=== PATIENT | male | born 1950 | race Caucasian/White ===

== ENCOUNTER → 2017-02-09 | Outpatient (CLI) | payer MEDICARE, OTHER ==
[~2017-02-09] MED LIST: CATHETER FLUSH 10 ML SYR IV PRN; FOSI10TA PO; FURO80TA PO; GABA600T2 PO; HYDR-3720 PO; IOHEXOL 350 MG/ML 100 ML (OMNIPAQUE 350) VIAL IV ONE; LISI40TA PO; LOSA25TA15 PO; META800T5 PO; METO25TA PO; SIMV40TA4 PO; TERA5CAP10 PO
[2017-02-09 10:11] LABS: CREATININE SERUM 1.26 MG/DL (0.60-1.30)
--- NOTE | 2017-02-09 11:56 | Diagnostic Imaging Report ---
CT angiogram of the abdomen. INDICATION: AAA. Hypertension. 100 mL of Omnipaque 350 is administered intravenously. FINDINGS: There is a 4 cm infrarenal abdominal aortic aneurysm seen. There is intramural thrombus noted. When compared to 01/29/2015, there is no significant change in the size of the aneurysm noted. The celiac trunk, the SMA, and the renal arteries are patent. The ROD is patent. There is no para-aortic significantly enlarged lymph node seen. The lung bases demonstrate slight atelectasis on the left side with a small left pleural effusion. The liver demonstrates a 7 mm hyperenhancing focus in the inferior aspect of the right hepatic lobe, may relate to a flash-filling hemangioma. The spleen, the pancreas, and the adrenal glands appear unremarkable. The kidneys have symmetric contrast enhancement and excretion. There is no hydronephrosis. There is a 1 cm simple cyst in the mid posterior left kidney. The osseous structures demonstrate degenerative changes of the lower lumbar spine. IMPRESSION: Infrarenal AAA measuring 4 mm in caliber stable from 01/29/2015. Dictated by: Dictated on workstation # [id number]
== END ==
LOC: RAD 09:40
PROVIDERS: ATTEND Nurse Practitioner
DX: I71.4 Abdominal aortic aneurysm, without rupture (principal); I10 Essential (primary) hypertension
CPT/HCPCS: 36415; 74175; 82565

== ENCOUNTER → 2017-08-23 | Outpatient (CLI) | payer MEDICARE ==
[~2017-08-23] MED LIST changes: +AMLO5TAB2 PO; +ATOR20TA66 PO; -CATHETER FLUSH 10 ML SYR IV PRN; +CEFP200T2 PO; +HYDR-3816 PO; +HYDR12.5 PO; -IOHEXOL 350 MG/ML 100 ML (OMNIPAQUE 350) VIAL IV ONE; +LORA1TAB PO; +LOSA100T28 PO; +METO50TA2 PO; +OMG1KC PO; +PRD20T PO; +QUET400T35 PO; +TERA5CAP3 PO
--- NOTE | 2017-08-23 19:13 | Diagnostic Imaging Report ---
EXAMINATION: PET-CT TECHNIQUE: Serum glucose level at the time of the study is: 137 mg/dL. 14.5 mCi of FDG was administered intravenously followed by obtaining PET images with corresponding noncontrast CT scan images. The CT scan was performed for anatomic correlation and attenuation correction and was not performed according to the diagnostic protocol of the areas covered. The scan was performed from the head to mid thighs. INDICATION: Lung mass in the superior segment of the right lower lobe. COMPARISON: CT of 08/04/17. FINDINGS: There is symmetric FDG uptake in the brain. There is no significant hypermetabolic lesion noted in the neck. In the chest, there is no significant hypermetabolism seen within the nodule in the superior segment of the right lower lobe. This nodule is smaller in size compared to the previous CT scan now measuring 1.6 cm in favor of improving pneumonia. No suspicious hypermetabolic lesion in the mediastinum or felicitas. In the abdomen and pelvis: There is an infrarenal abdominal aortic aneurysm measuring 4.1 cm in caliber. Expected excretion of the tracer is seen along the urinary tract with no suspicious hypermetabolic mass is identified in the abdomen or pelvis. IMPRESSION: 1. No significant hypermetabolism in the superior segment right lower lobe lung nodule which is also smaller in size compared to the previous study suggestive of improving pneumonia. No evidence of hypermetabolic mass is seen. 2. Infrarenal AAA measuring 4.1 cm in caliber. Dictated by: Dictated on workstation # [id number]
== END ==
LOC: RAD 11:01
PROVIDERS: ATTEND Pediatrics
DX: R91.1 Solitary pulmonary nodule (principal); I71.4 Abdominal aortic aneurysm, without rupture

== ENCOUNTER 2017-09-13 14:50 | Outpatient (CLI) | payer MEDICARE ==
[~2017-09-13 14:50] MED LIST changes: +CEFD300C3 PO; +QUET400T12 PO; -QUET400T35 PO
== END 2017-09-13 15:00 | disposition home or self-care (01) ==
LOC: SLEEP 14:50
PROVIDERS: ATTEND Internal Medicine Critical Care Medicine
DX: G47.10 Hypersomnia, unspecified (principal); G47.50 Parasomnia, unspecified

== ENCOUNTER 2017-11-29 15:00 | Outpatient (CLI) | payer MEDICARE ==
[~2017-11-29] VITALS: Ht 181.6 cm; Wt 98.4 kg
[~2017-11-29 15:00] MED LIST changes: +HYDR-34 PO; -HYDR-3816 PO; +METO50TA15 PO; -METO50TA2 PO
[2017-11-29] MEDS ORDERED: HYDR12.56 PO (15:47)
[2017-11-29] MEDS ORDERED: AMLO10TA2 PO (15:47)
== END 2017-11-29 15:30 ==
LOC: PREOP 15:00
PROVIDERS: ATTEND Surgery
DX: Z01.818 Encounter for other preprocedural examination (principal); L98.9 Disorder of the skin and subcutaneous tissue, unspecified

== ENCOUNTER → 2017-11-30 | Outpatient (CLI) | payer MEDICARE ==
[~2017-11-30] MED LIST changes: +AMLO10TA2 PO; +HYDR12.56 PO
--- NOTE | 2017-11-30 15:05 | Diagnostic Imaging Report ---
PROCEDURE: CT chest without contrast. TECHNIQUE: Multiple contiguous axial images were obtained through the chest without the use of intravenous contrast. INDICATION: Pulmonary infiltrates and abnormal prior CT. Study is performed for followup. COMPARISON: Comparison is made with prior CT chest from 08/04/2017. FINDINGS: Multiple normal-sized lymph nodes identified in the axillae bilaterally. Hilar and mediastinal evaluation is limited without intravenous contrast. There are coronary arterial calcifications present. No pericardial or pleural fluid is seen. The central airways are unremarkable. Parenchymal evaluation demonstrates marked improved appearance to the chest. There has been near complete resolution of the right perihilar upper lobe infiltrate. In addition, the masslike consolidation in the superior segment of the right lower lobe has resolved. There is minimal residual linear atelectasis or scarring in the right lower lobe. There is some mild infiltrate or atelectasis in the posterior left lower lobe with some associated bronchiectasis. No mass is seen. IMPRESSION: Near complete clearing of right-sided pulmonary opacities consistent with clearance of pneumonia when compared with prior CT from 08/04/2017. There is some infiltrate or atelectasis in the left lower lobe with associated mild bronchiectasis. Dictated by: Dictated on workstation # [id number]
== END ==
LOC: RAD 14:08
PROVIDERS: ATTEND Nurse Practitioner Family
DX: J47.9 Bronchiectasis, uncomplicated (principal); R91.8 Other nonspecific abnormal finding of lung field
CPT/HCPCS: 71250

== ENCOUNTER 2017-12-01 09:18 | Day surgery (SDC) | payer MEDICARE ==
[~2017-12-01] VITALS: Ht 181.6 cm; Wt 98.4 kg
--- OUTSIDE RECORDS SUMMARY | 2017-12-01 09:25 | XMS REPORT | Continuity of Care Document ---
Author Author [facility] Address Unknown Phone Unavailable Allergies Active Description Code Type Severity Reaction Onset Reported/Identified Relationship to Patient Clinical Status Yes naproxen Drug Allergy N/A N/A 09/11/2011 Yes naproxen Drug Allergy 09/11/2011 Yes naproxen [id number] Drug Allergy Moderate CAUSED KIDNEY D 03/02/2012 Yes flurazepam 30 mg capsule Drug Allergy N/A N/A 07/26/2014 Yes Ambien CR 12.5 mg tablet,ext release multiphase Drug Allergy N/A N/A 06/2014 Medications There is no data. Problems Date Dx Coded Attending Type Code Diagnosis Diagnosed By 09/11/2011 BRENDA WETZEL APRN 302.72 ERECTILE DISORDER 09/11/2011 BRENDA WETZEL APRN 401.1 HYPERTENSION, BENIGN ESSENTIAL 09/11/2011 BRENDA WETZEL APRN 782.1 RASH 09/11/2011 302.72 ERECTILE DISORDER 09/11/2011 401.1 HYPERTENSION, BENIGN ESSENTIAL 09/11/2011 782.1 RASH 09/11/2011 302.72 ERECTILE DISORDER 09/11/2011 401.1 HYPERTENSION, BENIGN ESSENTIAL 09/11/2011 782.1 RASH 09/11/2011 BRENDA WETZEL APRN 302.72 ERECTILE DISORDER 09/11/2011 BRENDA WETZEL APRN 401.1 HYPERTENSION, BENIGN ESSENTIAL 09/11/2011 BRENDA WETZEL APRN 782.1 RASH 09/11/2011 BRENDA WETZEL APRN 302.72 ERECTILE DISORDER 09/11/2011 BRENDA WETZEL APRN 401.1 HYPERTENSION, BENIGN ESSENTIAL 09/11/2011 BRENDA WETZEL APRN 782.1 RASH 09/11/2011 BRENDA WETZEL APRN 302.72 ERECTILE DISORDER 09/11/2011 BRENDA WETZEL APRN 401.1 HYPERTENSION, BENIGN ESSENTIAL 09/11/2011 BRENDA WETZEL APRN 782.1 RASH 09/11/2011 TALLEY DO, DAR K 302.72 ERECTILE DISORDER 09/11/2011 TALLEY DO, DAR K 401.1 HYPERTENSION, BENIGN ESSENTIAL 09/11/2011 TALLEY DO, DAR K 782.1 RASH 09/11/2011 BRENDA WETZEL APRN T 302.72 ERECTILE DISORDER 09/11/2011 BRENDA WETZEL APRN T 401.1 HYPERTENSION, BENIGN ESSENTIAL 09/11/2011 BRENDA WETZEL APRN T 782.1 RASH 09/11/2011 BRENDA WETZEL APRN T 302.72 ERECTILE DISORDER 09/11/2011 BRENDA WETZEL APRN T 401.1 HYPERTENSION, BENIGN ESSENTIAL 09/11/2011 DAMARI FLOOR COVERING LAYERBRENDA T 782.1 RASH 09/11/2011 BRENDA WETZEL APRN T 302.72 ERECTILE DISORDER 09/11/2011 BRENDA WETZEL APRN T 401.1 HYPERTENSION, BENIGN ESSENTIAL 09/11/2011 BRENDA WETZEL APRN T 782.1 RASH 09/11/2011 BRENDA WETZEL APRN T 302.72 ERECTILE DISORDER 09/11/2011 BRENDA WETZEL APRN T 401.1 HYPERTENSION, BENIGN ESSENTIAL 09/11/2011 BRENDA WETZEL APRN T 782.1 RASH 01/24/2012 BRENDA WETZEL APRN T 780.52 INSOMNIA UNSPECIFIED 01/24/2012 780.52 INSOMNIA UNSPECIFIED 01/24/2012 780.52 INSOMNIA UNSPECIFIED 01/24/2012 BRENDA WETZEL APRN T 780.52 INSOMNIA UNSPECIFIED 01/24/2012 BRENDA WETZEL APRN T 780.52 INSOMNIA UNSPECIFIED 01/24/2012 BRENDA WETZEL APRN T 780.52 INSOMNIA UNSPECIFIED 01/24/2012 MAYANK DODAR K 780.52 INSOMNIA UNSPECIFIED 01/24/2012 BRENDA WETZEL APRN T 780.52 INSOMNIA UNSPECIFIED 01/24/2012 BRENDA WETZEL APRN T 780.52 INSOMNIA UNSPECIFIED 01/24/2012 BRENDA WETZEL APRN T 780.52 INSOMNIA UNSPECIFIED 01/24/2012 BRENDA WETZEL APRN T 780.52 INSOMNIA UNSPECIFIED 03/02/2012 Ot 458.9 03/02/2012 Ot 780.79 03/02/2012 Ot E936.3 11/10/2012 BRENDA WETZEL APRN 724.2 BACK PAIN, LOWER 11/10/2012 BRENDA WETZEL APRN 724.2 BACK PAIN, LOWER 11/10/2012 BRENDA WETZEL APRN 724.2 BACK PAIN, LOWER 11/10/2012 TALLEY DO, DAR K 724.2 BACK PAIN, LOWER 11/10/2012 BRENDA WETZEL APRN 724.2 BACK PAIN, LOWER 11/10/2012 BRENDA WETZEL APRN 724.2 BACK PAIN, LOWER 11/10/2012 BRENDA WETZEL APRN 724.2 BACK PAIN, LOWER 05/14/2013 BRENDA WETZEL APRN 786.2 COUGH 05/14/2013 BRENDA WETZEL APRN V15.82 PERSONAL HISTORY OF TOBACCO USE 05/14/2013 TALLEY DO, DAR K 786.2 COUGH 05/14/2013 TALLEY DO, DAR K V15.82 PERSONAL HISTORY OF TOBACCO USE 05/14/2013 BRENDA WETZEL APRN 786.2 COUGH 05/14/2013 BRENDA WETZEL APRN V15.82 PERSONAL HISTORY OF TOBACCO USE 05/14/2013 BRENDA WETZEL APRN 786.2 COUGH 05/14/2013 BRENDA WETZEL APRN V15.82 PERSONAL HISTORY OF TOBACCO USE 05/14/2013 BRENDA WETZEL APRN 786.2 COUGH 05/14/2013 BRENDA WETZEL APRN V15.82 PERSONAL HISTORY OF TOBACCO USE 08/17/2013 TALLEY DO, DAR K V04.81 FLU SHOT 08/17/2013 BRENDA WETZEL APRN V04.81 FLU SHOT 08/17/2013 BRENDA WETZEL APRN V04.81 FLU SHOT 08/17/2013 BRENDA WETZEL APRN V04.81 FLU SHOT 08/16/2014 BRENDA WETZEL APRN 300.00 ANXIETY UNSPEC 08/16/2014 BRENDA WETZEL APRN 300.00 ANXIETY UNSPEC 01/29/2015 BRENDA FERNANDES DO Ot 441.4 ABDOM AORTIC ANEURYSM 01/29/2015 BRENDA FERNANDES DO Ot 724.2 LUMBAGO 03/10/2015 BRENDA WETZEL EXAMINATION SCORER Ot 441.4 03/10/2015 BRENDA WETZEL EXAMINATION SCORER Ot 786.50 04/03/2015 BRENDA WETZEL EXAMINATION SCORER Ot 441.4 04/03/2015 BRENDA WETZEL EXAMINATION SCORER Ot 786.50 05/30/2015 BRENDA WETZELP Ot 441.4 05/30/2015 BRENDA WETZEL EXAMINATION SCORER Ot 786.50 06/05/2015 BRENDA WETZEL EXAMINATION SCORER Ot 441.4 06/05/2015 BRENDA WETZEL EXAMINATION SCORER Ot 786.50 07/21/2016 BRENDA WETZEL EXAMINATION SCORER Ot 441.4 ABDOM AORTIC ANEURYSM 07/21/2016 BRENDA WETZEL EXAMINATION SCORER Ot 786.50 CHEST PAIN NOS 07/22/2016 BRENDA WETZEL EXAMINATION SCORER Ot I71.4 ABDOMINAL AORTIC ANEURYSM, WITHOUT RUPTU 07/23/2016 BRENDA WETZEL EXAMINATION SCORER Ot I71.4 ABDOMINAL AORTIC ANEURYSM, WITHOUT RUPTU 08/03/2016 BRENDA WETZEL EXAMINATION SCORER Ot I71.4 ABDOMINAL AORTIC ANEURYSM, WITHOUT RUPTU 09/29/2016 BRENDA WETZEL EXAMINATION SCORER Ot 441.4 ABDOM AORTIC ANEURYSM 09/29/2016 BRENDA WETZEL EXAMINATION SCORER Ot 786.50 CHEST PAIN NOS 09/29/2016 BRENDA WETZEL EXAMINATION SCORER Ot I71.4 ABDOMINAL AORTIC ANEURYSM, WITHOUT RUPTU 10/14/2016 BRENDA WETZEL EXAMINATION SCORER Ot I71.4 ABDOMINAL AORTIC ANEURYSM, WITHOUT RUPTU 02/10/2017 JOE JOSE EXAMINATION SCORER Ot I10 ESSENTIAL (PRIMARY) HYPERTENSION 02/10/2017 OJE JOSE EXAMINATION SCORER Ot I71.4 ABDOMINAL AORTIC ANEURYSM, WITHOUT RUPTU 02/21/2017 JOE JOSE EXAMINATION SCORER Ot I10 ESSENTIAL (PRIMARY) HYPERTENSION 02/21/2017 JOE JOSE EXAMINATION SCORER Ot I71.4 ABDOMINAL AORTIC ANEURYSM, WITHOUT RUPTU 08/04/2017 DAMARIBRENDA EXAMINATION SCORER Ot 441.4 ABDOM AORTIC ANEURYSM 08/04/2017 DAMARIBRENDA EXAMINATION SCORER Ot 786.50 CHEST PAIN NOS 08/04/2017 BRENDA WETZEL EXAMINATION SCORER Ot I71.4 ABDOMINAL AORTIC ANEURYSM, WITHOUT RUPTU 08/04/2017 JOE JOSE EXAMINATION SCORER Ot I10 ESSENTIAL (PRIMARY) HYPERTENSION 08/04/2017 JOE JOSE EXAMINATION SCORER Ot I71.4 ABDOMINAL AORTIC ANEURYSM, WITHOUT RUPTU 08/08/2017 BARSANAZ SCOTT DO Ot A41.9 SEPSIS, UNSPECIFIED ORGANISM 08/08/2017 BARSANAZ SCOTT DO Ot E78.00 PURE HYPERCHOLESTEROLEMIA, UNSPECIFIED 08/08/2017 BARNISANAZ CARRILLO DO Ot F41.9 ANXIETY DISORDER, UNSPECIFIED 08/08/2017 BARSANAZ SCOTT DO Ot G47.00 INSOMNIA, UNSPECIFIED 08/08/2017 BARNIDGE DO, SANAZ E Ot I10 ESSENTIAL (PRIMARY) HYPERTENSION 08/08/2017 [facility] I71.4 ABDOMINAL AORTIC ANEURYSM, WITHOUT RUPTU 08/08/2017 [facility] SANAZ GIVENS Ot J18.9 PNEUMONIA, UNSPECIFIED ORGANISM 08/08/2017 [facility] K59.00 CONSTIPATION, UNSPECIFIED 08/08/2017 [facility] DOSANAZ Ot M19.91 PRIMARY OSTEOARTHRITIS, UNSPECIFIED SITE 08/08/2017 [facility] DOSANAZ Ot M54.9 DORSALGIA, UNSPECIFIED 08/08/2017 [facility] N04.9 NEPHROTIC SYNDROME WITH UNSPECIFIED MORP 08/08/2017 [facility] N40.0 BENIGN PROSTATIC HYPERPLASIA WITHOUT LOW 08/08/2017 [facility] 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, UNSPECIFIED 08/08/2017 [facility] R91.8 OTHER NONSPECIFIC ABNORMAL FINDING OF CHING 08/08/2017 [facility] Z87.891 PERSONAL HISTORY OF NICOTINE DEPENDENCE 08/08/2017 [facility] A41.9 SEPSIS, UNSPECIFIED ORGANISM 08/08/2017 [facility] E78.00 PURE HYPERCHOLESTEROLEMIA, UNSPECIFIED 08/08/2017 [facility] F41.9 ANXIETY DISORDER, UNSPECIFIED 08/08/2017 [facility] G47.00 INSOMNIA, UNSPECIFIED 08/08/2017 [facility] I10 ESSENTIAL (PRIMARY) HYPERTENSION 08/08/2017 [facility] I71.4 ABDOMINAL AORTIC ANEURYSM, WITHOUT RUPTU 08/08/2017 [facility] SANAZ GIVENS Ot J18.9 PNEUMONIA, UNSPECIFIED ORGANISM 08/08/2017 [facility] K59.00 CONSTIPATION, UNSPECIFIED 08/08/2017 [facility] M19.91 PRIMARY OSTEOARTHRITIS, UNSPECIFIED SITE 08/08/2017 BARNIDGSANAZ Jiang DO Ot M54.9 DORSALGIA, UNSPECIFIED 08/08/2017 [facility] Ot N04.9 NEPHROTIC SYNDROME WITH UNSPECIFIED MORP 08/08/2017 [facility] Ot N40.0 BENIGN PROSTATIC HYPERPLASIA WITHOUT LOW 08/08/2017 [facility] DO Ot 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, UNSPECIFIED 08/08/2017 SANAZ LEVY DO Ot R91.8 OTHER NONSPECIFIC ABNORMAL FINDING OF CHING 08/08/2017 SANAZ LEVY DO Ot Z23 ENCOUNTER FOR IMMUNIZATION 08/08/2017 SANAZ LEVY DO Ot Z87.891 PERSONAL HISTORY OF NICOTINE DEPENDENCE 08/08/2017 JOESANAZ Jiang DO Ot A41.9 SEPSIS, UNSPECIFIED ORGANISM 08/08/2017 JOESANAZ Jiang DO Ot E78.00 PURE HYPERCHOLESTEROLEMIA, UNSPECIFIED 08/08/2017 SANAZ LEVY DO Ot F41.9 ANXIETY DISORDER, UNSPECIFIED 08/08/2017 [facility] Ot G47.00 INSOMNIA, UNSPECIFIED 08/08/2017 SANAZ LEVY DO Ot I10 ESSENTIAL (PRIMARY) HYPERTENSION 08/08/2017 [facility] DO Ot I71.4 ABDOMINAL AORTIC ANEURYSM, WITHOUT RUPTU 08/08/2017 [facility] Ot J18.9 PNEUMONIA, UNSPECIFIED ORGANISM 08/08/2017 SANAZ LEVY DO Ot K59.00 CONSTIPATION, UNSPECIFIED 08/08/2017 [facility] DO Ot M19.91 PRIMARY OSTEOARTHRITIS, UNSPECIFIED SITE 08/08/2017 SANAZ LEVY DO Ot M54.9 DORSALGIA, UNSPECIFIED 08/08/2017 JOESANAZ Jiang DO Ot N04.9 NEPHROTIC SYNDROME WITH UNSPECIFIED MORP 08/08/2017 JOESANAZ Jiang DO Ot N40.0 BENIGN PROSTATIC HYPERPLASIA WITHOUT LOW 08/08/2017 [facility] DO Ot 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, UNSPECIFIED 08/08/2017 MILDRED GIVENS SANAZ E Ot R91.8 OTHER NONSPECIFIC ABNORMAL FINDING OF CHING 08/08/2017 [facility] SANAZ Deidre Ot Z87.891 PERSONAL HISTORY OF NICOTINE DEPENDENCE 08/23/2017 BRENDA WETZEL EXAMINATION SCORER Ot 441.4 ABDOM AORTIC ANEURYSM 08/23/2017 BRENDA WETZEL EXAMINATION SCORER Ot 786.50 CHEST PAIN NOS 08/23/2017 BRENDA WETZEL EXAMINATION SCORER Ot I71.4 ABDOMINAL AORTIC ANEURYSM, WITHOUT RUPTU 08/23/2017 JOSEJOE EXAMINATION SCORER Ot I10 ESSENTIAL (PRIMARY) HYPERTENSION 08/23/2017 JOSEJOE EXAMINATION SCORER Ot I71.4 ABDOMINAL AORTIC ANEURYSM, WITHOUT RUPTU 08/28/2017 SHIV MATHIAS MD Ot E78.5 HYPERLIPIDEMIA, UNSPECIFIED 08/28/2017 SHIV MATHIAS MD Ot F41.9 ANXIETY DISORDER, UNSPECIFIED 08/28/2017 SHIV MATHIAS MD Ot G47.00 INSOMNIA, UNSPECIFIED 08/28/2017 SHIV MATHIAS MD Ot I10 ESSENTIAL (PRIMARY) HYPERTENSION 08/28/2017 SHIV MATHIAS MD Ot I71.4 ABDOMINAL AORTIC ANEURYSM, WITHOUT RUPTU 08/28/2017 SHIV MATHIAS MD Ot J18.9 PNEUMONIA, UNSPECIFIED ORGANISM 08/28/2017 SHIV MATHIAS MD Ot M19.91 PRIMARY OSTEOARTHRITIS, UNSPECIFIED SITE 08/28/2017 SHIV MATHIAS MD Ot N40.0 BENIGN PROSTATIC HYPERPLASIA WITHOUT LOW 08/28/2017 SHIV MATHIAS MD Ot R91.8 OTHER NONSPECIFIC ABNORMAL FINDING OF CHING 08/28/2017 SHIV MATHIAS MD Ot Z87.891 PERSONAL HISTORY OF NICOTINE DEPENDENCE 09/08/2017 SCHUYLER CASTILLO MD Ot I71.4 ABDOMINAL AORTIC ANEURYSM, WITHOUT RUPTU 09/08/2017 SCHUYLER CASTILLO MD Ot R91.1 SOLITARY PULMONARY NODULE 09/09/2017 HUSSEIN VERGARA DO Ot G47.10 HYPERSOMNIA, UNSPECIFIED 09/13/2017 HUSSEIN VERGARA DO Ot G47.10 HYPERSOMNIA, UNSPECIFIED 09/13/2017 HUSSEIN VERGARA DO Ot G47.50 PARASOMNIA, UNSPECIFIED Procedures Code Description [place] [address] ROUTINE VENIPUNCTURE 11/10/2012 75887 TSH 11/10/2012 47867 CBC 11/10/2012 81221 LIPID PANEL 11/10/2012 75163 CMP 11/10/2012 9554302 GFR CALC (RESULT ONLY) 11/10/2012 Results Test Result Range Serum or plasma creatinine measurement with calculation of estimated glomerular filtration rate - 02/09/17 09:50 Serum or plasma creatinine measurement (mass/volume) 1.26 mg/dL 0.60-1.30 Serum or plasma creatinine measurement with calculation of estimated glomerular filtration rate 57 NRG Complete blood count (CBC) with automated white blood cell (WBC) differential - 08/04/17 14:35 Blood leukocytes automated count (number/volume) 20.6 10*3/uL 4.3-11.0 Blood erythrocytes automated count (number/volume) 3.71 10*6/uL 4.35-5.85 Venous blood hemoglobin measurement (mass/volume) 11.5 g/dL 13.3-17.7 Blood hematocrit (volume fraction) 34 % 40-54 Automated erythrocyte mean corpuscular volume 91 [foz_us] 80-99 Automated erythrocyte mean corpuscular hemoglobin (mass per erythrocyte) 31 pg 25-34 Automated erythrocyte mean corpuscular hemoglobin concentration measurement ( mass/volume) 34 g/dL 32-36 Automated erythrocyte distribution width ratio 14.1 % 10.0-14.5 Automated blood platelet count (count/volume) 225 10*3/uL 130-400 Automated blood platelet mean volume measurement 10.6 [foz_us] 7.4-10.4 Automated blood neutrophils/100 leukocytes 88 % 42-75 Automated blood lymphocytes/100 leukocytes 3 % 12-44 Blood monocytes/100 leukocytes 9 % 0-12 Automated blood eosinophils/100 leukocytes 0 % 0-10 Automated blood basophils/100 leukocytes 0 % 0-10 Blood neutrophils automated count (number/volume) 18.2 10*3 1.8-7.8 Blood lymphocytes automated count (number/volume) 0.6 10*3 1.0-4.0 Blood monocytes automated count (number/volume) 1.8 10*3 0.0-1.0 Automated eosinophil count 0.0 10*3/uL 0.0-0.3 Automated blood basophil count (count/volume) 0.0 10*3/uL 0.0-0.1 PT panel in platelet poor plasma by coagulation assay - 08/04/17 14:35 Prothrombin time (PT) in platelet poor plasma by coagulation assay 14.7 s 12.2-14.7 INR in platelet poor plasma or blood by coagulation assay 1.1 0.8-1.4 Activated partial thromboplastin time (aPTT) in platelet poor plasma bycoagulation assay - 08/04/17 14:35 Activated partial thromboplastin time (aPTT) in platelet poor plasma bycoagulation assay 36 s 24-35 Comprehensive metabolic panel - 08/04/17 14:35 Serum or plasma sodium measurement (moles/volume) 134 mmol/L 135-145 Serum or plasma potassium measurement (moles/volume) 3.9 mmol/L 3.6-5.0 Serum or plasma chloride measurement (moles/volume) 100 mmol/L 98-107 Carbon dioxide 25 mmol/L 21-32 Serum or plasma anion gap determination (moles/volume) 9 mmol/L 5-14 Serum or plasma urea nitrogen measurement (mass/volume) 10 mg/dL 7-18 Serum or plasma creatinine measurement (mass/volume) 1.29 mg/dL 0.60-1.30 Serum or plasma urea nitrogen/creatinine mass ratio 8 NRG Serum or plasma creatinine measurement with calculation of estimated glomerular filtration rate 56 NRG Serum or plasma glucose measurement (mass/volume) 193 mg/dL 70-105 Serum or plasma calcium measurement (mass/volume) 8.5 mg/dL 8.5-10.1 Serum or plasma total bilirubin measurement (mass/volume) 2.3 mg/dL 0.1-1.0 Serum or plasma alkaline phosphatase measurement (enzymatic activity/volume) 126 U/L 40-136 Serum or plasma aspartate aminotransferase measurement (enzymatic activity/ volume) 11 U/L 5-34 Serum or plasma alanine aminotransferase measurement (enzymatic activity/volume ) 14 U/L 0-55 Serum or plasma protein measurement (mass/volume) 7.7 g/dL 6.4-8.2 Serum or plasma albumin measurement (mass/volume) 3.6 g/dL 3.2-4.5 Blood lactic acid measurement (moles/volume) - 08/04/17 14:35 Blood lactic acid measurement (moles/volume) 2.18 mmol/L 0.50-2.00 Blood manual differential performed detection - 08/04/17 14:35 Blood monocytes/100 leukocytes 7 % NRG Manual blood segmented neutrophils/100 leukocytes 90 % NRG Manual blood lymphocytes/100 leukocytes 3 % NRG Blood erythrocyte morphology finding identification NORMAL NRG Bacterial blood culture - 08/04/17 14:35 Bacterial blood culture NG NRG Bacterial blood culture - 08/04/17 15:20 Bacterial blood culture NG NRG Complete urinalysis with reflex to culture - 08/04/17 16:00 Urine color determination YELLOW NRG Urine clarity determination CLEAR NRG Urine pH measurement by test strip 8 5-9 Specific gravity of urine by test strip 1.015 1.016- 1.022 Urine protein assay by test strip, semi-quantitative 3+ NEGATIVE Urine glucose detection by automated test strip NEGATIVE NEGATIVE Erythrocytes detection in urine sediment by light microscopy 2+ NEGATIVE Urine ketones detection by automated test strip NEGATIVE NEGATIVE Urine nitrite detection by test strip NEGATIVE NEGATIVE Urine total bilirubin detection by test strip 2+ NEGATIVE Urine urobilinogen measurement by automated test strip (mass/volume) 4 mg/dL NORMAL Urine leukocyte esterase detection by dipstick 1+ NEGATIVE Automated urine sediment erythrocyte count by microscopy (number/high power field) RARE NRG Automated urine sediment leukocyte count by microscopy (number/high power field ) [HPF] NRG Bacteria detection in urine sediment by light microscopy TRACE NRG Crystals detection in urine sediment by light microscopy NONE NRG Casts detection in urine sediment by light microscopy PRESENT NRG Mucus detection in urine sediment by light microscopy MODERATE NRG Complete urinalysis with reflex to culture NO NRG Granular casts detection in urine sediment by light microscopy 25- 50 NRG Serum or plasma lactate measurement (moles/volume) - 08/04/17 17:03 Serum or plasma lactate measurement (moles/volume) 1.11 mmol/L 0.50-2.00 Methicillin resistant Staphylococcus aureus (MRSA) screening culture - 18:00 Methicillin resistant Staphylococcus aureus (MRSA) screening culture NEG NRG Complete blood count (CBC) with automated white blood cell (WBC) differential - 08/05/17 06:40 Blood leukocytes automated count (number/volume) 29.5 10*3/uL 4.3-11.0 Blood erythrocytes automated count (number/volume) 3.85 10*6/uL 4.35-5.85 Venous blood hemoglobin measurement (mass/volume) 11.7 g/dL 13.3-17.7 Blood hematocrit (volume fraction) 35 % 40-54 Automated erythrocyte mean corpuscular volume 92 [foz_us] 80-99 Automated erythrocyte mean corpuscular hemoglobin (mass per erythrocyte) 30 pg 25-34 Automated erythrocyte mean corpuscular hemoglobin concentration measurement ( mass/volume) 33 g/dL 32-36 Automated erythrocyte distribution width ratio 14.3 % 10.0-14.5 Automated blood platelet count (count/volume) 207 10*3/uL 130-400 Automated blood platelet mean volume measurement 10.8 [foz_us] 7.4-10.4 Automated blood neutrophils/100 leukocytes 94 % 42-75 Automated blood lymphocytes/100 leukocytes 3 % 12-44 Blood monocytes/100 leukocytes 3 % 0-12 Automated blood eosinophils/100 leukocytes 0 % 0-10 Automated blood basophils/100 leukocytes 0 % 0-10 Blood neutrophils automated count (number/volume) 27.6 10*3 1.8-7.8 Blood lymphocytes automated count (number/volume) 1.0 10*3 1.0-4.0 Blood monocytes automated count (number/volume) 0.9 10*3 0.0-1.0 Automated eosinophil count 0.0 10*3/uL 0.0-0.3 Automated blood basophil count (count/volume) 0.0 10*3/uL 0.0-0.1 Comprehensive metabolic panel - 08/05/17 06:40 Serum or plasma sodium measurement (moles/volume) 140 mmol/L 135-145 Serum or plasma potassium measurement (moles/volume) 4.3 mmol/L 3.6-5.0 Serum or plasma chloride measurement (moles/volume) 109 mmol/L 98-107 Carbon dioxide 21 mmol/L 21-32 Serum or plasma anion gap determination (moles/volume) 10 mmol/L 5-14 Serum or plasma urea nitrogen measurement (mass/volume) 11 mg/dL 7-18 Serum or plasma creatinine measurement (mass/volume) 0.89 mg/dL 0.60-1.30 Serum or plasma urea nitrogen/creatinine mass ratio 12 NRG Serum or plasma creatinine measurement with calculation of estimated glomerular filtration rate > NRG Serum or plasma glucose measurement (mass/volume) 200 mg/dL 70-105 Serum or plasma calcium measurement (mass/volume) 8.2 mg/dL 8.5-10.1 Serum or plasma total bilirubin measurement (mass/volume) 1.2 mg/dL 0.1-1.0 Serum or plasma alkaline phosphatase measurement (enzymatic activity/volume) 151 U/L 40-136 Serum or plasma aspartate aminotransferase measurement (enzymatic activity/ volume) 17 U/L 5-34 Serum or plasma alanine aminotransferase measurement (enzymatic activity/volume ) 20 U/L 0-55 Serum or plasma protein measurement (mass/volume) 7.4 g/dL 6.4-8.2 Serum or plasma albumin measurement (mass/volume) 3.3 g/dL 3.2-4.5 Magnesium - 08/05/17 06:40 Magnesium 2.4 mg/dL 1.8-2.4 Serum or plasma C reactive protein measurement (mass/volume) - 08/05/17 06:40 Serum or plasma C reactive protein measurement (mass/volume) 32.12 mg/dL 0.00-0.50 Vancomycin trough - 08/05/17 18:10 Vancomycin trough 10.4 ug/mL 10.0-20.0 Complete blood count (CBC) with automated white blood cell (WBC) differential - 08/06/17 04:22 Blood leukocytes automated count (number/volume) 28.2 10*3/uL 4.3-11.0 Blood erythrocytes automated count (number/volume) 3.15 10*6/uL 4.35-5.85 Venous blood hemoglobin measurement (mass/volume) 9.7 g/dL 13.3-17.7 Blood hematocrit (volume fraction) 29 % 40-54 Automated erythrocyte mean corpuscular volume 91 [foz_us] 80-99 Automated erythrocyte mean corpuscular hemoglobin (mass per erythrocyte) 31 pg 25-34 Automated erythrocyte mean corpuscular hemoglobin concentration measurement ( mass/volume) 34 g/dL 32-36 Automated erythrocyte distribution width ratio 14.4 % 10.0-14.5 Automated blood platelet count (count/volume) 241 10*3/uL 130-400 Automated blood platelet mean volume measurement 11.7 [foz_us] 7.4-10.4 Automated blood neutrophils/100 leukocytes 94 % 42-75 Automated blood lymphocytes/100 leukocytes 3 % 12-44 Blood monocytes/100 leukocytes 4 % 0-12 Automated blood eosinophils/100 leukocytes 0 % 0-10 Automated blood basophils/100 leukocytes 0 % 0-10 Blood neutrophils automated count (number/volume) 26.4 10*3 1.8-7.8 Blood lymphocytes automated count (number/volume) 0.8 10*3 1.0-4.0 Blood monocytes automated count (number/volume) 1.0 10*3 0.0-1.0 Automated eosinophil count 0.0 10*3/uL 0.0-0.3 Automated blood basophil count (count/volume) 0.0 10*3/uL 0.0-0.1 Whole blood basic metabolic panel - 08/06/17 04:22 Serum or plasma sodium measurement (moles/volume) 139 mmol/L 135-145 Serum or plasma potassium measurement (moles/volume) 4.2 mmol/L 3.6-5.0 Serum or plasma chloride measurement (moles/volume) 111 mmol/L 98-107 Carbon dioxide 20 mmol/L 21-32 Serum or plasma anion gap determination (moles/volume) 8 mmol/L 5-14 Serum or plasma urea nitrogen measurement (mass/volume) 19 mg/dL 7-18 Serum or plasma creatinine measurement (mass/volume) 0.89 mg/dL 0.60-1.30 Serum or plasma urea nitrogen/creatinine mass ratio 21 NRG Serum or plasma creatinine measurement with calculation of estimated glomerular filtration rate > NRG Serum or plasma glucose measurement (mass/volume) 210 mg/dL 70-105 Serum or plasma calcium measurement (mass/volume) 7.8 mg/dL 8.5-10.1 Magnesium - 08/06/17 04:22 Magnesium 2.5 mg/dL 1.8-2.4 Complete blood count (CBC) with automated white blood cell (WBC) differential - 08/07/17 05:20 Blood leukocytes automated count (number/volume) 26.1 10*3/uL 4.3-11.0 Blood erythrocytes automated count (number/volume) 3.26 10*6/uL 4.35-5.85 Venous blood hemoglobin measurement (mass/volume) 10.0 g/dL 13.3-17.7 Blood hematocrit (volume fraction) 30 % 40-54 Automated erythrocyte mean corpuscular volume 92 [foz_us] 80-99 Automated erythrocyte mean corpuscular hemoglobin (mass per erythrocyte) 31 pg 25-34 Automated erythrocyte mean corpuscular hemoglobin concentration measurement ( mass/volume) 33 g/dL 32-36 Automated erythrocyte distribution width ratio 14.9 % 10.0-14.5 Automated blood platelet count (count/volume) 300 10*3/uL 130-400 Automated blood platelet mean volume measurement 11.3 [foz_us] 7.4-10.4 Automated blood neutrophils/100 leukocytes 93 % 42-75 Automated blood lymphocytes/100 leukocytes 3 % 12-44 Blood monocytes/100 leukocytes 4 % 0-12 Automated blood eosinophils/100 leukocytes 0 % 0-10 Automated blood basophils/100 leukocytes 0 % 0-10 Blood neutrophils automated count (number/volume) 24.3 10*3 1.8-7.8 Blood lymphocytes automated count (number/volume) 0.9 10*3 1.0-4.0 Blood monocytes automated count (number/volume) 0.9 10*3 0.0-1.0 Automated eosinophil count 0.0 10*3/uL 0.0-0.3 Automated blood basophil count (count/volume) 0.0 10*3/uL 0.0-0.1 Comprehensive metabolic panel - 08/07/17 05:20 Serum or plasma sodium measurement (moles/volume) 141 mmol/L 135-145 Serum or plasma potassium measurement (moles/volume) 4.4 mmol/L 3.6-5.0 Serum or plasma chloride measurement (moles/volume) 112 mmol/L 98-107 Carbon dioxide 20 mmol/L 21-32 Serum or plasma anion gap determination (moles/volume) 9 mmol/L 5-14 Serum or plasma urea nitrogen measurement (mass/volume) 27 mg/dL 7-18 Serum or plasma creatinine measurement (mass/volume) 1.00 mg/dL 0.60-1.30 Serum or plasma urea nitrogen/creatinine mass ratio 27 NRG Serum or plasma creatinine measurement with calculation of estimated glomerular filtration rate > NRG Serum or plasma glucose measurement (mass/volume) 198 mg/dL 70-105 Serum or plasma calcium measurement (mass/volume) 7.9 mg/dL 8.5-10.1 Serum or plasma total bilirubin measurement (mass/volume) 0.4 mg/dL 0.1-1.0 Serum or plasma alkaline phosphatase measurement (enzymatic activity/volume) 112 U/L 40-136 Serum or plasma aspartate aminotransferase measurement (enzymatic activity/ volume) 22 U/L 5-34 Serum or plasma alanine aminotransferase measurement (enzymatic activity/volume ) 32 U/L 0-55 Serum or plasma protein measurement (mass/volume) 6.4 g/dL 6.4-8.2 Serum or plasma albumin measurement (mass/volume) 3.0 g/dL 3.2-4.5 Blood lactic acid measurement (moles/volume) - 08/26/17 14:00 Blood lactic acid measurement (moles/volume) 1.05 mmol/L 0.50-2.00 Complete blood count (CBC) with automated white blood cell (WBC) differential - 08/26/17 14:00 Blood leukocytes automated count (number/volume) 16.4 10*3/uL 4.3-11.0 Blood erythrocytes automated count (number/volume) 3.82 10*6/uL 4.35-5.85 Venous blood hemoglobin measurement (mass/volume) 11.7 g/dL 13.3-17.7 Blood hematocrit (volume fraction) 35 % 40-54 Automated erythrocyte mean corpuscular volume 91 [foz_us] 80-99 Automated erythrocyte mean corpuscular hemoglobin (mass per erythrocyte) 31 pg 25-34 Automated erythrocyte mean corpuscular hemoglobin concentration measurement ( mass/volume) 34 g/dL 32-36 Automated erythrocyte distribution width ratio 14.8 % 10.0-14.5 Automated blood platelet count (count/volume) 188 10*3/uL 130-400 Automated blood platelet mean volume measurement 10.1 [foz_us] 7.4-10.4 Automated blood neutrophils/100 leukocytes 88 % 42-75 Automated blood lymphocytes/100 leukocytes 4 % 12-44 Blood monocytes/100 leukocytes 8 % 0-12 Automated blood eosinophils/100 leukocytes 0 % 0-10 Automated blood basophils/100 leukocytes 0 % 0-10 Blood neutrophils automated count (number/volume) 14.4 10*3 1.8-7.8 Blood lymphocytes automated count (number/volume) 0.6 10*3 1.0-4.0 Blood monocytes automated count (number/volume) 1.3 10*3 0.0-1.0 Automated eosinophil count 0.1 10*3/uL 0.0-0.3 Automated blood basophil count (count/volume) 0.0 10*3/uL 0.0-0.1 Comprehensive metabolic panel - 08/26/17 14:00 Serum or plasma sodium measurement (moles/volume) 135 mmol/L 135-145 Serum or plasma potassium measurement (moles/volume) 3.9 mmol/L 3.6-5.0 Serum or plasma chloride measurement (moles/volume) 101 mmol/L 98-107 Carbon dioxide 23 mmol/L 21-32 Serum or plasma anion gap determination (moles/volume) 11 mmol/L 5-14 Serum or plasma urea nitrogen measurement (mass/volume) 10 mg/dL 7-18 Serum or plasma creatinine measurement (mass/volume) 0.87 mg/dL 0.60-1.30 Serum or plasma urea nitrogen/creatinine mass ratio 11 NRG Serum or plasma creatinine measurement with calculation of estimated glomerular filtration rate > NRG Serum or plasma glucose measurement (mass/volume) 120 mg/dL 70-105 Serum or plasma calcium measurement (mass/volume) 8.6 mg/dL 8.5-10.1 Serum or plasma total bilirubin measurement (mass/volume) 1.2 mg/dL 0.1-1.0 Serum or plasma alkaline phosphatase measurement (enzymatic activity/volume) 99 U/L 40-136 Serum or plasma aspartate aminotransferase measurement (enzymatic activity/ volume) 18 U/L 5-34 Serum or plasma alanine aminotransferase measurement (enzymatic activity/volume ) 26 U/L 0-55 Serum or plasma protein measurement (mass/volume) 7.2 g/dL 6.4-8.2 Serum or plasma albumin measurement (mass/volume) 3.5 g/dL 3.2-4.5 Blood manual differential performed detection - 08/26/17 14:00 Blood monocytes/100 leukocytes 8 % NRG Manual blood segmented neutrophils/100 leukocytes 89 % NRG Manual blood lymphocytes/100 leukocytes 2 % NRG Manual eosinophils/100 leukocytes in nose 1 % NRG Blood erythrocyte morphology finding identification NORMAL NRG Bacterial blood culture - 08/26/17 14:00 Bacterial blood culture NG NRG Bacterial blood culture - 08/26/17 14:05 Bacterial blood culture NG NRG Methicillin resistant Staphylococcus aureus (MRSA) screening culture - 17:00 Methicillin resistant Staphylococcus aureus (MRSA) screening culture NEG NRG Complete urinalysis with reflex to culture - 08/26/17 17:25 Urine color determination YELLOW NRG Urine clarity determination CLEAR NRG Urine pH measurement by test strip 8 5-9 Specific gravity of urine by test strip 1.010 1.016- 1.022 Urine protein assay by test strip, semi-quantitative NEGATIVE NEGATIVE Urine glucose detection by automated test strip NEGATIVE NEGATIVE Erythrocytes detection in urine sediment by light microscopy NEGATIVE NEGATIVE Urine ketones detection by automated test strip NEGATIVE NEGATIVE Urine nitrite detection by test strip NEGATIVE NEGATIVE Urine total bilirubin detection by test strip NEGATIVE NEGATIVE Urine urobilinogen measurement by automated test strip (mass/volume) NORMAL NORMAL Urine leukocyte esterase detection by dipstick NEGATIVE NEGATIVE Automated urine sediment erythrocyte count by microscopy (number/high power field) NONE NRG Automated urine sediment leukocyte count by microscopy (number/high power field ) NONE NRG Bacteria detection in urine sediment by light microscopy NEGATIVE NRG Squamous epithelial cells detection in urine sediment by light microscopy NONE NRG Crystals detection in urine sediment by light microscopy NONE NRG Casts detection in urine sediment by light microscopy NONE NRG Mucus detection in urine sediment by light microscopy NEGATIVE NRG Complete urinalysis with reflex to culture NO NRG Complete blood count (CBC) with automated white blood cell (WBC) differential - 08/27/17 06:15 Blood leukocytes automated count (number/volume) 10.3 10*3/uL 4.3-11.0 Blood erythrocytes automated count (number/volume) 3.31 10*6/uL 4.35-5.85 Venous blood hemoglobin measurement (mass/volume) 10.1 g/dL 13.3-17.7 Blood hematocrit (volume fraction) 31 % 40-54 Automated erythrocyte mean corpuscular volume 92 [foz_us] 80-99 Automated erythrocyte mean corpuscular hemoglobin (mass per erythrocyte) 31 pg 25-34 Automated erythrocyte mean corpuscular hemoglobin concentration measurement ( mass/volume) 33 g/dL 32-36 Automated erythrocyte distribution width ratio 15.0 % 10.0-14.5 Automated blood platelet count (count/volume) 183 10*3/uL 130-400 Automated blood platelet mean volume measurement 9.8 [foz_us] 7.4-10.4 Automated blood neutrophils/100 leukocytes 71 % 42-75 Automated blood lymphocytes/100 leukocytes 15 % 12-44 Blood monocytes/100 leukocytes 10 % 0-12 Automated blood eosinophils/100 leukocytes 5 % 0-10 Automated blood basophils/100 leukocytes 0 % 0-10 Blood neutrophils automated count (number/volume) 7.3 10*3 1.8-7.8 Blood lymphocytes automated count (number/volume) 1.6 10*3 1.0-4.0 Blood monocytes automated count (number/volume) 1.0 10*3 0.0-1.0 Automated eosinophil count 0.5 10*3/uL 0.0-0.3 Automated blood basophil count (count/volume) 0.0 10*3/uL 0.0-0.1 Whole blood basic metabolic panel - 08/27/17 06:15 Serum or plasma sodium measurement (moles/volume) 140 mmol/L 135-145 Serum or plasma potassium measurement (moles/volume) 3.8 mmol/L 3.6-5.0 Serum or plasma chloride measurement (moles/volume) 107 mmol/L 98-107 Carbon dioxide 23 mmol/L - Serum or plasma anion gap determination (moles/volume) 10 mmol/L -14 Serum or plasma urea nitrogen measurement (mass/volume) 10 mg/dL 18 Serum or plasma creatinine measurement (mass/volume) 0.92 mg/dL 0.60-1.30 Serum or plasma urea nitrogen/creatinine mass ratio 11 NRG Serum or plasma creatinine measurement with calculation of estimated glomerular filtration rate > NRG Serum or plasma glucose measurement (mass/volume) 109 mg/dL 70-105 Serum or plasma calcium measurement (mass/volume) 8.2 mg/dL 8.5-10.1 Serum or plasma phosphate measurement (mass/volume) - 08/27/17 06:15 Serum or plasma phosphate measurement (mass/volume) 3.5 mg/dL 2.3-4.7 Magnesium - 08/27/17 06:15 Magnesium 1.9 mg/dL 1.8-2.4 Vancomycin trough - 08/28/17 04:50 Vancomycin trough 14.9 ug/mL 10.0-20.0 Comprehensive metabolic panel - 08/28/17 04:50 Serum or plasma sodium measurement (moles/volume) 141 mmol/L 135-145 Serum or plasma potassium measurement (moles/volume) 3.8 mmol/L 3.6-5.0 Serum or plasma chloride measurement (moles/volume) 108 mmol/L 98-107 Carbon dioxide 23 mmol/L Serum or plasma anion gap determination (moles/volume) 10 mmol/L 5-14 Serum or plasma urea nitrogen measurement (mass/volume) 8 mg/dL -18 Serum or plasma creatinine measurement (mass/volume) 0.85 mg/dL 0.60-1.30 Serum or plasma urea nitrogen/creatinine mass ratio 9 NRG Serum or plasma creatinine measurement with calculation of estimated glomerular filtration rate > NRG Serum or plasma glucose measurement (mass/volume) 107 mg/dL 70-105 Serum or plasma calcium measurement (mass/volume) 8.5 mg/dL 8.5-10.1 Serum or plasma total bilirubin measurement (mass/volume) 0.6 mg/dL 0.1-1.0 Serum or plasma alkaline phosphatase measurement (enzymatic activity/volume) 93 U/L 40-136 Serum or plasma aspartate aminotransferase measurement (enzymatic activity/ volume) 13 U/L 5-34 Serum or plasma alanine aminotransferase measurement (enzymatic activity/volume ) 20 U/L 0-55 Serum or plasma protein measurement (mass/volume) 6.4 g/dL 6.4-8.2 Serum or plasma albumin measurement (mass/volume) 3.2 g/dL 3.2-4.5 Vancomycin trough - 08/28/17 04:50 Vancomycin trough 14.8 ug/mL 10.0-20.0 Complete blood count (CBC) with automated white blood cell (WBC) differential - 08/28/17 04:50 Blood leukocytes automated count (number/volume) 7.3 10*3/uL 4.3-11.0 Blood erythrocytes automated count (number/volume) 3.54 10*6/uL 4.35-5.85 Venous blood hemoglobin measurement (mass/volume) 11.0 g/dL 13.3-17.7 Blood hematocrit (volume fraction) 33 % 40-54 Automated erythrocyte mean corpuscular volume 92 [foz_us] 80-99 Automated erythrocyte mean corpuscular hemoglobin (mass per erythrocyte) 31 pg 25-34 Automated erythrocyte mean corpuscular hemoglobin concentration measurement ( mass/volume) 34 g/dL 32-36 Automated erythrocyte distribution width ratio 14.9 % 10.0-14.5 Automated blood platelet count (count/volume) 202 10*3/uL 130-400 Automated blood platelet mean volume measurement 10.3 [foz_us] 7.4-10.4 Automated blood neutrophils/100 leukocytes 60 % 42-75 Automated blood lymphocytes/100 leukocytes 19 % 12-44 Blood monocytes/100 leukocytes 12 % 0-12 Automated blood eosinophils/100 leukocytes 8 % 0-10 Automated blood basophils/100 leukocytes 0 % 0-10 Blood neutrophils automated count (number/volume) 4.4 10*3 1.8-7.8 Blood lymphocytes automated count (number/volume) 1.4 10*3 1.0-4.0 Blood monocytes automated count (number/volume) 0.9 10*3 0.0-1.0 Automated eosinophil count 0.6 10*3/uL 0.0-0.3 Automated blood basophil count (count/volume) 0.0 10*3/uL 0.0-0.1 Encounters ACCT No. Visit Date/Time Discharge Status Pt. Type Provider Facility Loc./Unit Complaint [id number] 11/13/2014 15:56:00 11/13/2014 23:59:59 CLS Outpatient BRENDA WETZEL APRN [id number] 08/16/2014 11:35:00 08/16/2014 23:59:59 CLS Outpatient BRENDA WETZEL APRN [id number] 02/15/2014 11:59:00 02/15/2014 23:59:59 CLS Outpatient BRENDA WETZEL APRN [id number] 08/17/2013 13:49:00 08/17/2013 23:59:59 CLS Outpatient DAR TALLEY DO [id number] 05/23/2013 17:00:00 05/23/2013 23:59:59 CLS Outpatient BRENDA WETZEL APRN [id number] 12/08/2012 15:20:00 12/08/2012 23:59:59 CLS Outpatient BRENDA WETZEL APRN [id number] 11/10/2012 12:22:00 11/10/2012 23:59:59 CLS Outpatient BRENDA WETZEL APRN [id number] 10/27/2012 00:00:00 10/27/2012 23:59:59 CLS Outpatient [id number] 10/11/2012 14:41:00 10/11/2012 23:59:59 CLS Outpatient [id number] 05/10/2012 16:57:00 05/10/2012 23:59:59 CLS Outpatient BRENDA WETZEL APRN [id number] 05/10/2012 16:57:00 05/10/2012 23:59:59 CLS Outpatient BRENDA WETZEL APRN [id number] 11/02/2017 10:45:00 11/02/2017 23:59:59 CLS Preadmit ELVA BILLINGSLEY APRN [facility] RAD J18.9 [id number] 09/13/2017 14:50:00 09/13/2017 15:00:00 DIS Outpatient HUSSEIN VERGARA DO [facility] SLEEP G47.10 HYPERSOMNIA [id number] 09/06/2017 14:48:00 09/06/2017 23:59:59 CLS Preadmit ELVA BILLINGSLEY FLOOR COVERING LAYER [facility] RAD J18.9 PNEUMONIA [id number] 08/26/2017 15:20:00 08/28/2017 11:40:00 DIS Inpatient MEY JAFFE, SHIV [place] [facility] 4TH PNEUMONIA, RULE OUT SEPSIS [id number] 08/23/2017 11:01:00 08/23/2017 23:59:59 CLS Outpatient ANNA JAFFE, SCHUYLER [place]rough[place] [facility] RAD LUNG MASS [id number] 08/04/2017 15:50:00 08/08/2017 13:25:00 DIS Inpatient SANAZ LEVY DO [facility] 4TH SEPSIS,FEVER, COMMUNITY AQUIRED PNEUMONIA [id number] 02/09/2017 09:40:00 02/09/2017 23:59:59 CLS Outpatient JOE JOSEP [facility] RAD I71.4,I10 [id number] 07/21/2016 08:19:00 07/21/2016 23:59:59 CLS Outpatient BRENDA WETZEL [facility] RAD ABDOMINAL ANEURYSM [id number] 03/04/2015 07:48:00 03/04/2015 23:59:59 CLS Outpatient BRENDA WETZEL EXAMINATION SCORER [facility] RAD CP [id number] 01/29/2015 18:37:00 01/29/2015 21:48:00 DIS Emergency BRENDA FERNANDES DO [facility] ER L SIDE BACK PAIN [id number] 02/08/2018 10:15:00 PEN Preadmit JOE JOSE [facility] RAD AAA I71.4 [id number] 01/29/2015 18:38:00 Document Registration
[2017-12-01] MEDS: LACTATED RINGERS 1,000 ML IV PRN ×2 (10:00→14:25)
[2017-12-01] MEDS ORDERED: CATHETER FLUSH 10 ML SYR IV PRN (10:15)
[2017-12-01] MEDS ORDERED: ceFAZolin 2 GM/50 ML PRE-MIX IVPB IV ONE (10:15)
[2017-12-01] MEDS ORDERED: ceFAZolin 2 GM IV Premixed 50 ML IV ONE (11:45)
--- NOTE | 2017-12-01 12:08 | Progress Note-Pre Operative ---
Pre-Operative Progress Note H&P Reviewed The H&P was reviewed, patient examined and no changes noted. Date Seen by Provider: Dec 01, 2017 Time Seen by Provider: 12:08 Date H&P Reviewed: Dec 01, 2017 Time H&P Reviewed: 12:08 Pre-Operative Diagnosis: skin lesion right forehead, left medial thigh EUGENE MORALES DO Dec 01, 2017 12:08
[2017-12-01 12:12] VITALS: BP 141/82
[2017-12-01] MEDS ORDERED: MIDAZOLAM 2 MG/2 ML (VERSED) VIAL IV ONE (13:15)
[2017-12-01] MEDS ORDERED: BUPIVACAINE 0.5% 30 ML (SENSORCAINE) VIAL ONE (13:32)
[2017-12-01] MEDS ORDERED: LIDOCAINE 1% INJ 20 ML (XYLOCAINE) VIAL ONE (13:32)
[2017-12-01] MEDS ORDERED: proPOfol 200 MG/20 ML (DIPRIVAN) VIAL IV ONE (13:39)
[2017-12-01] MEDS ORDERED: fentaNYL INJECTION 100 MCG/2 ML AMP ONE (13:42)
[2017-12-01] MEDS ORDERED: MIDAZOLAM 2 MG/2 ML (VERSED) VIAL ONE (13:44)
[2017-12-01] MEDS ORDERED: SEVOFLURANE (ULTANE) 15 ML INHAL SOLN ONE (14:13)
[2017-12-01] MEDS ORDERED: NEO/POLY/BAC (NEOSPORIN) OINT 15 GM TUBE ONE (14:22)
--- NOTE | 2017-12-01 14:26 | Discharge Inst-Simple/Standard ---
Discharge Inst-Standard Patient Instructions/Follow Up Plan of Care/Instructions/FU: 1 WEEK Araceli Activity as Tolerated: Yes Discharge Diet: Regular Diet Other Inst to Patient Follow up Appt: Make appointment for 1 week. Instructions: No lifting greater than 10 pounds. No strenuous activity. May shower in 24 hours, no tub bath or soaking. Use incentive spirometer at home as directed. No Smoking Skin/Wound Care: May remove bandages IN 24 HOURS. KEEP CLEAN AND DRY Symptoms to Report: Appetite Changes, Extremity Discoloration, Numbness/Tingling, Swelling Increased , Bleeding Excessive, Eyesight Changes, Pain Increased, Urine Color Change, Constipation(Persistent), Fever over 101 degree F, Pain/Pressure in chest, Urinating Difficulty, Cough Up/Vomit Blood, Heart Beat Irreg/Pounding, Pain/ Pressure in jaw, Vaginal Bleeding Increase, Cramps in feet or legs, Lightheadedness, Pain/Pressure in shoulder, Diarrhea(Persistent), Memory Changes Suddenly, Questions/Concerns, Weight gain consecutive days, Dizziness/ Fainting, Nausea/Vomiting, Shortness of Breath, Weight gain over 2 pounds If questions or concerns contact your physician Or seek help at emergency department. EUGENE MORALES DO Dec 01, 2017 14:26
--- NOTE | 2017-12-01 14:27 | Progress Note-Post Operative ---
Post-Operative Progess Note Surgeon (s)/Gauge Maker Apprentice (s) Surgeon EUGENE MORALES DO Gauge Maker Apprentice: NA Pre-Operative Diagnosis skin lesion right forehead, left medial thigh Post-Operative Diagnosis SAME Procedure & Operative Findings Date of Procedure 12/01/17 Procedure Performed/Findings EXCISION SKIN LESIONS ( SEE DICTATION) Anesthesia Type GEN Estimated Blood Loss Estimated blood loss (mL): MIN Specimens/Packing Specimens Removed RIGHT FOREHEAD, LEFT THIGH EUGENE MORALES DO Dec 01, 2017 14:27
[2017-12-01 15:30] VITALS: BP 136/82
[2017-12-01 16:00] VITALS: BP 132/71
[2017-12-01 16:30] VITALS: BP 132/71
--- NOTE | 2017-12-01 16:52 | Anesthesia-General Post-Op ---
General Patient Condition Mental Status/LOC: Same as Preop Cardiovascular: Satisfactory Nausea/Vomiting: Absent Respiratory: Satisfactory Pain: Controlled Complications: Absent Post Op Complications Complications None Follow Up Care/Instructions Patient Instructions None needed. Anesthesia/Patient Condition Patient Condition Spoke with patient immediately prior to transfer from PACU back to Day Surgery. Patient is doing well, no complaints, stable vital signs, no apparent adverse anesthesia problems. No complications reported per nursing. CARLY DANIEL CRNA Dec 01, 2017 16:52
--- NOTE | 2017-12-02 02:56 | OPERATIVE REPORT ---
DATE OF SERVICE: 12/01/2017 PREOPERATIVE DIAGNOSIS: Skin lesion, right face and left thigh. POSTOPERATIVE DIAGNOSIS: Skin lesion, right face and left thigh. PROCEDURE PERFORMED: Excision of lesion on right forehead 4 x 1.5 cm and lesion on left thigh 1.3 x 2 cm. SURGEON: Eugene Martinez DO. ANESTHESIA: General. ESTIMATED BLOOD LOSS: Minimal. COMPLICATIONS: None. INDICATIONS: The patient is a 67-year-old male with a skin lesion that he had on his right forehead for approximately 2 years. It has increased in size and he is recommended to have it removed. He also has a skin lesion on the left thigh that is causing some difficulties and wishes to have this removed as well. He understands risks and benefits, and wished to proceed with the procedure. Consent was signed and on the chart. DESCRIPTION OF PROCEDURE: The patient was taken to the operating suite. He was prepped and draped in sterile fashion both lesions. Timeout was performed. Local anesthetic was infiltrated into the right forehead. An elliptical incision measuring 4 x 1.5 cm was made around the lesion and skin, and subcutaneous tissue was removed. This was labeled short suture superiorly and long suture posteriorly. This was sent for frozen section, which demonstrated the lesion to be completely removed basal cell carcinoma. Hemostasis was achieved. The skin was then closed using 4-0 Prolene in a simple interrupted fashion. was then used for the left thigh. Local anesthetic was infiltrated into the area, elliptical incision measuring 1.3 x 2 cm. Skin and subcutaneous tissue was removed with a 15-blade scalpel. Hemostasis was achieved. The skin was then closed using 3-0 Prolene in a simple running fashion. The areas were then washed and dried, sterile bandages were applied. The patient tolerated the procedure well without any complications and was taken to the recovery room in stable condition. Job ID: [id number] DocumentID: [id number] Dictated Date: 12/01/2017 16:02:44 Rehabilitation Therapy Technician Date: 12/01/2017 23:11:07 Dictated By: EUGENE MARTINEZ DO
== END 2017-12-01 16:30 | disposition home or self-care (01) ==
LOC: SDC 09:18
PROVIDERS: ATTEND Surgery
DX: C44.310 Basal cell carcinoma of skin of unspecified parts of face (principal); L82.1 Other seborrheic keratosis; I10 Essential (primary) hypertension; E78.5 Hyperlipidemia, unspecified; F41.9 Anxiety disorder, unspecified; I71.4 Abdominal aortic aneurysm, without rupture; G47.00 Insomnia, unspecified; M19.91 Primary osteoarthritis, unspecified site; Z87.891 Personal history of nicotine dependence; Z79.899 Other long term (current) drug therapy
CPT/HCPCS: 87081; 94640

== ENCOUNTER → 2017-12-20 | Outpatient (CLI) | payer MEDICARE | LOC: PREOP 05:52 | PROVIDERS: ATTEND Surgery | DX: Z01.818 Encounter for other preprocedural examination (principal); K21.9 Gastro-esophageal reflux disease without esophagitis; R13.10 Dysphagia, unspecified ==

== ENCOUNTER 2017-12-27 09:29 | Day surgery (SDC) | payer MEDICARE ==
[~2017-12-27] VITALS: Ht 181.6 cm; Wt 98.4 kg
[2017-12-27] MEDS ORDERED: LACTATED RINGERS 1,000 ML IV STA (09:37)
[2017-12-27] MEDS ORDERED: HURRICAINE EXT TUBE (BENZOCAINE) XX PRN (09:45)
[2017-12-27 10:07] VITALS: BP 133/80
[2017-12-27] MEDS ORDERED: MIDAZOLAM 2 MG/2 ML (VERSED) VIAL ONE (10:44)
[2017-12-27] MEDS ORDERED: PROPOFOL INJECTION 0 ML IV ONE (10:44)
[2017-12-27] MEDS ORDERED: proPOfol 200 MG/20 ML (DIPRIVAN) VIAL IV ONE (10:50)
--- NOTE | 2017-12-27 11:01 | Progress Note-Pre Operative ---
Pre-Operative Progress Note H&P Reviewed The H&P was reviewed, patient examined and no changes noted. Date Seen by Provider: Dec 27, 2017 Time Seen by Provider: 11: Date H&P Reviewed: Dec 27, 2017 Time H&P Reviewed: 11:01 Pre-Operative Diagnosis: gerd dysphagia EUGENE MORALES DO Dec 27, 2017 11:01
--- NOTE | 2017-12-27 11:19 | Progress Note-Post Operative ---
Post-Operative Progess Note Surgeon (s)/Loan Representative (s) Surgeon EUGENE MORALES DO Loan Representative: na Pre-Operative Diagnosis gerd dysphagia Post-Operative Diagnosis gastritis Procedure & Operative Findings Date of Procedure 12/27/17 Procedure Performed/Findings egd c biposies Anesthesia Type per rust proofer Estimated Blood Loss Estimated blood loss (mL): none Specimens/Packing Specimens Removed antrum, body, ge EUGENE MORALES DO Dec 27, 2017 11:19
--- NOTE | 2017-12-27 11:20 | Discharge Inst-Simple/Standard ---
Discharge Inst-Standard Patient Instructions/Follow Up Plan of Care/Instructions/FU: 2 weeks nickolas Activity as Tolerated: Yes Discharge Diet: Regular Diet EUGENE MORALES DO Dec 27, 2017 11:20
[2017-12-27] MEDS ORDERED: OMEP20TA7 PO (11:22)
[2017-12-27 11:35] VITALS: BP 123/68
--- NOTE | 2017-12-27 11:48 | Anesthesia-General Post-Op ---
MAC Patient Condition Mental Status/LOC: Same as Preop Cardiovascular: Satisfactory Nausea/Vomiting: Absent Respiratory: Satisfactory Pain: Controlled Complications: Absent Post Op Complications Complications None Follow Up Care/Instructions Patient Instructions None needed. Anesthesiology Discharge Order Discharge Order Patient is doing well, no complaints, stable vital signs, no apparent adverse anesthesia problems. No complications reported per nursing. LADAN DIANA CRNA Dec 27, 2017 11:48
[2017-12-27 12:12] VITALS: BP 140/90
[2017-12-27 12:15] VITALS: BP 140/90
--- OUTSIDE RECORDS SUMMARY | 2017-12-27 12:17 | XMS REPORT | Continuity of Care Document ---
Author Author [facility] Address Unknown Phone Unavailable Allergies Active Description Code Type Severity Reaction Onset Reported/Identified Relationship to Patient Clinical Status Yes naproxen Drug Allergy N/A N/A 09/11/2011 Yes naproxen Drug Allergy 09/11/2011 Yes naproxen [id number] Drug Allergy Moderate CAUSED KIDNEY D 03/02/2012 [...] T 401.1 HYPERTENSION, BENIGN ESSENTIAL 09/11/2011 DAMARI SOLE TACKERBRENDA T 782.1 RASH 09/11/2011 BRENDA WETZEL APRN [...] MAYANK DODAR K 780.52 INSOMNIA UNSPECIFIED 01/24/2012 BERNDA WETZEL APRN T 780.52 INSOMNIA UNSPECIFIED 01/24/2012 [...] DO Ot 724.2 LUMBAGO 03/10/2015 BRENDA WETZEL INDUSTRIAL TECHNOLOGY TEACHER Ot 441.4 03/10/2015 BRENDA WETZEL INDUSTRIAL TECHNOLOGY TEACHER Ot 786.50 04/03/2015 BRENDA WETZEL INDUSTRIAL TECHNOLOGY TEACHER Ot 441.4 04/03/2015 BRENDA WETZEL INDUSTRIAL TECHNOLOGY TEACHER Ot 786.50 05/30/2015 BRENDA WETZELP Ot 441.4 05/30/2015 BRENDA WETZEL INDUSTRIAL TECHNOLOGY TEACHER Ot 786.50 06/05/2015 BRENDA WETZEL INDUSTRIAL TECHNOLOGY TEACHER Ot 441.4 06/05/2015 BRENDA WETZEL INDUSTRIAL TECHNOLOGY TEACHER Ot 786.50 07/21/2016 BRENDA WETZEL INDUSTRIAL TECHNOLOGY TEACHER Ot 441.4 ABDOM AORTIC ANEURYSM 07/21/2016 BRENDA WETZEL INDUSTRIAL TECHNOLOGY TEACHER Ot 786.50 CHEST PAIN NOS 07/22/2016 BRENDA WETZEL INDUSTRIAL TECHNOLOGY TEACHER Ot I71.4 ABDOMINAL AORTIC ANEURYSM, WITHOUT RUPTU 07/23/2016 BRENDA WETZEL INDUSTRIAL TECHNOLOGY TEACHER Ot I71.4 ABDOMINAL AORTIC ANEURYSM, WITHOUT RUPTU 08/03/2016 BRENDA WETZEL INDUSTRIAL TECHNOLOGY TEACHER Ot I71.4 ABDOMINAL AORTIC ANEURYSM, WITHOUT RUPTU 09/29/2016 BRENDA WETZEL INDUSTRIAL TECHNOLOGY TEACHER Ot 441.4 ABDOM AORTIC ANEURYSM 09/29/2016 BRENDA WETZEL INDUSTRIAL TECHNOLOGY TEACHER Ot 786.50 CHEST PAIN NOS 09/29/2016 BRENDA WETZEL INDUSTRIAL TECHNOLOGY TEACHER Ot I71.4 ABDOMINAL AORTIC ANEURYSM, WITHOUT RUPTU 10/14/2016 BRENDA WETZEL INDUSTRIAL TECHNOLOGY TEACHER Ot I71.4 ABDOMINAL AORTIC ANEURYSM, WITHOUT RUPTU 02/10/2017 JOE JOSE INDUSTRIAL TECHNOLOGY TEACHER Ot I10 ESSENTIAL (PRIMARY) HYPERTENSION 02/10/2017 JOE JOSE INDUSTRIAL TECHNOLOGY TEACHER Ot I71.4 ABDOMINAL AORTIC ANEURYSM, WITHOUT RUPTU 02/21/2017 JOE JOSE INDUSTRIAL TECHNOLOGY TEACHER Ot I10 ESSENTIAL (PRIMARY) HYPERTENSION 02/21/2017 JOE JOSE INDUSTRIAL TECHNOLOGY TEACHER Ot I71.4 ABDOMINAL AORTIC ANEURYSM, WITHOUT RUPTU 08/04/2017 DAMARIBRENDA INDUSTRIAL TECHNOLOGY TEACHER Ot 441.4 ABDOM AORTIC ANEURYSM 08/04/2017 DAMARIBRENDA INDUSTRIAL TECHNOLOGY TEACHER Ot 786.50 CHEST PAIN NOS 08/04/2017 BRENDA WETZEL INDUSTRIAL TECHNOLOGY TEACHER Ot I71.4 ABDOMINAL AORTIC ANEURYSM, WITHOUT RUPTU 08/04/2017 JOE JOSE INDUSTRIAL TECHNOLOGY TEACHER Ot I10 ESSENTIAL (PRIMARY) HYPERTENSION 08/04/2017 JOE JOSE INDUSTRIAL TECHNOLOGY TEACHER Ot I71.4 ABDOMINAL AORTIC ANEURYSM, WITHOUT RUPTU 08/08/2017 BARSANAZ SCOTT DO Ot A41.9 SEPSIS, UNSPECIFIED ORGANISM 08/08/2017 BARSANAZ SCOTT DO Ot E78.00 PURE HYPERCHOLESTEROLEMIA, UNSPECIFIED 08/08/2017 BARNISANAZ CARRILLO DO Ot F41.9 ANXIETY DISORDER, UNSPECIFIED 08/08/2017 BARSANAZ SCOTT DO Ot G47.00 INSOMNIA, UNSPECIFIED 08/08/2017 BARNIDGE DO, SANAZ E Ot I10 ESSENTIAL (PRIMARY) HYPERTENSION 08/08/2017 [facility] DOSANAZ Ot I71.4 ABDOMINAL AORTIC ANEURYSM, WITHOUT RUPTU 08/08/2017 [facility] SANAZ GIVENS Ot J18.9 PNEUMONIA, UNSPECIFIED ORGANISM 08/08/2017 [facility] K59.00 CONSTIPATION, UNSPECIFIED 08/08/2017 [facility] DOSANAZ Ot M19.91 PRIMARY OSTEOARTHRITIS, UNSPECIFIED SITE 08/08/2017 [facility] DOSANAZ Ot M54.9 DORSALGIA, UNSPECIFIED 08/08/2017 [facility] Ot N04.9 NEPHROTIC SYNDROME WITH UNSPECIFIED MORP 08/08/2017 [facility] Ot N40.0 BENIGN PROSTATIC HYPERPLASIA WITHOUT LOW 08/08/2017 [facility] Ot 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, UNSPECIFIED 08/08/2017 [facility] Ot R91.8 OTHER NONSPECIFIC ABNORMAL FINDING OF CHING 08/08/2017 [facility] Ot Z87.891 PERSONAL HISTORY OF NICOTINE DEPENDENCE 08/08/2017 [facility] A41.9 SEPSIS, UNSPECIFIED ORGANISM 08/08/2017 [facility] Ot E78.00 PURE HYPERCHOLESTEROLEMIA, UNSPECIFIED 08/08/2017 [facility] F41.9 ANXIETY DISORDER, UNSPECIFIED 08/08/2017 [facility] Ot G47.00 INSOMNIA, UNSPECIFIED 08/08/2017 [facility] Ot I10 ESSENTIAL (PRIMARY) HYPERTENSION 08/08/2017 [facility] I71.4 ABDOMINAL AORTIC ANEURYSM, WITHOUT RUPTU 08/08/2017 [facility] SANAZ GIVENS Ot J18.9 PNEUMONIA, UNSPECIFIED ORGANISM 08/08/2017 [facility] Ot K59.00 CONSTIPATION, UNSPECIFIED 08/08/2017 [facility] Ot M19.91 PRIMARY OSTEOARTHRITIS, UNSPECIFIED SITE 08/08/2017 [facility] Jiang DO Ot M54.9 DORSALGIA, UNSPECIFIED 08/08/2017 [facility] Ot N04.9 NEPHROTIC SYNDROME WITH UNSPECIFIED MORP 08/08/2017 [facility] Ot N40.0 BENIGN PROSTATIC HYPERPLASIA WITHOUT LOW 08/08/2017 [facility] DO Ot 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, [...] DO Ot F41.9 ANXIETY DISORDER, UNSPECIFIED 08/08/2017 [facility] DO Ot G47.00 INSOMNIA, UNSPECIFIED 08/08/2017 SANAZ LEVY DO Ot I10 ESSENTIAL (PRIMARY) HYPERTENSION 08/08/2017 [facility] DO Ot I71.4 ABDOMINAL AORTIC ANEURYSM, WITHOUT RUPTU 08/08/2017 [facility] SC[facility] DO Ot J18.9 PNEUMONIA, UNSPECIFIED ORGANISM 08/08/2017 SANAZ LEVY DO Ot K59.00 CONSTIPATION, UNSPECIFIED 08/08/2017 [facility] DO Ot M19.91 PRIMARY OSTEOARTHRITIS, UNSPECIFIED SITE 08/08/2017 SANAZ LEVY DO Ot M54.9 DORSALGIA, UNSPECIFIED 08/08/2017 JOESANAZ Jiang DO Ot N04.9 NEPHROTIC SYNDROME WITH UNSPECIFIED MORP 08/08/2017 JOESANAZ Jiang DO Ot N40.0 BENIGN PROSTATIC HYPERPLASIA WITHOUT LOW 08/08/2017 [facility] DO Ot 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, UNSPECIFIED 08/08/2017 SANAZ LEVY DO Ot R91.8 OTHER NONSPECIFIC ABNORMAL FINDING OF CHING 08/08/2017 [facility] CARRILLO DO Ot Z87.891 PERSONAL HISTORY OF NICOTINE DEPENDENCE 08/23/2017 BRENDA WETZELP Ot 441.4 ABDOM AORTIC ANEURYSM 08/23/2017 BRENDA WETZELP Ot 786.50 CHEST PAIN NOS 08/23/2017 BREDNA WETZEL INDUSTRIAL TECHNOLOGY TEACHER Ot I71.4 ABDOMINAL AORTIC ANEURYSM, WITHOUT RUPTU 08/23/2017 JOSEJOE EUBANKS INDUSTRIAL TECHNOLOGY TEACHER Ot I10 ESSENTIAL (PRIMARY) HYPERTENSION 08/23/2017 JOSEJOE EUBANKSP Ot I71.4 ABDOMINAL AORTIC ANEURYSM, WITHOUT RUPTU [...] HUSSEIN VERGARA DO Ot G47.50 PARASOMNIA, UNSPECIFIED 11/28/2017 BRENDA WETZEL INDUSTRIAL TECHNOLOGY TEACHER Ot 441.4 ABDOM AORTIC ANEURYSM 11/28/2017 BRENDA WETZEL INDUSTRIAL TECHNOLOGY TEACHER Ot 786.50 CHEST PAIN NOS 11/28/2017 BRENDA WETZEL INDUSTRIAL TECHNOLOGY TEACHER Ot I71.4 ABDOMINAL AORTIC ANEURYSM, WITHOUT RUPTU 11/28/2017 JOSEJOE EUBANKS INDUSTRIAL TECHNOLOGY TEACHER Ot I10 ESSENTIAL (PRIMARY) HYPERTENSION 11/28/2017 JOE JOSE Albin INDUSTRIAL TECHNOLOGY TEACHER Ot I71.4 ABDOMINAL AORTIC ANEURYSM, WITHOUT RUPTU 11/28/2017 SCHUYLER CASTILLO MD Ot I71.4 ABDOMINAL AORTIC ANEURYSM, WITHOUT RUPTU 11/28/2017 SCHUYLER CASTILLO MD Ot R91.1 SOLITARY PULMONARY NODULE 11/30/2017 EUGENE MORALES DO Ot L98.9 DISORDER OF THE SKIN AND SUBCUTANEOUS TI 11/30/2017 EUGENE MORALES DO Ot Z01.818 ENCOUNTER FOR OTHER PREPROCEDURAL EXAMIN 12/01/2017 ELVA BILLINGSLEY APRN Ot J18.9 PNEUMONIA, UNSPECIFIED ORGANISM 12/01/2017 ELVA BILLINGSLEY APRN Ot J47.9 BRONCHIECTASIS, UNCOMPLICATED 12/01/2017 ELVA BILLINGSLEY APRN Ot R91.8 OTHER NONSPECIFIC ABNORMAL FINDING OF CHING 12/01/2017 ELVA BILLINGSLEY APRN Ot J47.9 BRONCHIECTASIS, UNCOMPLICATED 12/01/2017 ELVA BILLINGSLEY APRN Ot R91.8 OTHER NONSPECIFIC ABNORMAL FINDING OF CHING 12/01/2017 EUGENE MORALES DO Ot C44.310 BASAL CELL CARCINOMA OF SKIN OF UNSPECIF 12/01/2017 EUGENE MORALES DO Ot E78.5 HYPERLIPIDEMIA, UNSPECIFIED 12/01/2017 EUGENE MORALES DO Ot F41.9 ANXIETY DISORDER, UNSPECIFIED 12/01/2017 EUGENE MORALES DO Ot G47.00 INSOMNIA, UNSPECIFIED 12/01/2017 EUGENE MORALES DO Ot I10 ESSENTIAL (PRIMARY) HYPERTENSION 12/01/2017 EUGENE MORALES DO Ot I71.4 ABDOMINAL AORTIC ANEURYSM, WITHOUT RUPTU 12/01/2017 EUGENE MORALES DO Ot L98.9 DISORDER OF THE SKIN AND SUBCUTANEOUS TI 12/01/2017 EUGENE MORALES DO Ot M19.91 PRIMARY OSTEOARTHRITIS, UNSPECIFIED SITE 12/01/2017 EUGENE MORALES DO Ot Z79.899 OTHER SURVEY CHIEF (CURRENT) DRUG THERAPY 12/01/2017 ANDREW GIVENS EUGENE D Ot Z87.891 PERSONAL HISTORY OF NICOTINE DEPENDENCE 12/12/2017 ELVA BILLINGSLEY APRN Ot J47.9 BRONCHIECTASIS, UNCOMPLICATED 12/12/2017 ELVA BILLINGSLEY APRN Ot R91.8 OTHER NONSPECIFIC ABNORMAL FINDING OF CHING 12/21/2017 EUGENE MORALES DO Ot K21.9 GASTRO-ESOPHAGEAL REFLUX DISEASE WITHOUT 12/21/2017 EUGENE MORALES DO Ot R13.10 DYSPHAGIA, UNSPECIFIED 12/21/2017 EUGENE MORALES DO Ot Z01.818 ENCOUNTER FOR OTHER PREPROCEDURAL EXAMIN 12/23/2017 EUGENE MORALES DO Ot K21.9 GASTRO-ESOPHAGEAL REFLUX DISEASE WITHOUT 12/23/2017 EUGENE MORALES DO Ot R13.10 DYSPHAGIA, UNSPECIFIED 12/23/2017 EUGENE MORALES DO Ot Z01.818 ENCOUNTER FOR OTHER PREPROCEDURAL EXAMIN Procedures Code Description [place] [address] ROUTINE VENIPUNCTURE 11/10/2012 75695 TSH 11/10/2012 86675 CBC 11/10/2012 24399 LIPID PANEL 11/10/2012 90680 CMP 11/10/2012 1408416 GFR CALC (RESULT ONLY) 11/10/2012 Results Test [...] 107 mmol/L 98-107 Carbon dioxide 23 mmol/L 21-32 Serum or plasma anion gap determination (moles/volume) 10 mmol/L 5-14 Serum or plasma urea nitrogen measurement (mass/volume) 10 mg/dL 7-18 Serum or plasma creatinine measurement (mass/volume) 0.92 [...] 108 mmol/L 98-107 Carbon dioxide 23 mmol/L 21-32 Serum or plasma anion gap determination (moles/volume) 10 mmol/L 5-14 Serum or plasma urea nitrogen measurement (mass/volume) 8 mg/dL 7-18 Serum or plasma creatinine measurement (mass/volume) 0.85 [...] blood basophil count (count/volume) 0.0 10*3/uL 0.0-0.1 Methicillin resistant Staphylococcus aureus (MRSA) screening culture - 10:05 Methicillin resistant Staphylococcus aureus (MRSA) screening culture NEG NRG Encounters ACCT No. Visit Date/Time Discharge Status Pt. Type Provider Facility Loc./Unit Complaint [id number] 11/13/2014 15:56:00 11/13/2014 23:59:59 CLS Outpatient BRENDA WETZEL APRN [id number] 08/16/2014 11:35:00 08/16/2014 23:59:59 CLS Outpatient BRENDA WETZEL APRN [id number] 02/15/2014 11:59:00 02/15/2014 23:59:59 CLS Outpatient BRENDA WETZEL APRN [id number] 08/17/2013 13:49:00 08/17/2013 23:59:59 CLS Outpatient DAR TALLEY DO [id number] 05/23/2013 17:00:00 05/23/2013 23:59:59 CLS Outpatient BRENDA WETZEL APRN [id number] 12/08/2012 15:20:00 12/08/2012 23:59:59 CLS Outpatient BRENDA WETZEL APRN [id number] 11/10/2012 12:22:00 11/10/2012 23:59:59 CLS Outpatient BRENDA WETZEL APRN [id number] 10/27/2012 00:00:00 10/27/2012 23:59:59 CLS Outpatient [id number] 10/11/2012 14:41:00 10/11/2012 23:59:59 CLS Outpatient [id number] 05/10/2012 16:57:00 05/10/2012 23:59:59 CLS Outpatient BRENDA WETZEL APRN [id number] 05/10/2012 16:57:00 05/10/2012 23:59:59 CLS Outpatient BRENDA WETZEL APRN [id number] 12/20/2017 05:52:00 12/20/2017 23:59:59 CLS Outpatient EUGENE MORALES DO [facility] PREOP EGD [id number] 12/08/2017 16:29:00 12/08/2017 23:59:59 CLS Preadmit ELVA BILLINGSLEY APRN [facility] RAD DYSPHAGIA [id number] 12/01/2017 09:18:00 12/01/2017 16:30:00 DIS Outpatient EUGENE MORALES DO [facility] SDC SKIN LESIONS [id number] 11/30/2017 14:08:00 11/30/2017 23:59:59 CLS Outpatient ELVA BILLINGSLEY APRN [facility] RAD J18.9 [id number] 11/29/2017 15:00:00 11/29/2017 15:30:00 DIS Outpatient EUGENE MORALES DO [facility] PREOP SKIN LESIONS [id number] 09/13/2017 14:50:00 09/13/2017 15:00:00 DIS Outpatient HUSSEIN VERGARA DO [facility] SLEEP G47.10 HYPERSOMNIA [id number] 09/06/2017 14:48:00 09/06/2017 23:59:59 CLS Preadmit ELVA BILLINGSLEY APRN [facility] RAD J18.9 PNEUMONIA [id number] 08/26/2017 15:20:00 08/28/2017 11:40:00 DIS Inpatient SHIV MATHIAS MD [facility] 4TH PNEUMONIA, RULE OUT SEPSIS [id number] 08/23/2017 11:01:00 08/23/2017 23:59:59 CLS Outpatient SCHUYLER CASTILLO MD [facility] RAD LUNG MASS [id number] 08/04/2017 15:50:00 08/08/2017 13:25:00 DIS Inpatient SANAZ LEVY DO [facility] 4TH SEPSIS,FEVER, COMMUNITY AQUIRED PNEUMONIA [id number] 02/09/2017 09:40:00 02/09/2017 23:59:59 CLS Outpatient JOE JOSE [facility] RAD I71.4,I10 [id number] 07/21/2016 08:19:00 07/21/2016 23:59:59 CLS Outpatient BRENDA WETZEL [facility] RAD ABDOMINAL ANEURYSM [id number] 03/04/2015 07:48:00 03/04/2015 23:59:59 CLS Outpatient BRENDA WETZEL [facility] RAD CP [id number] 01/29/2015 18:37:00 01/29/2015 21:48:00 DIS Emergency BRENDA FERNANDES DO [facility] ER L SIDE BACK PAIN [id number] 02/08/2018 10:15:00 PEN Preadmit JOE JOSEP [facility] RAD AAA I71.4 [id number] 12/27/2017 11:10:00 PEN Preadmit EUGENE MORALES DO [facility] ENDO DYSPHAGIA/GERD [id number] 01/29/2015 18:38:00 Document Registration [id number] 11/18/2017 13:20:00 11/18/2017 23:59:59 CLS Outpatient [facility]ENDA [facility]EL [id number] 03/05/2015 04:19:08 ACT Document Registration
--- NOTE | 2017-12-27 15:32 | OPERATIVE REPORT ---
DATE OF SERVICE: 12/27/2017 PREOPERATIVE DIAGNOSES: Gastroesophageal reflux disease and dysphagia. POSTOPERATIVE DIAGNOSIS: Gastritis. PROCEDURE PERFORMED: EGD with biopsies. SURGEON: Eugene Martinez DO. ANESTHESIA: Per SEAM STAYER. ESTIMATED BLOOD LOSS: None. COMPLICATIONS: None. SPECIMENS: Antrum, body and GE. INDICATIONS: The patient is a 67-year-old male, who is having some gastroesophageal reflux disease and a little bit of dysphagia from time to time. He understands risks and benefits of procedure and wished to proceed with procedure. Consent was on chart. DESCRIPTION OF PROCEDURE: The patient was taken to the endoscopy suite, placed in left lateral recumbent position. Timeout was performed. Scope was inserted in mouth, down the esophagus, stomach and into the duodenum without difficulty. There were no polyps, masses, ulcerations or erythematous changes within the duodenum. Scope was slowly retracted back into the stomach where it was further insufflated. There were some erythematous changes along the body and in the antrum. Biopsies of the antrum and body were obtained. Scope was retroflexed noting no other pathology. Scope was returned to its normal position, slowly withdrawn to the distal esophagus. Distal esophagus had some slight erythematous changes as well which biopsy was obtained. There were no polyps, masses or ulcerations. Scope was then slowly retracted until completely removed, noting no other pathology. RECOMMENDATIONS: The patient is to be on omeprazole 20 mg daily. He will follow up on pathology in approximately 2 to 3 weeks and see how he is doing at that time. Further recommendations pending pathology. Job ID: [id number] DocumentID: [id number] Dictated Date: 12/27/2017 11:25:42 Expanding Machine Operator Date: 12/27/2017 15:31:18 Dictated By: EUGENE MARTINEZ DO
== END 2017-12-27 12:15 | disposition home or self-care (01) ==
LOC: ENDO 09:29
PROVIDERS: ATTEND Surgery
DX: K21.9 Gastro-esophageal reflux disease without esophagitis (principal); R13.10 Dysphagia, unspecified; K29.70 Gastritis, unspecified, without bleeding; I10 Essential (primary) hypertension; E78.5 Hyperlipidemia, unspecified; I71.4 Abdominal aortic aneurysm, without rupture; F41.9 Anxiety disorder, unspecified; F17.210 Nicotine dependence, cigarettes, uncomplicated; Z79.899 Other long term (current) drug therapy

== ENCOUNTER → 2018-02-08 | Outpatient (CLI) | payer MEDICARE, OTHER ==
[~2018-02-08] MED LIST changes: +IOHEXOL 350 MG/ML 100 ML (OMNIPAQUE 350) VIAL IV ONE; +NS 100 ML (IVPB) BAG IV ONE; +OMEP20TA7 PO
[2018-02-08 15:05] LABS: CREATININE SERUM 0.93 MG/DL (0.60-1.30); GFR ESTIMATED > 60
--- NOTE | 2018-02-08 15:31 | Diagnostic Imaging Report ---
INDICATION: Aneurysm. Study is performed for followup. TECHNIQUE: Axial imaging through the abdomen was performed after the administration of intravenous contrast and utilizing the CT angiography protocol. Multiplanar, 3D, and MIP reformations were also performed. COMPARISON: Correlation is made with prior CT from 08/04/2017. FINDINGS: Minimal linear atelectasis or scarring in the right lower lobe is noted. Heart appears to be enlarged. No discrete liver mass is identified. The gallbladder is unremarkable. The pancreas and spleen are unremarkable. No adrenal mass is detected. Left kidney contains a small cortical low density, too small to characterize but likely a cyst. The aorta is aneurysmal in the infrarenal portion measuring up to 4.2 cm in AP diameter, stable when compared with prior CT. Moderate amount of mural thrombus is present. The aneurysm terminates proximal to the bifurcation. No periaortic fluid collection to suggest rupture or leakage is seen. Small and large bowel loops are normal in caliber. Moderate stool in the colon is seen. There is no ascites. The bony structures are nonacute. IMPRESSION: Stable infrarenal abdominal aortic aneurysm when compared with examination from 08/04/2017. Dictated by: Dictated on workstation # [id number]
== END ==
LOC: RAD 14:31
PROVIDERS: ATTEND Nurse Practitioner
DX: I71.4 Abdominal aortic aneurysm, without rupture (principal)
CPT/HCPCS: 36415; 74175; 82565

== ENCOUNTER → 2018-02-08 | Outpatient (CLI) | payer MEDICARE, OTHER ==
[~2018-02-08] MED LIST changes: -IOHEXOL 350 MG/ML 100 ML (OMNIPAQUE 350) VIAL IV ONE; -NS 100 ML (IVPB) BAG IV ONE
--- NOTE | 2018-02-08 15:42 | Diagnostic Imaging Report ---
PROCEDURE: CT chest without contrast. TECHNIQUE: Multiple contiguous axial images were obtained through the chest without the use of intravenous contrast. INDICATION: Recent pneumonia. COMPARISON: Comparison is made with prior study from 11/30/2017. FINDINGS: No axillary lymphadenopathy is identified. No definite hilar or mediastinal lymphadenopathy is seen. Coronary arterial calcifications are noted. There is no pericardial or pleural fluid detected. The central airways are unremarkable. Minimal scarring or atelectasis in the right lower lobe is seen. There is continued significant improvement in the chest. In particular, the infiltrates seen in the left lower lobe have improved and completely resolved. No new parenchymal opacity is seen. The upper abdomen is unremarkable. IMPRESSION: Resolution of previously noted left lower lobe pneumonia when compared with exam from 11/30/2017. No new abnormality is identified. Dictated by: Dictated on workstation # [id number]
== END ==
LOC: RAD 14:30
PROVIDERS: ATTEND Nurse Practitioner Family
DX: R13.10 Dysphagia, unspecified (principal); T17.908A Unspecified foreign body in respiratory tract, part unspecified causing other injury, initial encounter; J18.9 Pneumonia, unspecified organism
CPT/HCPCS: 71250

== ENCOUNTER → 2018-05-23 | Outpatient (CLI) | payer MEDICARE, OTHER | LOC: CARD 11:41 | PROVIDERS: ATTEND Internal Medicine Interventional Cardiology | DX: E78.5 Hyperlipidemia, unspecified (principal); I10 Essential (primary) hypertension; N04.9 Nephrotic syndrome with unspecified morphologic changes; R06.02 Shortness of breath; R60.0 Localized edema | CPT/HCPCS: 93306 ==

== ENCOUNTER → 2018-06-15 | Outpatient (CLI) | payer MEDICARE, OTHER ==
[~2018-06-15] MED LIST changes: -AMLO10TA2 PO; +AMLO10TA6 PO; -AMLO5TAB2 PO; +AMLO5TAB7 PO; +CATHETER FLUSH 10 ML SYR IV PRN; -LOSA100T28 PO; +LOSA100T8 PO; +REGADENOSON 0.4 MG/5 ML SYR (LEXISCAN) IV ONE
[2018-06-15 09:47] VITALS: BP 156/93
[2018-06-15 09:50] VITALS: BP 146/96
[2018-06-15 14:18] VITALS: BP_SYST 174
--- NOTE | 2018-06-15 14:18 | Cardiology Stress Test Report ---
Stress Test Report Type of NM Stress Test: Test Type: LEXISCAN 0.4MG/5ML Date of Procedure/Referring: Date of Procedure: Jun 15, 2018 PCP Albin Waller MD Admitting Physician Tomas Myers MD Indications: Shortness of breath Baseline Heart Rate: 54 Baseline Blood Pressure: Blood Pressure Systolic: 174 Blood Pressure Diastolic: 96 Baseline EKG: Baseline EKG: sinus rhythm Summary & Conclusion: Summary: The patient was brought to the stress lab after informed consent was taken. Stress test was performed according to the Lexiscan protocol. 0.4 mg of IV Lexiscan was given. Low-grade exercise was performed. Baseline EKG showed sinus rhythm at 54 BPM. Initial blood pressure was 174/96 mmHg. Maximum heart rate was 95 bpm and blood pressure 151/87 mmHg. Patient did not have any chest pain, arrhythmias or ST segment changes during the stress test. 10.57 mCi of Myoview were given for rest imaging and 29.8 mCi of Myoview given for stress imaging. Transient ischemic dilatation score 1.05, EF 52 percent. Normal wall motion. Normal myocardial perfusion imaging during rest and stress. Conclusion: Pharmacological stress test was negative for ischemia. Normal LV function with no wall motion abnormalities. Normal myocardial perfusion imaging during rest and stress. Albin WALLER MD Jun 15, 2018 2:18 pm
== END ==
LOC: RAD 08:02
PROVIDERS: ATTEND Internal Medicine Interventional Cardiology
DX: R60.0 Localized edema (principal); R06.02 Shortness of breath; N04.9 Nephrotic syndrome with unspecified morphologic changes; I10 Essential (primary) hypertension; E78.5 Hyperlipidemia, unspecified
CPT/HCPCS: 78452; 93017

== ENCOUNTER 2018-06-27 05:42 | Outpatient (CLI) | payer MEDICARE ==
[~2018-06-27] VITALS: Ht 180.3 cm; Wt 102.1 kg
== END 2018-06-27 14:47 | disposition home or self-care (01) ==
LOC: PREOP 05:42
PROVIDERS: ATTEND Surgery
DX: Z01.818 Encounter for other preprocedural examination (principal)

== ENCOUNTER → 2018-06-27 | Outpatient (CLI) | payer MEDICARE, OTHER ==
[~2018-06-27] MED LIST changes: -CATHETER FLUSH 10 ML SYR IV PRN; -REGADENOSON 0.4 MG/5 ML SYR (LEXISCAN) IV ONE
[2018-06-27 13:32] LABS: BUN/CREATININE RATIO 9; CALCIUM 9.3 MG/DL (8.5-10.1); CARBON DIOXIDE 27 MMOL/L (21-32); CHLORIDE 103 MMOL/L (98-107); CREATININE SERUM 1.11 MG/DL (0.60-1.30); GFR ESTIMATED > 60; GLUCOSE 105 MG/DL (70-105); PHOSPHORUS 3.4 MG/DL (2.3-4.7); POTASSIUM 4.4 MMOL/L (3.6-5.0); SODIUM 139 MMOL/L (135-145)
== END ==
LOC: LAB 12:53
PROVIDERS: ATTEND Internal Medicine Interventional Cardiology
DX: N04.9 Nephrotic syndrome with unspecified morphologic changes (principal)
CPT/HCPCS: 36415; 80069

== ENCOUNTER → 2018-06-30 | Outpatient (CLI) | payer MEDICARE, OTHER ==
[~2018-06-30] MED LIST changes: +IOHEXOL 350 MG/ML 100 ML (OMNIPAQUE 350) VIAL IV ONE; +NS 250 ML (IVPB) BAG IV ONE; +RECEIVED CONTRAST (Hold Metformin) IV SCH
[2018-06-30 11:45] LABS: ALBUMIN 3.7 GM/DL (3.2-4.5); BUN/CREATININE RATIO 12; CALCIUM 9.3 MG/DL (8.5-10.1); CARBON DIOXIDE 25 MMOL/L (21-32); CHLORIDE 105 MMOL/L (98-107); CREATININE SERUM 1.07 MG/DL (0.60-1.30); GFR ESTIMATED > 60; GLUCOSE 116 MG/DL (70-105); PHOSPHORUS 3.5 MG/DL (2.3-4.7); POTASSIUM 4.1 MMOL/L (3.6-5.0); SODIUM 139 MMOL/L (135-145)
--- NOTE | 2018-06-30 13:57 | Diagnostic Imaging Report ---
EXAMINATION: CTA of the aorta with contrast. INDICATION: Evaluate aorta. TECHNIQUE: Contiguous axial sections were taken through the abdomen following administration of intravenous contrast. Sagittal and coronal reconstructed images were also performed. MIP images were obtained as well. FINDINGS: The previous CTA abdomen exam of 02/08/2018 noted aneurysmal dilatation of the infrarenal abdominal aorta. The aorta measured approximately 4.0 x 4.2 cm. On this exam, the aorta measures 4.0 x 4.1 cm. As noted on the prior study, there is intraluminal thrombus involving over half of the lumen of the aneurysm. There is no other abnormality of the aorta identified. There is no sign of a hemodynamically significant stenosis of the major branches of the aorta. The overall appearance of the abdomen and pelvis has not changed significantly otherwise. The liver, spleen, pancreas, gallbladder, adrenals, kidneys, and inferior vena cava are unremarkable for an acute abnormality. The stomach is not well distended and consequently difficult to assess. There is no mass or free fluid collection noted. The lung bases are generally clear. The bone windows are unremarkable for a fracture or for a destructive lesion. IMPRESSION: 1. The aneurysm of the infrarenal abdominal aorta seen previously appears stable. There is no acute abnormality evident. 2. The overall appearance of the abdomen itself is unchanged. No new abnormality has developed. Dictated by: Dictated on workstation # [id number]
== END ==
LOC: RAD 11:07
PROVIDERS: ATTEND Internal Medicine Interventional Cardiology
DX: I71.4 Abdominal aortic aneurysm, without rupture (principal); N05.9 Unspecified nephritic syndrome with unspecified morphologic changes
CPT/HCPCS: 36415; 74175; 80069

== ENCOUNTER → 2018-07-03 | Outpatient (CLI) | payer MEDICARE, OTHER ==
[~2018-07-03] MED LIST changes: -IOHEXOL 350 MG/ML 100 ML (OMNIPAQUE 350) VIAL IV ONE; -NS 250 ML (IVPB) BAG IV ONE; -RECEIVED CONTRAST (Hold Metformin) IV SCH
--- NOTE | 2018-07-03 16:05 | Diagnostic Imaging Report ---
INDICATION: Abdominal aortic aneurysm. Reference made to CTA of the abdomen done on 06/30/2018. There is infrarenal abdominal aortic aneurysm that measures 4.1 x 4.0 cm transversely and approximately 6.5 cm in length. There some thrombus within the aneurysm along the right side. Iliac arteries are both patent and nondilated. The proximal aorta measures 2.9 x 2.3 cm. Mid abdominal aorta measures 3.0 x 2.1 cm. IMPRESSION: Infrarenal abdominal aortic aneurysm extending to aortic bifurcation with maximum transverse measurement of 4.1 cm. Dictated by: Dictated on workstation # [id number]
== END ==
LOC: RAD 07:53
PROVIDERS: ATTEND Internal Medicine Interventional Cardiology
DX: I71.4 Abdominal aortic aneurysm, without rupture (principal)
CPT/HCPCS: 76775

== ENCOUNTER 2018-07-04 08:11 | Day surgery (SDC) | payer MEDICARE, OTHER ==
[~2018-07-04] VITALS: Ht 180.3 cm; Wt 102.1 kg
--- OUTSIDE RECORDS SUMMARY | 2018-07-04 08:15 | XMS REPORT ---
Author Author BRENDA WETZEL Organization [facility] Address [address] [place] [address] Care Team Providers Care Optometric Tech Name Role Phone BRENDA WETZEL Unavailable PROBLEMS Type Condition ICD9-CM Code [id number] Code Onset Dates Condition Status SNOMED Code Problem Hypertension, benign I10 Active 67912462 Problem Abdominal aneurysm I71.4 Active 023082474 Problem Hypercholesterolemia E78.00 Active 23026027 Problem Anxiety F41.9 Active 32883229 Problem Primary insomnia F51.01 Active 5409404 Problem Abdominal aortic aneurysm (AAA) without rupture I71.4 Active 47990161 Problem Essential hypertension I10 Active 13269402 Problem Hyperlipidemia, mixed E78.2 Active 502943049 ALLERGIES Substance Reaction Event Type Date Status Naproxen edema Drug Allergy May, Active ENCOUNTERS Encounter Location Date Diagnosis [facility] [id number] [place] [address] 53045- 9860 Jun, Hypercholesterolemia E78.00 [facility] [id number] [place] [address] 75522- 7747 Jun, [facility] [id number] [place] [address] 49955- 1442 Jun, [facility] [id number] [place] [address] 23275- 3504 May, [facility] [id number] [place] [address] 62987- 0328 May, Hypercholesterolemia E78.00 and Anxiety F41.9 [facility] [id number] [place] [address] 01310- 9304 May, [facility] [id number] [place] [address] 29672- 8115 Apr, [facility] [id number] [place] [address] 09543- 3897 Mar, Chronic congestive heart failure, unspecified heart failure type I50.9 [facility] [id number] [place] [address] 40391- 3633 Mar, [facility] [address] 66693 -8860 Mar, Localized edema R60.0 [facility] [address] 22340- 2013 February, [facility] [address] 65794- 6339 February, [facility] [address] 35773- 2563 Jan, [facility] [address] 85755- 2450 Dec, [facility] [id number] [place] [address] 18674- 7865 Nov, Hypertension, benign I10 and Essential hypertension I10 [facility] [id number] [place] [address] 90940- 7135 Nov, [facility] [id number] [place] [address] 44241- 5230 Nov, Scalp lesion L98.9 ; Anxiety F41.9 ; Trigger finger, right middle finger M65.331 and Encounter for drug screening Z02.83 [facility] [id number] [place] [address] 21194- 8180 Nov, [facility] [address] 18017- 1891 Oct, Essential hypertension I10 [facility] [id number] [place] [address] 75742- 5384 Oct, [facility] [address] 72540- 8480 Oct, [facility] [address], [place] [address] 4316 Sep, [facility] [address] [place] [address] 20048 -6381 Aug, Cough R05 and Pneumonia of left lower lobe due to infectious organism J18.1 [facility] [id number] [place] [address] 34810- 3146 16 Aug, 2017 [facility] [id number] [place] [address] 56845- 3142 16 Aug, 2017 [facility] [id number] [place] [address] 93466- 0088 Aug, [facility] [id number] [place] [address] 33620- 0922 Aug, [facility] [id number] [place] [address] 38402- 1438 Aug, [facility] [id number] [place] [address] 30402- 1528 Aug, Lung mass R91.8 [facility] [id number] [place] [address] 89913- 5881 Aug, [facility] [address] [place] [address] 31284- 8374 Aug, Mass of lung parenchyma R91.8 [facility] [id number] [place] [address] 99940- 7122 Jul, [facility] [id number] [place] [address] 65726- 0445 Jun, Hypertension, benign I10 ; Hyperlipidemia, mixed E78.2 and Primary insomnia F51.01 [facility] [id number] [place] [address] 11493- 3787 18 Jun, 2017 [facility] [id number] [place] [address] 28637- 7198 Jun, Essential hypertension I10 [facility] [address] [place] [address]- 3407 May, [facility] [address], [place] [address]- 5069 Apr, [facility] [id number] [address]- 2171 Mar, [facility] [id number] [place] [address] 45929- 8106 Mar, [facility] [id number] [place] [address] 26715- 0541 February, [facility] [id number] [place] [address] 91270- 0085 February, [facility] [id number] [place] [address] 39473- 7019 Jan, [facility] [address], [place] [address]- 5261 Dec, [facility] [id number] [place] [address] 07520- 7509 Dec, Hypertension, benign I10 and Abdominal aortic aneurysm (AAA ) without rupture I71.4 [facility] [address], [place] [address]- 4436 Dec, [facility] [address], [place] [address]- 7294 Nov, Medicare annual wellness visit, initial Z00.00 [facility] [address], [place] [address]- 4866 Nov, [facility] [address] 2466 Nov, [facility] [address], [place] [address]- 7954 Oct, [facility] [address], [place] [address]- 4119 Oct, [facility] [address], [place] [address]- 1664 Oct, [facility] [address], [place] [address]- 8272 Oct, [facility] [address], [place] [address]- 8021 Sep, Medicare welcome exam Z00.00 ; Medicare annual wellness visit, initial Z00.00 and Medicare annual wellness visit, subsequent Z00.00 [facility] [address] [place] [address]- 0790 Sep, [facility] [address], [place] [address]- 4924 Sep, [facility] [address], [place] [address]- 1493 Aug, Trigger middle finger of right hand M65.331 [facility] [address], [place] [address]- 5670 Aug, Hypertension, benign I10 [facility] [address], [place] [address]- 1928 Aug, [facility] [address], [place] [address]- 4891 Aug, [facility] [address], [place] [address]- 6237 Jul, [facility] [address], [place] [address]- 5487 Jul, [facility] [address], [place] [address]- 0329 Jul, Hypertension, essential I10 and Bradycardia R00.1 [facility] [address], [place] [address]- 1370 Jul, [facility] [address], [place] [address]- 2385 Jul, [facility] [id number] [place] [address] 58270- 6796 30 Jun, 2016 Essential hypertension I10 [facility] [address] [place] [address] 84721- 9926 20 Jun, 2016 [facility] [id number] [place] [address] 21425 2546 14 Jun, 2016 [facility] [id number] [place] [address], [place] [address]- 8485 12 Jun, 2016 [facility] [id number] [place] [address] 26911- 9371 Jun, Abdominal aneurysm I71.4 ; Essential hypertension I10 ; Trigger middle finger of right hand M65.331 and Gastroesophageal reflux disease with esophagitis K21.0 [facility] [address], [place] [address]- 4380 May, [facility] [address] [place] [address]- 4460 May, [facility] [address], [place] [address]- 0667 Apr, [facility] [address], [place] [address]- 8362 Apr, [facility] [address], [place] [address]- 1875 Apr, [facility] [address] [place] [address]- 7266 Mar, [facility] [address] [place] [address] 99783- 2544 Mar, [facility] [address], [place] [address]- 6776 February, [facility] [address] [address]- 8204 February, [facility] [address] 63708- 1918 February, Primary insomnia F51.01 [facility] [address] 25439- 5487 February, Insomnia G47.00 [facility] [address] 80856- 1207 Jan, Insomnia G47.00 [facility] [address] 05511- 2614 Jan, Insomnia G47.00 [facility] [address] 46742- 7259 Jan, Insomnia G47.00 [facility] [address] [id number] Dec, Dental examination Z01.20 and Caries K02.9 [facility] [address] 16965- 7840 Dec, Insomnia G47.00 and Bronchitis J40 [facility] [address] 29131- 5409 Nov, [facility] [address] 49268- 9906 Oct, [facility] [address] 01997- 3356 Sep, [facility] [address] 95000- 7266 Aug, [facility] [address] 86904- 3343 Jul, [facility] [address] 68494- 8753 Jul, [facility] [address] 95805- 6396 Jun, [facility] [address] [facility] [id number], [place] [address]- 7558 Jun, [facility] [address] [facility] [id number], [place] [address]- 9226 Jun, [facility] [address] [facility] [id number], [place] [address]- 7411 May, [facility] [address] [facility] [id number] [place] [address] 84246- 3539 Apr, [facility] [address] [facility] [id number] [place] [address] 28731- 0458 Apr, Cerumen impaction 380.4 [facility] [address] [facility] [id number] [place] [address] 95202- 8224 Apr, Cerumen impaction 380.4 [facility] [address] [place] [address] 82234- 9235 Mar, [facility] [address] [facility] [id number], [place] [address]- 7856 February, [facility] [address] 3875 February, Abdominal aortic aneurysm greater than 39 mm in diameter 441.4 [facility] [address], [place] [address]- 5270 February, [facility] [address] [facility] [id number], [place] [address]- 6884 Jan, [facility] [address] [facility] [id number], [place] [address]- 8230 Jan, [facility] [address] [facility] [id number], [place] [address]- 3289 Jan, [facility] [id number], [place] [address]- 9829 Dec, [facility] [id number] [place] [address]- 3091 Dec, [facility] [place] [facility] [address] [id number] [place] [address]- 7623 Dec, [facility] [place] [facility] [address] [id number] [place] [address]- 6746 Dec, [facility] [place] [facility] [address] [id number] [place] [address]- 7116 Nov, [facility] [place] [facility] [address] [id number] [place] [address]- 3147 Nov, [facility] [place] [facility] [address] [id number] [place] [address]- 5977 Oct, [facility] [place] [facility] [address] [id number] [place] [address]- 1181 Oct, [facility] [place] [facility] [address] [id number] [place] [address]- 5511 Sep, [facility] [place] [facility] [address] [id number] [place] [address]- 6960 Sep, [facility] [place] [facility] [address] [id number] [place] [address]- 2621 Sep, [facility] [place] [facility] [address] [facility] [id number] [place] [address]- 9293 Sep, [facility] [place] [facility] [address] [id number] [place] [address]- 7815 Sep, [facility] [place] [facility] [address] [id number] [place] [address]- 7852 Sep, [facility] [place] [facility] [address] [id number] [place] [address]- 2565 Aug, [facility] [place] [facility] [address] [id number] [place] [address]- 3914 Aug, [facility] [place] [facility] [address] [id number] [place] [address]- 2550 Jul, [facility] [place] [facility] [address] [id number] [place] [address]- 1300 17 Jul, 2014 [facility] [place] [facility] [address] [id number] [place] [address]- 8836 14 Jul, 2014 [facility] [place] [facility] [address] [id number] [place] [address]- 5220 14 Jul, 2014 [facility] [place] [facility] [address] [id number] [place] [address]- 5752 15 Jun, 2014 [facility] [place] [facility] [address] [id number] [place] [address]- 0009 15 Jun, 2014 [facility] [place] [facility] [address] [id number] [place] [address]- 5683 May, [facility] [place] [facility] [address] [id number] [place] [address]- 5613 May, [facility] [place] [facility] [address] [id number] [place] [address]- 3698 16 Apr, 2014 [facility] [place] [facility] [address] [id number] [place] [address]- 4561 Apr, [facility] [place] [facility] [address] [id number] [place] [address]- 0637 Mar, [facility] [place] [facility] [address] [id number] [place] [address]- 5681 Mar, [facility] [place] [facility] [address] [id number] [place] [address]- 8100 February, [facility] [place] [facility] [address] [id number] [place] [address]- 6109 February, [facility] [place] [facility] [address] [id number] [place] [address]- 7206 Jan, [facility] [place] [facility] [address] [id number] [place] [address]- 0757 Jan, [facility] [place] [facility] [address] [id number] [place] [address]- 0167 08 Jan, 2014 [facility] [place] [facility] [address] [id number] [place] [address]- 6002 08 Jan, 2014 [facility] [place] [facility] [address] [id number] [place] [address]- 9917 Jan, [facility] [place] [facility] [address] [id number] [place] [address]- 9278 Jan, [facility] [place] [facility] [address] [id number] [place] [address]- 8945 Dec, [facility] [place] [facility] [address] [id number] [place] [address]- 2153 Dec, [facility] [place] [facility] [address] [id number] [place] [address]- 2380 Nov, [facility] [place] [facility] [address] [id number] [place] [address]- 3652 Nov, [facility] [place] [facility] [address] [id number] [place] [address]- 4429 Nov, [facility] [place] [facility] [address] [id number] [place] [address]- 6597 Nov, [facility] [place] [facility] [address] [facility] [id number] [place] [address]- 1716 Oct, [facility] [place] [facility] [address] [id number] [place] [address]- 3297 Oct, [facility] [place] [facility] [address] [id number] [place] [address]- 6236 Oct, [facility] [place] [facility] [address] [id number] [place] [address]- 0457 Oct, [facility] [place] [facility] [address] [id number] [place] [address]- 4640 Sep, [facility] [place] [facility] [address] [facility] [id number] [place] [address]- 9099 Sep, [facility] [place] [facility] [address] [id number] [place] [address]- 9086 10 Sep, 2013 [facility] [place] [facility] [address] [id number] [place] [address]- 3142 10 Sep, 2013 [facility] [place] [facility] [address] [id number] [place] [address]- 5344 18 Aug, 2013 [facility] [place] [facility] [address] [id number] [place] [address]- 1522 Aug, [facility] [place] [facility] [address] [id number] [place] [address]- 7506 Aug, [facility] [place] [facility] [address] [id number] [place] [address]- 6981 Aug, [facility] [place] [facility] [address] [id number] [place] [address]- 1787 Aug, [facility] [place] [facility] [address] [id number] [place] [address]- 5360 Aug, [facility] [place] [facility] [address] [id number] [place] [address]- 9136 18 Jul, 2013 [facility] [place] [facility] [address] [id number] [place] [address]- 3166 18 Jul, 2013 [facility] [place] [facility] [address] [id number] [place] [address]- 3724 14 Jul, 2013 [facility] [place] [facility] [address] [id number] [place] [address]- 6124 14 Jul, 2013 [facility] [place] [facility] [address] [id number] [place] [address]- 9154 20 Jun, 2013 [facility] [place] [facility] [address] [id number] [place] [address]- 9081 13 Jun, 2013 [facility] [place] [facility] [address] [id number] [place] [address]- 7703 May, [facility] [place] [facility] [address] [id number] [place] [address]- 3009 May, [facility] [address] [id number] [place] [address]- 9447 May, [facility] [place] [facility] [address] [id number] [place] [address]- 5358 May, [facility] [place] [facility] [address] [id number] [place] [address]- 6784 May, [facility] [place] [facility] [address] [id number] [place] [address]- 8383 Apr, [facility] [place] [facility] [address] [id number] [place] [address]- 8384 Apr, [facility] [place] [facility] [address] [id number] [place] [address]- 9860 Apr, [facility] [place] [facility] [address] [id number] [place] [address]- 0632 Mar, [facility] [place] [facility] [address] [id number] [place] [address]- 1549 Mar, [facility] [place] [facility] [address] [id number] [place] [address]- 6923 February, [facility] [place] [facility] [address] [id number] [place] [address]- 6099 February, [facility] [place] [facility] [address] [id number] [place] [address]- 0696 Jan, [facility] [place] [facility] [address] [id number], [place] [address]- 6343 Jan, [facility] [place] [facility] [address] [id number] [place] [address]- 8501 Jan, [facility] [place] [facility] [address] [id number] [place] [address]- 4089 Jan, [facility] [place] [facility] [address] [id number] [place] [address]- 2331 Dec, [facility] [place] [facility] [address] [id number] [place] [address]- 2802 Dec, [facility] [address] [id number] [place] [address]- 3556 Dec, [facility] [address] [id number] [place] [address] Nov, [facility] [address] [id number] [place] [address] Nov, [facility] [address] [id number] [place] [address] Oct, [facility] [address] [id number] [place] [address] Oct, [facility] [address] [id number] [place] [address] Sep, [facility] [address] [id number] [place] [address] Sep, [facility] [address] [id number] [place] [address] Sep, [facility] [address] [id number] [place] [address] Sep, [facility] [address] [facility] [id number] [place] [address] Sep, [facility] [address] [id number] [place] [address] Sep, [facility] [address] [id number] [place] [address] Sep, [facility] [place] [facility] [address] [id number] [place] [address] Aug, [facility] [place] [facility] [address] [id number] [place] [address] Aug, [facility] [address] [id number] [place] [address] Jun, [facility] [address] [facility] [id number], [place] [address] May, [facility] [address] [facility] [id number], [place] [address] May, [facility] [address] [facility] [id number], [place] [address] Apr, [facility] [address] [facility] [id number], [place] [address] Apr, [facility] [address] [facility] [id number], [place] [address] February, [facility] [address] [facility] [id number], [place] [address] Jan, [facility] [address] [facility] [id number], [place] [address] Jan, [facility] [address] [facility] [id number], [place] [address] Dec, [facility] [address] [facility] [id number], [place] [address] Oct, [facility] [address] [id number], [place] [address] Oct, [facility] [address] [id number], [place] [address] Sep, [facility] [address] [id number], [place] [address] Sep, [facility] [address] [id number], [place] [address] Sep, [facility] [address] [id number], [place] [address] Sep, IMMUNIZATIONS No Known Immunizations SOCIAL HISTORY Never Assessed REASON FOR VISIT [facility] f[facility] , [facility] discuss [facility] from [facility] also medication changes [facility] wants [facility] PLAN OF CARE Activity Details Follow Up 4 Weeks Reason:anxiety VITAL SIGNS Height 71 in 2018-06-02 Weight 231.5 lbs 2018-06-02 Temperature 97.8 degrees Fahrenheit 2018-06-02 Heart Rate 84 bpm 2018-06-02 Respiratory Rate 18 2018-06-02 BMI 32.28 kg/m2 2018-06-02 Blood pressure systolic 142 mmHg 2018-06-02 Blood pressure diastolic 98 mmHg 2018-06-02 MEDICATIONS Medication Instructions Dosage Frequency Start Date End Date Duration Status Atorvastatin Calcium 40 MG Orally Once a day 1 tablet 24h Jun, 90 days Active Lasix 40 mg Orally Once a day 1 tablet 24h Mar, 30 day(s) Active Xanax 1 MG Orally Twice a day 1 tablet 12h 24 May, 2018 Active Losartan Potassium 100 MG TAKE ONE TABLET BY MOUTH ONCE DAILY 90 Active [place] 7.5-325 MG Orally every 6 hrs 1 tablet as needed 6h 10 May, 2018 28 days Active Metoprolol Tartrate 50 MG Orally Twice a day 1 tablet 12h Sep, Active Cozaar 100 mg Orally Once a day 1 tablet 24h Jun, 90 days Active Seroquel 400 mg Orally Once a day 2 tablets at bedtime 24h Active RESULTS No Results PROCEDURES No Known procedures INSTRUCTIONS MEDICATIONS ADMINISTERED No Known Medications MEDICAL (GENERAL) HISTORY Type Description Date Medical History hypertension Medical History hyperlipidemia Medical History Arthritis Medical History bulging disc(s) Medical History insomnia Medical History erectile dysfunction Medical History nephrotic syndrome Medical History enlarged prostate Medical History back pain Medical History anxiety Surgical History tonsillectomy Surgical History 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
--- OUTSIDE RECORDS SUMMARY | 2018-07-04 08:16 | XMS REPORT ---
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 Name Role Phone BRENDA WETZEL Unavailable PROBLEMS Type Condition ICD9-CM Code DFN87-YZ Code Onset Dates Condition Status SNOMED Code Problem Hypertension, benign I10 Active 38528046 Problem Abdominal aneurysm I71.4 Active 622437359 Problem Hypercholesterolemia E78.00 Active 96394561 Problem Anxiety F41.9 Active 79889183 Problem Primary insomnia F51.01 Active 1580720 Problem Abdominal aortic aneurysm (AAA) without rupture I71.4 Active 16881289 Problem Essential hypertension I10 Active 04871995 Problem Hyperlipidemia, mixed E78.2 Active 732262368 ALLERGIES No Information ENCOUNTERS Encounter Location Date Diagnosis [facility] [address] [address] Jun, Hypercholesterolemia E78.00 [facility] [address] [address]- [address] Jun, [facility] [id number] [place] [address] 26478- 6509 Jun, [facility] [address] [address]- [address] May, [facility] [address] [address]- 8399 May, Hypercholesterolemia E78.00 and Anxiety F41.9 [facility] [address] [address]- 2280 May, [facility] [address] [address]- 2810 Apr, [facility] [address] [address]70- 4971 Mar, Chronic congestive heart failure, unspecified heart failure type I50.9 [facility] [id number] [place] [address] 37362- 5101 Mar, [facility] [id number] [place] [address] 70442 -7374 Mar, Localized edema R60.0 [facility] [address] 82724- 2474 February, [facility] [id number] [place] [address] 79700- 6726 February, [facility] [address] 92003- 8511 Jan, [facility] [id number] [place] [address] 83667- 6784 Dec, [facility] [id number] [place] [address] 59496- 6471 Nov, Hypertension, benign I10 and Essential hypertension I10 [facility] [id number] [place] [address] 25779- 9690 Nov, [facility] [id number] [place] [address] 61189- 4231 Nov, Scalp lesion L98.9 ; Anxiety F41.9 ; Trigger finger, right middle finger M65.331 and Encounter for drug screening Z02.83 [facility] [id number] [place] [address] 35200- 1159 Nov, [facility] [id number] [place] [address] 23764- 3653 Oct, Essential hypertension I10 [facility] [id number] [place] [address] 34719- 4650 Oct, [facility] [id number] [place] [address] 55709- 7064 Oct, [place] [id number] [address] Sep, [facility] [id number] [place] [address] 35752 -8028 Aug, Cough R05 and Pneumonia of left lower lobe due to infectious organism J18.1 [facility] [id number] [place] [address] 12961- 5510 16 Aug, 2017 [facility] [id number] [place] [address] 17759- 8238 16 Aug, 2017 [facility] [id number] [place] [address] 26242- 0114 Aug, [facility] [id number] [place] [address] 31338- 1196 Aug, [facility] [id number] [place] [address] 14336- 9221 Aug, [facility] [id number] [place] [address] 31558- 9510 Aug, Lung mass R91.8 [facility] [id number] [place] [address] 19690- 5158 Aug, [facility] [id number] [place] [address] 23147- 1540 Aug, Mass of lung parenchyma R91.8 [facility] [id number] [place] [address] 82219- 9794 Jul, [facility] [id number] [place] [address] 12228- 9644 Jun, Hypertension, benign I10 ; Hyperlipidemia, mixed E78.2 and Primary insomnia F51.01 [facility] [address], [place] [address]- 4317 18 Jun, 2017 [facility] [id number] [place] [address] 11724- 3372 Jun, Essential hypertension I10 [facility] [address] [facility] [id number] [place] [address]- 8153 May, [facility] [address] [place] [address]- 6096 Apr, [facility] [address] [place] [address]- 5085 Mar, [facility] [id number] [place] [address], [place] [address]- 2216 Mar, [facility] [id number] [place] [address]- 7008 February, [facility] [address] [place] [address]- 5439 February, [facility] [address] [place] [address]- 6081 Jan, [facility] [id number] [place] [address], [place] [address]- 4389 Dec, [facility] [address] [place] [address]- 4768 Dec, Hypertension, benign I10 and Abdominal aortic aneurysm (AAA ) without rupture I71.4 [facility] [address], [place] [address]- 3763 Dec, [facility] [address], [place] [address]- 2099 Nov, Medicare annual wellness visit, initial Z00.00 [facility] [id number] [place] [address]- 2465 Nov, [facility] [address] [place] [address]- 5964 Nov, [facility] [id number], [place] [address]- 5530 Oct, [facility] [address], [place] [address]- 4545 Oct, [facility] [address] [facility] [id number], [place] [address]- 7957 Oct, [facility] [address], [place] [address]- 4518 Oct, [facility] [address], [place] [address]- 8059 Sep, Medicare welcome exam Z00.00 ; Medicare annual wellness visit, initial Z00.00 and Medicare annual wellness visit, subsequent Z00.00 [facility] [address], [place] [address]- 5317 Sep, [facility] [address], [place] [address]- 6108 Sep, [facility] [address], [place] [address]- 1436 Aug, Trigger middle finger of right hand M65.331 [facility] [address], [place] [address]- 2993 Aug, Hypertension, benign I10 [facility] [address], [place] [address]- 6740 Aug, [facility] [address], [place] [address]- 0975 Aug, [facility] [address], [place] [address]- 7186 Jul, [facility] [address], [place] [address]- 0095 Jul, [facility] [address], [place] [address]- 6674 Jul, Hypertension, essential I10 and Bradycardia R00.1 [facility] [address], [place] [address]- 5675 Jul, [facility] [id number] [place] [address] [place] [address]- 2129 06 Jul, 2016 [facility] [address] [place] [address]- 6415 30 Jun, 2016 Essential hypertension I10 [facility] [id number] [place] [address], [place] [address]- 0616 20 Jun, 2016 [facility] [id number] [place] [address] 39378- 2659 14 Jun, 2016 [facility] [id number] [place] [address], [place] [address]- 2549 12 Jun, 2016 [facility] [id number] [place] [address] 58635- 3019 Jun, Abdominal aneurysm I71.4 ; Essential hypertension I10 ; Trigger middle finger of right hand M65.331 and Gastroesophageal reflux disease with esophagitis K21.0 [facility] [id number] [place] [address], [place] [address]- 3427 May, [facility] [id number], [place] [address]- 8805 May, [facility] [id number] [place] [address], [place] [address]- 1440 Apr, [facility] [address], [place] [address]- 1626 Apr, [facility] [address], [place] [address]- 0225 Apr, [facility] [address], [place] [address]- 5225 Mar, [facility] [id number] [place] [address], [place] [address]- 2669 Mar, [facility] [address] [place] [address]- 2216 February, [facility] [address], [place] [address]- 3432 February, [facility] [address] 12098- 8052 February, Primary insomnia F51.01 [facility] [address] 41176- 1110 February, Insomnia G47.00 [facility] [address] 35769- 1938 Jan, Insomnia G47.00 [facility] [address] 19290- 5045 Jan, Insomnia G47.00 [facility] [address] 69797- 2118 Jan, Insomnia G47.00 [facility] [address] [id number] Dec, Dental examination Z01.20 and Caries K02.9 [facility] [address] 37510- 4921 Dec, Insomnia G47.00 and Bronchitis J40 [facility] [address] 79926- 0331 Nov, [facility] [address] 51204- 9118 Oct, [facility] [address] 78678- 1925 Sep, [facility] [address] 55347- 4667 Aug, [facility] [address] 43789- 6165 Jul, [facility] [address] 46155- 2349 Jul, [facility] [id number] [place] [address] 84837- 0809 Jun, [facility] [address] [facility] [id number] [address]- 7397 Jun, [facility] [address], [place] [address]- 6626 Jun, [facility] [address] [facility] [id number], [place] [address]- 2322 May, [facility] [id number] [place] [address] 16061- 1209 Apr, [facility] [address] [facility] [id number], [place] [address]- 7984 Apr, Cerumen impaction 380.4 [facility] [id number] [place] [address] 86933- 2924 Apr, Cerumen impaction 380.4 [facility] [address], [place] [address]- 5359 Mar, [facility] [address], [place] [address]- 0979 February, [facility] [id number] [place] [address] 037404- 1621 February, Abdominal aortic aneurysm greater than 39 mm in diameter 441.4 [facility] [address] 9855 February, [facility] [address], [place] [address]- 8590 Jan, [facility] [address], [place] [address]- 9663 Jan, [facility] [address], [place] [address]- 0003 Jan, [facility] [address], [place] [address]- 4826 Dec, [facility] [address], [place] [address]- 9423 Dec, [facility] [place] [facility] [address] [id number] [place] [address]- 8465 Dec, [facility] [place] [facility] [address] [id number] [place] [address]- 2629 Dec, [facility] [place] [facility] [address] [id number] [place] [address]- 6111 Nov, [facility] [place] [facility] [address] [id number] [place] [address]- 5640 Nov, [facility] [place] [facility] [address] [id number] [place] [address]- 0499 Oct, [facility] [place] [facility] [address] [id number] [place] [address]- 9942 Oct, [facility] [place] [facility] [address] [id number] [place] [address]- 1829 Sep, [facility] [place] [facility] [address] [id number] [place] [address]- 4407 Sep, [facility] [place] [facility] [address] [id number] [place] [address]- 7707 Sep, [facility] [place] [facility] [address] [id number] [place] [address]- 9073 Sep, [facility] [place] [facility] [address] [id number] [place] [address]- 4178 Sep, [facility] [place] [facility] [address] [id number], [place] [address]- 5150 Sep, [facility] [place] [facility] [address] [id number] [place] [address]- 3794 Aug, [facility] [place] [facility] [address] [id number] [place] [address]- 3521 Aug, [facility] [place] [facility] [address] [id number] [place] [address]- 5570 Jul, [facility] [place] [facility] [address] [id number] [place] [address]- 7652 17 Jul, 2014 [facility] [place] [facility] [address] [id number] [place] [address]- 5100 14 Jul, 2014 [facility] [place] [facility] [address] [id number] [place] [address]- 8178 14 Jul, 2014 [facility] [place] [facility] [address] [id number] [place] [address]- 8235 15 Jun, 2014 [facility] [place] [facility] [address] [id number] [place] [address]- 5883 15 Jun, 2014 [facility] [place] [facility] [address] [id number] [place] [address]- 9095 18 May, 2014 [facility] [place] [facility] [address] [id number] [place] [address]- 9712 May, [facility] [place] [facility] [address] [id number] [place] [address]- 5754 16 Apr, 2014 [facility] [place] [facility] [address] [id number] [place] [address]- 7130 16 Apr, 2014 [facility] [place] [facility] [address] [id number] [place] [address]- 9099 Mar, [facility] [place] [facility] [address] [facility] [id number] [place] [address]- 3898 Mar, [facility] [place] [facility] [address] [id number] [place] [address]- 3656 February, [facility] [place] [facility] [address] [id number] [place] [address]- 8524 February, [facility] [place] [facility] [address] [id number] [place] [address]- 0626 Jan, [facility] [place] [facility] [address] [id number] [place] [address]- 1912 Jan, [facility] [place] [facility] [address] [id number] [place] 5068 08 Jan, 2014 [facility] [place] [facility] [address] [id number] [place] [address]- 1681 08 Jan, 2014 [facility] [place] [facility] [address] [id number] [place] [address]- 9286 Jan, [facility] [place] [facility] [address] [id number] [place] [address]- 9085 Jan, [facility] [place] [facility] [address] [id number] [place] [address]- 8600 Dec, [facility] [place] [facility] [address] [id number] [place] [address]- 9754 Dec, [facility] [place] [facility] [address] [id number] [place] [address]- 9813 Nov, [facility] [place] [facility] [address] [id number] [place] 7327 Nov, [facility] [place] [facility] [address] [id number] [place] [address]- 5142 Nov, [facility] [place] [facility] [address] [id number] [place] [address]- 6203 Nov, [facility] [place] [facility] [address] [id number] [place] [address]- 2108 Oct, [facility] [place] [facility] [address] [id number] [place] [address]- 0977 Oct, [facility] [place] [facility] [address] [id number] [place] [address]- 5051 Oct, [facility] [place] [facility] [address] [id number] [place] [address]- 2467 Oct, [facility] [place] [facility] [address] [id number] [place] [address]- 2488 Sep, [facility] [place] [facility] [address] [id number] [place] [address]- 5180 Sep, [facility] [place] [facility] [address] [id number], [place] [address]- 3724 10 Sep, 2013 [facility] [place] [facility] [address] [id number] [place] [address]- 4621 10 Sep, 2013 [facility] [place] [facility] [address] [id number], [place] [address]- 6161 18 Aug, 2013 [facility] [place] [facility] [address] [id number] [place] [address]- 0796 Aug, [facility] [place] [facility] [address] [id number] [place] [address]- 6599 Aug, [facility] [place] [facility] [address] [id number] [place] [address]- 9468 Aug, [facility] [place] [facility] [address] [id number] [place] [address]- 7764 Aug, [facility] [place] [facility] [address] [id number] [place] [address]- 0775 Aug, [facility] [place] [facility] [address] [id number] [place] [address]- 5150 18 Jul, 2013 [facility] [place] [facility] [address] [id number] [place] [address]- 9647 18 Jul, 2013 [facility] [place] [facility] [address] [id number] [place] [address]- 9424 Jul, [facility] [place] [facility] [address] [id number], [place] [address]- 7293 14 Jul, 2013 [facility] [place] [facility] [address] [id number], [place] [address]- 0962 20 Jun, 2013 [facility] [place] [facility] [address] [id number] [place] [address]- 8569 13 Jun, 2013 [facility] [place] [facility] [address] [id number] [place] [address]- 8153 21 May, 2013 [facility] [place] [facility] [address] [id number] [place] [address]- 3133 16 May, 2013 [facility] [place] [facility] [address] [id number] [place] [address]- 8960 May, [facility] [address] [id number] [place] [address]- 3767 May, [facility] [address] [id number] [place] [address] 2546 May, [facility] [address] [id number] [place] [address]- 0948 Apr, [facility] [address] [id number] [place] [address]- 8161 Apr, [facility] [address] [id number] [place] [address]- 6003 Apr, [facility] [address] [id number] [place] [address]- 2461 Mar, [facility] [address] [id number] [place] [address]- 1762 Mar, [facility] [address] [id number] [place] [address]- 6040 February, [facility] [address] [id number] [place] [address]- 7332 February, [facility] [address] [id number] [place] [address]- 4570 Jan, [facility] [address] [id number] [place] [address]- 4375 Jan, [facility] [address] [id number] [place] [address]- 3774 Jan, [facility] [place] [facility] [address] [id number] [place] [address] Jan, [facility] [place] [facility] [address] [id number] [place] [address] Dec, [facility] [place] [facility] [address] [id number] [place] [address] Dec, [facility] [address] [id number] [place] [address] Dec, [facility] [place] [facility] [address] [id number] [place] [address] Nov, [facility] [place] [facility] [address] [id number] [place] [address] Nov, [facility] [place] [facility] [address] [id number] [place] [address] Oct, [facility] [place] [facility] [address] [id number] [place] [address] Oct, [facility] [place] [facility] [address] [id number] [place] [address] Sep, [facility] [place] [facility] [address] [id number] [place] [address] Sep, [facility] [place] [facility] [address] [id number] [place] [address] Sep, [facility] [place] [facility] [address] [id number] [place] [address] Sep, [facility] [place] [facility] [address] [id number] [place] [address] Sep, [facility] [place] [facility] [address] [id number] [place] [address] Sep, [facility] [place] [facility] [address] [id number], [place] [address] Sep, [facility] [place] [facility] [address] [id number] [place] [address] Aug, [facility] [place] [facility] [address] [id number] [place] [address] Aug, [facility] [place] [facility] [address] [id number] [place] [address] Jun, [facility] [place] [facility] [address] [id number], [place] [address] May, [facility] [id number], [place] [address] May, [facility] [id number], [place] [address] Apr, [facility] [id number], [place] [address] Apr, [facility] [id number], [place] [address] February, [facility] [id number] [place] [address] Jan, [facility] [id number], [place] [address] Jan, [facility] [id number], [place] [address] Dec, [facility] [id number], [place] [address] Oct, [facility] [id number], [place] [address] Oct, [facility] [id number], [place] [address] Sep, [facility] [id number], [place] [address] Sep, [facility] [address] [id number], [place] [address] Sep, [facility] [address] [id number], [place] [address] Sep, IMMUNIZATIONS No Known Immunizations SOCIAL HISTORY Never Assessed REASON FOR VISIT Controlled Med Refill PLAN OF CARE VITAL SIGNS MEDICATIONS Unknown Medications RESULTS No Results PROCEDURES No Known procedures [...]
--- OUTSIDE RECORDS SUMMARY | 2018-07-04 08:17 | XMS REPORT ---
Author Author CHEMA ZUNIGA [facility] Address [address] [place] [address] Care Team Providers Care Galley Stripper Name Role Phone CHEMA ZUNIGA Unavailable PROBLEMS Type Condition ICD9-CM Code RUO09-XI Code Onset Dates Condition Status SNOMED Code Problem Hypertension, benign I10 Active 73540940 Problem Abdominal aneurysm I71.4 Active 307378520 Problem Hypercholesterolemia E78.00 Active 81524492 Problem Anxiety F41.9 Active 47142768 Problem Primary insomnia F51.01 Active 5242859 Problem Abdominal aortic aneurysm (AAA) without rupture I71.4 Active 46793806 Problem Essential hypertension I10 Active 85994766 Problem Hyperlipidemia, mixed E78.2 Active [id number] ALLERGIES No Information ENCOUNTERS Encounter Location Date Diagnosis [facility] [id number] [place] [address] 30973- 0795 Jun, [facility] [id number] [place] [address] 54836- 8210 Jun, [facility] [id number] [place] [address] 60399- 6093 May, [facility] [id number] [place] [address] 38486- 9025 May, Hypercholesterolemia E78.00 and Anxiety F41.9 [facility] [id number] [place] [address] 74575- 3490 May, [facility] [id number] [place] [address] 32707- 2948 Apr, [facility] [id number] [place] [address] 65521- 9763 Mar, Chronic congestive heart failure, unspecified heart failure type I50.9 [facility] [id number] [place] [address] 24223- 3502 Mar, [facility] [id number] [place] [address] 20562 -2030 Mar, Localized edema R60.0 [facility] [id number] [place] [address] 32064- 4021 February, [facility] [address] 66275- 8824 February, [facility] [id number] [place] [address] 92363- 5512 Jan, [facility] [address] 94784- 7607 Dec, [facility] [id number] [place] [address] 26448- 3144 Nov, Hypertension, benign I10 and Essential hypertension I10 [facility] [id number] [place] [address] 44338- 6275 Nov, [facility] [id number] [place] [address] 87359- 5766 Nov, Scalp lesion L98.9 ; Anxiety F41.9 ; Trigger finger, right middle finger M65.331 and Encounter for drug screening Z02.83 [facility] [id number] [place] [address] 71519- 6722 Nov, [facility] [id number] [place] [address] 22210- 5911 Oct, Essential hypertension I10 [facility] [id number] [place] [address] 67415- 7039 Oct, [facility] [id number] [place] [address] 42106- 9144 Oct, [facility] [id number] [place] [address] 36736- 7076 Sep, [facility] [address] [address] Aug, Cough R05 and Pneumonia of left lower lobe due to infectious organism J18.1 [facility] [id number] [place] [address] 59526- 8676 16 Aug, 2017 [facility] [id number] [place] [address] 55890- 9753 Aug, [facility] [id number] [place] [address] 52449- 5129 Aug, [facility] [id number] [place] [address] 14192- 6876 Aug, [facility] [id number] [place] [address] 58210- 9395 Aug, [facility] [id number] [place] [address] 62580- 0621 Aug, Lung mass R91.8 [facility] [id number] [place] [address] 75620- 7725 Aug, [facility] [id number] [place] [address] 84467- 5078 Aug, Mass of lung parenchyma R91.8 [facility] [id number] [place] [address] 75551- 1782 Jul, [facility] [id number] [place] [address] 17355- 3518 Jun, Hypertension, benign I10 ; Hyperlipidemia, mixed E78.2 and Primary insomnia F51.01 [facility] [id number] [place] [address] 40707- 8992 Jun, [facility] [id number] [place] [address] 60745- 5978 Jun, Essential hypertension I10 [facility] [id number] [place] [address] 47471- 4015 May, [facility] [address] [id number] [place] [address]- 9677 Apr, [facility] [id number] [place] [address]- 7885 Mar, [facility] [id number] [place] [address]- 9035 Mar, [facility] [id number] [place] [address]- 0618 February, [facility] [id number] [place] [address]- 2472 February, [facility] [id number] [place] [address]- 3434 Jan, [facility] [id number] [place] [address]- 6782 Dec, [facility] [id number] [place] [address]- 7735 Dec, Hypertension, benign I10 and Abdominal aortic aneurysm (AAA ) without rupture I71.4 [facility] [id number] [place] [address]- 2651 Dec, [facility] [id number] [place] [address]- 5493 Nov, Medicare annual wellness visit, initial Z00.00 [facility] [address] [address]- 1311 Nov, [facility] [id number] [place] [address]- 4122 Nov, [facility] [id number] [place] [address]- 6041 Oct, [facility] [id number] [place] [address]- 2102 Oct, [facility] [id number] [place] [address] 02498- 7373 Oct, [facility] [address] [address]- 2107 Oct, [facility] [id number] [place] [address] 47759- 3227 Sep, Medicare welcome exam Z00.00 ; Medicare annual wellness visit, initial Z00.00 and Medicare annual wellness visit, subsequent Z00.00 [facility] [id number] [place] [address] 20662- 7689 Sep, [facility] [id number] [place] [address] 44067- 9496 Sep, [facility] [id number] [place] [address] 26566- 5879 Aug, Trigger middle finger of right hand M65.331 [facility] [id number] [place] [address] 22756- 7959 Aug, Hypertension, benign I10 [facility] [id number] [place] [address] 84675- 8532 Aug, [facility] [id number] [place] [address] 11310- 1132 Aug, [facility] [id number] [place] [address] 13381- 5530 Jul, [facility] [id number] [place] [address] 29551- 6584 Jul, [facility] [id number] [place] [address] 52158- 3659 Jul, Hypertension, essential I10 and Bradycardia R00.1 [facility] [id number] [place] [address] 03824- 7794 Jul, [facility] [id number] [place] [address] 88281- 3359 Jul, [facility] [id number] [place] [address] 55302 2546 30 Jun, 2016 Essential hypertension I10 [facility] [id number] [address] 2546 20 Jun, 2016 [facility] [address] [address] 2546 14 Jun, 2016 [facility] [id number] [place] [address] 80650 2546 12 Jun, 2016 [facility] [id number] [place] [address] 47220 2546 Jun, Abdominal aneurysm I71.4 ; Essential hypertension I10 ; Trigger middle finger of right hand M65.331 and Gastroesophageal reflux disease with esophagitis K21.0 [facility] [id number] [address] 2546 May, [facility] [id number] [place] [address] 43733 2546 May, [facility] [address] [address] 2542 Apr, [facility] [id number] [place] [address] 2546 Apr, [facility] [address] [address] 2540 Apr, [facility] [address] [address] 2546 Mar, [facility] [address] [address] 2546 Mar, [facility] [address] [address] 2546 February, [facility] [id number] [place] [address] 2546 February, [facility] [address] [address] 2546 February, Primary insomnia F51.01 [facility] [id number] [place] [address] 97243- 0199 February, Insomnia G47.00 [facility] [address] 76741- 0542 Jan, Insomnia G47.00 [facility] [address] 84374- 5165 Jan, Insomnia G47.00 [facility] [address] 02801- 3105 Jan, Insomnia G47.00 [facility] [place] [facility] [address] [id number] Dec, Dental examination Z01.20 and Caries K02.9 [facility] [address] 69426- 1082 Dec, Insomnia G47.00 and Bronchitis J40 [facility] [address] 47202- 7696 Nov, [facility] [address] 44044- 1494 Oct, [facility] [address] 46291- 9360 Sep, [facility] [id number] [place] [address] 37768- 7326 Aug, [facility] [id number] [place] [address] 23013- 4304 Jul, [facility] [address] 51913- 7703 Jul, [facility] [address] 54064- 4520 Jun, [facility] [id number] [place] [address] 80338- 1037 24 Jun, 2015 [facility] [address] [address]- 8420 Jun, [facility] [id number] [place] [address] 66801- 3479 May, [facility] [address] [address]- 1022 Apr, [facility] [id number] [place] [address] 38601- 3937 Apr, Cerumen impaction 380.4 [facility] [id number] [place] [address] 30202- 7683 Apr, Cerumen impaction 380.4 [facility] [id number] [place] [address] 06176- 6614 Mar, [facility] [id number] [place] [address] 26805- 7264 February, [facility] [id number] [place] [address] 61702- 4794 February, Abdominal aortic aneurysm greater than 39 mm in diameter 441.4 [facility] [id number] [place] [address] 685558- 4906 February, [facility] [address] 8679 Jan, [facility] [address] [address]- 3738 Jan, [facility] [address] [address]- 7901 Jan, [facility] [id number] [place] [address] 67542- 9408 Dec, [facility] [address] [address]- 7156 Dec, [facility] [id number] [place] [address] 42992- 9503 Dec, [facility] [place] [facility] [address] [id number] [place] [address]- 2633 Dec, [facility] [place] [facility] [address] [id number] [place] [address]- 9055 Nov, [facility] [place] [facility] [address] [id number] [place] [address]- 8015 Nov, [facility] [place] [facility] [address] [id number] [place] [address]- 7009 Oct, [facility] [place] [facility] [address] [id number] [place] [address]- 3209 Oct, [facility] [place] [facility] [address] [id number] [place] [address]- 2231 Sep, [facility] [place] [facility] [address] [id number] [place] [address]- 3001 Sep, [facility] [place] [facility] [address] [id number] [place] [address]- 4406 Sep, [facility] [place] [facility] [address] [id number] [place] [address]- 3295 Sep, [facility] [place] [facility] [address] [facility] [id number] [place] [address]- 9923 Sep, [facility] [place] [facility] [address] [id number] [place] [address]- 7059 Sep, [facility] [place] [facility] [address] [id number] [place] [address]- 2414 Aug, [facility] [place] [facility] [address] [id number] [place] [address]- 9519 Aug, [facility] [place] [facility] [address] [id number] [place] [address]- 6246 Jul, [facility] [place] [facility] [address] [id number] [place] [address]- 3946 Jul, [facility] [place] [facility] [address] [id number] [place] [address]- 4280 14 Jul, 2014 [facility] [place] [facility] [address] [id number] [place] [address]- 9432 14 Jul, 2014 [facility] [place] [facility] [address] [id number] [place] [address]- 3828 15 Jun, 2014 [facility] [place] [facility] [address] [id number] [place] [address]- 4157 15 Jun, 2014 [facility] [place] [facility] [address] [id number] [place] [address]- 7934 18 May, 2014 [facility] [place] [facility] [address] [id number] [place] [address]- 3250 May, [facility] [place] [facility] [address] [id number] [place] [address]- 1247 Apr, [facility] [place] [facility] [address] [id number] [place] [address]- 0879 Apr, [facility] [place] [facility] [address] [id number] [place] [address]- 4304 Mar, [facility] [place] [facility] [address] [id number] [place] [address]- 9315 Mar, [facility] [place] [facility] [address] [id number] [place] [address]- 6968 February, [facility] [place] [facility] [address] [id number] [place] [address]- 8913 February, [facility] [place] [facility] [address] [id number] [address]- 0647 Jan, [facility] [place] [facility] [address] [id number] [place] [address]- 2593 Jan, [facility] [place] [facility] [address] [id number] [place] [address]- 9982 Jan, [facility] [place] [facility] [address] [id number] [place] [address]- 2045 Jan, [facility] [place] [facility] [address] [id number] [place] [address]- 7350 Jan, [facility] [place] [facility] [address] [id number] [place] [address]- 0153 Jan, [facility] [place] [facility] [address] [id number] [place] [address]- 9074 Dec, [facility] [place] [facility] [address] [id number] [place] [address]- 7402 Dec, [facility] [place] [facility] [address] [id number] [place] [address]- 5856 Nov, [facility] [place] [facility] [address] [id number] [place] [address]- 0187 Nov, [facility] [place] [facility] [address] [id number] [place] [address]- 2459 Nov, [facility] [place] [facility] [address] [id number] [place] [address]- 5766 Nov, [facility] [place] [facility] [address] [id number] [place] [address]- 4730 Oct, [facility] [place] [facility] [address] [id number] [place] [address]- 7130 Oct, [facility] [place] [facility] [address] [id number] [place] [address]- 4456 Oct, [facility] [place] [facility] [address] [id number] [place] [address]- 8783 Oct, [facility] [place] [facility] [address] [id number] [place] [address]- 5311 Sep, [facility] [place] [facility] [address] [id number] [place] [address]- 8311 Sep, [facility] [place] [facility] [address] [id number] [place] [address]- 7597 Sep, [facility] [place] [facility] [address] [id number] [address]- 6667 10 Sep, 2013 [facility] [place] [facility] [address] [id number] [place] [address]- 5818 18 Aug, 2013 [facility] [place] [facility] [address] [id number] [place] 4316 18 Aug, 2013 [facility] [place] [facility] [address] [id number] [place] [address]- 0962 Aug, [facility] [place] [facility] [address] [id number] [place] [address]- 5042 Aug, [facility] [place] [facility] [address] [id number] [place] [address]- 3423 Aug, [facility] [place] [facility] [address] [id number] [place] [address]- 0867 08 Aug, 2013 [facility] [place] [facility] [address] [id number] [place] [address]- 6105 18 Jul, 2013 [facility] [place] [facility] [address] [id number] [place] [address]- 1370 18 Jul, 2013 [facility] [place] [facility] [address] [id number] [place] [address]- 2389 14 Jul, 2013 [facility] [place] [facility] [address] [id number] [place] [address]- 5641 14 Jul, 2013 [facility] [place] [facility] [address] [id number] [place] [address] 20 Jun, 2013 [facility] [place] [facility] [address] [id number] [place] [address] 13 Jun, 2013 [facility] [place] [facility] [address] [id number] [place] [address] 21 May, 2013 [facility] [place] [facility] [address] [id number] [place] [address] 16 May, 2013 [facility] [place] [facility] [address] [id number] [place] [address] 14 May, 2013 [facility] [place] [facility] [address] [id number] [place] [address] May, [facility] [address] [id number] [place] [address] May, [facility] [address] [id number] [place] [address] Apr, [facility] [address] [id number] [place] [address] Apr, [facility] [address] [id number] [place] [address] Apr, [facility] [address] [id number] [place] [address] Mar, [facility] [address] [id number] [place] [address] Mar, [facility] [address] [id number] [place] [address] [address] February, [facility] [address] [id number] [place] [address] February, [facility] [address] [id number] [place] [address] [address] Jan, [facility] [address] [id number] [place] [address] Jan, [facility] [address] [id number] [place] [address] Jan, [facility] [address] [id number] [place] [address] Jan, [facility] [address] [id number] [place] [address] [address] Dec, [facility] [address] [id number] [place] [address]- [address] Dec, [facility] [address] [id number] [place] [address] Dec, [facility] [address] [id number] [place] [address] Nov, [facility] [place] [facility] [address] [id number] [place] [address] Nov, [facility] [place] [facility] [address] [id number] [place] [address] Oct, [facility] [place] [facility] [address] [id number] [place] [address] Oct, [facility] [place] [facility] [address] [id number] [place] [address] Sep, [facility] [place] [facility] [address] [id number] [place] [address] Sep, [facility] [place] [facility] [address] [id number] [address] Sep, [facility] [place] [facility] [address] [id number] [place] [address] Sep, [facility] [place] [facility] [address] [id number] [place] [address] Sep, [facility] [place] [facility] [address] [facility] [id number] [place] [address]- [address] Sep, [facility] [place] [facility] [address] [id number] [place] [address] Sep, [facility] [place] [facility] [address] [id number] [place] [address] Aug, [facility] [place] [facility] [address] [id number] [place] [address] Aug, [facility] [place] [facility] [address] [id number] [place] [address] Jun, [facility] [place] [facility] [address] [id number] [place] [address] May, [facility] [place] [facility] [address] [id number] [address] May, [facility] [id number] [address] Apr, [facility] [id number] [address] Apr, [facility] [id number] [address] February, [facility] [id number] [address] Jan, [facility] [id number] [place] [address] Jan, [facility] [id number] [address] Dec, [facility] [id number] [address] Oct, [facility] [id number] [address] Oct, [facility] [id number] [address] Sep, [facility] [address] [id number] [address] Sep, [facility] [address] [id number] [address] Sep, [facility] [id number] [address] Sep, IMMUNIZATIONS No Known Immunizations SOCIAL HISTORY Never Assessed REASON FOR VISIT Controlled Med Refill PLAN OF CARE VITAL SIGNS MEDICATIONS Medication Instructions Dosage Frequency Start Date End Date Duration Status [place] 7.5-325 MG Orally every 6 hrs 1 tablet as needed 6h May, 28 days Active RESULTS No Results PROCEDURES No Known [...]
--- OUTSIDE RECORDS SUMMARY | 2018-07-04 08:18 | XMS REPORT ---
Author Author BRENDA WETZEL Organization [facility] Address [address] [place] [address] Care Team Providers Care Advanced Seal Delivery System Name Role Phone BRENDA WETZEL Unavailable PROBLEMS Type Condition ICD9-CM Code OIY26-EF Code Onset Dates Condition Status SNOMED Code Problem Hypertension, benign I10 Active 09562804 Problem Abdominal aneurysm I71.4 Active 770901638 Problem Hypercholesterolemia E78.00 Active 40200673 Problem Anxiety F41.9 Active 74166060 Problem Primary insomnia F51.01 Active 9854509 Problem Abdominal aortic aneurysm (AAA) without rupture I71.4 Active 24967806 Problem Essential hypertension I10 Active 99338316 Problem Hyperlipidemia, mixed E78.2 Active [id number] ALLERGIES No Information ENCOUNTERS Encounter Location Date Diagnosis [facility] [id number] [place] [address] 25510- 6738 Jun, [facility] [id number] [place] [address] 65726- 1451 May, [facility] [id number] [place] [address] 30859- 7506 May, Hypercholesterolemia E78.00 and Anxiety F41.9 [facility] [id number] [place] [address] 84118- 6419 May, [facility] [id number] [place] [address] 77467- 6294 Apr, [facility] [id number] [place] [address] 55235- 4139 Mar, Chronic congestive heart failure, unspecified heart failure type I50.9 [facility] [id number] [place] [address] 82122- 5654 Mar, [facility] [id number] [place] [address] Mar, Localized edema R60.0 [facility] [address] 34511- 1611 February, [facility] [id number] [place] [address] 93270- 3148 February, [facility] [address] 33125- 2402 Jan, [facility] [address] 02904- 0299 Dec, [facility] [address] 46758- 8855 Nov, Hypertension, benign I10 and Essential hypertension [address] [place] [address] 33368- 3742 Nov, [facility] [address] 63852- 0061 Nov, Scalp lesion L98.9 ; Anxiety F41.9 ; Trigger finger, right middle finger M65.331 and Encounter for drug screening Z02.83 [facility] [id number] [place] [address] 68209- 9833 Nov, [facility] [id number] [place] [address] 78705- 7444 Oct, Essential hypertension I10 [facility] [id number] [place] [address] 04784- 4559 Oct, [facility] [id number] [place] [address] 32057- 5738 Oct, [facility] [id number] [place] [address] 23416- 2303 Sep, [facility] [id number] [place] [address] 17469 -7671 Aug, Cough R05 and Pneumonia of left lower lobe due to infectious organism J18.1 [facility] [address] [address]- 6105 16 Aug, 2017 [facility] [id number] [place] [address] 11781- 0347 Aug, [facility] [id number] [place] [address] 24346- 7137 Aug, [facility] [id number] [place] [address] 09447- 4355 Aug, [facility] [id number] [place] [address] 34436- 8535 Aug, [facility] [id number] [place] [address] 61244- 4897 Aug, Lung mass R91.8 [facility] [id number] [place] [address] 39590- 5216 Aug, [facility] [id number] [place] [address] 91621- 6871 Aug, Mass of lung parenchyma R91.8 [facility] [id number] [place] [address] 84582- 1928 Jul, [facility] [id number] [place] [address] 49960- 5180 Jun, Hypertension, benign I10 ; Hyperlipidemia, mixed E78.2 and Primary insomnia F51.01 [facility] [address], [place] [address]- 7215 Jun, [facility] [id number] [place] [address] 21704- 3704 Jun, Essential hypertension I10 [facility] [id number] [place] [address] 31656- 8020 May, [facility] [id number] [place] [address] 62163- 8807 Apr, [facility] [address] [facility] [id number] [place] [address]- 3754 Mar, [facility] [address] [facility] [id number] [place] [address]- 4593 Mar, [facility] [address] [facility] [id number] [place] [address]- 4566 February, [facility] [address] [address]- 4841 February, [facility] [address] [facility] [id number] [place] 1790 Jan, [facility] [address] [address]- 4363 Dec, [facility] [address] 2245 Dec, Hypertension, benign I10 and Abdominal aortic aneurysm (AAA ) without rupture I71.4 [facility] [address] [address]- 2328 Dec, [facility] [address] [address]- 2171 Nov, Medicare annual wellness visit, initial Z00.00 [facility] [address] 2072 Nov, [facility] [address] [address]- 8388 Nov, [facility] [id number] [address]- 5763 Oct, [facility] [address] [address]- 9976 Oct, [facility] [address] [facility] [id number] [place] [address]- 8296 Oct, [facility] [address] [address]- 2875 Oct, [facility] [address], [place] [address]- 8282 Sep, Medicare welcome exam Z00.00 ; Medicare annual wellness visit, initial Z00.00 and Medicare annual wellness visit, subsequent Z00.00 [facility] [address], [place] [address]- 7094 Sep, [facility] [id number] [place] [address] 99532- 5394 Sep, [facility] [id number] [place] [address] 06830- 9261 Aug, Trigger middle finger of right hand M65.331 [facility] [id number] [place] [address] 80723- 7045 Aug, Hypertension, benign I10 [facility] [id number] [place] [address] 66618- 9109 Aug, [facility] [id number] [place] [address] 35808- 8125 Aug, [facility] [id number] [place] [address] 89695- 6366 Jul, [facility] [id number] [place] [address] 51868- 9897 Jul, [facility] [id number] [place] [address] 91414- 3392 Jul, Hypertension, essential I10 and Bradycardia R00.1 [facility] [address], [place] [address]- 8948 Jul, [facility] [id number] [place] [address] 88584- 9742 Jul, [facility] [address], [place] [address]- 2959 Jun, Essential hypertension I10 [facility] [id number] [place] [address] 60455- 7364 20 Jun, 2016 [facility] [id number] [place] [address] 84463- 1026 14 Jun, 2016 [facility] [id number] [place] [address] 32443- 4896 Jun, [facility] [id number] [place] [address] 26832- 7779 Jun, Abdominal aneurysm I71.4 ; Essential hypertension I10 ; Trigger middle finger of right hand M65.331 and Gastroesophageal reflux disease with esophagitis K21.0 [facility] [id number] [place] [address] 09024- 6338 May, [facility] [id number] [place] [address] 22188- 6073 May, [facility] [id number] [place] [address] 28841- 9030 Apr, [facility] [id number] [place] [address] 82324- 8918 Apr, [facility] [id number] [place] [address] 93986- 4473 Apr, [facility] [id number] [place] [address] 07917- 4004 Mar, [facility] [id number] [place] [address] 77329- 7923 Mar, [facility] [id number] [place] [address] 75943- 2544 February, [facility] [id number] [place] [address] 04572- 9663 February, [facility] [id number] [place] [address] 72052- 4187 February, Primary insomnia F51.01 [facility] [id number] [place] [address] 15450- 5454 February, Insomnia G47.00 [facility] [id number] [place] [address] 36311- 0141 Jan, Insomnia G47.00 [facility] [id number] [place] [address] 21650- 4370 Jan, Insomnia G47.00 [facility] [id number] [place] [address] 62843- 0036 Jan, Insomnia G47.00 [facility] [id number] [place] [address] [id number] Dec, Dental examination Z01.20 and Caries K02.9 [facility] [address] 13599- 4394 Dec, Insomnia G47.00 and Bronchitis J40 [facility] [id number] [place] [address] 07475- 5186 Nov, [facility] [id number] [place] [address] 77704- 7999 Oct, [facility] [id number] [place] [address] 87873- 7348 Sep, [facility] [id number] [place] [address] 53887- 0321 Aug, [facility] [id number] [place] [address] 03806- 0344 Jul, [facility] [id number] [place] [address] 44846- 0972 Jul, [facility] [id number] [place] [address] 64793- 0276 Jun, [facility] [id number] [place] [address] 36005- 7057 24 Jun, 2015 [facility] [id number] [place] [address] 75458- 0404 17 Jun, 2015 [facility] [id number] [address]- 7739 May, [facility] [address] [facility] [id number] 9505 Apr, [facility] [address] [facility] [id number], [place] [address]- 4108 Apr, Cerumen impaction 380.4 [facility] [address] [facility] [id number] [place] [address] 05916- 2899 Apr, Cerumen impaction 380.4 [facility] [address] [facility] [id number] [place] 1886 Mar, [facility] [id number] [place] [address] 35404- 1718 February, [facility] [address] 6276 February, Abdominal aortic aneurysm greater than 39 mm in diameter 441.4 [facility] [address], [place] [address]- 0119 February, [facility] [address], [place] [address]- 2990 Jan, [facility] [address], [place] [address]- 9650 Jan, [facility] [address], [place] [address]- 1963 Jan, [facility] [address], [place] [address]- 2312 Dec, [facility] [id number], [place] [address]- 7605 Dec, [facility] [id number], [place] [address]- 0397 Dec, [facility] [address], [place] [address]- 8314 Dec, [facility] [place] [facility] [address] [id number] [place] [address]- 2848 Nov, 2014 [facility] [place] [facility] [address] [id number] [place] [address]- 8927 Nov, 2014 [facility] [place] [facility] [address] [id number] [place] [address]- 1917 Oct, [facility] [place] [facility] [address] [id number] [place] [address]- 0188 Oct, [facility] [place] [facility] [address] [id number] [place] [address]- 6496 Sep, [facility] [place] [facility] [address] [id number] [place] 0345 Sep, [facility] [place] [facility] [address] [facility] [id number] [place] [address]- 4627 Sep, [facility] [place] [facility] [address] [id number] [place] [address]- 4148 Sep, [facility] [place] [facility] [address] [id number] [place] [address]- 9666 Sep, [facility] [place] [facility] [address] [id number] [place] [address]- 4338 Sep, [facility] [place] [facility] [address] [facility] [id number] [place] [address]- 5607 Aug, [facility] [place] [facility] [address] [id number] [place] [address]- 3463 Aug, [facility] [place] [facility] [address] [id number] [place] [address]- 0572 Jul, [facility] [place] [facility] [address] [id number] [place] [address]- 1592 Jul, [facility] [place] [facility] [address] [id number] [place] [address]- 0439 14 Jul, 2014 [facility] [place] [facility] [address] [id number] [place] [address]- 8102 14 Jul, 2014 [facility] [place] [facility] [address] [id number] [place] [address]- 6501 15 Jun, 2014 [facility] [place] [facility] [address] [id number] [place] [address]- 5984 15 Jun, 2014 [facility] [place] [facility] [address] [id number] [place] [address]- 1597 May, [facility] [place] [facility] [address] [id number] [place] [address]- 3867 May, [facility] [place] [facility] [address] [id number] [place] [address]- 1353 Apr, [facility] [place] [facility] [address] [id number] [place] [address]- 9845 Apr, [facility] [place] [facility] [address] [id number] [place] [address]- 7700 Mar, [facility] [place] [facility] [address] [id number] [place] [address]- 7632 Mar, [facility] [place] [facility] [address] [id number] [place] [address]- 1897 February, [facility] [place] [facility] [address] [id number] [place] [address]- 0961 February, [facility] [place] [facility] [address] [id number] [place] [address]- 7379 Jan, [facility] [place] [facility] [address] [id number] [place] [address]- 4386 Jan, [facility] [place] [facility] [address] [id number] [place] [address]- 2796 Jan, [facility] [place] [facility] [address] [id number] [place] [address]- 4561 Jan, [facility] [place] [facility] [address] [id number] [place] [address]- 5513 Jan, [facility] [place] [facility] [address] [id number] [place] [address]- 0875 03 Jan, 2014 [facility] [place] [facility] [address] [id number] [place] [address]- 7497 Dec, [facility] [place] [facility] [address] [id number] [place] [address]- 9363 18 Dec, 2013 [facility] [place] [facility] [address] [id number] [place] [address]- 8292 14 Nov, 2013 [facility] [place] [facility] [address] [id number] [place] [address]- 6148 14 Nov, 2013 [facility] [place] [facility] [address] [id number] [place] [address]- 5439 Nov, [facility] [place] [facility] [address] [id number] [place] [address]- 7243 Nov, [facility] [place] [facility] [address] [id number] [place] [address]- 4547 Oct, [facility] [place] [facility] [address] [id number] [place] [address]- 2905 Oct, [facility] [place] [facility] [address] [id number] [place] [address]- 5990 Oct, [facility] [place] [facility] [address] [id number] [place] [address]- 5420 Oct, [facility] [place] [facility] [address] [id number] [place] [address]- 0176 16 Sep, 2013 [facility] [place] [facility] [address] [id number] [place] [address]- 3459 16 Sep, 2013 [facility] [place] [facility] [address] [id number] [place] [address]- 1574 10 Sep, 2013 [facility] [place] [facility] [address] [id number] [place] [address]- 3952 10 Sep, 2013 [facility] [place] [facility] [address] [id number] [place] [address]- 4477 18 Aug, 2013 [facility] [place] [facility] [address] [id number] [place] [address]- 4365 18 Aug, 2013 [facility] [place] [facility] [address] [id number] [place] [address]- 6053 Aug, [facility] [place] [facility] [address] [id number] [place] [address]- 3039 Aug, [facility] [place] [facility] [address] [id number] [place] [address]- 9974 Aug, [facility] [place] [facility] [address] [id number] [place] [address]- 9312 Aug, [facility] [place] [facility] [address] [id number] [place] [address]- 2009 18 Jul, 2013 [facility] [place] [facility] [address] [id number] [place] [address]- 8688 18 Jul, 2013 [facility] [place] [facility] [address] [id number], [place] [address]- 8653 14 Jul, 2013 [facility] [place] [facility] [address] [id number], [place] [address]- 3892 14 Jul, 2013 [facility] [place] [facility] [address] [id number], [place] [address]- 0336 20 Jun, 2013 [facility] [place] [facility] [address] [id number], [place] [address]- 2606 Jun, [facility] [place] [facility] [address] [id number], [place] [address] May, [facility] [place] [facility] [address] [id number] [place] [address] 16 May, 2013 [facility] [place] [facility] [address] [id number], [place] [address] 14 May, 2013 [facility] [place] [facility] [address] [id number], [place] [address] May, [facility] [place] [facility] [address] [id number] [place] [address] May, [facility] [address] [id number] [place] [address] Apr, [facility] [address] [id number] [place] [address] Apr, [facility] [address] [id number] [place] [address] Apr, [facility] [address] [id number] [place] [address] Mar, [facility] [address] [id number] [place] [address] Mar, [facility] [address] [id number] [place] [address] February, [facility] [address] [id number] [place] [address] February, [facility] [address] [id number] [place] [address] Jan, [facility] [address] [id number] [place] [address] Jan, [facility] [address] [id number] [place] [address] Jan, [facility] [address] [id number] [place] [address] Jan, [facility] [address] [id number] [place] [address] Dec, [facility] [place] [facility] [address] [id number] [place] [address] Dec, [facility] [place] [facility] [address] [id number] [place] [address] 254 Dec, [facility] [address] [id number] [place] [address] Nov, [facility] [place] [facility] [address] [id number] [place] [address] Nov, [facility] [place] [facility] [address] [id number] [place] [address] Oct, [facility] [place] [facility] [address] [id number] [place] [address] Oct, [facility] [place] [facility] [address] [id number] [place] [address]- [address] Sep, [facility] [place] [facility] [address] [id number] [place] [address] Sep, [facility] [place] [facility] [address] [id number] [place] [address]- [address] Sep, [facility] [place] [facility] [address] [id number] [place] [address] Sep, [facility] [place] [facility] [address] [id number] [place] [address]- [address] Sep, [facility] [place] [facility] [address] [id number] [place] [address] Sep, [facility] [place] [facility] [address] [facility] [id number] [place] [address] Sep, [facility] [place] [facility] [address] [facility] [id number] [place] [address] Aug, [facility] [place] [facility] [address] [id number], [place] [address] Aug, [facility] [place] [facility] [address] [id number] [place] [address] Jun, [facility] [place] [facility] [address] [id number] [place] [address] May, [facility] [place] [facility] [address] [facility] [id number] [place] [address] May, [facility] [place] [facility] [address] [id number], [place] [address] Apr, [facility] [id number], [place] [address] Apr, [facility] [id number], [place] [address] February, [facility] [id number], [place] [address] Jan, [facility] [id number] [place] [address] Jan, [facility] [facility] [id number] [place] [id number] Dec, [facility] [id number] [place] [id number] Oct, [facility] [id number] [place] [phone] Oct, [facility] [id number] [address] Sep, [facility] [id number] [place] [address] Sep, [facility] [id number] [address] Sep, [facility] [id number], [place] [address] Sep, IMMUNIZATIONS No Known Immunizations SOCIAL HISTORY Never Assessed REASON FOR VISIT Controlled Med Refill 05/03/18 PLAN OF CARE VITAL SIGNS MEDICATIONS Medication Instructions Dosage Frequency Start Date End Date Duration Status Ativan 1 MG Orally twice a day 1 tablet as needed 12h Jan, 28 days Active RESULTS No Results PROCEDURES [...]
--- OUTSIDE RECORDS SUMMARY | 2018-07-04 08:18 | XMS REPORT ---
Author Author BRENDA WETZEL Organization [facility] Address [address] [place] [address] Care Team Providers Care Type Proof Reproducer Name Role Phone BRENDA WETZEL Unavailable PROBLEMS Type Condition ICD9-CM Code UYC50-XT Code Onset Dates Condition Status SNOMED Code Problem Hypertension, benign I10 Active 63780301 Problem Abdominal aneurysm I71.4 Active 707904799 Problem Hypercholesterolemia E78.00 Active 52888025 Problem Anxiety F41.9 Active 11120776 Problem Primary insomnia F51.01 Active 4370136 Problem Abdominal aortic aneurysm (AAA) without rupture I71.4 Active 32214896 Problem Essential hypertension I10 Active 06879619 Problem Hyperlipidemia, mixed E78.2 Active [id number] ALLERGIES Substance Reaction Event Type Date Status Naproxen edema Drug Allergy Mar, Active ENCOUNTERS Encounter Location Date Diagnosis [facility] [id number] [place] [address] 58663- 5860 Jun, [facility] [id number] [place] [address] 41814- 0486 May, [facility] [id number] [place] [address] 11396- 2546 May, Hypercholesterolemia E78.[address] [facility] [id number] [place] [address] 00577- 2186 May, [facility] [id number] [place] [address] 71356- 5935 Apr, [facility] [address] 86691- 5677 Mar, Chronic congestive heart failure, unspecified heart failure type I50.9 [facility] [address] 16206- 7051 Mar, [facility] [id number] [place] [address] 21923 -7337 Mar, Localized edema R60.0 [facility] [id number] [place] [address] 89893- 3284 February, [facility] [address] 01803- 7173 February, [facility] [address] 63214- 8977 Jan, [facility] [id number] [place] [address] 33133- 5564 Dec, [facility] [id number] [place] [address] 35980- 0834 Nov, Hypertension, benign I10 and Essential hypertension I10 [facility] [address] 38450- 0029 Nov, [facility] [id number] [place] [address] 26606- 2505 Nov, Scalp lesion L98.9 ; Anxiety F41.9 ; Trigger finger, right middle finger M65.331 and Encounter for drug screening Z02.83 [facility] [id number] [place] [address] 06984- 3565 Nov, [facility] [id number] [place] [address] 11050- 6370 Oct, Essential hypertension I10 [facility] [id number] [place] [address] 46733- 0411 Oct, [facility] [address] 91077- 6245 Oct, [facility] [id number] [place] [address] 54120- 0289 Sep, [facility] [address] 45883 -0886 Aug, Cough R05 and Pneumonia of left lower lobe due to infectious organism J18.1 [facility] [id number] [place] [address] 16343- 3475 Aug, [facility] [id number] [place] [address] 92482- 5422 Aug, [facility] [id number] [place] [address] 44954- 4105 Aug, [facility] [id number] [place] [address] 06528- 8365 Aug, [facility] [address] 01908- 2861 Aug, [facility] [id number] [place] [address] 57067- 2590 Aug, Lung mass R91.8 [facility] [id number] [place] [address] 41658- 2451 Aug, [facility] [id number] [place] [address] 81848- 0044 Aug, Mass of lung parenchyma R91.8 [facility] [id number] [place] [address] 90211- 9792 Jul, [facility] [id number] [place] [address] 54204- 9595 Jun, Hypertension, benign I10 ; Hyperlipidemia, mixed E78.[address] Primary [address]51.01 [facility] [id number] [place] [address] 72877- 1519 Jun, [facility] [address] 44627- 2638 Jun, Essential hypertension I10 [facility] [id number] [place] [address] 38550- 5612 May, [facility] [address] 48496- 2546 Apr, [facility] [address] [id number] [place] [address]- 1732 Mar, [facility] [address] [id number] [place] [address]- 9088 Mar, [facility] [address] [facility] [id number] [place] [address] 4096 February, [facility] [address] [id number] [place] [address] 9820 February, [facility] [address] [id number] [place] [address]- 9451 Jan, [facility] [address] [facility] [id number] [place]- 8690 Dec, [facility] [address] [address] 5607 Dec, Hypertension, benign I10 and Abdominal aortic aneurysm (AAA ) without rupture I71.4 [facility] [address] [id number] [place] [address]- 0762 Dec, [facility] [address] [id number] [place] [address]- 0816 Nov, Medicare annual wellness visit, initial Z00.00 [facility] [address] [id number] [place] [address]- 4197 Nov, [facility] [address] [facility] [id number] [place] [address]- 3911 Nov, [facility] [address] [id number] [place] [address]- 3889 Oct, [facility] [address] [facility] [id number] [place] [address]- 6626 Oct, [facility] [address] [id number] [place] [address] 7778 Oct, [facility] [address] [address] 3219 Oct, [facility] [id number] [place] [address] 19459- 9698 Sep, Medicare welcome exam Z00.00 ; Medicare annual wellness visit, initial Z00.00 and Medicare annual wellness visit, subsequent Z00.00 [facility] [address] [address]- 6972 Sep, [facility] [id number] [place] [address] 60459- 6204 Sep, [facility] [id number] [place] [address] 70917- 3343 Aug, Trigger middle finger of right hand M65.331 [facility] [id number] [place] [address] 69355- 2613 Aug, Hypertension, benign I10 [facility] [id number] [place] [address] 95258- 1118 Aug, [facility] [id number] [place] [address] 09195- 9948 Aug, [facility] [id number] [place] [address] 22395- 7417 Jul, [facility] [address], [place] [address]- 0780 Jul, [facility] [id number] [place] [address] 25892- 8321 Jul, Hypertension, essential I10 and [address]cardia [address]1 [facility] [address], [place] [address]- 5782 Jul, [facility] [id number] [place] [address] 57754- 8330 Jul, [facility] [address], [place] [address]- 7381 30 Jun, [address] [facility] [address] [place] [address] 25[address], [address] [facility] [id number] [place] [address], [place] [address] 2546 [address], [address] [facility] [id number] [place] [address], [place] [address] 2546 12 Jun, 2016 [facility] [id number] [place] [address] 96142 2546 Jun, Abdominal aneurysm I71.4 ; Essential hypertension I10 ; Trigger middle finger of right hand M65.331 and Gastroesophageal reflux disease with esophagitis K21.0 [facility] [id number] [place] [address], [place] [address] 2546 May, [facility] [id number] [place] [address], [place] [address]- 4546 May, [facility] [id number] [place] [address] 45774- 2544 Apr, [facility] [id number] [place] [address], [place] [address]- 9692 Apr, [facility] [id number] [place] [address] 59179- 3941 Apr, [facility] [id number] [place] [address], [place] [address] 2693 Mar, [facility] [id number] [place] [address] 16665 254 Mar, [facility] [address] [place] [address] [address], [facility] [id number] [place] [address], [place] [address] 2546 February, [facility] [address], [place] [address]- 2544 February, Primary insomnia F51.01 [facility] [id number] [place] [address] 35948- 2285 February, Insomnia G47.00 [facility] [address] 56983- 7353 Jan, Insomnia G47.00 [facility] [id number] [place] [address] 83128- 8381 Jan, Insomnia G47.00 [facility] [address] 72401- 5967 Jan, Insomnia G47.[address] [facility] [address] [id number] Dec, Dental examination Z01.[address] [facility] [address] 76264- 5783 Dec, Insomnia G47.[address] [facility] [address] 72936- 8720 Nov, [facility] [id number] [place] [address] 07769- 8881 Oct, [facility] [id number] [place] [address] 55588- 8767 Sep, [facility] [id number] [place] [address] 46943- 8001 Aug, [facility] [id number] [place] [address] 84717- 8848 Jul, [facility] [id number] [place] [address] 50916- 9476 Jul, [facility] [address] 17678- 9311 Jun, [facility] [id number] [place] [address] 91172- 0101 24 Jun, 2015 [facility] [id number] [place] [address] 11460- 5623 Jun, [facility] [address], [place] [address]- 2612 May, [facility] [id number] [place] [address] 880788- 4122 Apr, [facility] [address] 2477 Apr, Cerumen impaction 380.4 [facility] [address] [facility] [id number] [place] [address] 59772- 3872 Apr, Cerumen impaction 380.4 [facility] [id number] [place] [address] 73040- 2090 Mar, [facility] [id number] [place] [address] 95178- 4394 February, [facility] [id number] [place] [address] 37342- 6986 February, Abdominal aortic aneurysm greater than 39 mm in diameter 441.4 [facility] [address] [place] [address] 93525- 2893 February, [facility] [id number] [place] [address] 56345- 0092 Jan, [facility] [address], [place] [address]- 1078 Jan, [facility] [address], [place] [address]- 0977 Jan, [facility] [address] 0133 Dec, [facility] [id number] 5963 Dec, [facility] [address] 5870 Dec, [facility] [id number] [place] [address] 46372- 0617 Dec, [facility] [place] [facility] [address] [id number] [place] [address]- 9626 Nov, [facility] [place] [facility] [address] [id number] [place] [address]- 8477 Nov, [facility] [place] [facility] [address] [facility] [id number] [place] [address]- 3052 Oct, [facility] [place] [facility] [address] [facility] [id number] [place] [address]- 4389 Oct, [facility] [place] [facility] [address] [facility] [id number] [place] 6481 Sep, [facility] [place] [facility] [address] [facility] [id number] [place] [address]- 2193 Sep, [facility] [place] [facility] [address] [facility] [id number], [place] [address]- 3176 Sep, [facility] [place] [facility] [address] [facility] [id number], [place] [address]- 1721 Sep, [facility] [place] [facility] [address] [facility] [id number] [place] [address]- 2820 Sep, [facility] [place] [facility] [address] [facility] [id number] [place] [address]- 0070 Sep, [facility] [place] [facility] [address] [facility] [id number], [place] [address]- 7403 Aug, [facility] [place] [facility] [address] [facility] [id number], [place] [address]- 3134 Aug, [facility] [place] [facility] [address] [facility] [id number], [place] [address]- 5939 Jul, [facility] [place] [facility] [address] [facility] [id number], [place] [address]- 3053 Jul, [facility] [place] [facility] [address] [facility] [id number], [place] [address]- 1430 14 Jul, 2014 [facility] [place] [facility] [address] [id number] [place] [address]- 0131 14 Jul, 2014 [facility] [place] [facility] [address] [id number] [place] [address]- 0751 15 Jun, 2014 [facility] [place] [facility] [address] [id number] [place] [address]- 0336 15 Jun, 2014 [facility] [place] [facility] [address] [id number] [place] [address]- 2390 May, [facility] [place] [facility] [address] [id number] [place] [address]- 9746 May, [facility] [place] [facility] [address] [id number] [place] [address]- 2261 Apr, [facility] [place] [facility] [address] [id number] [place] [address]- 7712 Apr, [facility] [place] [facility] [address] [id number] [place] [address]- 7809 Mar, [facility] [place] [facility] [address] [id number] [place] 9093 Mar, [facility] [place] [facility] [address] [id number] [place] [address]- 3256 February, [facility] [place] [facility] [address] [id number] [place] 1374 February, [facility] [place] [facility] [address] [id number] [place] [address]- 6589 Jan, [facility] [place] [facility] [address] [id number] [place] [address]- 5438 Jan, [facility] [place] [facility] [address] [id number] [place] [address]- 8816 Jan, [facility] [place] [facility] [address] [id number] [place] [address]- 0126 Jan, [facility] [place] [facility] [address] [id number] [place] [address]- 6086 Jan, [facility] [place] [facility] [address] [id number] [place] 7149 Jan, [facility] [place] [facility] [address] [id number] [place] [address]- 6563 Dec, [facility] [place] [facility] [address] [id number] [place] [address]- 3370 Dec, [facility] [place] [facility] [address] [id number] [place] [address]- 2953 Nov, [facility] [place] [facility] [address] [id number] [place] [address]- 3943 Nov, [facility] [place] [facility] [address] [id number] [place] [address]- 7223 Nov, [facility] [place] [facility] [address] [id number] [place] [address]- 8053 Nov, [facility] [place] [facility] [address] [id number] [place] [address]- 5041 Oct, [facility] [place] [facility] [address] [id number] [place] [address]- 8079 Oct, [facility] [place] [facility] [address] [id number] [place] [address]- 8431 Oct, [facility] [place] [facility] [address] [id number] [place] [address]- 6087 Oct, [facility] [place] [facility] [address] [id number] [place] [address]- 7907 16 Sep, 2013 [facility] [place] [facility] [address] [id number] [place] 6459 16 Sep, 2013 [facility] [place] [facility] [address] [id number] [place] [address]- 5791 Sep, [facility] [place] [facility] [address] [id number] [place] [address]- 3477 Sep, [facility] [place] [facility] [address] [id number] [place] [address]- 5367 18 Aug, 2013 [facility] [address] [id number] [place] [address]- 1133 18 Aug, 2013 [facility] [place] [facility] [address] [id number] [place] [address]- 0487 Aug, [facility] [address] [id number] [place] [address]- 4171 Aug, [facility] [place] [facility] [address] [id number] [place] [address]- 8828 Aug, [facility] [place] [facility] [address] [id number] [place] [address]- 0424 08 Aug, 2013 [facility] [place] [facility] [address] [id number] [place] [address]- 4649 18 Jul, 2013 [facility] [place] [facility] [address] [id number] [place] [address]- 7962 18 Jul, 2013 [facility] [address] [id number] [place] [address]- 4308 14 Jul, 2013 [facility] [place] [facility] [address] [id number] [place] [address]- 5831 14 Jul, 2013 [facility] [address] [id number] [place] [address]- 5198 20 Jun, 2013 [facility] [place] [facility] [address] [id number] [place] [address]- 0886 13 Jun, 2013 [facility] [place] [facility] [address] [id number] [place] [address] 21 May, 2013 [facility] [place] [facility] [address] [id number] [place] [address] 16 May, 2013 [facility] [place] [facility] [address] [id number] [place] [address] 14 May, 2013 [facility] [place] [facility] [address] [id number] [place] [address] May, [facility] [address] [id number] [place] [address] May, [facility] [place] [facility] [address] [id number] [place] [address] Apr, [facility] [place] [facility] [address] [id number] [place] [address] Apr, [facility] [place] [facility] [address] [id number] [place] [address] Apr, [facility] [address] [id number] [place] [address] Mar, [facility] [place] [facility] [address] [id number] [place] [address] Mar, [facility] [place] [facility] [address] [id number] [place] [address] February, [facility] [place] [facility] [address] [id number] [place] [address] February, [facility] [place] [facility] [address] [id number] [place] [address] Jan, [facility] [place] [facility] [address] [id number], [place] [address] Jan, [facility] [place] [facility] [address] [id number] [place] [address] Jan, [facility] [place] [facility] [address] [id number], [place] [address] Jan, [facility] [place] [facility] [address] [id number] [place] [address] Dec, [facility] [place] [facility] [address] [id number] [place] [address] Dec, [facility] [place] [facility] [address] [id number] [place] [address] Dec, [facility] [place] [facility] [address] [id number], [place] [address] Nov, [facility] [address] [id number] [place] [address] Nov, [facility] [place] [facility] [address] [id number] [place] [address] Oct, [facility] [address] [facility] [id number] [place] [address] Oct, [facility] [place] [facility] [address] [id number] [place] [address] Sep, [facility] [address] [id number] [place] [address] Sep, [facility] [place] [facility] [address] [id number] [place] [address] Sep, [facility] [address] [id number] [place] [address] Sep, [facility] [place] [facility] [address] [id number] [place] [address] Sep, [facility] [place] [facility] [address] [id number] [place] [address] Sep, [facility] [place] [facility] [address] [id number] [address] Sep, [facility] [place] [facility] [address] [id number] [place] [address] Aug, [facility] [place] [facility] [address] [id number] [place] [address] Aug, [facility] [place] [facility] [address] [id number] [place] [address] Jun, [facility] [place] [facility] [address] [facility] [place] [place] [id number] [place] [address] May, [facility] [place] [facility] [address] [id number] [place] [address] May, [facility] [place] [facility] [id number], [place] [address] Apr, [facility] [id number] [address] Apr, [facility] [id number] [address] February, [facility] [id number] [place] [address] Jan, [facility] [id number] [address] Jan, [facility] [id number] [place] [address] Dec, [facility] [id number] [address] Oct, [facility] [address] [address] Oct, [facility] [address] [address] Sep, [facility] [address] [address] Sep, [facility] [address], [place] [address] Sep, [facility] [address] [id number], [place] [address] Sep, IMMUNIZATIONS No Known Immunizations SOCIAL HISTORY Never Assessed REASON FOR VISIT swelling hands and feet-Foreign [facility] PLAN OF CARE VITAL SIGNS Height 71 in 2018-04-06 Weight 233.1 lbs 2018-04-06 Temperature 97.7 degrees Fahrenheit 2018-04-06 Heart Rate 74 bpm 2018-04-06 Respiratory Rate 18 2018-04-06 BMI 32.51 kg/m2 2018-04-06 Blood pressure systolic 128 mmHg 2018-04-06 Blood pressure diastolic 76 mmHg 2018-04-06 MEDICATIONS Medication Instructions Dosage Frequency Start Date End Date Duration Status Seroquel 400 mg Orally Once a day 2 tablets at bedtime 24h Active Metoprolol Tartrate 50 MG Orally Twice a day 1 tablet 12h Sep, Active Ativan 1 MG Orally twice a day 1 tablet as needed 12h Jan, 28 days Active Cozaar 100 mg Orally Once a day 1 tablet 24h Jun, 90 days Active Atorvastatin Calcium 20 mg Orally Once a day 1 tablet 24h 22 Jun, 2017 90 days Active Lasix 40 mg Orally Once a day 1 tablet 24h Mar, 30 day(s) Active [place] 7.5-325 MG Orally every 6 hrs 1 tablet as needed 6h Mar, 28 days Active RESULTS No Results PROCEDURES [...]
--- OUTSIDE RECORDS SUMMARY | 2018-07-04 08:19 | XMS REPORT ---
Author Author ALEJANDRO DAVIS [facility] Address [address] [place] [address] Care Team Providers Care Environmental Communications Specialist Name Role Phone ALEJANDRO DAVIS Unavailable PROBLEMS Type Condition ICD9-CM Code SXM64-KI Code Onset Dates Condition Status SNOMED Code Problem Hypertension, benign I10 Active 91276617 Problem Abdominal aneurysm I71.4 Active 437491630 Problem Hypercholesterolemia E78.00 Active 89014780 Problem Anxiety F41.9 Active 18577343 Problem Primary insomnia F51.01 Active 9724685 Problem Abdominal aortic aneurysm (AAA) without rupture I71.4 Active 33739720 Problem Essential hypertension I10 Active 44938233 Problem Hyperlipidemia, mixed E78.2 Active 928396069 ALLERGIES Substance Reaction Event Type Date Status Naproxen edema Drug Allergy Mar, Active ENCOUNTERS Encounter Location Date Diagnosis [facility] [id number] [place] [address] 84072- 1441 Jun, [facility] [id number] [place] [address] 82758- 9778 May, [facility] [id number] [place] [address] 06256- 9090 May, Hypercholesterolemia E78.00 and Anxiety F41.9 [facility] [id number] [place] [address] 27060- 3827 May, [facility] [id number] [place] [address] 97378- 8537 Apr, [facility] [id number] [place] [address] 38225- 4640 Mar, Chronic congestive heart failure, unspecified heart failure type I50.9 [facility] [id number] [place] [address] 89322- 0249 Mar, [facility] [id number] [place] [address] 73890 -5468 Mar, Localized edema R60.0 [facility] [address] 36140- 4227 February, [facility] [address] 18261- 4077 February, [facility] [address] 51067- 1149 Jan, [facility] [address] 93634- 8976 Dec, [facility] [address] 45223- 9886 Nov, Hypertension, benign I10 and Essential hypertension I10 [facility] [address] 97120- 6151 Nov, [facility] [id number] [place] [address] 66692- 0462 Nov, Scalp lesion L98.9 ; Anxiety F41.9 ; Trigger finger, right middle finger M65.331 and Encounter for drug screening Z02.83 [facility] [id number] [place] [address] 77372- 8887 Nov, [facility] [id number] [place] [address] 23530- 2246 Oct, Essential hypertension I10 [facility] [id number] [place] [address] 84164- 4887 Oct, [facility] [address] 03386- 0853 Oct, [facility] [id number] [place] [address] 77423- 8678 Sep, [facility] [id number] [place] [address] 89189 -4378 Aug, Cough R05 and Pneumonia of left lower lobe due to infectious organism J18.1 [facility] [id number] [place] [address] 17650- 1582 16 Aug, 2017 [facility] [id number] [place] [address] 09745- 9762 Aug, [facility] [id number] [place] [address] 00490- 5659 Aug, [facility] [id number] [place] [address] 42104- 4716 Aug, [facility] [id number] [place] [address] 56414- 5261 Aug, [facility] [id number] [place] [address] 60416- 6469 Aug, Lung mass R91.8 [facility] [id number] [place] [address] 02170- 2356 Aug, [facility] [id number] [place] [address] 66212- 5099 Aug, Mass of lung parenchyma R91.8 [facility] [id number] [place] [address] 35267- 3004 Jul, [facility] [id number] [place] [address] 16972- 2995 Jun, Hypertension, benign I10 ; Hyperlipidemia, mixed E78.2 and Primary insomnia F51.01 [facility] [id number] [place] [address] 05690- 0866 Jun, [facility] [id number] [place] [address] 65294- 0178 Jun, Essential hypertension I10 [facility] [id number] [place] [address] 65077- 4980 May, [facility] [id number] [place] [address], [place] [address]- 3368 Apr, [facility] [address] [place] [address]- 9220 Mar, [facility] [address] [place] [address]- 3196 Mar, [facility] [address] [address]- 5162 February, [facility] [address] [place] [address]- 0554 February, [facility] [address] [place] [address]- 9972 Jan, [facility] [id number] [place] [address]- 2786 Dec, [facility] [address] [address]- 0856 Dec, Hypertension, benign I10 and Abdominal aortic aneurysm (AAA ) without rupture I71.4 [facility] [address] [place] [address]- 4178 Dec, [facility] [address] [address]- 5022 Nov, Medicare annual wellness visit, initial Z00.00 [facility] [address] [address]- 0247 Nov, [facility] [address], [place] [address]- 7149 Nov, [facility] [id number] [address]- 5851 Oct, [facility] [address], [place] [address]- 3198 Oct, [facility] [address] [address]- 1049 Oct, [facility] [address] [address]- 5574 Oct, [facility] [address], [place] [address]- 6162 Sep, Medicare welcome exam Z00.00 ; Medicare annual wellness visit, initial Z00.00 and Medicare annual wellness visit, subsequent Z00.00 [facility] [id number] [place] [address] 93888- 1997 Sep, [facility] [address] [address]- 6989 Sep, [facility] [id number] [place] [address] 70250- 8535 Aug, Trigger middle finger of right hand M65.331 [facility] [id number] [place] [address] 09552- 0249 Aug, Hypertension, benign I10 [facility] [address] [address]- 4860 Aug, [facility] [id number] [place] [address] 90765- 8660 Aug, [facility] [address] [address]- 2412 Jul, [facility] [address] [address]- 7200 Jul, [facility] [address], [place] [address]- 6594 Jul, Hypertension, essential I10 and Bradycardia R00.1 [facility] [address], [place] [address]- 7071 Jul, [facility] [address], [place] [address]- 8516 Jul, [facility] [address], [place] [address]- 1417 Jun, Essential hypertension I10 [facility] [address], [place] [address] 2546 20 Jun, 2016 [facility] [id number] [place] [address] 53004 2546 14 Jun, 2016 [facility] [address], [place] [address] 2546 12 Jun, 2016 [facility] [id number] [place] [address] 91389 2546 Jun, Abdominal aneurysm I71.4 ; Essential hypertension I10 ; Trigger middle finger of right hand M65.331 and Gastroesophageal reflux disease with esophagitis K21.0 [facility] [id number] [place] [address] 32279- 2226 May, [facility] [id number] [place] [address] 02262- 4496 May, [facility] [id number] [place] [address] 34934- 6731 Apr, [facility] [address] [place] [address]- 3476 Apr, [facility] [address], [place] [address] 2545 Apr, [facility] [address], [place] [address] 2543 Mar, [facility] [address], [place] [address] 2547 Mar, [facility] [address] [place] [address]- 6806 February, [facility] [address], [place] [address] 2542 February, [facility] [address], [place] [address]- 2988 February, Primary insomnia F51.01 [facility] [id number] [place] [address] 96756- 4357 February, Insomnia G47.00 [facility] [address] 21990- 4597 Jan, Insomnia G47.00 [facility] [id number] [place] [address] 73684- 2419 Jan, Insomnia G47.00 [facility] [address] 40069- 6257 Jan, Insomnia G47.00 [facility] [address] [id number] Dec, Dental examination Z01.20 and Caries K02.9 [facility] [id number] [place] [address] 84957- 4906 Dec, Insomnia G47.00 and Bronchitis J40 [facility] [address] 95350- 4852 Nov, [facility] [address] 57576- 2632 Oct, [facility] [address] 59481- 0557 Sep, [facility] [id number] [place] [address] 04273- 6181 Aug, [facility] [id number] [place] [address] 49319- 7635 Jul, [facility] [id number] [place] [address] 01946- 9034 Jul, [facility] [address] 44044- 6365 Jun, [facility] [id number] [place] [address] 44166- 0351 24 Jun, 2015 [facility] [address] 16864- 2546 Jun, [facility] [address] [facility] [id number] [address]- 3747 May, [facility] [address] [facility] [id number] [address]- 3306 Apr, [facility] [address] [facility] [id number], [place] [address]- 8564 Apr, Cerumen impaction 380.4 [facility] [address] [facility] [id number] [place] [address] 66652- 9114 Apr, Cerumen impaction 380.4 [facility] [address] [facility] [id number] [place] [address] 29047- 4119 Mar, [facility] [id number] [place] [address] 98999- 2500 February, [facility] [id number] [place] [address] 73574- 9708 February, Abdominal aortic aneurysm greater than 39 mm in diameter 441.4 [facility] [address], [place] [address]- 5239 February, [facility] [address] 6873 Jan, [facility] [address], [place] [address]- 7215 Jan, [facility] [address] [facility] [id number], [place] [address]- 0716 Jan, [facility] [id number], [place] [address]- 3387 Dec, [facility] [address] [facility] [id number], [place] [address]- 1126 Dec, [facility] [address], [place] [address]- 2081 Dec, [facility] [address] [facility] [id number] [place] [address]- 1896 Dec, [facility] [address] [id number] [place] [address]- 0252 Nov, [facility] [place] [facility] [address] [id number] [place] [address]- 1380 Nov, 2014 [facility] [address] [id number] [place] [address]- 2458 Oct, [facility] [place] [facility] [address] [id number] [place] [address]- 6504 Oct, [facility] [address] [id number] [place] [address]- 4491 Sep, [facility] [place] [facility] [address] [id number] [place] [address]- 0486 Sep, [facility] [address] [facility] [id number] [place] [address]- 5712 Sep, [facility] [address] [facility] [id number] [place] [address]- 4142 Sep, [facility] [place] [facility] [address] [facility] [id number] [place] [address]- 2665 Sep, [facility] [address] [facility] [id number] [place] 0283 Sep, [facility] [place] [facility] [address] [id number] [place] [address]- 5211 Aug, [facility] [place] [facility] [address] [facility] [id number] [place] [address]- 6542 Aug, [facility] [place] [facility] [address] [id number] [place] [address]- 6854 Jul, [facility] [place] [facility] [address] [id number] [place] [address]- 2546 Jul, [facility] [place] [facility] [address] [id number] [place] [address]- 6564 14 Jul, 2014 [facility] [place] [facility] [address] [id number] [place] [address]- 4891 14 Jul, 2014 [facility] [place] [facility] [address] [id number] [place] [address]- 3789 15 Jun, 2014 [facility] [place] [facility] [address] [id number] [place] 2796 15 Jun, 2014 [facility] [place] [facility] [address] [id number] [place] [address]- 7643 May, [facility] [place] [facility] [address] [id number] [place] [address]- 4658 May, [facility] [place] [facility] [address] [id number] [place] [address]- 4692 Apr, [facility] [place] [facility] [address] [id number] [place] [address]- 1631 Apr, [facility] [place] [facility] [address] [id number] [place] [address]- 5926 Mar, [facility] [place] [facility] [address] [id number] [place] [address]- 3923 Mar, [facility] [place] [facility] [address] [id number] [place] [address]- 2740 February, [facility] [place] [facility] [address] [id number] [place] [address]- 6830 February, [facility] [place] [facility] [address] [id number], [place] [address]- 7797 Jan, [facility] [place] [facility] [address] [id number] [place] [address]- 1285 Jan, [facility] [place] [facility] [address] [id number] [place] [address]- 4040 Jan, [facility] [place] [facility] [address] [id number] [place] [address]- 3226 Jan, [facility] [place] [facility] [address] [id number] [place] [address]- 2759 Jan, [facility] [place] [facility] [address] [id number] [place] [address]- 7728 Jan, [facility] [place] [facility] [address] [id number] [place] [address]- 2316 Dec, [facility] [place] [facility] [address] [id number] [place] [address]- 7911 Dec, [facility] [place] [facility] [address] [id number] [place] [address]- 6912 14 Nov, 2013 [facility] [place] [facility] [address] [id number] [place] [address]- 8494 Nov, [facility] [place] [facility] [address] [id number] [place] [address]- 3684 Nov, [facility] [place] [facility] [address] [id number] [place] [address]- 1717 Nov, [facility] [place] [facility] [address] [id number] [place] [address]- 3170 Oct, [facility] [place] [facility] [address] [id number] [place] [address]- 6389 Oct, [facility] [place] [facility] [address] [facility] [id number] [place] [address]- 8376 Oct, [facility] [place] [facility] [address] [facility] [id number] [place] [address]- 8142 Oct, [facility] [place] [facility] [address] [id number] [place] [address]- 6931 16 Sep, 2013 [facility] [place] [facility] [address] [id number] [place] [address]- 8837 Sep, [facility] [place] [facility] [address] [id number] [place] [address]- 5229 Sep, [facility] [place] [facility] [address] [facility] [id number] [place] [address]- 2416 Sep, [facility] [place] [facility] [address] [id number] [place] [address]- 1502 18 Aug, 2013 [facility] [place] [facility] [address] [id number] [place] [address]- 1919 18 Aug, 2013 [facility] [place] [facility] [address] [id number] [place] [address]- 2861 Aug, [facility] [place] [facility] [address] [id number] [place] [address]- 7386 Aug, [facility] [place] [facility] [address] [id number] [place] [address]- 5121 Aug, [facility] [place] [facility] [address] [id number] [place] [address]- 2832 Aug, [facility] [place] [facility] [address] [id number] [place] [address]- 3247 18 Jul, 2013 [facility] [place] [facility] [address] [id number] [place] [address]- 6739 18 Jul, 2013 [facility] [place] [facility] [address] [id number] [place] [address]- 4503 14 Jul, 2013 [facility] [place] [facility] [address] [id number] [place] [address]- 2251 14 Jul, 2013 [facility] [place] [facility] [address] [id number] [place] [address]- 1842 20 Jun, 2013 [facility] [place] [facility] [address] [id number] [place] [address]- 9710 13 Jun, 2013 [facility] [place] [facility] [address] [id number] [place] [address]- 5399 21 May, 2013 [facility] [place] [facility] [address] [id number] [place] [address]- 7614 16 May, 2013 [facility] [place] [facility] [address] [id number] [place] [address]- 3962 14 May, 2013 [facility] [place] [facility] [address] [id number] [place] [address]- 5431 May, [facility] [address] [id number] [place] [address]- 9398 May, [facility] [place] [facility] [address] [id number] [place] [address]- 7436 Apr, [facility] [place] [facility] [address] [id number] [place] [address]- 9690 Apr, [facility] [place] [facility] [address] [id number] [place] [address]- 8762 Apr, [facility] [address] [id number] [place] [address]- 7777 Mar, [facility] [place] [facility] [address] [id number] [place] [address]- 5271 Mar, [facility] [place] [facility] [address] [id number] [place] [address]- 7400 February, [facility] [place] [facility] [address] [id number] [place] [address]- 9510 February, [facility] [address] [id number] [place] [address]- 0497 Jan, [facility] [place] [facility] [address] [id number] [place] [address]- 1486 Jan, [facility] [place] [facility] [address] [id number] [place] [address]- 6971 Jan, [facility] [place] [facility] [address] [id number] [place] [address]- 6254 Jan, [facility] [place] [facility] [address] [id number] [place] [address]- 8017 Dec, [facility] [place] [facility] [address] [id number] [place] [address]- 0504 Dec, [facility] [place] [facility] [address] [id number] [place] [address]- 2546 Dec, [facility] [place] [facility] [address] [id number] [place] [address] Nov, [facility] [address] [id number] [place] [address] Nov, [facility] [address] [id number] [place] [address] Oct, [facility] [address] [id number] [place] [address] Oct, [facility] [address] [id number] [place] [address] Sep, [facility] [address] [id number] [place] [address] Sep, [facility] [address] [id number] [place] [address] Sep, [facility] [address] [id number] [place] [address] Sep, [facility] [address] [id number] [place] [address] Sep, [facility] [address] [id number] [place] [address] Sep, [facility] [address] [id number] [place] [address] Sep, [facility] [address] [id number] [place] [address] Aug, [facility] [address] [id number] [place] [address] Aug, [facility] [place] [facility] [address] [id number] [place] [address] Jun, [facility] [place] [facility] [address] [id number] [place] [address] May, [facility] [address] [id number] [place] [address] May, [facility] [address] [id number] [address] Apr, [facility] [address] [id number] [address] Apr, [facility] [address] [id number], [place] [address] February, [facility] [id number] [place] [address] Jan, [facility] [address] [id number], [place] [address] Jan, [facility] [id number] [place] [address] Dec, [facility] [id number] [place] [address] Oct, [facility] [id number] [place] [address] Oct, [facility] [id number] [place] [address] Sep, [facility] [address] [id number], [place] [address] Sep, [facility] [address] [id number], [place] [address] Sep, [facility] [address] [id number], [place] [address] Sep, IMMUNIZATIONS No Known Immunizations SOCIAL HISTORY Never Assessed REASON FOR VISIT swelling in hands/feet-swelling to bilateral hands and legs from calves down. Rt. hand and lt leg are the worst. The patient has had this in the past and was diagnosed with kidney disease. The swelling has been going on for about a week.--TOR [place], PCP-Jesse Ag APRN PLAN OF CARE Activity Details Follow Up 2 Weeks w/ PCP Reason:edema VITAL SIGNS Height 71 in 2018-04-04 Weight 231 lbs 2018-04-04 Temperature 98.3 degrees Fahrenheit 2018-04-04 Heart Rate 72 bpm 2018-04-04 Respiratory Rate 20 2018-04-04 BMI 32.21 kg/m2 2018-04-04 Blood pressure systolic 126 mmHg 2018-04-04 Blood pressure diastolic 84 mmHg 2018-04-04 MEDICATIONS Medication Instructions Dosage Frequency Start Date End Date Duration Status Cozaar 100 mg Orally Once a day 1 tablet 24h Jun, 90 days Active Minoxidil 10 mg take 1 tablet (10 mg) by oral route 2 times per day Dec, Active Metoprolol Tartrate 50 MG Orally Twice a day 1 tablet 12h Sep, Active Atorvastatin Calcium 20 mg Orally Once a day 1 tablet 24h Jun, 90 days Active Hydrochlorothiazide 12.5 MG Orally Once a day 1 tablet in the morning 24h 30 Not-Taking PredniSONE 20 MG Orally Once a day 1 tablet 24h Not-Taking Amlodipine Besylate 10 mg Orally Once a day 1 tablet 24h 30 Not- Taking Losartan Potassium 100 MG TAKE ONE TABLET BY MOUTH ONCE DAILY 90 Active Seroquel 400 mg Orally Once a day 2 tablets at bedtime 24h Active [place] 7.5-325 MG Orally every 6 hrs 1 tablet as needed 6h February, 28 days Active terazosin 10 mg by Oral route 1 time per day Repository Sep, Active Famotidine 20 mg Orally Once a day 1 tablet at bedtime 24h Jun, 30 day(s) Not-Taking Ativan 1 MG Orally twice a day 1 tablet as needed 12h Jan, 28 days Active RESULTS No Results PROCEDURES Procedure Date Ordered Result Body Site LAB NOT BILLED BY [facility] April 04, 2018 VENIPUNCT, ROUTINE* April 04, 2018 INSTRUCTIONS MEDICATIONS ADMINISTERED No Known Medications MEDICAL [...]
[2018-07-04] MEDS ORDERED: LACTATED RINGERS 1,000 ML IV ONE (08:20)
--- OUTSIDE RECORDS SUMMARY | 2018-07-04 08:20 | XMS REPORT ---
Author Author BRENDA WETZEL Organization [facility] Address [address] [place] [address] Care Team Providers Care Conditioner Tumbler Name Role Phone BRENDA WETZEL Unavailable PROBLEMS Type Condition ICD9-CM Code [id number] Code Onset Dates Condition Status SNOMED Code Problem Hypertension, benign I10 Active 58997921 Problem Abdominal aneurysm I71.4 Active 997967031 Problem Hypercholesterolemia E78.00 Active 91626084 Problem Anxiety F41.9 Active 21844353 Problem Primary insomnia F51.01 Active 0213353 Problem Abdominal aortic aneurysm (AAA) without rupture I71.4 Active 95749955 Problem Essential hypertension I10 Active 34171028 Problem Hyperlipidemia, mixed E78.2 Active [id number] ALLERGIES No Information ENCOUNTERS Encounter Location Date Diagnosis [facility] [id number] [place] [address] 76191- 5448 Jun, [facility] [id number] [place] [address] 71712- 0781 May, [facility] [id number] [place] [address] 29244- 6650 May, Hypercholesterolemia E78.00 and Anxiety F41.9 [facility] [id number] [place] [address] 92635- 8805 May, [facility] [id number] [place] [address] 65593- 9145 Apr, [facility] [id number] [place] [address] 32597- 6020 Mar, Chronic congestive heart failure, unspecified heart failure type I50.9 [facility] [id number] [place] [address] 42996- 8125 Mar, [facility] [id number] [place] [address] Mar, Localized edema R60.0 [facility] [address] 89719- 4935 February, [facility] [id number] [place] [address] 26524- 4290 February, [facility] [address] 03906- 8719 Jan, [facility] [address] 58668- 5171 Dec, [facility] [address] 55756- 2488 Nov, Hypertension, benign I10 and Essential hypertension I10 [place] [address] 64877- 6838 Nov, [facility] [address] 35368- 9605 Nov, Scalp lesion L98.9 ; Anxiety F41.9 ; Trigger finger, right middle finger M65.331 and Encounter for drug screening Z02.83 [facility] [id number] [place] [address] 48673- 3133 Nov, [facility] [id number] [place] [address] 30973- 4650 Oct, Essential hypertension I10 [facility] [id number] [place] [address] 66049- 9208 Oct, [facility] [id number] [place] [address] 25004- 4068 Oct, [facility] [id number] [place] [address] 89792- 3305 Sep, [facility] [id number] [place] [address] 56159 -5935 Aug, Cough R05 and Pneumonia of left lower lobe due to infectious organism J18.1 [facility] [address] [address]- 8810 16 Aug, 2017 [facility] [id number] [place] [address] 03759- 1662 Aug, [facility] [id number] [place] [address] 56243- 7213 Aug, [facility] [id number] [place] [address] 01099- 3207 Aug, [facility] [id number] [place] [address] 52734- 9049 Aug, [facility] [id number] [place] [address] 31052- 6139 Aug, Lung mass R91.8 [facility] [id number] [place] [address] 58692- 3540 Aug, [facility] [id number] [place] [address] 46077- 8038 Aug, Mass of lung parenchyma R91.8 [facility] [id number] [place] [address] 25289- 7854 Jul, [facility] [id number] [place] [address] 42242- 5623 Jun, Hypertension, benign I10 ; Hyperlipidemia, mixed E78.2 and Primary insomnia F51.01 [facility] [address] [address]- 3062 Jun, [facility] [id number] [place] [address] 74302- 1601 Jun, Essential hypertension I10 [facility] [id number] [place] [address] 52232- 0381 May, [facility] [id number] [place] [address] 04562- 3211 Apr, [facility] [address] [facility] [id number] [place] [address]- 2859 Mar, [facility] [address] [facility] [id number] [place] [address]- 1746 Mar, [facility] [address] [facility] [id number] [place] [address]- 5086 February, [facility] [address] [address]- 0327 February, [facility] [address] [facility] [id number] [place] 8353 Jan, [facility] [address] [address]- 7518 Dec, [facility] [address] 7838 Dec, Hypertension, benign I10 and Abdominal aortic aneurysm (AAA ) without rupture I71.4 [facility] [address] [address]- 9635 Dec, [facility] [address] [address]- 9789 Nov, Medicare annual wellness visit, initial Z00.00 [facility] [address] [place] 8152 Nov, [facility] [address] [address]- 7288 Nov, [facility] [id number] [address]- 4134 Oct, [facility] [address] [address]- 5546 Oct, [facility] [address] [facility] [id number] [place] [address]- 9606 Oct, [facility] [address] [place] [address]- 1796 Oct, [facility] [address] [address]- 1715 Sep, Medicare welcome exam Z00.00 ; Medicare annual wellness visit, initial Z00.00 and Medicare annual wellness visit, subsequent Z00.00 [facility] [address] [address]- 2752 Sep, [facility] [id number] [place] [address] 28362- 5509 Sep, [facility] [id number] [place] [address] 01395- 0317 Aug, Trigger middle finger of right hand M65.331 [facility] [id number] [place] [address] 69496- 5301 Aug, Hypertension, benign I10 [facility] [id number] [place] [address] 66903- 8006 Aug, [facility] [id number] [place] [address] 16102- 3656 Aug, [facility] [id number] [place] [address] 05670- 1665 Jul, [facility] [id number] [place] [address] 45110- 9635 Jul, [facility] [id number] [place] [address] 16181- 2308 Jul, Hypertension, essential I10 and Bradycardia R00.1 [facility] [address] [address]- 6382 Jul, [facility] [id number] [place] [address] 98642- 0776 Jul, [facility] [address] [address]- 2549 Jun, Essential hypertension I10 [facility] [id number] [place] [address] 11717- 9602 20 Jun, 2016 [facility] [id number] [place] [address] 17595- 7286 14 Jun, 2016 [facility] [id number] [place] [address] 71400- 7866 Jun, [facility] [id number] [place] [address] 39867- 3174 Jun, Abdominal aneurysm I71.4 ; Essential hypertension I10 ; Trigger middle finger of right hand M65.331 and Gastroesophageal reflux disease with esophagitis K21.0 [facility] [id number] [place] [address] 16101- 1861 May, [facility] [id number] [place] [address] 51638- 4477 May, [facility] [id number] [place] [address] 67122- 9520 Apr, [facility] [id number] [place] [address] 18531- 2647 Apr, [facility] [id number] [place] [address] 27705- 3524 Apr, [facility] [id number] [place] [address] 78459- 4952 Mar, [facility] [id number] [place] [address] 06697- 9661 Mar, [facility] [id number] [place] [address] 27339- 2542 February, [facility] [id number] [place] [address] 03453- 2284 February, [facility] [id number] [place] [address] 59166- 5341 February, Primary insomnia F51.01 [facility] [id number] [place] [address] 27807- 0856 February, Insomnia G47.00 [facility] [id number] [place] [address] 21534- 4529 Jan, Insomnia G47.00 [facility] [id number] [place] [address] 76077- 0107 Jan, Insomnia G47.00 [facility] [id number] [place] [address] 97323- 6762 Jan, Insomnia G47.00 [facility] [id number] [place] [address] [id number] Dec, Dental examination Z01.20 and Caries K02.9 [facility] [address] 86676- 6151 Dec, Insomnia G47.00 and Bronchitis J40 [facility] [id number] [place] [address] 28597- 2424 Nov, [facility] [id number] [place] [address] 53504- 5388 Oct, [facility] [id number] [place] [address] 28754- 6825 Sep, [facility] [id number] [place] [address] 96328- 2231 Aug, [facility] [id number] [place] [address] 54400- 4058 Jul, [facility] [id number] [place] [address] 61637- 5159 Jul, [facility] [id number] [place] [address] 19998- 7236 Jun, [facility] [id number] [place] [address] 90973- 7965 24 Jun, 2015 [facility] [id number] [place] [address] 09073- 1394 17 Jun, 2015 [facility] [id number] [address]- 4509 May, [facility] [address] [facility] [id number] 9434 Apr, [facility] [address] [facility] [id number] [address]- 2215 Apr, Cerumen impaction 380.4 [facility] [address] [facility] [id number] [place] [address] 78003- 0235 Apr, Cerumen impaction 380.4 [facility] [address] [facility] [id number] [place] 3579 Mar, [facility] [id number] [place] [address] 09747- 5387 February, [facility] [address]- 7117 February, Abdominal aortic aneurysm greater than 39 mm in diameter 441.4 [facility] [address] [address]- 8988 February, [facility] [address] [address]- 4492 Jan, [facility] [address] [address]- 6830 Jan, [facility] [address] [address]- 3950 Jan, [facility] [address] [address]- 0977 Dec, [facility] [id number] [address]- 1550 Dec, [facility] [id number] [address]- 4616 Dec, [facility] [address] [address]- 2220 Dec, [facility] [place] [facility] [address] [id number] [place] [address]- 9366 Nov, 2014 [facility] [place] [facility] [address] [id number] [place] [address]- 9676 Nov, 2014 [facility] [place] [facility] [address] [id number] [place] [address]- 7017 Oct, [facility] [place] [facility] [address] [id number] [place] [address]- 9635 Oct, [facility] [place] [facility] [address] [id number] [place] [address]- 3802 Sep, [facility] [place] [facility] [address] [id number] [place] 6847 Sep, [facility] [place] [facility] [address] [facility] [id number] [place] [address]- 2751 Sep, [facility] [place] [facility] [address] [id number] [place] [address]- 3822 Sep, [facility] [place] [facility] [address] [id number] [place] [address]- 4381 Sep, [facility] [place] [facility] [address] [id number] [place] [address]- 8317 Sep, [facility] [place] [facility] [address] [facility] [id number] [place] [address]- 8374 Aug, [facility] [place] [facility] [address] [id number] [place] [address]- 6850 Aug, [facility] [place] [facility] [address] [id number] [place] [address]- 3107 Jul, [facility] [place] [facility] [address] [id number] [place] [address]- 5648 Jul, [facility] [place] [facility] [address] [id number] [place] [address]- 8318 14 Jul, 2014 [facility] [place] [facility] [address] [id number] [place] [address]- 6198 14 Jul, 2014 [facility] [place] [facility] [address] [id number] [place] [address]- 0035 15 Jun, 2014 [facility] [place] [facility] [address] [id number] [place] [address]- 2526 15 Jun, 2014 [facility] [place] [facility] [address] [id number] [place] [address]- 8980 May, [facility] [place] [facility] [address] [id number] [place] [address]- 1376 May, [facility] [place] [facility] [address] [id number] [place] [address]- 5153 Apr, [facility] [place] [facility] [address] [id number] [place] [address]- 2983 Apr, [facility] [place] [facility] [address] [id number] [place] [address]- 8720 Mar, [facility] [place] [facility] [address] [id number] [place] [address]- 6899 Mar, [facility] [place] [facility] [address] [id number] [place] [address]- 0866 February, [facility] [place] [facility] [address] [id number] [place] [address]- 1838 February, [facility] [place] [facility] [address] [id number] [place] [address]- 0433 Jan, [facility] [place] [facility] [address] [id number] [place] [address]- 4295 Jan, [facility] [place] [facility] [address] [id number] [place] [address]- 7203 Jan, [facility] [place] [facility] [address] [id number] [place] [address]- 2701 Jan, [facility] [place] [facility] [address] [id number] [place] [address]- 9488 Jan, [facility] [place] [facility] [address] [id number] [place] [address]- 4419 03 Jan, 2014 [facility] [place] [facility] [address] [id number] [place] [address]- 4767 Dec, [facility] [place] [facility] [address] [id number] [place] [address]- 4662 18 Dec, 2013 [facility] [place] [facility] [address] [id number] [place] [address]- 6671 14 Nov, 2013 [facility] [place] [facility] [address] [id number] [place] [address]- 3706 14 Nov, 2013 [facility] [place] [facility] [address] [id number] [place] [address]- 5289 Nov, [facility] [place] [facility] [address] [id number] [place] [address]- 5252 Nov, [facility] [place] [facility] [address] [id number] [place] [address]- 2778 Oct, [facility] [place] [facility] [address] [id number] [place] [address]- 2461 Oct, [facility] [place] [facility] [address] [id number] [place] [address]- 9676 Oct, [facility] [place] [facility] [address] [id number] [place] [address]- 3672 Oct, [facility] [place] [facility] [address] [id number] [place] [address]- 6128 16 Sep, 2013 [facility] [place] [facility] [address] [id number] [place] [address]- 8565 16 Sep, 2013 [facility] [place] [facility] [address] [id number] [place] [address]- 3208 10 Sep, 2013 [facility] [place] [facility] [address] [id number] [place] [address]- 7169 10 Sep, 2013 [facility] [place] [facility] [address] [id number] [place] [address]- 2009 18 Aug, 2013 [facility] [place] [facility] [address] [id number] [place] [address]- 9093 18 Aug, 2013 [facility] [place] [facility] [address] [id number] [place] [address]- 4911 Aug, [facility] [place] [facility] [address] [id number] [place] [address]- 2987 Aug, [facility] [place] [facility] [address] [id number] [place] [address]- 2422 Aug, [facility] [place] [facility] [address] [id number] [place] [address]- 9040 Aug, [facility] [place] [facility] [address] [id number] [place] [address]- 2959 18 Jul, 2013 [facility] [place] [facility] [address] [id number] [place] [address]- 2372 18 Jul, 2013 [facility] [place] [facility] [address] [id number] [place] [address]- 4840 14 Jul, 2013 [facility] [place] [facility] [address] [id number] [place] [address]- 1092 14 Jul, 2013 [facility] [place] [facility] [address] [id number] [place] [address]- 0377 20 Jun, 2013 [facility] [place] [facility] [address] [id number] [place] [address]- 8879 Jun, [facility] [place] [facility] [address] [id number] [address]- 4184 May, [facility] [place] [facility] [address] [id number] [place] [address]- 3663 16 May, 2013 [facility] [place] [facility] [address] [id number] [place] [address]- 1828 14 May, 2013 [facility] [place] [facility] [address] [id number] [place] [address]- 1880 May, [facility] [place] [facility] [address] [id number] [place] [address]- 3203 May, [facility] [address] [id number] [place] [address]- 3382 Apr, [facility] [address] [id number] [place] [address] Apr, [facility] [address] [id number] [place] [address] Apr, [facility] [address] [id number] [place] [address] Mar, [facility] [address] [id number] [place] [address] Mar, [facility] [address] [id number] [place] [address] February, [facility] [address] [id number] [place] [address] February, [facility] [address] [id number] [place] [address] Jan, [facility] [address] [id number] [place] [address] Jan, [facility] [address] [id number] [place] [address] Jan, [facility] [address] [id number] [place] [address] Jan, [facility] [address] [id number] [place] [address] Dec, [facility] [place] [facility] [address] [id number] [place] [address] Dec, [facility] [place] [facility] [address] [id number] [place] [address] Dec, [facility] [address] [id number] [place] [address] Nov, [facility] [place] [facility] [address] [id number] [place] [address] Nov, [facility] [place] [facility] [address] [id number] [place] [address] Oct, [facility] [place] [facility] [address] [id number] [place] [address] Oct, [facility] [place] [facility] [address] [id number] [place] [address] Sep, [facility] [place] [facility] [address] [id number] [place] [address] Sep, [facility] [place] [facility] [address] [id number] [place] [address] Sep, [facility] [place] [facility] [address] [id number] [place] [address] Sep, [facility] [place] [facility] [address] [id number] [place] [address] Sep, [facility] [place] [facility] [address] [id number] [place] [address] Sep, [facility] [place] [facility] [address] [facility] [id number] [place] [address] Sep, [facility] [place] [facility] [address] [facility] [id number] [place] [address] Aug, [facility] [place] [facility] [address] [id number] [place] [address] Aug, [facility] [place] [facility] [address] [id number] [place] [address] Jun, [facility] [place] [facility] [address] [id number] [place] [address] May, [facility] [place] [facility] [address] [facility] [id number] [place] [address] May, [facility] [place] [facility] [address] [id number] [place] [address] Apr, [facility] [id number] [address] Apr, [facility] [id number] [address] February, [facility] [id number] [address] Jan, [facility] [id number] [place] [address] Jan, [facility] [id number] [place] [address] Dec, [facility] [id number] [place] [address] Oct, [facility] [id number] [place] [address] Oct, [facility] [id number] [address] Sep, [facility] [address] [address] Sep, [facility] [address] [address] Sep, [facility] [id number] [address] Sep, IMMUNIZATIONS No Known Immunizations SOCIAL HISTORY Never Assessed REASON FOR VISIT Controlled Med Refill 04/06/18 PLAN OF CARE VITAL SIGNS MEDICATIONS Medication Instructions Dosage Frequency Start Date End Date Duration Status Kewadin 7.5-325 MG Orally every 6 hrs 1 tablet as needed 6h Mar, 28 days Active Ativan 1 MG Orally twice a [...]
--- OUTSIDE RECORDS SUMMARY | 2018-07-04 08:20 | XMS REPORT ---
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 Name Role Phone BRENDA WETZEL Unavailable PROBLEMS Type Condition ICD9-CM Code UZD72-CD Code Onset Dates Condition Status SNOMED Code Problem Abdominal aneurysm I71.4 Active 486528844 Problem Anxiety F41.9 Active 02414327 Problem Essential hypertension I10 Active 63457145 Problem Abdominal aortic aneurysm (AAA) without rupture I71.4 Active 60834607 Problem Hypertension, benign I10 Active 29476471 Problem Hyperlipidemia, mixed E78.2 Active 861409240 Problem Primary insomnia F51.01 Active [id number] ALLERGIES No Information ENCOUNTERS Encounter Location Date Diagnosis [facility] [address] [address]- [address] May, [facility] [address] 20761- 0480 May, [facility] [address] 55334- 3281 Apr, [facility] [id number] [place] [address] 25595- 5960 Mar, Chronic congestive heart failure, unspecified heart failure type I50.9 [facility] [id number] [place] [address] 95323- 7115 Mar, [facility] [address] [address]398 -5112 Mar, Localized edema R60.0 [facility] [id number] [place] [address] 12081- 8773 February, [facility] [address] 65893- 1494 February, [facility] [id number] [place] [address] 10447- 5230 Jan, [facility] [id number] [place] [address] 94542- 7588 Dec, [facility] [id number] [place] [address] 18486- 9487 Nov, Hypertension, benign I10 and Essential hypertension I10 [facility] [id number] [place] [address] 73100- 2753 Nov, [facility] [id number] [place] [address] 00195- 5301 Nov, Scalp lesion L98.9 ; Anxiety F41.9 ; Trigger finger, right middle finger M65.331 and Encounter for drug screening Z02.83 [facility] [id number] [place] [address] 92856- 1628 Nov, [facility] [id number] [place] [address] 78981- 9055 Oct, Essential hypertension I10 [facility] [id number] [place] [address] 34317- 4988 Oct, [facility] [id number] [place] [address] 60444- 7335 Oct, [facility] [id number] [place] [address] 99283- 3706 Sep, [facility] [id number] [place] [address] 01274 -0603 Aug, Cough R05 and Pneumonia of left lower lobe due to infectious organism J18.1 [facility] [id number] [place] [address] 28208- 7760 Aug, [facility] [id number] [place] [address] 03345- 8386 Aug, [facility] [id number] [address]- 6604 Aug, [facility] [id number] [place] [address] 62904- 3712 Aug, [facility] [id number] [place] [address] 55228- 9117 Aug, [facility] [id number] [place] [address] 89147- 7148 Aug, Lung mass R91.8 [facility] [id number] [place] [address] 95266- 1026 Aug, [facility] [id number] [place] [address] 94928- 6186 Aug, Mass of lung parenchyma R91.8 [facility] [id number] [place] [address] 45190- 5006 Jul, [facility] [id number] [place] [address] 11677- 8840 Jun, Hypertension, benign I10 ; Hyperlipidemia, mixed E78.2 and Primary insomnia F51.01 [facility] [id number] [place] [address] 65243- 0014 Jun, [facility] [id number] [place] [address] 10417- 2006 Jun, Essential hypertension I10 [facility] [id number] [place] [address] 58953- 1939 May, [facility] [id number] [place] [address] 95487- 1531 Apr, [facility] [id number] [place] [address] 35932- 4153 Mar, [facility] [id number] [place] [address] 96046- 9133 Mar, [facility] [id number] [place] [address] 71838- 3988 February, [facility] [address] [facility] [id number] [place] [address]- 8864 February, [facility] [address] [facility] [id number] [place] [address]- 8306 Jan, [facility] [address] [place] [address]- 8600 Dec, [facility] [address] [place] [address]- 3407 Dec, Hypertension, benign I10 and Abdominal aortic aneurysm (AAA ) without rupture I71.4 [facility] [address] [place] [address]- 1418 Dec, [facility] [address] [place] [address]- 3303 Nov, Medicare annual wellness visit, initial Z00.00 [facility] [address] [address]- 2636 Nov, [facility] [address] [place] [address]- 9232 Nov, [facility] [address] [address]- 2658 Oct, [facility] [address] [address]- 7437 Oct, [facility] [id number] [address]- 7145 Oct, [facility] [id number] [place] [address]- 4307 Oct, [facility] [address] [address]- 9834 Sep, Medicare welcome exam Z00.00 ; Medicare annual wellness visit, initial Z00.00 and Medicare annual wellness visit, subsequent Z00.00 [facility] [id number] [place] [address] 00009- 9899 Sep, [facility] [id number] [place] [address] 41073- 5907 Sep, [facility] [id number] [place] [address] 51777- 2169 Aug, Trigger middle finger of right hand M65.331 [facility] [address] 55336- 7386 Aug, Hypertension, benign I10 [facility] [id number] [place] [address] 49893- 6658 Aug, [facility] [address] 24056- 0970 Aug, [facility] [id number] [place] [address] 94074- 8958 Jul, [facility] [id number] [place] [address] 21473- 9872 Jul, [facility] [id number] [place] [address] 46138- 1806 Jul, Hypertension, essential I10 and Bradycardia R00.1 [facility] [id number] [place] [address] 56202- 5033 Jul, [facility] [id number] [place] [address] 72654- 6798 Jul, [facility] [id number] [place] [address] 29679- 8784 30 Jun, 2016 Essential hypertension I10 [facility] [id number] [place] [address] 26607- 6988 20 Jun, 2016 [facility] [id number] [place] [address] 51978- 3195 14 Jun, 2016 [facility] [id number] [place] [address] 09069- 4195 12 Jun, 2016 [facility] [address] [address]- 4039 Jun, Abdominal aneurysm I71.4 ; Essential hypertension I10 ; Trigger middle finger of right hand M65.331 and Gastroesophageal reflux disease with esophagitis K21.0 [facility] [address] [place] [address]- 6041 May, [facility] [id number] [place] [address], [place] [address]- 6485 May, [facility] [id number] [place] [address], [place] [address]- 9274 Apr, [facility] [id number] [place] [address], [place] [address]- 8056 Apr, [facility] [id number] [place] [address], [place] [address]- 8494 Apr, [facility] [id number] [place] [address], [place] [address]- 2187 Mar, [facility] [id number] [place] [address], [place] [address]- 1292 Mar, [facility] [id number] [place] [address] 16493- 9535 February, [facility] [address] [place] [address]- 6689 February, [facility] [id number] [place] [address] 88645- 1520 February, Primary insomnia F51.01 [facility] [address] [address]- 4696 February, Insomnia G47.00 [facility] [id number] [place] [address] 36295- 0099 Jan, Insomnia G47.00 [facility] [address] [address]- 2540 Jan, Insomnia G47.00 [facility] [address] [address]- 9827 Jan, Insomnia G47.00 [facility] [id number] [place] [address] [id number] Dec, Dental examination Z01.20 and Caries K02.9 [facility] [id number] [place] [address] 28116- 8557 Dec, Insomnia G47.00 and Bronchitis J40 [facility] [id number] [place] [address], [place] [address]- 3777 Nov, [facility] [id number] [place] [address], [place] [address]- 6695 Oct, [facility] [id number] [place] [address], [place] [address]- 3235 Sep, [facility] [id number] [place] [address] 05356- 2070 Aug, [facility] [id number] [place] [address] 66518- 0820 Jul, [facility] [id number] [place] [address], [place] [address]- 3108 Jul, [facility] [id number] [place] [address] 75600- 5806 Jun, [facility] [id number] [place] [address] 27533- 1000 Jun, [facility] [id number] [place] [address] 52109- 0599 Jun, [facility] [id number] [place] [address] 96783- 3305 May, [facility] [address] [address]- 1406 Apr, [facility] [id number] [place] [address] 51196- 1422 Apr, Cerumen impaction 380.4 [facility] [address] [address]- 1171 Apr, Cerumen impaction 380.4 [facility] [address] [address]- 0652 Mar, [facility] [id number] [place] [address] 67130- 0520 February, [facility] [id number] [place] [address] 51608- 2455 February, Abdominal aortic aneurysm greater than 39 mm in diameter 441.4 [facility] [id number] [place] [address] 857014- 3532 February, [facility] [id number] [place] [address] 103212- 3308 Jan, [facility] [id number] [place] [address] 97654- 2808 Jan, [facility] [id number] [place] [address] 725460- 9742 Jan, [facility] [id number] [place] [address] 646670- 5344 Dec, [facility] [address] 4745 Dec, [facility] [address] [address]- 2264 Dec, [facility] [address] [address]- 5927 Dec, [facility] [id number] [place] [address] 74820- 9168 Nov, [facility] [address] [address]- 7309 Nov, [facility] [id number] [place] [address] 49291- 5571 Oct, [facility] [place] [facility] [address] [id number] [place]- 4431 Oct, [facility] [place] [facility] [address] [id number] [place] [address]- 2046 Sep, [facility] [place] [facility] [address] [id number] [place] [address]- 3635 Sep, [facility] [place] [facility] [address] [id number] [place] [address]- 3221 Sep, [facility] [place] [facility] [address] [id number] [place]- 7974 Sep, [facility] [place] [facility] [address] [id number] [place] [address]- 4764 Sep, [facility] [place] [facility] [address] [id number] [place] [address]- 6038 Sep, [facility] [place] [facility] [address] [id number] [place] [address]- 2273 Aug, [facility] [place] [facility] [address] [id number] [place] [address]- 2435 Aug, [facility] [place] [facility] [address] [id number] [place] [address]- 9494 Jul, [facility] [place] [facility] [address] [id number] [place] [address]- 0264 17 Jul, 2014 [facility] [place] [facility] [address] [id number] [address]- 6575 14 Jul, 2014 [facility] [place] [facility] [address] [id number] [place] [address]- 2306 14 Jul, 2014 [facility] [place] [facility] [address] [id number] [place]- 9620 15 Jun, 2014 [facility] [place] [facility] [address] [id number] [place] [address]- 6811 15 Jun, 2014 [facility] [place] [facility] [address] [id number] [place] [address]- 9666 May, [facility] [address] [id number] [place] [address]- 4933 May, [facility] [place] [facility] [address] [id number] [place] [address]- 2541 Apr, [facility] [address] [id number] [place] [address]- 0456 Apr, [facility] [place] [facility] [address] [id number] [place] [address]- 9958 Mar, [facility] [place] [facility] [address] [id number] [place] [address]- 6460 Mar, [facility] [place] [facility] [address] [id number] [place] [address]- 1975 February, [facility] [place] [facility] [address] [id number] [place] [address]- 6933 February, [facility] [address] [id number] [place] [address]- 7252 Jan, [facility] [place] [facility] [address] [id number] [place] [address]- 5011 Jan, [facility] [address] [id number] [place] [address]- 4688 Jan, [facility] [place] [facility] [address] [id number] [place] [address]- 2739 Jan, [facility] [place] [facility] [address] [id number] [place] [address]- 3496 Jan, [facility] [place] [facility] [address] [id number] [place] [address]- 9933 Jan, [facility] [place] [facility] [address] [id number] [place] [address]- 5016 Dec, [facility] [place] [facility] [address] [id number] [place] [address]- 2728 Dec, [facility] [address] [id number] [place] [address]- 2908 14 Nov, 2013 [facility] [place] [facility] [address] [id number] [place] [address]- 2328 14 Nov, 2013 [facility] [place] [facility] [address] [id number] [place] [address]- 4991 Nov, [facility] [place] [facility] [address] [id number] [place] [address]- 9927 Nov, [facility] [place] [facility] [address] [id number] [place] [address]- 7565 Oct, [facility] [place] [facility] [address] [id number] [place] [address]- 3807 Oct, [facility] [place] [facility] [address] [id number] [place] [address]- 3594 Oct, [facility] [place] [facility] [address] [id number] [place] [address]- 0351 Oct, [facility] [place] [facility] [address] [id number] [place] [address]- 8028 16 Sep, 2013 [facility] [place] [facility] [address] [id number] [place] [address]- 2990 16 Sep, 2013 [facility] [place] [facility] [address] [id number] [place] [address]- 8628 10 Sep, 2013 [facility] [place] [facility] [address] [id number] [place] [address]- 7672 10 Sep, 2013 [facility] [place] [facility] [address] [id number] [place] [address]- 3127 18 Aug, 2013 [facility] [place] [facility] [address] [id number] [place] [address]- 9756 18 Aug, 2013 [facility] [place] [facility] [address] [id number] [place] [address]- 4665 13 Aug, 2013 [facility] [place] [facility] [address] [id number] [place] [address]- 6009 13 Aug, 2013 [facility] [place] [facility] [address] [id number] [place] [address]- 4497 08 Aug, 2013 [facility] [place] [facility] [address] [id number] [place] [address]- 3140 08 Aug, 2013 [facility] [place] [facility] [address] [id number] [place] 3639 Jul, [facility] [place] [facility] [address] [id number] [place] [address]- 1893 18 Jul, 2013 [facility] [place] [facility] [address] [id number] [place] [address]- 0710 14 Jul, 2013 [facility] [place] [facility] [address] [id number] [place] [address]- 1096 14 Jul, 2013 [facility] [place] [facility] [address] [id number] [place] [address]- 5003 20 Jun, 2013 [facility] [place] [facility] [address] [id number] [place] [address]- 7799 Jun, [facility] [place] [facility] [address] [id number] [place] [address]- 8703 May, [facility] [place] [facility] [address] [id number] [place] [address]- 4875 May, [facility] [place] [facility] [address] [id number] [place] [address]- 0640 May, [facility] [place] [facility] [address] [id number] [place] [address]- 7186 May, [facility] [place] [facility] [address] [id number] [place] [address]- 8440 May, [facility] [place] [facility] [address] [id number] [id number]- 1602 Apr, [facility] [place] [facility] [address] [id number] [place] 9907 Apr, [facility] [place] [facility] [address] [id number] [place] [address]- 0503 Apr, [facility] [address] [id number] [place] [address]- 1319 Mar, [facility] [address] [id number] [place] [address]- 9204 Mar, [facility] [address] [id number] [place] [address]- 8925 February, [facility] [address] [id number] [place] [address]- 9295 February, [facility] [address] [id number] [place] [address]- 7366 Jan, [facility] [address] [id number] [place] [address]- 7485 Jan, [facility] [address] [id number] [place] [address]- 9056 Jan, [facility] [address] [id number] [place] [address]- 6444 Jan, [facility] [address] [id number] [place] [address]- 6417 Dec, [facility] [address] [id number] [place] [address]- 2215 Dec, [facility] [address] [id number] [place] [address]- 2546 Dec, [facility] [address] [id number] [place] [address]- 8789 Nov, [facility] [place] [facility] [address] [id number] [place] [address]- 3766 Nov, [facility] [place] [facility] [address] [id number] [place] [address] Oct, [facility] [address] [id number] [address] Oct, [facility] [place] [facility] [address] [id number] [place] [address] Sep, [facility] [place] [facility] [address] [id number] [place] [address] Sep, [facility] [place] [facility] [address] [id number] [place] [address] Sep, [facility] [place] [facility] [address] [id number] [place] [address] Sep, [facility] [place] [facility] [address] [id number] [place] [address] Sep, [facility] [place] [facility] [address] [id number] [place] [address] Sep, [facility] [place] [facility] [address] [id number] [place] [address] Sep, [facility] [place] [facility] [address] [id number] [place] [address] Aug, [facility] [place] [facility] [address] [id number] [place] [address] Aug, [facility] [place] [facility] [address] [id number] [place] [address] Jun, [facility] [place] [facility] [address] [id number] [place] [address] May, [facility] [place] [facility] [address] [id number] [place] [address] May, [facility] [place] [facility] [address] [id number] [place] [address] Apr, [facility] [place] [facility] [address] [id number] [place] [address] Apr, [facility] [place] [facility] [address] [id number] [place] [address] February, [facility] [place] [facility] [address] [id number] [address] 16 Jan, 2012 [facility] [address] [id number] [address] Jan, [facility] [address] [id number] [address] Dec, [facility] [address] [id number] [address] Oct, [facility] [id number] [address] Oct, [facility] [id number] [place] [address] Sep, [facility] [id number] [address] Sep, [facility] [id number] [address] Sep, [facility] [address] [id number] [address] Sep, IMMUNIZATIONS No Known Immunizations SOCIAL HISTORY Never Assessed REASON FOR VISIT Controlled Med Refill PLAN OF CARE VITAL SIGNS MEDICATIONS Medication Instructions Dosage Frequency Start Date End Date Duration Status Ativan 1 MG Orally twice a day 1 tablet as needed 12h Jan, 28 days Active [place] 7.5-325 MG Orally every 6 hrs 1 tablet as needed 6h February, 28 days Active RESULTS No Results PROCEDURES [...]
--- OUTSIDE RECORDS SUMMARY | 2018-07-04 08:21 | XMS REPORT ---
Author Author BRENDA WETZEL Organization [facility] Address [address] [place] [address] Care Team Providers Care Log Sorter Name Role Phone BRENDA WETZEL Unavailable PROBLEMS Type Condition ICD9-CM Code YKS29-JQ Code Onset Dates Condition Status SNOMED Code Problem Abdominal aneurysm I71.4 Active 040796634 Problem Anxiety F41.9 Active 81721489 Problem Essential hypertension I10 Active 83159055 Problem Abdominal aortic aneurysm (AAA) without rupture I71.4 Active 11372298 Problem Hypertension, benign I10 Active 70566707 Problem Hyperlipidemia, mixed E78.2 Active 161159201 Problem Primary insomnia F51.01 Active 0586054 ALLERGIES No Information ENCOUNTERS Encounter Location Date Diagnosis [facility] [id number] [place] [address] 78554- 3604 Apr, [facility] [address] 6[address]20- 5195 Mar, Chronic congestive heart failure, unspecified heart failure type I50.9 [facility] [id number] [place] [address] 13937- 1200 Mar, [facility] [id number] [place] [address] 10656 -7927 Mar, Localized edema R60.0 [facility] [id number] [place] [address] 63571- 3731 February, [facility] [address] 98353- 1849 February, [facility] [id number] [place] [address] 85940- 0044 Jan, [facility] [id number] [place] [address] 39345- 6417 Dec, [facility] [address] [address] 2206 Nov, Hypertension, benign I10 and Essential hypertension I10 [facility] [id number] [place] [address] 58161- 0821 Nov, [facility] [id number] [place] [address] 68133- 9792 Nov, Scalp lesion L98.9 ; Anxiety F41.9 ; Trigger finger, right middle finger M65.331 and Encounter for drug screening Z02.83 [facility] [id number] [place] [address] 42717- 6973 Nov, [facility] [id number] [place] [address] 23418- 6860 Oct, Essential hypertension I10 [facility] [id number] [place] [address] 32005- 4268 Oct, [facility] [id number] [place] [address] 27941- 2208 Oct, [facility] [id number] [place] [address] 96566- 0783 Sep, [facility] [address] [address] Aug, Cough R05 and Pneumonia of left lower lobe due to infectious organism J18.1 [facility] [id number] [place] [address] 57264- 0307 Aug, [facility] [id number] [place] [address] 73683- 2491 Aug, [facility] [id number] [place] [address] 04200- 5780 Aug, [facility] [address] [address]- 3363 Aug, [facility] [id number] [address]- 8786 Aug, [facility] [id number] [place] [address] 83829- 2851 Aug, Lung mass R91.8 [facility] [address] [place] [address]- 2546 Aug, [facility] [id number] [place] [address] 50785- 4691 Aug, Mass of lung parenchyma R91.8 [facility] [id number] [place] [address], [place] [address]- 1140 Jul, [facility] [id number] [place] [address] 52968- 7589 Jun, Hypertension, benign I10 ; Hyperlipidemia, mixed E78.2 and Primary insomnia F51.01 [facility] [id number] [place] [address] 72697- 3789 Jun, [facility] [id number] [place] [address] 65692- 5063 Jun, Essential hypertension I10 [facility] [address] [address]- 5919 May, [facility] [address] [address]- 8569 Apr, [facility] [address] [address]- 6373 Mar, [facility] [address] [address]- 2608 Mar, [facility] [id number] [place] [address] 912424- 5018 February, [facility] [address] 0766 February, [facility] [id number] [place] [address] 99875- 9425 Jan, [facility] [id number] [place] [address]- 5394 Dec, [facility] [address] [address]- 0156 Dec, Hypertension, benign I10 and Abdominal aortic aneurysm (AAA ) without rupture I71.4 [facility] [address] [address]- 5144 Dec, [facility] [address] [place] [address]- 4439 Nov, Medicare annual wellness visit, initial Z00.00 [facility] [address] [address]- 8204 Nov, [facility] [address] [address]- 8566 Nov, [facility] [address] [address]- 7954 Oct, [facility] [address] [address]- 5987 Oct, [facility] [address] [address]- 9283 Oct, [facility] [id number] [address]- 5262 Oct, [facility] [id number] [address]- 2830 Sep, Medicare welcome exam Z00.00 ; Medicare annual wellness visit, initial Z00.00 and Medicare annual wellness visit, subsequent Z00.00 [facility] [address] [address]- 5216 Sep, [facility] [id number] 1328 Sep, [facility] [id number] [place] [address] 86933- 4613 Aug, Trigger middle finger of right hand M65.331 [facility] [address] 88143- 7380 Aug, Hypertension, benign I10 [facility] [id number] [place] [address] 34643- 8137 Aug, [facility] [address] 98126- 0132 Aug, [facility] [id number] [place] [address] 42691- 6437 Jul, [facility] [address] 20028- 6402 Jul, [facility] [id number] [place] [address] 08857- 8860 Jul, Hypertension, essential I10 and Bradycardia R00.1 [facility] [id number] [place] [address] 73273- 3679 Jul, [facility] [id number] [place] [address] 84273- 9668 Jul, [facility] [id number] [place] [address] 40578- 3781 30 Jun, 2016 Essential hypertension I10 [facility] [id number] [place] [address] 89108- 9103 20 Jun, 2016 [facility] [id number] [place] [address] 67851- 4752 14 Jun, 2016 [facility] [id number] [place] [address] 73224- 1890 12 Jun, 2016 [facility] [id number] [place] [address] 99825- 5975 Jun, Abdominal aneurysm I71.4 ; Essential hypertension I10 ; Trigger middle finger of right hand M65.331 and Gastroesophageal reflux disease with esophagitis K21.0 [facility] [id number] [place] [address]- 8655 May, [facility] [id number] [place] [address], [place] [address]- 3623 May, [facility] [address] [facility] [id number] [place] [address]- 7771 Apr, [facility] [id number] [place] [address], [place] [address]- 7644 Apr, [facility] [address] [facility] [id number] [place] [address], [place] [address]- 5597 Apr, [facility] [id number] [place] [address], [place] [address]- 2324 Mar, [facility] [id number] [place] [address], [place] [address]- 6119 Mar, [facility] [id number] [place] [address], [place] [address]- 7022 February, [facility] [id number] [place] [address], [place] [address]- 9661 February, [facility] [id number] [place] [address] 33501- 1464 February, Primary insomnia F51.01 [facility] [address] [address]- 8141 February, Insomnia G47.00 [facility] [address] [address]- 4733 Jan, Insomnia G47.00 [facility] [id number] [place] [address] 28436- 8396 Jan, Insomnia G47.00 [facility] [address] [address]- 9784 Jan, Insomnia G47.00 [facility] [address] [id number] [id number] Dec, Dental examination Z01.20 and Caries K02.9 [facility] [id number] [place] [address] 21147- 6636 Dec, Insomnia G47.00 and Bronchitis J40 [facility] [address] [facility] [id number] [address]- 7114 Nov, [facility] [id number] [place] [address] 15016- 0266 Oct, [facility] [address] [facility] [id number] [place] [address] 21817- 4486 Sep, [facility] [id number] [place] [address] 08582- 9247 Aug, [facility] [id number] [place] [address] 23048- 9380 Jul, [facility] [id number] [place] [address] 46887- 2309 Jul, [facility] [id number] [place] [address] 61470- 8744 Jun, [facility] [id number] [place] [address] 84350- 8368 Jun, [facility] [id number] [place] [address] 49892- 8636 Jun, [facility] [id number] [place] [address] 23057- 7076 May, [facility] [id number] [place] [address] 00927- 4746 Apr, [facility] [id number] [place] [address] 77554- 4545 Apr, Cerumen impaction 380.4 [facility] [id number] [place] [address] 73246- 2171 Apr, Cerumen impaction 380.4 [facility] [id number] [address]- 4663 Mar, [facility] [address] 3750 February, [facility] [id number] 1653 February, Abdominal aortic aneurysm greater than 39 mm in diameter 441.4 [facility] [place] [facility] [id number] [place] [address] 86765- 8679 February, [facility] [place] [facility] [id number] [place] [address] 58313- 2267 Jan, [facility] [place] [facility] [id number] [place] [address] 84057- 8954 Jan, [facility] [id number] [place] [address] 56936- 6999 Jan, [facility] [id number] [place] [address] 68806- 7591 Dec, [facility] [place] [facility] [address] [address]- 0092 Dec, [facility] [place] [facility] [address] [address]- 3713 Dec, [facility] [place] [facility] [address] [address]- 2543 Dec, [facility] [place] [facility] [address] [address]- 1873 Nov, [facility] [place] [facility] [id number] 4629 Nov, [facility] [place] [facility] [address] [address]- 4523 Oct, [facility] [place] [facility] [address] [address]- 1912 Oct, [facility] [place] [facility] [address] [address]- 0224 Sep, [facility] [place] [facility] [address] [id number] [place] 2081 Sep, [facility] [place] [facility] [address] [id number] [place] [address]- 3307 Sep, [facility] [place] [facility] [address] [id number] [place] [address]- 7227 Sep, [facility] [place] [facility] [address] [id number] [place] [address]- 3286 Sep, [facility] [place] [facility] [address] [id number] [place] [address]- 8087 Sep, [facility] [place] [facility] [address] [id number] [place] [address]- 5229 Aug, [facility] [place] [facility] [address] [id number] [place] [address]- 1842 Aug, [facility] [place] [facility] [address] [id number] [place] [address]- 9592 Jul, [facility] [place] [facility] [address] [id number] [place] [address]- 2518 Jul, [facility] [place] [facility] [address] [id number] [place] [address]- 1897 Jul, [facility] [place] [facility] [address] [id number] [place] [address]- 2292 14 Jul, 2014 [facility] [place] [facility] [address] [id number] [place] [address]- 4446 15 Jun, 2014 [facility] [place] [facility] [address] [id number] [place]- 5725 15 Jun, 2014 [facility] [place] [facility] [address] [id number] [place] [address]- 1582 May, [facility] [place] [facility] [address] [id number] [place] 9519 May, [facility] [place] [facility] [address] [id number] [place] [address]- 3866 16 Apr, 2014 [facility] [address] [id number] [place] [address]- 5779 Apr, [facility] [place] [facility] [address] [id number] [place] [address]- 1740 Mar, [facility] [place] [facility] [address] [id number] [place] [address]- 1550 Mar, [facility] [place] [facility] [address] [id number] [place] [address]- 7620 February, [facility] [place] [facility] [address] [id number] [place] [address]- 1946 February, [facility] [place] [facility] [address] [id number] [place] [address]- 5769 Jan, [facility] [place] [facility] [address] [id number] [place] [address]- 1029 Jan, [facility] [address] [id number] [place] [address]- 4164 Jan, [facility] [place] [facility] [address] [id number] [place] [address]- 9125 Jan, [facility] [place] [facility] [address] [id number] [place] [address]- 4266 Jan, [facility] [place] [facility] [address] [id number] [place] [address]- 5161 Jan, [facility] [place] [facility] [address] [id number] [place] [address]- 8488 Dec, [facility] [place] [facility] [address] [id number] [place] [address]- 9306 Dec, [facility] [place] [facility] [address] [id number] [place] [address]- 2343 Nov, [facility] [place] [facility] [address] [id number] [place] [address]- 2645 Nov, [facility] [place] [facility] [address] [id number] [place] [address]- 4773 Nov, [facility] [place] [facility] [address] [id number] [place] [address]- 8688 11 Nov, 2013 [facility] [place] [facility] [address] [id number] [place] [address]- 6301 Oct, [facility] [place] [facility] [address] [id number] [place] [address]- 6710 Oct, [facility] [place] [facility] [address] [id number] [place] [address]- 1499 Oct, [facility] [place] [facility] [address] [id number] [place] [address]- 6411 Oct, [facility] [place] [facility] [address] [id number] [place] [address]- 9946 16 Sep, 2013 [facility] [place] [facility] [address] [id number] [place] [address]- 7989 16 Sep, 2013 [facility] [place] [facility] [address] [id number] [place] [address]- 7524 10 Sep, 2013 [facility] [place] [facility] [address] [id number] [place] [address]- 8321 10 Sep, 2013 [facility] [place] [facility] [address] [id number] [address]- 9326 18 Aug, 2013 [facility] [place] [facility] [address] [id number] [place] [address]- 1019 18 Aug, 2013 [facility] [place] [facility] [address] [id number] [place] [address]- 6525 13 Aug, 2013 [facility] [place] [facility] [address] [id number] [place] [address]- 1388 13 Aug, 2013 [facility] [place] [facility] [address] [id number] [place] [address]- 3763 08 Aug, 2013 [facility] [place] [facility] [address] [id number] [place] [address]- 2158 08 Aug, 2013 [facility] [place] [facility] [address] [id number] [place] [address]- 0913 18 Jul, 2013 [facility] [place] [facility] [address] [id number] [place] 2419 18 Jul, 2013 [facility] [place] [facility] [address] [id number] [place] [address]- 4135 14 Jul, 2013 [facility] [place] [facility] [address] [id number] [place] [address]- 8415 14 Jul, 2013 [facility] [place] [facility] [address] [id number] [place] [address]- 2603 20 Jun, 2013 [facility] [place] [facility] [address] [id number] [place] [address]- 6158 Jun, [facility] [place] [facility] [address] [id number] [place] [address]- 2470 May, [facility] [place] [facility] [address] [id number] [place] [address]- 2274 May, [facility] [place] [facility] [address] [id number] [place] [address]- 7315 May, [facility] [place] [facility] [address] [id number] [place] [address]- 2714 May, [facility] [place] [facility] [address] [id number] [place] [address]- 1323 May, [facility] [place] [facility] [address] [id number] [place] [address]- 7585 Apr, [facility] [place] [facility] [address] [id number] [place] [address]- 9739 Apr, [facility] [place] [facility] [address] [id number] [place] [address]- 7047 Apr, [facility] [place] [facility] [address] [id number] [place] [address]- 2252 Mar, [facility] [place] [facility] [address] [id number] [place] [address]- 5663 Mar, [facility] [address] [id number] [place] [address]- 9095 February, [facility] [address] [id number] [place] [address] February, [facility] [address] [id number] [place] [address] Jan, [facility] [address] [id number] [place] [address] Jan, [facility] [address] [id number] [place] [address] Jan, [facility] [address] [id number] [place] [address] Jan, [facility] [address] [id number] [place] [address] Dec, [facility] [address] [id number] [place] [address] Dec, [facility] [address] [id number] [place] [address] Dec, [facility] [address] [id number] [place] [address] Nov, [facility] [address] [id number] [place] [address] Nov, [facility] [address] [id number] [place] [address] Oct, [facility] [address] [id number] [place] [address] Oct, [facility] [address] [id number] [place] [address] Sep, [facility] [address] [id number] [place] [address] Sep, [facility] [place] [facility] [address] [id number] [place] [address] Sep, [facility] [place] [facility] [address] [id number] [place] [address] Sep, [facility] [place] [facility] [address] [id number] [place] [address] Sep, [facility] [place] [facility] [address] [id number] [place] [address] Sep, [facility] [place] [facility] [address] [id number] [place] [address] Sep, [facility] [place] [facility] [address] [id number] [place] [address] Aug, [facility] [place] [facility] [address] [id number] [place] [address] Aug, [facility] [place] [facility] [address] [id number] [place] [address] Jun, [facility] [place] [facility] [address] [id number] [place] [address] May, [facility] [place] [facility] [address] [id number] [place] [address] May, [facility] [place] [facility] [address] [id number] [place] [address] Apr, [facility] [address] [id number] [place] [address] Apr, [facility] [address] [id number] [place] [address] February, [facility] [place] [facility] [address] [id number] [place] [address] Jan, [facility] [place] [facility] [address] [id number] [place] [address] Jan, [facility] [facility] [address] [facility] [id number] [place] [address] Dec, [facility] [address] [id number] [place] [address] Oct, [facility] [address] [id number] [place] [address] Oct, [facility] [address] [facility] [id number] [place] [address] Sep, [facility] [address] [id number] [place] [address] Sep, [facility] [address] [id number] [place] [address] Sep, [facility] [address] [id number] [address] Sep, IMMUNIZATIONS No Known Immunizations SOCIAL HISTORY Never Assessed REASON FOR VISIT Controlled Med Refill 02/08/18 PLAN OF CARE VITAL SIGNS MEDICATIONS Medication Instructions Dosage Frequency Start Date End Date Duration Status Vado 7.5-325 MG Orally every 6 hrs 1 tablet as needed 6h February, 28 days Active Ativan 1 MG Orally [...]
--- OUTSIDE RECORDS SUMMARY | 2018-07-04 08:22 | XMS REPORT ---
Author Author BRENDA WETZEL Organization [facility] Address [address] [place] [address] Care Team Providers Care Chili Pepper Grinder Name Role Phone BRENDA WETZEL Unavailable PROBLEMS Type Condition ICD9-CM Code RDQ25-LS Code Onset Dates Condition Status SNOMED Code Problem Abdominal aneurysm I71.4 Active 375801297 Problem Anxiety F41.9 Active 63592710 Problem Essential hypertension I10 Active 01272074 Problem Abdominal aortic aneurysm (AAA) without rupture I71.4 Active 39661702 Problem Hypertension, benign I10 Active 70293409 Problem Hyperlipidemia, mixed E78.2 Active 166181344 Problem Primary insomnia F51.01 Active [id number] ALLERGIES No Information ENCOUNTERS Encounter Location Date Diagnosis [place] [address] [address] February, [facility] [address] [address] Jan, [place] [address] [address]- [address]26 Dec, [place] [address] [place] [id number] [place] [address] 34945- 4319 Nov, Hypertension, benign I10 and Essential hypertension I10 [facility] [address] [place] [id number] [place] [address] 46485- 7413 Nov, [facility] [address] [address]- 280[address] Nov, Scalp lesion L98.9 ; Anxiety F41.9 ; Trigger finger, right middle finger M65.331 and Encounter for drug screening Z02.83 [place] [address] [place] [id number] [place] [address] 65802- 5346 03 Nov, 2017 [facility] [address] [address] 8073 Oct, Essential hypertension I10 [facility] [address] [place] [id number] [place] [address], [place] [address]- 4262 Oct, [facility] [address] [address] 2061 Oct, [facility] [address] [place] [id number] [place] [address] 21545- 9301 Sep, [facility] [address], [place] [address] Aug, Cough R05 and Pneumonia of left lower lobe due to infectious organism J18.1 [facility] [address], [place] [address]- 7509 16 Aug, 2017 [facility] [address] [place] [id number] [place] [address] 51823- 9612 16 Aug, 2017 [facility] [address] [address]- 9610 Aug, [facility] [address] [place] [id number] [place] [address] 88313- 0068 Aug, [facility] [address], [place] [address]- 0264 Aug, [facility] [id number] [place] [address] 75216- 7261 Aug, Lung mass R91.8 [facility] [address], [place] [address]- 6766 Aug, [facility] [id number] [place] [address] 37960- 0412 Aug, Mass of lung parenchyma R91.8 [facility] [address], [place] [address]- 9990 Jul, [facility] [address] [place] [id number] [place] [address] 97054- 1883 Jun, Hypertension, benign I10 ; Hyperlipidemia, mixed E78.2 and Primary insomnia F51.01 [facility] [address] [place] [id number] [place] [address] 09288- 9455 Jun, [facility] [address] [place] [id number] [place] [address] 04036- 6620 Jun, Essential hypertension I10 [facility] [address] [place] [id number] [place] [address] 22434- 4575 May, [facility] [address] [place] [id number] [place] [address] 07694- 6285 Apr, [facility] [address] [place] [id number] [place] [address] 71625- 4269 Mar, [facility] [address] [place] [id number] [place] [address] 88737- 3964 Mar, [facility] [address] [place] [id number] [place] [address] 73740- 2058 February, [facility] [address] [place] [id number] [place] [address] 65031- 9836 February, [facility] [address] [place] [id number] [place] [address] 59082- 7463 Jan, [facility] [address] [place] [id number] [place] [address] 88347- 5340 Dec, [facility] [address] [place] [id number] [place] [address] 12829- 9052 Dec, Hypertension, benign I10 and Abdominal aortic aneurysm (AAA ) without rupture I71.4 [facility] [address] [place] [id number] [place] [address] 16678- 4045 Dec, [facility] [address] [place] [id number] [place] [address] 92025- 7261 28 Nov, 2016 Medicare annual wellness visit, initial Z00.00 [facility] [address] [place] [id number] [place] [address] 66451- 5484 Nov, [facility] [address] [place] [id number] [place] [address]- 0972 Nov, [facility] [id number] [place] [address]- 0150 Oct, [facility] [id number] [place] [address]- 1165 Oct, [facility] [id number] [place] [address]- 3935 Oct, [facility] [address], [place] [address]- 6530 Oct, [facility] [address], [place] [address]- 8191 Sep, Medicare welcome exam Z00.00 ; Medicare annual wellness visit, initial Z00.00 and Medicare annual wellness visit, subsequent Z00.00 [facility] [address] [place] [address]- 7123 Sep, [facility] [address], [place] [address]- 4032 Sep, [facility] [address], [place] [address]- 2252 Aug, Trigger middle finger of right hand M65.331 [facility] [address], [place] [address]- 2106 Aug, Hypertension, benign I10 [facility] [address] [place] [id number] [place] [address]- 0472 Aug, [facility] [id number] [place] [address]- 3407 Aug, [facility] [address] [place] [id number], [place] [address]- 6200 Jul, [facility] [address], [place] [address]- 2762 17 Jul, 2016 [facility] [address] [place] [id number] [place] [address] 54193- 6129 Jul, Hypertension, essential I10 and Bradycardia R00.1 [facility] [address] [place] [id number] [place] [address] 03985 2546 Jul, [facility] [address] [place] [id number] [place] [address] 97794- 0745 Jul, [facility] [address] [place] [id number] [place] [address] 57722 2540 30 Jun, 2016 Essential hypertension I10 [facility] [address] 30539- 4606 20 Jun, 2016 [facility] [address] [place] [id number] [place] [address] 12992- 2822 14 Jun, 2016 [facility] [address] [place] [id number] [place] [address] 40172- 0120 12 Jun, 2016 [facility] [address] [place] [id number] [place] [address] 15451- 2073 Jun, Abdominal aneurysm I71.4 ; Essential hypertension I10 ; Trigger middle finger of right hand M65.331 and Gastroesophageal reflux disease with esophagitis K21.0 [facility] [id number] [place] [address] 27528- 2269 May, [facility] [address] [place] [id number] [place] [address] 01439- 8677 May, [facility] [address] [place] [id number] [place] [address] 29482- 2544 Apr, [facility] [address] [place] [id number] [place] [address] 47069- 6078 Apr, [facility] [id number] [place] [address] 86529- 6839 Apr, [facility] [address] [place] [id number] [place] [address] 33091- 9160 Mar, [facility] [address] [place] [id number] [place] [address] 93717- 8517 Mar, [facility] [address] [place] [id number] [place] [address] 10874- 2727 February, [facility] [address] [place] [id number] [place] [address] 15111- 4684 February, [facility] [address] [place] [id number] [place] [address] 85548- 6159 February, Primary insomnia F51.01 [facility] [address] [place] [id number] [place] [address] 92870- 6204 February, Insomnia G47.00 [facility] [address] [place] [id number] [place] [address] 39628- 2290 Jan, Insomnia G47.00 [facility] [address] 51624- 0133 Jan, Insomnia G47.00 [facility] [address] [place] [id number] [place] [address] 12416- 3786 Jan, Insomnia G47.00 [facility] [address] [place] [id number] [place] [address] [id number] Dec, Dental examination Z01.20 and Caries K02.9 [facility] [address] [place] [id number] [place] [address] 98544- 0890 Dec, Insomnia G47.00 and Bronchitis J40 [facility] [address] [place] [id number] [place] [address] 38262- 5286 Nov, [facility] [address] [place] [id number] [place] [address] 16887- 4272 Oct, [facility] [address] [place] [id number] [place] [address] 78138- 7691 Sep, [facility] [address] [place] [id number] [place] [address] 40999- 9922 Aug, [facility] [address] [facility] [id number] [address]- 0569 Jul, [facility] [address] [facility] [id number] [address]- 8752 Jul, [facility] [address] [facility] [id number], [place] [address]- 6992 Jun, [facility] [address] [facility] [id number] [place] [address] 88144- 3123 Jun, [facility] [address] [facility] [id number], [place] [address]- 5518 Jun, [facility] [address], [place] [address]- 8682 May, [facility] [address] 3270 Apr, [facility] [id number] [place] [address] 30950- 8597 Apr, Cerumen impaction 380.4 [facility] [address], [place] [address]- 8218 Apr, Cerumen impaction 380.4 [facility] [address], [place] [address]- 1572 Mar, [facility] [address], [place] [address]- 2776 February, [facility] [address], [place] [address]- 4925 February, Abdominal aortic aneurysm greater than 39 mm in diameter 441.4 [facility] [address], [place] [address]- 1947 February, [facility] [address], [place] [address]- 5087 Jan, [facility] [address], [place] [address]- 2173 14 Jan, 2015 [facility] [place] [facility] [address] [id number] [place] [address]- 8521 Jan, [facility] [place] [facility] [address] [id number] [place] [address]- 9499 Dec, [facility] [place] [facility] [address] [facility] [id number] [place] [address]- 0977 Dec, [facility] [place] [facility] [address] [id number] [place] [address]- 0923 Dec, [facility] [place] [facility] [address] [id number] [place] [address]- 5905 Dec, [facility] [place] [facility] [address] [id number] [place] [address]- 6110 Nov, [facility] [place] [facility] [address] [id number] [place] [address]- 4505 Nov, [facility] [place] [facility] [address] [id number] [place] [address]- 6598 Oct, [facility] [place] [facility] [address] [id number] [place] [address]- 3266 Oct, [facility] [place] [facility] [address] [facility] [id number] [place] [address]- 2973 Sep, [facility] [place] [facility] [address] [id number], [place] [address]- 1174 Sep, [facility] [place] [facility] [address] [id number], [place] [address]- 7425 Sep, [facility] [place] [facility] [address] [id number] [place] [address]- 6839 Sep, [facility] [place] [facility] [address] [facility] [id number] [place] [address]- 8420 Sep, [facility] [place] [facility] [address] [facility] [id number] [place] [address]- 8926 Sep, [facility] [place] [facility] [address] [id number] [place] [address]- 5915 07 Aug, 2014 [facility] [place] [facility] [address] [id number] [place] [address]- 7202 Aug, [facility] [place] [facility] [address] [id number] [place] [address]- 6990 17 Jul, 2014 [facility] [place] [facility] [address] [id number] [place] [address]- 8527 17 Jul, 2014 [facility] [place] [facility] [address] [id number] [place] [address]- 7715 Jul, [facility] [place] [facility] [address] [id number] [place] [address]- 8867 14 Jul, 2014 [facility] [place] [facility] [address] [id number] [place] [address]- 3090 15 Jun, 2014 [facility] [place] [facility] [address] [id number] [place] [address]- 9291 Jun, [facility] [place] [facility] [address] [id number] [place] [address]- 8563 May, [facility] [place] [facility] [address] [id number] [place] [address]- 8309 May, [facility] [place] [facility] [address] [id number] [place] [address]- 3298 Apr, [facility] [place] [facility] [address] [id number] [place] [address]- 0479 Apr, [facility] [place] [facility] [address] [id number] [place] [address]- 5035 Mar, [facility] [place] [facility] [address] [id number] [place] [address]- 9347 Mar, [facility] [place] [facility] [address] [id number] [place] [address]- 7167 February, [facility] [place] [facility] [address] [id number] [place] [address]- 7414 February, [facility] [place] [facility] [address] [id number] [place] [address]- 7645 Jan, [facility] [place] [facility] [address] [id number] [place] [address]- 5154 Jan, [facility] [place] [facility] [address] [id number] [place] [address]- 3879 Jan, [facility] [place] [facility] [address] [id number] [place] [address]- 3059 Jan, [facility] [place] [facility] [address] [id number] [place] [address]- 0468 Jan, [facility] [place] [facility] [address] [id number] [place] [address]- 5750 Jan, [facility] [place] [facility] [address] [id number] [place] [address]- 9753 Dec, [facility] [place] [facility] [address] [id number] [place] [address]- 8807 Dec, [facility] [place] [facility] [address] [id number] [place] [address]- 0021 Nov, [facility] [place] [facility] [address] [id number] [place] [address]- 1763 Nov, [facility] [place] [facility] [address] [id number] [place] [address]- 1481 Nov, [facility] [place] [facility] [address] [id number] [place] [address]- 1202 Nov, [facility] [place] [facility] [address] [id number] [place] [address]- 6989 Oct, [facility] [place] [facility] [address] [id number] [place] [address]- 8402 Oct, [facility] [place] [facility] [address] [id number] [place] [address]- 9482 Oct, [facility] [place] [facility] [address] [id number] [place] [address]- 4628 07 Oct, 2013 [facility] [address] [id number] [place] [address]- 2685 16 Sep, 2013 [facility] [place] [facility] [address] [id number] [place] [address]- 7531 16 Sep, 2013 [facility] [place] [facility] [address] [id number] [place] [address]- 9575 10 Sep, 2013 [facility] [place] [facility] [address] [id number] [place] [address]- 5357 10 Sep, 2013 [facility] [place] [facility] [address] [id number] [place] [address]- 6208 18 Aug, 2013 [facility] [place] [facility] [address] [id number] [place] [address]- 9946 18 Aug, 2013 [facility] [place] [facility] [address] [id number] [place] [address]- 9364 13 Aug, 2013 [facility] [place] [facility] [address] [id number] [place] [address]- 5897 13 Aug, 2013 [facility] [place] [facility] [address] [id number] [place] [address]- 0149 08 Aug, 2013 [facility] [place] [facility] [address] [facility] [id number] [place] [address]- 5140 08 Aug, 2013 [facility] [place] [facility] [address] [id number] [place] [address]- 9815 18 Jul, 2013 [facility] [place] [facility] [address] [id number], [place] [address]- 6889 18 Jul, 2013 [facility] [place] [facility] [address] [id number] [place] [address]- 3146 14 Jul, 2013 [facility] [place] [facility] [address] [id number] [place] [address]- 4206 14 Jul, 2013 [facility] [place] [facility] [address] [id number], [place] [address]- 0313 20 Jun, 2013 [facility] [place] [facility] [address] [id number] [place] [address]- 3611 Jun, [facility] [address] [id number] [place] [address]- 4596 May, [facility] [place] [facility] [address] [id number] [place] [address]- 1802 May, [facility] [place] [facility] [address] [id number] [place] [address]- 1246 May, [facility] [address] [id number] [place] [address]- 4246 May, [facility] [place] [facility] [address] [id number] [place] [address]- 2720 May, [facility] [place] [facility] [address] [id number] [place] [address]- 8930 Apr, [facility] [place] [facility] [address] [id number] [place] [address]- 9537 Apr, [facility] [place] [facility] [address] [id number] [place] [address]- 9626 Apr, [facility] [place] [facility] [address] [id number] [place] [address]- 4746 Mar, [facility] [place] [facility] [address] [id number] [place] [address]- 0229 Mar, [facility] [place] [facility] [address] [id number] [place] [address]- 1563 February, [facility] [place] [facility] [address] [id number] [place] [address]- 7758 February, [facility] [place] [facility] [address] [id number] [place] [address]- 2116 24 Jan, 2013 [facility] [place] [facility] [address] [id number] [place] [address]- 7564 Jan, [facility] [place] [facility] [address] [id number] [place] [address]- 3206 Jan, [facility] [address] [id number] [place] 9509 Jan, [facility] [address] [id number] [place] [address] Dec, [facility] [address] [id number] [place] [address] Dec, [facility] [place] [facility] [address] [id number] [place] [address] Dec, [facility] [address] [id number] [place] [address] Nov, [facility] [place] [facility] [address] [id number] [place] [address] Nov, [facility] [address] [id number] [place] [address] Oct, [facility] [address] [id number] [place] [address] Oct, [facility] [address] [id number] [place] [address] Sep, [facility] [address] [id number] [place] [address] Sep, [facility] [address] [id number] [place] [address] Sep, [facility] [place] [facility] [address] [id number] [place] [address] Sep, [facility] [place] [place] [facility] [address] [id number] [place] [address] Sep, [facility] [place] [facility] [address] [id number] [place] [address] Sep, [facility] [place] [facility] [address] [id number] [place] [address] Sep, [facility] [place] [facility] [address] [id number] [place] [address] Aug, [facility] [address] [id number] [place] [address] Aug, [facility] [address] [id number] [place] [address] Jun, [facility] [address] [id number] [place] [address] May, [facility] [address] [id number] [place] [address] May, [facility] [address] [id number] [place] [address] Apr, [facility] [address] [id number] [place] [address] Apr, [facility] [address] [id number] [place] [address] February, [facility] [address] [id number] [place] [address] Jan, [facility] [address] [id number] [place] [address] Jan, [facility] [address] [id number] [place] [address] Dec, [facility] [address] [id number] [place] [address] Oct, [facility] [address] [id number] [place] [address] Oct, [facility] [place] [place] [facility] [address] [id number] [place] [address] Sep, [facility] [address] [id number] [place] [address] Sep, [facility] [address] [id number] [place] [address] Sep, [facility] [address] [facility] [id number] [place] [address] Sep, IMMUNIZATIONS No Known Immunizations SOCIAL HISTORY Never Assessed REASON FOR VISIT Controlled Med Refill 07/26/17 PLAN OF CARE VITAL SIGNS MEDICATIONS Medication Instructions Dosage Frequency Start Date End Date Duration Status [place] 7.5-325 MG Orally every 6 hrs 1 tablet as needed 6h 17 Jul, 2017 28 days Active Ativan 1 MG Orally [...] pain Medical History anxiety Surgical History tonsillectomy Hospitalization History kidney biopsy
--- OUTSIDE RECORDS SUMMARY | 2018-07-04 08:22 | XMS REPORT ---
Author Author BRENDA WETZEL Organization [facility] Address [address] [place] [address] Care Team Providers Care Registered Mail Clerk Name Role Phone BRENDA WETZEL Unavailable PROBLEMS Type Condition ICD9-CM Code [id number] Code Onset Dates Condition Status SNOMED Code Problem Abdominal aneurysm I71.4 Active 645199742 Problem Anxiety F41.9 Active 58916297 Problem Essential hypertension I10 Active 73699957 Problem Abdominal aortic aneurysm (AAA) without rupture I71.4 Active 36854440 Problem Hypertension, benign I10 Active 83765396 Problem Hyperlipidemia, mixed E78.2 Active 857356251 Problem Primary insomnia F51.01 Active [id number] ALLERGIES No Information ENCOUNTERS Encounter Location Date Diagnosis [facility] [id number] [place] [address] 16987- 0894 Apr, [facility] [address] [address]50- 8134 Mar, Chronic congestive heart failure, unspecified heart failure type I50.9 [facility] [id number] [place] [address] 56967- 2257 Mar, [facility] [id number] [place] [address] 32660 -9185 Mar, Localized edema R60.0 [facility] [id number] [place] [address] 55622- 7784 February, [facility] [address] 64162- 8294 February, [facility] [id number] [place] [address] 04457- 3125 Jan, [facility] [id number] [place] [address] 92752- 2795 Dec, [facility] [address], [place] [address]- 6560 Nov, Hypertension, benign I10 and Essential hypertension I10 [facility] [id number] [place] [address] 89729- 7800 Nov, [facility] [id number] [place] [address] 69991- 1625 Nov, Scalp lesion L98.9 ; Anxiety F41.9 ; Trigger finger, right middle finger M65.331 and Encounter for drug screening Z02.83 [facility] [id number] [place] [address] 24413- 2094 Nov, [facility] [id number] [place] [address] 72718- 1718 Oct, Essential hypertension I10 [facility] [id number] [place] [address] 83058- 7191 Oct, [facility] [id number] [place] [address] 13066- 1763 Oct, [facility] [id number] [place] [address] 65108- 7284 Sep, [facility] [address] [address] Aug, Cough R05 and Pneumonia of left lower lobe due to infectious organism J18.1 [facility] [id number] [place] [address] 27662- 1002 Aug, [facility] [id number] [place] [address] 98008- 6571 Aug, [facility] [id number] [place] [address] 87544- 3872 Aug, [facility] [address], [place] [address]- 5605 Aug, [facility] [id number] [address]- 6963 Aug, [facility] [id number] [place] [address] 41082- 2880 Aug, Lung mass R91.8 [facility] [id number] [place] [address]- 2546 Aug, [facility] [id number] [place] [address] 90657- 8791 Aug, Mass of lung parenchyma R91.8 [facility] [address] [place] [address], [place] [address]- 9315 Jul, [facility] [id number] [place] [address] 40713- 0496 Jun, Hypertension, benign I10 ; Hyperlipidemia, mixed E78.2 and Primary insomnia F51.01 [facility] [id number] [place] [address] 34651- 9672 Jun, [facility] [id number] [place] [address] 09190- 8450 Jun, Essential hypertension I10 [facility] [address], [place] [address]- 8596 May, [facility] [address] [address]- 1345 Apr, [facility] [address], [place] [address]- 9349 Mar, [facility] [address], [place] [address]- 2345 Mar, [facility] [id number] [place] [address] 414761- 4322 February, [facility] [address] 4206 February, [facility] [id number] [place] [address] 63486- 4076 Jan, [facility] [id number] [address]- 6311 Dec, [facility] [address], [place] [address]- 5706 Dec, Hypertension, benign I10 and Abdominal aortic aneurysm (AAA ) without rupture I71.4 [facility] [address], [place] [address]- 6136 Dec, [facility] [id number] [place] [address]- 8560 Nov, Medicare annual wellness visit, initial Z00.00 [facility] [address], [place] [address]- 9181 Nov, [facility] [address], [place] [address]- 8156 Nov, [facility] [address], [place] [address]- 9329 Oct, [facility] [address], [place] [address]- 5704 Oct, [facility] [address], [place] [address]- 0902 Oct, [facility] [id number] [address]- 7352 Oct, [facility] [id number] [address]- 9390 Sep, Medicare welcome exam Z00.00 ; Medicare annual wellness visit, initial Z00.00 and Medicare annual wellness visit, subsequent Z00.00 [facility] [address], [place] [address]- 0896 Sep, [facility] [id number] 3346 Sep, [facility] [id number] [place] [address] 96104- 3477 Aug, Trigger middle finger of right hand M65.331 [facility] [address] 77504- 2301 Aug, Hypertension, benign I10 [facility] [id number] [place] [address] 03403- 3671 Aug, [facility] [address] 66627- 9751 Aug, [facility] [id number] [place] [address] 51591- 5722 Jul, [facility] [address] 22850- 7338 Jul, [facility] [id number] [place] [address] 13458- 1069 Jul, Hypertension, essential I10 and Bradycardia R00.1 [facility] [id number] [place] [address] 47672- 8300 Jul, [facility] [id number] [place] [address] 65980- 7272 Jul, [facility] [id number] [place] [address] 92510- 1963 30 Jun, 2016 Essential hypertension I10 [facility] [id number] [place] [address] 02269- 8311 20 Jun, 2016 [facility] [id number] [place] [address] 56947- 5036 14 Jun, 2016 [facility] [id number] [place] [address] 32706- 9339 12 Jun, 2016 [facility] [id number] [place] [address] 54166- 9238 Jun, Abdominal aneurysm I71.4 ; Essential hypertension I10 ; Trigger middle finger of right hand M65.331 and Gastroesophageal reflux disease with esophagitis K21.0 [facility] [id number] [address]- 6133 May, [facility] [id number] [place] [address], [place] [address]- 8053 May, [facility] [address] [facility] [id number] [place] [address]- 9937 Apr, [facility] [address] [place] [address], [place] [address]- 4122 Apr, [facility] [address] [facility] [id number] [place] [address], [place] [address]- 0135 Apr, [facility] [id number] [place] [address], [place] [address]- 8990 Mar, [facility] [address] [place] [address], [place] [address]- 3015 Mar, [facility] [address] [place] [address], [place] [address]- 4473 February, [facility] [address] [place] [address], [place] [address]- 5636 February, [facility] [id number] [place] [address] 10927- 9512 February, Primary insomnia F51.01 [facility] [address], [place] [address]- 1840 February, Insomnia G47.00 [facility] [address], [place] [address]- 9262 Jan, Insomnia G47.00 [facility] [id number] [place] [address] 90604- 6419 Jan, Insomnia G47.00 [facility] [address], [place] [address]- 0729 Jan, Insomnia G47.00 [facility] [address] [id number] [address] Dec, Dental examination Z01.20 and Caries K02.9 [facility] [id number] [place] [address] 37317- 3274 Dec, Insomnia G47.00 and Bronchitis J40 [facility] [address] [facility] [id number] [address]- 9207 Nov, [facility] [id number] [place] [address] 66473- 0205 Oct, [facility] [address] [facility] [id number] [place] [address] 78626- 4519 Sep, [facility] [id number] [place] [address] 46361- 6032 Aug, [facility] [id number] [place] [address] 02458- 5734 Jul, [facility] [id number] [place] [address] 27755- 5010 Jul, [facility] [id number] [place] [address] 16794- 4457 Jun, [facility] [id number] [place] [address] 36155- 4055 Jun, [facility] [id number] [place] [address] 27506- 8250 Jun, [facility] [address] [place] [address] 29905- 0858 May, [facility] [address] [place] [address] 83672- 5289 Apr, [facility] [id number] [place] [address] 14072- 0418 Apr, Cerumen impaction 380.4 [facility] [address] [place] [address] 76922- 6309 Apr, Cerumen impaction 380.4 [facility] [id number], [place] [address]- 5084 Mar, [facility] [address] 0701 February, [facility] [id number] 0643 February, Abdominal aortic aneurysm greater than 39 mm in diameter 441.4 [facility] [place] [facility] [id number] [place] [address] 84371- 2492 February, [facility] [place] [facility] [id number] [place] [address] 86165- 0022 Jan, [facility] [place] [facility] [id number] [place] [address] 50709- 2835 Jan, [facility] [id number] [place] [address] 43702- 4277 Jan, [facility] [id number] [place] [address] 55405- 0825 Dec, [facility] [place] [facility] [address], [place] [address]- 3369 Dec, [facility] [place] [facility] [address], [place] [address]- 8616 Dec, [facility] [place] [facility] [address], [place] [address]- 5882 Dec, [facility] [place] [facility] [address], [place] [address]- 3079 Nov, [facility] [place] [facility] [id number] 6706 Nov, [facility] [place] [facility] [address], [place] [address]- 3942 Oct, [facility] [place] [facility] [address], [place] [address]- 3728 Oct, [facility] [place] [facility] [address], [place] [address]- 3721 Sep, [facility] [place] [facility] [address] [id number] [place] 3067 Sep, [facility] [place] [facility] [address] [id number] [place] [address]- 1269 Sep, [facility] [place] [facility] [address] [id number] [place] [address]- 1725 Sep, [facility] [place] [facility] [address] [id number] [place] [address]- 6601 Sep, [facility] [place] [facility] [address] [id number] [place] [address]- 0422 Sep, [facility] [place] [facility] [address] [id number] [place] [address]- 2089 Aug, [facility] [place] [facility] [address] [id number] [place] [address]- 7258 Aug, [facility] [place] [facility] [address] [id number] [place] [address]- 3707 Jul, [facility] [place] [facility] [address] [id number] [place] [address]- 3783 Jul, [facility] [place] [facility] [address] [id number] [place] [address]- 0209 Jul, [facility] [place] [facility] [address] [id number] [place] [address]- 5774 14 Jul, 2014 [facility] [place] [facility] [address] [id number] [place] [address]- 7028 15 Jun, 2014 [facility] [place] [facility] [address] [id number] [place]- 5365 15 Jun, 2014 [facility] [place] [facility] [address] [id number] [place] [address]- 5455 May, [facility] [place] [facility] [address] [id number] [place] 6779 May, [facility] [place] [facility] [address] [id number] [place] [address]- 7243 16 Apr, 2014 [facility] [address] [id number] [place] [address]- 0976 Apr, [facility] [place] [facility] [address] [id number] [place] [address]- 8830 Mar, [facility] [place] [facility] [address] [id number] [place] [address]- 2048 Mar, [facility] [place] [facility] [address] [id number] [place] [address]- 3081 February, [facility] [place] [facility] [address] [id number] [place] [address]- 4809 February, [facility] [place] [facility] [address] [id number] [place] [address]- 9427 Jan, [facility] [place] [facility] [address] [id number] [place] [address]- 1113 Jan, [facility] [address] [id number] [place] [address]- 1998 Jan, [facility] [place] [facility] [address] [id number] [place] [address]- 2380 Jan, [facility] [place] [facility] [address] [id number] [place] [address]- 0301 Jan, [facility] [place] [facility] [address] [id number] [place] [address]- 5643 Jan, [facility] [place] [facility] [address] [id number] [place] [address]- 0954 Dec, [facility] [place] [facility] [address] [id number] [place] [address]- 8690 Dec, [facility] [place] [facility] [address] [id number] [place] [address]- 0647 Nov, [facility] [place] [facility] [address] [id number] [place] [address]- 0375 Nov, [facility] [place] [facility] [address] [id number] [place] [address]- 8214 Nov, [facility] [place] [facility] [address] [id number] [place] [address]- 4151 11 Nov, 2013 [facility] [place] [facility] [address] [id number] [place] [address]- 3178 Oct, [facility] [place] [facility] [address] [id number] [place] [address] Oct, [facility] [place] [facility] [address] [id number] [place] [address] Oct, [facility] [place] [facility] [address] [id number] [place] [address] Oct, [facility] [place] [facility] [address] [id number] [place] [address] 16 Sep, 2013 [facility] [place] [facility] [address] [id number] [place] [address] 16 Sep, 2013 [facility] [place] [facility] [address] [id number] [place] [address] 10 Sep, 2013 [facility] [place] [facility] [address] [id number] [place] [address] 10 Sep, 2013 [facility] [place] [facility] [address] [id number], [place] [address] 18 Aug, 2013 [facility] [place] [facility] [address] [id number], [place] [address] 18 Aug, 2013 [facility] [place] [facility] [address] [id number] [place] [address] 13 Aug, 2013 [facility] [place] [facility] [address] [id number] [place] [address] 13 Aug, 2013 [facility] [place] [facility] [address] [id number] [place] [address] 08 Aug, 2013 [facility] [place] [facility] [address] [id number] [place] [address] 08 Aug, 2013 [facility] [place] [facility] [address] [id number] [place] [address] 18 Jul, 2013 [facility] [place] [facility] [address] [id number] [place] [address] 18 Jul, 2013 [facility] [place] [facility] [address] [id number] [place] [address] 14 Jul, 2013 [facility] [place] [facility] [address] [id number] [place] [address]- [address] 14 Jul, 2013 [facility] [place] [facility] [address] [id number] [place] [address] 20 Jun, 2013 [facility] [place] [facility] [address] [id number] [place] [address] Jun, [facility] [place] [facility] [address] [id number] [place] [address] May, [facility] [place] [facility] [address] [id number] [place] [address] May, [facility] [place] [facility] [address] [id number] [place] [address]- [address] May, [facility] [place] [facility] [address] [id number] [place] [address]14 May, [facility] [place] [facility] [address] [id number] [place] [address] May, [facility] [place] [facility] [address] [id number] [place] [address] Apr, [facility] [place] [facility] [address] [id number] [place] [address] Apr, [facility] [place] [facility] [address] [id number] [place] [address]15 Apr, [facility] [place] [facility] [address] [id number] [place] [address] Mar, [facility] [place] [facility] [address] [id number] [place] [address] Mar, [facility] [address] [id number] [place] [address] February, [facility] [address] [id number] [place] [address] February, [facility] [address] [id number] [place] [address] Jan, [facility] [address] [id number] [place] [address] Jan, [facility] [address] [id number] [place] [address]- 2018 Jan, [facility] [address] [id number] [place] [address] Jan, [facility] [address] [id number] [place] [address] Dec, [facility] [address] [id number] [place] [address] Dec, [facility] [address] [id number] [place] [address]185 Dec, [facility] [address] [id number] [place] [address] Nov, [facility] [address] [id number] [place] [address]65 Nov, [facility] [address] [id number] [place] [address] 2406 Oct, [facility] [address] [id number] [place] [address]- [address] Oct, [facility] [address] [id number] [place] [address] 1711 Sep, [facility] [address] [id number], [place] [address] Sep, [facility] [place] [facility] [address] [id number] [place] [address] 7580 Sep, [facility] [place] [facility] [address] [id number] [place] [address]- 110[address] Sep, [facility] [place] [facility] [address] [id number] [place] [address]- 1488 Sep, [facility] [place] [facility] [address] [id number] [place] [address]- [address] Sep, [facility] [place] [facility] [address] [id number] [place] [address] Sep, [facility] [place] [facility] [address] [id number] [place] [address] Aug, [facility] [place] [facility] [address] [id number] [place] [address] Aug, [facility] [place] [facility] [address] [id number] [place] [address] 8365 Jun, [facility] [place] [facility] [address] [id number] [place] [address]- [address]276 May, [facility] [place] [facility] [address] [id number] [place] [address]- 7569 May, [facility] [place] [facility] [address] [id number], [place] [address] Apr, [facility] [place] [facility] [address] [id number] [place] [address]- 8933 Apr, [facility] [facility] [address] [id number] [place] [address] February, [facility] [place] [facility] [address] [id number] [place] [address] 8676 Jan, [facility] [place] [facility] [address] [id number] [place] [address] 7817 Jan, [facility] [facility] [address] [facility] [address] [id number] [address] Dec, [facility] [address] [id number] [address] 290[address] Oct, [facility] [address] [id number] [address] 8[address] Oct, [facility] [address] [facility] [address] [id number], [place] [address] Sep, [facility] [address] [id number], [place] [address] 2606 Sep, [facility] [address] [id number] [address] 2532 Sep, [facility] [address] [facility] [address] [id number], [place] [address] Sep, IMMUNIZATIONS No Known Immunizations SOCIAL HISTORY Never Assessed REASON FOR VISIT Controlled Med Refill PLAN OF CARE VITAL SIGNS MEDICATIONS Medication Instructions Dosage Frequency Start Date End Date Duration Status Burley 7.5-325 MG Orally every 6 hrs 1 tablet as needed 6h Jan, 28 days Active Ativan 1 MG Orally [...]
--- OUTSIDE RECORDS SUMMARY | 2018-07-04 08:23 | XMS REPORT ---
Author Author BRENDA WETZEL Organization [facility] Address [address] [place] [address] Care Team Providers Care Special Assets Officer Name Role Phone BRENDA WETZEL Unavailable PROBLEMS Type Condition ICD9-CM Code [id number] Code Onset Dates Condition Status SNOMED Code Problem Abdominal aneurysm I71.4 Active 318938361 Problem Anxiety F41.9 Active 95632025 Problem Essential hypertension I10 Active 12404539 Problem Abdominal aortic aneurysm (AAA) without rupture I71.4 Active 96588007 Problem Hypertension, benign I10 Active 95579747 Problem Hyperlipidemia, mixed E78.2 Active 412575255 Problem Primary insomnia F51.01 Active 7960919 ALLERGIES No Information ENCOUNTERS Encounter Location Date Diagnosis [facility] [id number] [place] [address] 84398- 0453 Mar, Chronic congestive heart failure, unspecified heart failure type I50.9 [facility] [address] [address] Mar, [facility] [id number] [place] [address] 49452 -4617 Mar, Localized edema R60.0 [facility] [id number] [place] [address] 39847- 2738 February, [facility] [id number] [place] [address] 36403- 3164 February, [facility] [address] 12042- 5717 Jan, [facility] [id number] [place] [address] 18403- 0164 Dec, [facility] [address] 16188- 9931 Nov, Hypertension, benign I10 and Essential hypertension I10 [facility] [address] [place] [address] 58827- 2993 Nov, [facility] [id number] [place] [address] 58586- 9245 09 Nov, 2017 Scalp lesion L98.9 ; Anxiety F41.9 ; Trigger finger, right middle finger M65.331 and Encounter for drug screening Z02.83 [facility] [id number] [place] [address] 90566- 7036 Nov, [facility] [id number] [place] [address] 52091- 6916 Oct, Essential hypertension I10 [facility] [id number] [place] [address] 00926- 7486 Oct, [facility] [id number] [place] [address] 25592- 2931 Oct, [facility] [id number] [place] [address] 41953- 3127 Sep, [facility] [id number] [place] [address] 06650 -9093 Aug, Cough R05 and Pneumonia of left lower lobe due to infectious organism J18.1 [facility] [address] [address]- 5617 Aug, [facility] [id number] [place] [address] 42676- 0292 Aug, [facility] [address] [place] [address] 24717- 3718 Aug, [facility] [id number] [place] [address] 24942- 6805 Aug, [facility] [address]00565[address] [address]- 5090 Aug, [facility] [address] [id number] [address]- 9546 Aug, Lung mass R91.8 [facility] [id number] [place] [address], [place] [address]- 6665 Aug, [facility] [address]00565100[place] [address]- 9748 Aug, Mass of lung parenchyma R91.8 [facility] [id number] [place] [address] 83598- 4279 Jul, [facility] [id number] [place] [address] 19835- 4534 Jun, Hypertension, benign I10 ; Hyperlipidemia, mixed E78.2 and Primary insomnia F51.01 [facility] [address]00565[address] [address]- 8199 Jun, [facility] [id number] [place] [address] 29123- 3437 Jun, Essential hypertension I10 [facility] [address] [place] [address] 37086- 4681 May, [facility] [address] [place] [address] 70050- 6307 Apr, [facility] [address]00565[address] [address]- 5680 Mar, [facility] [address]00565100[place] [address]- 2732 Mar, [facility] [address]00565100[place] [address]- 0711 February, [facility] [id number] [place] [address] 116943- 9381 February, [facility] [address]00565100[place] [address]- 3110 Jan, [facility] [address] [place] [address] 45815- 7963 Dec, [facility] [address] [facility] [id number] [place] [address]- 4381 Dec, Hypertension, benign I10 and Abdominal aortic aneurysm (AAA ) without rupture I71.4 [facility] [address] [facility] [id number] [place] [address]- 0906 Dec, [facility] [address] [place] [address]- 6041 Nov, Medicare annual wellness visit, initial Z00.00 [facility] [address] [facility] [id number] [place] [address]- 1296 Nov, [facility] [address] [facility] [id number] [place] 1346 Nov, [facility] [address] [id number] [place] [address]- 0798 Oct, [facility] [address] [address]- 6094 Oct, [facility] [address] [id number] [place] [address]- 0442 Oct, [facility] [address] [id number] [place] [address]- 8664 Oct, [facility] [address] [id number] [address]- 4900 Sep, Medicare welcome exam Z00.00 ; Medicare annual wellness visit, initial Z00.00 and Medicare annual wellness visit, subsequent Z00.00 [facility] [address] [facility] [id number] [place] [address]- 5516 Sep, [facility] [address] [facility] [id number] [place] [address] 2546 Sep, [facility] [address] [id number] 9496 Aug, Trigger middle finger of right hand M65.331 [facility] [id number] [place] [address] 52846- 8904 14 Aug, 2016 Hypertension, benign I10 [facility] [address] 99797- 3439 14 Aug, 2016 [facility] [id number] [place] [address] 62983- 0740 11 Aug, 2016 [facility] [address] 66197- 0709 28 Jul, 2016 [facility] [address] 66750- 9895 17 Jul, 2016 [facility] [address] 24784- 8585 Jul, Hypertension, essential I10 and Bradycardia R00.1 [facility] [id number] [place] [address] 65661- 6855 Jul, [facility] [id number] [place] [address] 03467- 0241 Jul, [facility] [id number] [place] [address] 08964- 8046 30 Jun, 2016 Essential hypertension I10 [facility] [id number] [place] [address] 58920- 4831 20 Jun, 2016 [facility] [id number] [place] [address] 20774- 9346 14 Jun, 2016 [facility] [id number] [place] [address] 58433- 1980 12 Jun, 2016 [facility] [id number] [place] [address] 19718- 3712 Jun, Abdominal aneurysm I71.4 ; Essential hypertension I10 ; Trigger middle finger of right hand M65.331 and Gastroesophageal reflux disease with esophagitis K21.0 [facility] [id number] [place] [address] 37696- 4080 May, [facility] [address]65100[place] [address]- 2073 May, [facility] [id number] [place] [address] 08119- 5892 Apr, [facility] [address]65[address] [address]- 4781 Apr, [facility] [id number] [place] [address] 21469- 2601 Apr, [facility] [id number] [place] [address] 98081- 0258 Mar, [facility] [id number] [place] [address] 88910- 3811 Mar, [facility] [id number] [place] [address] 95159- 1593 February, [facility] [id number] [place] [address] 80282- 5681 February, [facility] [address] [place] [address] 99297- 2443 February, Primary insomnia F51.01 [facility] [id number] [place] [address] 63273- 9908 February, Insomnia G47.00 [facility] [address] [place] [address] 57027- 6154 Jan, Insomnia G47.00 [facility] [address] [place] [address] 63273- 7317 Jan, Insomnia G47.00 [facility] [address] [place] [address] 98319- 2075 Jan, Insomnia G47.00 [facility] [address] [place] [address] [id number] Dec, Dental examination Z01.20 and Caries K02.9 [facility] [id number] [place] [address] 76798- 8115 Dec, Insomnia G47.00 and Bronchitis J40 [facility] [address] [facility] [id number] [place] [address] 45604- 9991 Nov, [facility] [id number] [place] [address] 382318- 6970 Oct, [facility] [id number] [place] [address] 10989- 5536 Sep, [facility] [address] [facility] [id number] [place] [address] 27887- 3438 Aug, [facility] [id number] [place] [address] 06168- 2633 Jul, [facility] [id number] [place] [address] 36748- 5276 Jul, [facility] [id number] [place] [address] 40148- 9492 Jun, [facility] [id number] [place] [address] 98038- 0831 Jun, [facility] [id number] [place] [address] 96561- 2846 Jun, [facility] [address] [address]- 0669 May, [facility] [address] [place] [address] 98182- 5514 Apr, [facility] [address] [facility] [id number] [address]- 6655 Apr, Cerumen impaction 380.4 [facility] [address] [place] [address] 35181- 8152 Apr, Cerumen impaction 380.4 [facility] [address] [address]- 1287 Mar, [facility] [id number] [place] [address], [place] [address]- 8240 February, [facility] [address] [facility] [id number] [place] 6458 February, Abdominal aortic aneurysm greater than 39 mm in diameter 441.4 [facility] [facility] [address] [facility] [id number] [place] [address]- 6284 February, [facility] [facility] [address] [facility] [id number] [place] [address], [place] [address]- 5071 Jan, [facility] [facility] [address] [facility] [id number] [place] [address]- 8319 Jan, [facility] [facility] [id number] [place] [address], [place] [address]- 4788 Jan, [facility] [id number] [place] [address]- 9507 Dec, [facility] [id number] [place] [address], [place] [address]- 7411 Dec, [facility] [address] [place] [address]- 3245 Dec, [facility] [address]005[address] [address]- 6270 Dec, [facility] [address] [address]- 5915 Nov, [facility] [address] [address]- 2475 Nov, [facility] [facility] [address] [facility] [id number] [place] 6837 Oct, [facility] [place] [facility] [address] [facility] [id number] [place] 4008 Oct, [facility] [address] [id number]- 3913 Sep, [facility] [address] [address]- 9234 Sep, [facility] [place] [facility] [address] [id number] [place] 9120 Sep, [facility] [facility] [address] [id number] [place] [address]- 5046 Sep, [facility] [place] [facility] [address] [id number] [place] [address]- 5593 Sep, [facility] [place] [facility] [address] [id number] [place] [address]- 8980 Sep, [facility] [place] [facility] [address] [id number] [place] [address]- 4494 Aug, [facility] [place] [facility] [address] [id number] [place] [address]- 9030 Aug, [facility] [place] [facility] [address] [id number] [place] 1428 Jul, [facility] [place] [facility] [address] [id number] [place] [address]- 4204 Jul, [facility] [place] [facility] [address] [id number] [place] [address]- 4506 Jul, [facility] [place] [facility] [address] [id number] [place] [address]- 6379 14 Jul, 2014 [facility] [place] [facility] [address] [id number] [place] [address]- 7966 15 Jun, 2014 [facility] [place] [facility] [address] [id number] [place] [address]- 5467 15 Jun, 2014 [facility] [place] [facility] [address] [id number] [place] [address]- 6038 May, [facility] [place] [facility] [address] [id number] [place] 7451 May, [facility] [place] [facility] [address] [id number] [place] [address]- 3886 Apr, [facility] [place] [facility] [address] [id number] [place] [address]- 0696 16 Apr, 2014 [facility] [place] [facility] [address] [id number] [place] [address]- 3200 Mar, [facility] [place] [facility] [address] [id number] [place] [address]- 3715 Mar, [facility] [place] [facility] [address] [id number] [place] [address]- 4273 February, [facility] [place] [facility] [address] [id number] [place] [address]- 3802 February, [facility] [place] [facility] [address] [id number] [place] [address]- 7886 Jan, [facility] [place] [facility] [address] [id number] [place] [address]- 8978 Jan, [facility] [place] [facility] [address] [id number] [place] [address]- 0566 Jan, [facility] [place] [facility] [address] [id number] [place] [address]- 4283 Jan, [facility] [place] [facility] [address] [id number] [place] [address]- 2164 Jan, [facility] [facility] [address] [id number] [place] [address]- 6435 Jan, [facility] [place] [facility] [address] [id number] [place] [address]- 5579 Dec, [facility] [place] [facility] [address] [id number] [place] [address]- 5178 Dec, [facility] [place] [facility] [address] [id number] [place] [address]- 4200 Nov, [facility] [place] [facility] [address] [id number] [place] [address]- 2836 Nov, [facility] [place] [facility] [address] [id number] [place] [address]- 3267 Nov, [facility] [place] [facility] [address] [id number] [place] [address]- 0613 11 Nov, 2013 [facility] [place] [facility] [address] [id number] [place] [address]- 0184 Oct, [facility] [place] [facility] [address] [id number] [place] [address]- 7502 Oct, [facility] [place] [facility] [address] [id number] [place] [address]- 3177 Oct, [facility] [place] [facility] [address] [id number] [place] [address]- 8697 Oct, [facility] [place] [facility] [address] [id number] [place] [address]- 8613 16 Sep, 2013 [facility] [place] [facility] [address] [id number] [place] [address]- 3427 16 Sep, 2013 [facility] [place] [facility] [address] [id number] [place] [address]- 9567 Sep, [facility] [place] [facility] [address] [id number] [place] [address]- 1409 Sep, [facility] [place] [facility] [address] [id number] [place] [address]- 8451 18 Aug, 2013 [facility] [place] [facility] [address] [id number] [address]- 8566 18 Aug, 2013 [facility] [place] [facility] [address] [id number] [place] [address]- 5571 13 Aug, 2013 [facility] [place] [facility] [address] [id number] [place] [address]- 0447 Aug, [facility] [place] [facility] [address] [id number] [place] [address]- 9779 08 Aug, 2013 [facility] [place] [facility] [address] [id number] [place] [address]- 9762 08 Aug, 2013 [facility] [place] [facility] [address] [id number] [place] [address]- 5671 18 Jul, 2013 [facility] [place] [facility] [address] [id number] [place] [address]- 5559 18 Jul, 2013 [facility] [place] [facility] [address] [id number] [place] [address]- 2274 14 Jul, 2013 [facility] [place] [facility] [address] [id number] [place] [address]- 8289 14 Jul, 2013 [facility] [place] [facility] [address] [id number] [place] [address]- 3520 20 Jun, 2013 [facility] [place] [facility] [address] [id number] [place] [address]- 1232 Jun, [facility] [place] [facility] [address] [id number] [place] [address]- 5793 May, [facility] [place] [facility] [address] [id number] [place] [address]- 6394 16 May, 2013 [facility] [place] [facility] [address] [id number] [place] [address]- 2914 May, [facility] [place] [facility] [address] [id number] [place] [address]- 4525 May, [facility] [place] [facility] [address] [id number] [place] [address]- 2238 May, [facility] [place] [facility] [address] [id number] [place] [address]- 6640 Apr, [facility] [place] [facility] [address] [id number] [place] [address] Apr, [facility] [place] [facility] [address] [id number] [place] [address] Apr, [facility] [place] [facility] [address] [id number] [place] [address] Mar, [facility] [place] [facility] [address] [id number] [place] [address] Mar, [facility] [place] [facility] [address] [id number] [place] [address] February, [facility] [address] [id number] [place] [address] February, [facility] [address] [id number] [place] [address] [address] Jan, [facility] [address] [id number] [place] [address] Jan, [facility] [address] [id number] [place] [address] Jan, [facility] [address] [id number] [place] [address] Jan, [facility] [address] [id number] [place] [address] Dec, [facility] [address] [id number] [place] [address] Dec, [facility] [address] [id number] [place] [address] Dec, [facility] [address] [id number] [place] [address] Nov, [facility] [address] [id number] [place] [address] Nov, [facility] [address] [id number] [place] [address] Oct, [facility] [address] [id number] [place] [address] Oct, [facility] [address] [id number] [place] [address] Sep, [facility] [address] [id number] [place] [address] Sep, [facility] [address] [id number] [place] [address] Sep, [facility] [place] [facility] [address] [id number] [place] [address] Sep, [facility] [place] [facility] [address] [id number] [place] [address]- [address] Sep, [facility] [place] [facility] [address] [id number] [place] [address] Sep, [facility] [place] [facility] [address] [id number] [place] [address] Sep, [facility] [place] [facility] [address] [id number] [place] [address] Aug, [facility] [place] [facility] [address] [id number] [place] [address] Aug, [facility] [place] [facility] [address] [id number] [place] [address] Jun, [facility] [place] [facility] [address] [id number] [place] [address] May, [facility] [place] [facility] [address] [id number] [place] [address] May, [facility] [place] [facility] [address] [id number] [place] [address] Apr, [facility] [place] [facility] [address] [id number] [place] [address] Apr, [facility] [place] [facility] [address] [id number] [place] [address] February, [facility] [place] [facility] [address] [id number] [place] [address] Jan, [facility] [place] [facility] [address] [id number] [place] [address] Jan, [facility] [place] [facility] [address] [id number] [place] [address] Dec, [facility] [place] [facility] [address] [id number] [place] [address] Oct, [facility] [address] [facility] [id number] [address] Oct, [facility] [address] [id number] [address] Sep, [facility] [address] [facility] [id number] [place] [address] Sep, [facility] [address] [facility] [id number] [address] Sep, [facility] [address] [facility] [id number] [address] Sep, IMMUNIZATIONS No Known Immunizations SOCIAL HISTORY Never Assessed REASON FOR VISIT Controlled Med Refill 12/13/17 PLAN OF CARE VITAL SIGNS MEDICATIONS Medication Instructions Dosage Frequency Start Date End Date Duration Status [place] 7.5-325 MG Orally every 6 hrs 1 tablet as needed 6h Dec, 28 days Active Ativan 1 MG Orally [...]
--- OUTSIDE RECORDS SUMMARY | 2018-07-04 08:24 | XMS REPORT ---
Author Author BRENDA WETZEL Organization [facility] Address [address] [place] [address] Care Team Providers Care Entry Processor Name Role Phone BRENDA WETZEL Unavailable PROBLEMS Type Condition ICD9-CM Code HXR17-WF Code Onset Dates Condition Status SNOMED Code Problem Abdominal aneurysm I71.4 Active 088152808 Problem Anxiety F41.9 Active 51302638 Problem Essential hypertension I10 Active 51219508 Problem Abdominal aortic aneurysm (AAA) without rupture I71.4 Active 81676900 Problem Hypertension, benign I10 Active 15438698 Problem Hyperlipidemia, mixed E78.2 Active 882644270 Problem Primary insomnia F51.01 Active [id number] ALLERGIES No Information ENCOUNTERS Encounter Location Date Diagnosis [place] [id number] [place] [address] 13460- 4929 February, [facility] [id number] [place] [address] 73199- 7420 February, [place] [id number] [place] [address] 72527- 9946 Jan, [place] [facility] [id number] [place] [address] 23783- 3513 Dec, [facility] [facility] [id number] [place] [address] 84824- 9018 Nov, Hypertension, benign I10 and Essential hypertension I10 [place] [address] 65134- 4381 Nov, [place] [address] 74789- 4503 09 Nov, 2017 Scalp lesion L98.9 ; Anxiety F41.9 ; Trigger finger, right middle finger M65.331 and Encounter for drug screening Z02.83 [place] [address], [place] [address] 0[address] Nov, [facility] [address] [place] [address] 03274- 8696 Oct, Essential hypertension I10 [facility] [address], [place] [address]- 9146 Oct, [facility] [id number] [place] [address] 77736- 0848 Oct, [facility] [address] [place] [address] 83352- 1628 Sep, [facility] [address] [place] [address] 68435 -8528 Aug, Cough R05 and Pneumonia of left lower lobe due to infectious organism J18.1 [facility] [id number] [place] [address] 70237- 3941 16 Aug, 2017 [facility] [address] [place] [address] 54658- 9876 Aug, [facility] [id number] [place] [address] 07881- 5152 Aug, [facility] [address] [place] [address] 24128- 4478 Aug, [facility] [address] [place] [address] 06621- 5219 Aug, [facility] [address] [place] [address] 61338- 3728 Aug, Lung mass R91.8 [facility] [id number] [place] [address] 37706- 1780 Aug, [facility] [address], [place] [address]- 5043 Aug, Mass of lung parenchyma R91.8 [facility] [id number] [place] [address] 61554- 3064 Jul, [facility] [address], [place] [address]- 4428 Jun, Hypertension, benign I10 ; Hyperlipidemia, mixed E78.2 and Primary insomnia F51.01 [facility] [address], [place] [address]- 5689 Jun, [facility] [id number] [place] [address] 25136- 8902 Jun, Essential hypertension I10 [facility] [id number] [place] [address] 96458- 4119 May, [facility] [id number] [place] [address] 24009- 1609 Apr, [facility] [id number] [place] [address] 87237- 3344 Mar, [facility] [id number] [place] [address] 55511- 4697 Mar, [facility] [id number] [place] [address] 52339- 0657 February, [facility] [id number] [place] [address] 08113- 3772 February, [facility] [address], [place] [address]- 1285 Jan, [facility] [address], [place] [address]- 3321 Dec, [facility] [address], [place] [address]- 4439 Dec, Hypertension, benign I10 and Abdominal aortic aneurysm (AAA ) without rupture I71.4 [facility] [address], [place] [address]- 8626 Dec, [facility] [address] [address]- 1509 Nov, Medicare annual wellness visit, initial Z00.00 [facility] [address] [facility] [id number] [place] [address]- 4171 Nov, [facility] [address] [facility] [id number] [place] [address]- 9144 Nov, [facility] [address] [place] [address]- 9362 Oct, [facility] [address] [place] [address]- 6757 Oct, [facility] [address], [place] [address]- 6324 Oct, [facility] [address], [place] [address]- 8082 Oct, [facility] [address], [place] [address]- 4780 Sep, Medicare welcome exam Z00.00 ; Medicare annual wellness visit, initial Z00.00 and Medicare annual wellness visit, subsequent Z00.00 [facility] [address], [place] [address]- 9535 Sep, [facility] [address], [place] [address]- 8811 Sep, [facility] [address], [place] [address]- 4351 Aug, Trigger middle finger of right hand M65.331 [facility] [id number] [address]- 0533 Aug, Hypertension, benign I10 [facility] [address] [place] [address]- 9057 Aug, [facility] [address], [place] [address]- 6870 Aug, [facility] [id number] [address]- 6835 28 Jul, 2016 [facility] [id number] [place] [address] 98581- 8735 Jul, [facility] [id number] [place] [address] 44143- 8764 Jul, Hypertension, essential I10 and Bradycardia R00.1 [facility] [address] 64251- 0568 Jul, [facility] [id number] [place] [address] 31850- 3945 Jul, [facility] [address] 36782- 9385 30 Jun, 2016 Essential hypertension I10 [facility] [id number] [place] [address] 98070- 3609 20 Jun, 2016 [facility] [id number] [place] [address] 56771- 7417 14 Jun, 2016 [facility] [id number] [place] [address] 19165- 2502 12 Jun, 2016 [facility] [id number] [place] [address] 37874- 0354 Jun, Abdominal aneurysm I71.4 ; Essential hypertension I10 ; Trigger middle finger of right hand M65.331 and Gastroesophageal reflux disease with esophagitis K21.0 [facility] [id number] [place] [address] 42145- 3797 May, [facility] [id number] [place] [address] 84991- 5585 May, [facility] [id number] [place] [address] 24027- 1916 Apr, [facility] [id number] [place] [address] 12196- 6197 Apr, [facility] [id number] [place] [address] 53389- 0961 Apr, [facility] [id number] [place] [address] 99546- 8203 Mar, [facility] [id number] [place] [address] 53879- 5811 Mar, [facility] [id number] [place] [address] 08357- 5580 February, [facility] [address] 27066- 2869 February, [facility] [id number] [place] [address] 33068- 4613 February, Primary insomnia F51.01 [facility] [id number] [place] [address] 74791- 1633 February, Insomnia G47.00 [facility] [address] 71542- 1285 Jan, Insomnia G47.00 [facility] [id number] [place] [address] 00108- 3992 Jan, Insomnia G47.00 [facility] [id number] [place] [address] 39429- 9623 Jan, Insomnia G47.00 [facility] [address] [id number] Dec, Dental examination Z01.20 and Caries K02.9 [facility] [id number] [place] [address] 48731- 3777 Dec, Insomnia G47.00 and Bronchitis J40 [facility] [id number] [place] [address] 86951- 4850 Nov, [facility] [id number] [place] [address] 37278- 3895 Oct, [facility] [id number] [place] [address] 90074- 6592 Sep, [facility] [address] [facility] [id number], [place] [address]- 8059 Aug, [facility] [address] [facility] [id number], [place] [address]- 2305 Jul, [facility] [address] [facility] [id number], [place] [address]- 2975 Jul, [facility] [id number] [place] [address] 93447- 1681 Jun, [facility] [address] [facility] [id number] 0927 Jun, [facility] [address] [place] [address] 34391- 8252 Jun, [facility] [address] 9371 May, [facility] [address] [place] [address] 09534- 8437 Apr, [facility] [address] 7550 Apr, Cerumen impaction 380.4 [facility] [address] 0143 Apr, Cerumen impaction 380.4 [facility] [address], [place] [address]- 2591 Mar, [facility] [id number] [address]- 9585 February, [facility] [id number] [address]- 1220 February, Abdominal aortic aneurysm greater than 39 mm in diameter 441.4 [facility] [address], [place] [address]- 8457 February, [facility] [address], [place] [address]- 3980 Jan, [facility] [place] [facility] [address] [id number] [place] [address]- 7594 14 Jan, 2015 [facility] [place] [facility] [address] [id number] [place] [address]- 9085 Jan, [facility] [place] [facility] [address] [id number] [place] [address]- 2784 Dec, [facility] [place] [facility] [address] [id number] [place] [address]- 5466 Dec, [facility] [place] [facility] [address] [id number] [place] [address]- 5855 Dec, [facility] [place] [facility] [address] [id number] [place] [address]- 0765 Dec, [facility] [place] [facility] [address] [facility] [id number] [place] [address]- 4884 Nov, [facility] [place] [facility] [address] [id number] [place] [address]- 6561 Nov, [facility] [place] [facility] [address] [id number] [place] [address]- 7694 Oct, [facility] [place] [facility] [address] [id number] [place] [address]- 0270 Oct, [facility] [place] [facility] [address] [id number] [place] [address]- 9233 Sep, [facility] [place] [facility] [address] [id number] [place] [address]- 3206 Sep, [facility] [place] [facility] [address] [id number] [place] [address]- 4222 Sep, [facility] [place] [facility] [address] [facility] [id number] [place] [address]- 3452 Sep, [facility] [place] [facility] [address] [facility] [id number] [place] [address]- 3284 Sep, [facility] [place] [facility] [address] [id number] [place] [address]- 9353 02 Sep, 2014 [facility] [place] [facility] [address] [id number] [place] [address]- 6788 Aug, [facility] [place] [facility] [address] [id number] [place] [address]- 7686 Aug, [facility] [place] [facility] [address] [id number] [place] [address]- 5559 Jul, [facility] [place] [facility] [address] [id number] [place] [address]- 7218 17 Jul, 2014 [facility] [place] [facility] [address] [id number] [place] [address]- 1749 Jul, [facility] [place] [facility] [address] [id number] [place] [address]- 1668 Jul, [facility] [place] [facility] [address] [id number] [place] [address]- 5148 15 Jun, 2014 [facility] [place] [facility] [address] [id number] [place] [address]- 0025 15 Jun, 2014 [facility] [place] [facility] [address] [id number] [place] [address]- 9120 May, [facility] [place] [facility] [address] [id number] [place] [address]- 3588 May, [facility] [place] [facility] [address] [id number] [place] [address]- 1578 Apr, [facility] [place] [facility] [address] [id number] [place] [address]- 2547 Apr, [facility] [place] [facility] [address] [id number] [place] [address]- 4909 Mar, [facility] [place] [facility] [address] [id number] [place] [address]- 2546 Mar, [facility] [place] [facility] [address] [id number] [place] [address]- 4839 February, [facility] [place] [facility] [address] [id number] [place] [address]- 5929 February, [facility] [place] [facility] [address] [id number] [place] [address]- 5480 Jan, [facility] [place] [facility] [address] [id number] [place] [address]- 6633 Jan, [facility] [place] [facility] [address] [id number] [place] [address]- 7126 Jan, [facility] [place] [facility] [address] [id number] [place] [address]- 9668 Jan, [facility] [place] [facility] [address] [id number] [place] [address]- 3325 Jan, [facility] [place] [facility] [address] [id number] [place] [address]- 3587 Jan, [facility] [place] [facility] [address] [id number] [place] [address]- 5770 Dec, [facility] [place] [facility] [address] [id number] [place] [address]- 0925 Dec, [facility] [place] [facility] [address] [id number] [place] [address]- 8841 Nov, [facility] [place] [facility] [address] [id number] [place] [address]- 4067 Nov, [facility] [place] [facility] [address] [id number] [place] [address]- 3876 Nov, [facility] [place] [facility] [address] [id number] [place] [address]- 2531 Nov, [facility] [place] [facility] [address] [id number] [place] [address]- 0539 Oct, [facility] [place] [facility] [address] [id number] [place] [address]- 2399 Oct, [facility] [place] [facility] [address] [id number] [place] [address]- 5894 07 Oct, 2013 [facility] [address] [id number] [place] [address]- 9008 07 Oct, 2013 [facility] [place] [facility] [address] [id number] [place] [address]- 9416 16 Sep, 2013 [facility] [place] [facility] [address] [id number] [place] [address]- 3320 16 Sep, 2013 [facility] [place] [facility] [address] [id number] [place] [address]- 2231 10 Sep, 2013 [facility] [place] [facility] [address] [id number] [place] [address]- 9459 10 Sep, 2013 [facility] [place] [facility] [address] [id number] [place] [address]- 0511 18 Aug, 2013 [facility] [place] [facility] [address] [id number] [place] [address]- 4381 18 Aug, 2013 [facility] [place] [facility] [address] [id number] [place] [address]- 9462 13 Aug, 2013 [facility] [place] [facility] [address] [id number] [place] [address]- 5760 13 Aug, 2013 [facility] [place] [facility] [address] [facility] [id number] [place] [address]- 1003 08 Aug, 2013 [facility] [place] [facility] [address] [id number] [place] [address]- 9270 08 Aug, 2013 [facility] [place] [facility] [address] [id number], [place] [address]- 5796 18 Jul, 2013 [facility] [place] [facility] [address] [id number] [place] [address]- 3345 18 Jul, 2013 [facility] [place] [facility] [address] [id number] [place] [address]- 3655 14 Jul, 2013 [facility] [place] [facility] [address] [id number], [place] [address]- 2445 14 Jul, 2013 [facility] [place] [facility] [address] [id number] [place] [address]- 8828 Jun, [facility] [place] [facility] [address] [id number] [place] [address]- 9461 Jun, [facility] [place] [facility] [address] [id number] [place] [address]- 2725 May, [facility] [place] [facility] [address] [id number] [place] [address]- 1864 May, [facility] [address] [id number] [place] [address]- 9962 May, [facility] [place] [facility] [address] [id number] [place] [address]- 3805 May, [facility] [address] [id number] [place] [address]- 5359 May, [facility] [place] [facility] [address] [id number] [place] [address]- 6278 Apr, [facility] [place] [facility] [address] [id number] [place] [address]- 6828 Apr, [facility] [place] [facility] [address] [id number] [place] [address]- 8971 Apr, [facility] [place] [facility] [address] [id number] [place] [address]- 5048 Mar, [facility] [place] [facility] [address] [id number] [place] [address]- 5095 Mar, [facility] [place] [facility] [address] [id number] [place] [address]- 2649 February, [facility] [place] [facility] [address] [id number] [place] [address]- 2673 February, [facility] [place] [facility] [address] [id number] [place] [address]- 5828 Jan, [facility] [place] [facility] [address] [id number] [place] [address]- 2817 Jan, [facility] [address] [id number] [place] [address]- 3890 Jan, [facility] [place] [facility] [address] [id number] [place] [address]- 8465 Jan, [facility] [address] [id number] [place] [address]- 3948 Dec, [facility] [place] [facility] [address] [id number] [place] [address]- 7550 Dec, [facility] [address] [id number] [place] [address]- 6299 Dec, [facility] [address] [id number] [place] 9208 Nov, [facility] [address] [id number] [place] [address]- 1404 Nov, [facility] [address] [id number] [place] [address]- 0414 Oct, [facility] [address] [id number] [place] [address]- 2842 Oct, [facility] [address] [id number] [place] [address]- 3957 Sep, [facility] [address] [id number] [place] [address]- 2363 Sep, [facility] [place] [facility] [address] [id number] [place] [address]- 0755 Sep, [facility] [place] [facility] [address] [id number] [place] [address]- 2679 Sep, [facility] [place] [facility] [address] [id number] [place] 2937 Sep, [facility] [place] [facility] [address] [id number] [place] Sep, [facility] [place] [facility] [address] [id number] [place] [address] Sep, [facility] [address] [id number] [place] [address] Aug, [facility] [place] [facility] [address] [id number] [place] [address] Aug, [facility] [address] [id number] [place] [address] Jun, [facility] [address] [id number] [place] [address] May, [facility] [address] [id number] [place] [address] May, [facility] [address] [id number] [place] [address] Apr, [facility] [address] [id number] [place] [address] Apr, [facility] [address] [id number] [place] [address] February, [facility] [address] [id number] [place] [address] Jan, [facility] [address] [id number] [place] [address] Jan, [facility] [address] [id number] [place] [address] Dec, [facility] [address] [id number] [place] [address] Oct, [facility] [place] [facility] [address] [id number] [place] [address] Oct, [facility] [address] [id number] [place] [address] Sep, [facility] [address] [id number] [place] [address] Sep, [facility] [address] [facility] [id number] [place] [address] Sep, [facility] [address] [facility] [id number] [place] [address] Sep, IMMUNIZATIONS No Known Immunizations SOCIAL HISTORY Never Assessed REASON FOR VISIT Refill request PLAN OF CARE VITAL SIGNS MEDICATIONS Medication Instructions Dosage Frequency Start Date End Date Duration Status Amlodipine Besylate 10 mg Orally Once a day 1 tablet 24h 30 Active Hydrochlorothiazide 12.5 MG Orally Once a day 1 tablet in the morning 24h Oct, 30 day(s) Active RESULTS No Results PROCEDURES No Known [...]
[2018-07-04 08:25] VITALS: BP 164/99
--- OUTSIDE RECORDS SUMMARY | 2018-07-04 08:25 | XMS REPORT ---
Author Author BRENDA WETZEL Organization [facility] [place] [facility] Address [address] [place] [address] Care Team Providers Care Warehouse Trainer Name Role Phone BRENDA WETZEL Unavailable PROBLEMS Type Condition ICD9-CM Code LGE35-TD Code Onset Dates Condition Status SNOMED Code Problem Abdominal aneurysm I71.4 Active 094217038 Problem Anxiety F41.9 Active 91433649 Problem Essential hypertension I10 Active 13987941 Problem Abdominal aortic aneurysm (AAA) without rupture I71.4 Active 31772680 Problem Hypertension, benign I10 Active 80222426 Problem Hyperlipidemia, mixed E78.2 Active 355257468 Problem Primary insomnia F51.01 Active 5515010 ALLERGIES Substance Reaction Event Type Date Status Naproxen edema Drug Allergy Jun, Active ENCOUNTERS Encounter Location Date Diagnosis [place] [id number] [place] [address] 37437- 6320 Jan, [place] [address] [address]18- 9003 Dec, [place] [id number] [place] [address] 39573- 1995 Nov, Hypertension, benign I10 and Essential hypertension I10 [place] [id number] [place] [address] 87022- 7368 Nov, [place] [id number] [place] [address] 11172- 9665 Nov, Scalp lesion L98.9 ; Anxiety F41.9 ; Trigger finger, right middle finger M65.331 and Encounter for drug screening Z02.83 [place] [id number] [place] [address] 42538- 5415 03 Nov, 2017 [place] [id number] [place] [address] 00984- 1925 Oct, Essential hypertension I10 [facility] [place] [facility] [address], [place] [address]- 9569 Oct, [facility] [place] [facility] [id number] [place] [address] 73719- 4441 Oct, [facility] [place] [facility] [id number] [place] [address] 32830- 2415 Sep, [facility] [id number] [place] [address] 08526 -6077 Aug, Cough R05 and Pneumonia of left lower lobe due to infectious organism J18.1 [facility] [place] [facility] [id number] [place] [address] 40601- 3534 16 Aug, 2017 [facility] [place] [facility] [id number] [place] [address] 52752- 1318 Aug, [facility] [place] [facility] [id number] [place] [address] 84129- 1024 Aug, [facility] [place] [facility] [id number] [place] [address] 72381- 6591 Aug, [facility] [place] [facility] [id number] [place] [address] 63819- 0719 Aug, [facility] [place] [facility] [address], [place] [address]- 0209 Aug, Lung mass R91.8 [facility] [place] [facility] [address] [place] [address] 07591- 5804 Aug, [facility] [place] [facility] [address], [place] [address]- 7650 Aug, Mass of lung parenchyma R91.8 [facility] [place] [facility] [address], [place] [address]- 3409 Jul, [facility] [place] [facility] [address], [place] [address]- 8081 Jun, Hypertension, benign I10 ; Hyperlipidemia, mixed E78.2 and Primary insomnia F51.01 [facility] [place] [facility] [id number] [address]- 2932 Jun, [facility] [place] [facility] [id number] [place] [address] 11546- 9114 Jun, Essential hypertension I10 [facility] [place] [facility] [id number] [place] [address] 29211- 6395 May, [facility] [place] [facility] [id number] [place] [address] 57578- 0192 Apr, [facility] [place] [facility] [id number] [place] [address] 41699- 0583 Mar, [facility] [place] [facility] [id number] [place] [address] 38501- 6911 Mar, [facility] [place] [facility] [id number] [place] [address] 67825- 6688 February, [facility] [place] [facility] [id number] [place] [address] 28064- 6212 February, [facility] [place] [facility] [id number] [place] [address] 12541- 0658 Jan, [facility] [place] [facility] [id number] [place] [address] 72741- 5171 Dec, [facility] [place] [facility] [id number] [place] [address] 10325- 8644 Dec, Hypertension, benign I10 and Abdominal aortic aneurysm (AAA ) without rupture I71.4 [facility] [place] [facility] [address] [address]- 7497 Dec, [facility] [place] [facility] [id number] [place] [address] 22418- 0132 Nov, Medicare annual wellness visit, initial Z00.00 [facility] [place] [facility] [id number] [place] [address] 69015- 5504 Nov, [facility] [place] [facility] [address] [facility] [id number] [place] [address]- 2066 Nov, [facility] [place] [facility] [address] [place] [address]- 7184 Oct, [facility] [place] [facility] [address] [place] [address]- 5472 Oct, [facility] [place] [facility] [address] [place] [address]- 6526 Oct, [facility] [place] [facility] [id number] [place] [address]- 3708 Oct, [facility] [place] [facility] [address] [place] [address]- 9695 Sep, Medicare welcome exam Z00.00 ; Medicare annual wellness visit, initial Z00.00 and Medicare annual wellness visit, subsequent Z00.00 [facility] [place] [facility] [address] [place] [address]- 4556 Sep, [facility] [place] [facility] [address] [place] [address]- 2475 Sep, [facility] [place] [facility] [address] [place] [address]- 1958 Aug, Trigger middle finger of right hand M65.331 [facility] [place] [facility] [address] [place] [address]- 8469 Aug, Hypertension, benign I10 [facility] [place] [facility] [id number] [place] [address]- 9038 Aug, [facility] [place] [facility] [id number] [place] [address]- 4325 Aug, [facility] [facility] [id number] [place] [address]- 5715 Jul, [facility] [facility] [id number] [place] [address]- 1368 Jul, [facility] [place] [facility] [address], [place] [address]- 0753 13 Jul, 2016 Hypertension, essential I10 and Bradycardia R00.1 [facility] [facility] [id number] [place] [address] 83105- 2110 Jul, [facility] [facility] [id number] [place] [address] 08028- 5726 Jul, [facility] [id number] [place] [address] 09640- 8841 30 Jun, 2016 Essential hypertension I10 [facility] [facility] [id number] [place] [address] 55793- 1009 20 Jun, 2016 [facility] [facility] [id number] [place] [address] 36996- 5038 14 Jun, 2016 [facility] [id number] [place] [address] 57258- 0871 12 Jun, 2016 [facility] [facility] [id number] [place] [address] 17759- 9212 Jun, Abdominal aneurysm I71.4 ; Essential hypertension I10 ; Trigger middle finger of right hand M65.331 and Gastroesophageal reflux disease with esophagitis K21.0 [facility] [address], [place] [address]- 4168 May, [facility] [address], [place] [address]- 3756 May, [facility] [id number] [place] [address] 18085- 2002 Apr, [facility] [address] [place] [address] 85062- 3783 Apr, [facility] [facility] [id number] [place] [address] 53611- 8712 Apr, [facility] [facility] [address], [place] [address]- 2443 Mar, [facility] [id number] [place] [address] 64349- 6385 Mar, [facility] [facility] [id number] [place] [address] 52005- 5598 February, [facility] [facility] [id number] [place] [address] 39524- 3350 February, [facility] [facility] [address] 77551- 5719 February, Primary insomnia F51.01 [facility] [id number] [place] [address] 97456- 1991 February, Insomnia G47.00 [facility] [address] 73521- 4884 Jan, Insomnia G47.00 [facility] [facility] [address] 65803- 3094 Jan, Insomnia G47.00 [facility] [id number] [place] [address] 22757- 5217 Jan, Insomnia G47.00 [facility] [address] [id number] Dec, Dental examination Z01.20 and Caries K02.9 [facility] [id number] [place] [address] 63878- 3195 Dec, Insomnia G47.00 and Bronchitis J40 [facility] [id number] [place] [address] 74424- 0499 Nov, [facility] [id number] [place] [address] 30342- 2537 Oct, [facility] [facility] [address] 92624- 1989 Sep, [facility] [id number] [place] [address] 18584- 5786 Aug, [facility] [facility] [address] 36014- 3239 Jul, [facility] [address] [facility] [id number] 1266 Jul, [facility] [address], [place] [address]- 1225 Jun, [facility] [address] 3312 Jun, [facility] [id number] [place] [address] 033845- 3859 Jun, [facility] [address] [place] [address] 633650- 8099 May, [facility] [id number] [place] [address] 87320- 7826 Apr, [facility] [address] [place] [address] 14029- 5078 Apr, Cerumen impaction 380.4 [facility] [address], [place] [address]- 7642 Apr, Cerumen impaction 380.4 [facility] [address], [place] [address]- 5725 Mar, [facility] [address], [place] [address]- 1796 February, [facility] [address], [place] [address]- 1631 February, Abdominal aortic aneurysm greater than 39 mm in diameter 441.4 [facility] [facility] [address] 8963 February, [facility] [address]- 3747 Jan, [facility] [address] 6029 Jan, [facility] [id number] [place] [address]- 2546 Jan, [facility] [place] [facility] [address] [id number] [place] [address]- 3819 Dec, [facility] [place] [facility] [address] [id number] [place] [address]- 2546 Dec, [facility] [place] [facility] [address] [id number] [place] [address]- 9153 Dec, [facility] [place] [facility] [address] [id number] [place] [address]- 5905 Dec, [facility] [place] [facility] [address] [id number] [place] [address]- 9986 Nov, [facility] [place] [facility] [address] [id number] [place] [address]- 6627 Nov, [facility] [place] [facility] [address] [id number] [place] [address]- 5404 Oct, [facility] [place] [facility] [address] [id number] [place] [address]- 4496 Oct, [facility] [place] [facility] [address] [id number] [place] [address]- 8179 Sep, [facility] [place] [facility] [address] [id number] [place] [address]- 6711 Sep, [facility] [place] [facility] [address] [id number] [place] [address]- 0566 Sep, [facility] [place] [facility] [address] [id number] [place] [address]- 3906 Sep, [facility] [place] [facility] [address] [id number] [place] [address]- 7076 Sep, [facility] [place] [facility] [address] [id number] [place] [address]- 2546 Sep, [facility] [place] [facility] [address] [id number] [place] [address]- 8138 Aug, [facility] [place] [facility] [address] [id number] [place] [address]- 6594 07 Aug, 2014 [facility] [place] [facility] [address] [id number] [place] [address]- 5381 17 Jul, 2014 [facility] [place] [facility] [address] [id number] [place] 1833 17 Jul, 2014 [facility] [place] [facility] [address] [id number] [place] [address]- 2915 14 Jul, 2014 [facility] [place] [facility] [address] [id number] [place] [address]- 5849 14 Jul, 2014 [facility] [place] [facility] [address] [id number] [place] [address]- 3139 15 Jun, 2014 [facility] [place] [facility] [address] [id number] [place] [address]- 3236 15 Jun, 2014 [facility] [place] [facility] [address] [id number] [place] [address]- 1554 May, [facility] [place] [facility] [address] [id number] [place] [address]- 4264 May, [facility] [place] [facility] [address] [id number] [place] [address]- 5248 16 Apr, 2014 [facility] [place] [facility] [address] [id number] [place] [address]- 0699 Apr, [facility] [place] [facility] [address] [id number], [place] [address]- 4468 Mar, [facility] [place] [facility] [address] [id number] [place] [address]- 8075 Mar, [facility] [place] [facility] [address] [id number] [place] [address]- 1301 February, [facility] [place] [facility] [address] [id number] [place] [address]- 1875 February, [facility] [place] [facility] [address] [id number] [place] [address]- 7591 15 Jan, 2014 [facility] [place] [facility] [address] [id number] [place] [address]- 4979 15 Jan, 2014 [facility] [place] [facility] [address] [id number] [place] [address]- 7088 08 Jan, 2014 [facility] [place] [facility] [address] [id number] [place] [address]- 2025 08 Jan, 2014 [facility] [place] [facility] [address] [id number] [place] [address]- 6919 Jan, [facility] [place] [facility] [address] [id number] [place] [address]- 7407 Jan, [facility] [place] [facility] [address] [id number] [place] [address]- 0391 Dec, [facility] [place] [facility] [address] [id number] [place] [address]- 6696 Dec, [facility] [place] [facility] [address] [id number] [place] [address]- 8922 14 Nov, 2013 [facility] [place] [facility] [address] [id number] [place] [address]- 8628 14 Nov, 2013 [facility] [place] [facility] [address] [facility] [id number] [place] [address]- 2000 Nov, [facility] [place] [facility] [address] [id number] [place] [address]- 7682 Nov, [facility] [place] [facility] [address] [id number] [place] [address]- 7989 Oct, [facility] [place] [facility] [address] [id number] [place] [address]- 5168 Oct, [facility] [place] [facility] [address] [id number] [place] [address]- 8008 Oct, [facility] [place] [facility] [address] [id number] [place] [address]- 6152 Oct, [facility] [place] [facility] [address] [id number] [place] [address]- 5568 16 Sep, 2013 [facility] [place] [facility] [address] [id number] [place] [address]- 5495 16 Sep, 2013 [facility] [place] [facility] [address] [id number] [place] [address]- 7146 10 Sep, 2013 [facility] [place] [facility] [address] [id number] [place] [address]- 1386 10 Sep, 2013 [facility] [place] [facility] [address] [id number] [place] [address]- 8450 18 Aug, 2013 [facility] [place] [facility] [address] [id number] [place] [address]- 3953 18 Aug, 2013 [facility] [place] [facility] [address] [id number] [place] [address]- 8638 13 Aug, 2013 [facility] [place] [facility] [address] [id number] [place] [address]- 8878 13 Aug, 2013 [facility] [place] [facility] [address] [id number] [place] [address]- 4405 08 Aug, 2013 [facility] [place] [facility] [address] [id number], [place] [address]- 3221 08 Aug, 2013 [facility] [place] [facility] [address] [id number], [place] [address]- 9092 18 Jul, 2013 [facility] [place] [facility] [address] [id number], [place] [address]- 7281 18 Jul, 2013 [facility] [place] [facility] [address] [id number] [place] [address]- 9048 14 Jul, 2013 [facility] [place] [facility] [address] [id number], [place] [address]- 9003 14 Jul, 2013 [facility] [place] [facility] [address] [id number]- 2103 20 Jun, 2013 [facility] [place] [facility] [address] [id number], [place] [address]- 9232 Jun, [facility] [address] [id number] [place] [address]- 0355 May, [facility] [place] [facility] [address] [id number] [place] [address]- 3371 May, [facility] [address] [id number] [place] [address]- 2471 May, [facility] [place] [facility] [address] [id number] [place] [address]- 8656 May, [facility] [place] [facility] [address] [id number] [place] [address]- 5034 May, [facility] [place] [facility] [address] [id number] [place] [address]- 8595 Apr, [facility] [address] [id number] [place] [address]- 4999 Apr, [facility] [place] [facility] [address] [id number] [place] [address]- 2491 Apr, [facility] [address] [id number] [place] [address]- 5108 Mar, [facility] [place] [facility] [address] [id number] [place] [address]- 5812 Mar, [facility] [place] [facility] [address] [id number] [place] [address]- 2661 February, [facility] [place] [facility] [address] [id number] [place] [address]- 9859 February, [facility] [place] [facility] [address] [id number] [place] [address]- 3609 24 Jan, 2013 [facility] [place] [facility] [address] [id number] [place] [address]- 6805 Jan, [facility] [place] [facility] [address] [id number] [place] [address]- 4130 Jan, [facility] [place] [facility] [address] [id number] [place] [address] 2546 Jan, [facility] [address] [id number] [place] [address]- 6074 Dec, [facility] [place] [facility] [address] [id number] [place] [address] 2546 Dec, [facility] [place] [facility] [address] [id number] [place] [address] 2546 Dec, [facility] [place] [facility] [address] [id number] [place] [address]- 8065 Nov, [facility] [place] [facility] [address] [id number] [place] [address]- 1606 Nov, [facility] [place] [facility] [address] [id number] [place] [address] Oct, [facility] [place] [facility] [address] [id number] [place] [address] Oct, [facility] [address] [id number] [place] [address] Sep, [facility] [address] [id number] [place] [address] Sep, [facility] [address] [id number] [place] [address] Sep, [facility] [place] [facility] [address] [id number] [place] [address] Sep, [facility] [place] [facility] [address] [id number] [place] [address] 25[address] Sep, [facility] [place] [facility] [address] [id number] [place] [address] Sep, [facility] [place] [facility] [address] [id number] [place] [address] Sep, [facility] [place] [facility] [address] [id number] [place] [address] Aug, [facility] [place] [facility] [address] [id number] [place] [address] Aug, [facility] [place] [facility] [address] [id number] [place] [address] Jun, [facility] [place] [facility] [address] [id number] [place] [address] May, [facility] [place] [facility] [address] [id number] [place] [address] May, [facility] [place] [facility] [address] [id number] [place] [address] Apr, [facility] [place] [facility] [address] [id number] [place] [address] Apr, [facility] [place] [facility] [address] [id number] [place] [address] February, [facility] [place] [facility] [address] [id number] [place] [address] Jan, [facility] [place] [facility] [address] [id number] [place] [address] Jan, [facility] [place] [facility] [address] [id number] [place] [address] Dec, [facility] [place] [facility] [address] [id number] [place] [address] Oct, [facility] [place] [facility] [address] [id number], [place] [address] Oct, [facility] [place] [facility] [address] [id number] [place] [address] Sep, [facility] [place] [facility] [address] [id number] [place] [address] Sep, [facility] [place] [facility] [address] [id number] [place] [address] Sep, [facility] [place] [facility] [address] [facility] [id number] [place] [address] Sep, IMMUNIZATIONS No Known Immunizations SOCIAL HISTORY Never Assessed REASON FOR VISIT lab f.u, BP is consistently high, right shoulder pain --Kayy Franco MA PLAN OF CARE VITAL SIGNS Height 71 in 2017-07-01 Weight 225.6 lbs 2017-07-01 Temperature 97.8 degrees Fahrenheit 2017-07-01 Heart Rate 76 bpm 2017-07-01 Respiratory Rate 20 2017-07-01 BMI 31.46 kg/m2 2017-07-01 Blood pressure systolic 132 mmHg 2017-07-01 Blood pressure diastolic 72 mmHg 2017-07-01 MEDICATIONS Medication Instructions Dosage Frequency Start Date End Date Duration Status Atorvastatin Calcium 20 mg Orally Once a day 1 tablet 24h Jun, 30 day(s) Active Jasper 7.5-325 MG Orally every 6 hrs 1 tablet as needed 6h Jun, 28 days Active Seroquel 400 mg Orally Once a day 2 tablets at bedtime 24h Active Cozaar 100 mg Orally Once a day 1 tablet 24h Jun, Active Ativan 1 MG Orally twice a day 1 tablet as needed 12h Jan, 28 days Active Amlodipine Besylate 10 MG Orally Once a day 1 tablet 24h 30 Active Metoprolol Tartrate 50 MG Orally Twice a day 1 tablet 12h Sep, Active terazosin 10 mg by Oral route 1 time per day Repository Sep, Active Minoxidil 10 mg take 1 tablet (10 mg) by oral route 2 times per day Dec, Active RESULTS No Results PROCEDURES No Known [...]
--- OUTSIDE RECORDS SUMMARY | 2018-07-04 08:25 | XMS REPORT ---
Author Author BRENDA WETZEL Organization [facility] Address [address] [place] [address] Care Team Providers Care Personnel Technician Name Role Phone BRENDA WETZEL Unavailable PROBLEMS Type Condition ICD9-CM Code ZME39-ZD Code Onset Dates Condition Status SNOMED Code Problem Abdominal aneurysm I71.4 Active 313349047 Problem Anxiety F41.9 Active 04289957 Problem Essential hypertension I10 Active 86507524 Problem Abdominal aortic aneurysm (AAA) without rupture I71.4 Active 80506370 Problem Hypertension, benign I10 Active 12199993 Problem Hyperlipidemia, mixed E78.2 Active 314259984 Problem Primary insomnia F51.01 Active 2352310 ALLERGIES No Information ENCOUNTERS Encounter Location Date Diagnosis [facility] [id number] [place] [address] 15578- 4537 Mar, Chronic congestive heart failure, unspecified heart failure type I50.9 [facility] [address] 15554- 9028 Mar, [facility] [id number] [place] [address] 63458 -7988 Mar, Localized edema R60.0 [facility] [id number] [place] [address] 67691- 3870 February, [facility] [id number] [place] [address] 30802- 8077 February, [facility] [address] 98047- 0296 Jan, [facility] [id number] [place] [address] 13454- 0327 Dec, [facility] [address] 94716- 8130 Nov, Hypertension, benign I10 and Essential hypertension I10 [facility] [id number] [place] [address] 45261- 9391 Nov, [facility] [id number] [place] [address] 50456- 6376 09 Nov, 2017 Scalp lesion L98.9 ; Anxiety F41.9 ; Trigger finger, right middle finger M65.331 and Encounter for drug screening Z02.83 [facility] [id number] [place] [address] 90577- 5811 Nov, [facility] [id number] [place] [address] 92384- 9322 Oct, Essential hypertension I10 [facility] [id number] [place] [address] 64701- 8738 Oct, [facility] [id number] [place] [address] 00770- 4853 Oct, [facility] [id number] [place] [address] 02563- 3567 Sep, [facility] [id number] [place] [address] 70675 -7164 Aug, Cough R05 and Pneumonia of left lower lobe due to infectious organism J18.1 [facility] [address] [address]- 6520 Aug, [facility] [id number] [place] [address] 76705- 9645 Aug, [facility] [id number] [place] [address] 02101- 3112 Aug, [facility] [id number] [place] [address] 29744- 6662 Aug, [facility] [address] [address]- 8912 Aug, [facility] [id number] [address]- 7719 Aug, Lung mass R91.8 [facility] [id number] [place] [address], [place] [address]- 0746 Aug, [facility] [address] [address]- 3857 Aug, Mass of lung parenchyma R91.8 [facility] [id number] [place] [address] 89987- 3742 Jul, [facility] [id number] [place] [address] 28025- 9072 Jun, Hypertension, benign I10 ; Hyperlipidemia, mixed E78.2 and Primary insomnia F51.01 [facility] [address] [address]- 7977 Jun, [facility] [id number] [place] [address] 78568- 6590 Jun, Essential hypertension I10 [facility] [id number] [place] [address] 54876- 3679 May, [facility] [id number] [place] [address] 64899- 8833 Apr, [facility] [address] [address]- 9542 Mar, [facility] [address] [address]- 7569 Mar, [facility] [address] [address]- 3331 February, [facility] [id number] [place] [address] 687952- 1478 February, [facility] [address] [address]- 4251 Jan, [facility] [id number] [place] [address] 92758- 9122 Dec, [facility] [address] [facility] [id number] [place] [address]- 8187 Dec, Hypertension, benign I10 and Abdominal aortic aneurysm (AAA ) without rupture I71.4 [facility] [address] [facility] [id number] [place] [address]- 5246 Dec, [facility] [address] [address]- 4626 Nov, Medicare annual wellness visit, initial Z00.00 [facility] [address] [facility] [id number] [place] [address]- 3976 Nov, [facility] [address] [facility] [id number] [place] 7726 Nov, [facility] [id number] [address]- 1428 Oct, [facility] [address] [address]- 3742 Oct, [facility] [address] [id number] [address]- 4599 Oct, [facility] [address] [id number] [address]- 2956 Oct, [facility] [id number] [address]- 4776 Sep, Medicare welcome exam Z00.00 ; Medicare annual wellness visit, initial Z00.00 and Medicare annual wellness visit, subsequent Z00.00 [facility] [address] [facility] [id number] [place] [address]- 5336 Sep, [facility] [address] [facility] [id number] [place] [address] 2546 Sep, [facility] [address] [id number] 8886 Aug, Trigger middle finger of right hand M65.331 [facility] [id number] [place] [address] 25139- 9353 14 Aug, 2016 Hypertension, benign I10 [facility] [address] 54432- 5133 14 Aug, 2016 [facility] [id number] [place] [address] 37368- 4394 11 Aug, 2016 [facility] [address] 74695- 8028 28 Jul, 2016 [facility] [address] 56099- 2210 17 Jul, 2016 [facility] [address] 19016- 6810 Jul, Hypertension, essential I10 and Bradycardia R00.1 [facility] [id number] [place] [address] 42355- 4852 Jul, [facility] [id number] [place] [address] 48059- 7864 Jul, [facility] [id number] [place] [address] 81628- 8571 30 Jun, 2016 Essential hypertension I10 [facility] [id number] [place] [address] 06950- 8436 20 Jun, 2016 [facility] [id number] [place] [address] 98486- 2519 14 Jun, 2016 [facility] [id number] [place] [address] 19058- 2755 12 Jun, 2016 [facility] [id number] [place] [address] 36589- 9903 Jun, Abdominal aneurysm I71.4 ; Essential hypertension I10 ; Trigger middle finger of right hand M65.331 and Gastroesophageal reflux disease with esophagitis K21.0 [facility] [id number] [place] [address] 64810- 6844 May, [facility] [address] [address]- 0135 May, [facility] [id number] [place] [address] 20494- 0226 Apr, [facility] [address] [address]- 0583 Apr, [facility] [id number] [place] [address] 65959- 3939 Apr, [facility] [id number] [place] [address] 65222- 5125 Mar, [facility] [id number] [place] [address] 92512- 9397 Mar, [facility] [id number] [place] [address] 29843- 6704 February, [facility] [id number] [place] [address] 96999- 0227 February, [facility] [id number] [place] [address] 87486- 3144 February, Primary insomnia F51.01 [facility] [id number] [place] [address] 65628- 5849 February, Insomnia G47.00 [facility] [id number] [place] [address] 15461- 1016 Jan, Insomnia G47.00 [facility] [id number] [place] [address] 04785- 2557 Jan, Insomnia G47.00 [facility] [id number] [place] [address] 01311- 0106 Jan, Insomnia G47.00 [facility] [address] [place] [address] [id number] Dec, Dental examination Z01.20 and Caries K02.9 [facility] [id number] [place] [address] 68162- 2243 Dec, Insomnia G47.00 and Bronchitis J40 [facility] [address] [facility] [id number] [place] [address] 55432- 0228 Nov, [facility] [id number] [place] [address] 976019- 7370 Oct, [facility] [id number] [place] [address] 98403- 1473 Sep, [facility] [address] [facility] [id number] [place] [address] 30347- 7941 Aug, [facility] [id number] [place] [address] 75933- 1510 Jul, [facility] [id number] [place] [address] 01476- 4206 Jul, [facility] [id number] [place] [address] 17834- 6535 Jun, [facility] [id number] [place] [address] 67906- 0219 Jun, [facility] [id number] [place] [address] 06381- 0704 Jun, [facility] [address] [address]- 7245 May, [facility] [id number] [place] [address] 72361- 1630 Apr, [facility] [address] [facility] [id number] [address]- 1889 Apr, Cerumen impaction 380.4 [facility] [id number] [place] [address] 52311- 4184 Apr, Cerumen impaction 380.4 [facility] [address] [address]- 2190 Mar, [facility] [id number] [place] [address], [place] [address]- 2886 February, [facility] [address] [facility] [id number] 2630 February, Abdominal aortic aneurysm greater than 39 mm in diameter 441.4 [facility] [place] [facility] [address] [facility] [id number] [place] [address]- 1704 February, [facility] [place] [facility] [address] [facility] [id number] [place] [address], [place] [address]- 2060 Jan, [facility] [place] [facility] [address] [facility] [id number] [place] [address]- 8230 Jan, [facility] [place] [facility] [id number] [place] [address], [place] [address]- 6911 Jan, [facility] [id number] [address]- 9155 Dec, [facility] [id number] [place] [address], [place] [address]- 8408 Dec, [facility] [place] [facility] [address] [address]- 0366 Dec, [facility] [place] [facility] [address] [address]- 0348 Dec, [facility] [place] [facility] [address], [place] [address]- 0494 Nov, [facility] [place] [facility] [address], [place] [address]- 2192 Nov, [facility] [place] [facility] [address] [facility] [id number] [place] 3609 Oct, [facility] [place] [facility] [address] [facility] [id number] 5948 Oct, [facility] [place] [facility] [id number]- 7572 Sep, [facility] [place] [facility] [address], [place] [address]- 1642 Sep, [facility] [place] [facility] [address] [id number] [place] 0717 Sep, [facility] [place] [facility] [address] [id number] [place] [address]- 0744 Sep, [facility] [place] [facility] [address] [id number] [place] [address]- 8747 Sep, [facility] [place] [facility] [address] [id number] [place] [address]- 3381 Sep, [facility] [place] [facility] [address] [id number] [place] [address]- 9774 Aug, [facility] [place] [facility] [address] [id number] [place] [address]- 3726 Aug, [facility] [place] [facility] [address] [id number] [place] 8268 Jul, [facility] [place] [facility] [address] [id number] [place] [address]- 2850 Jul, [facility] [place] [facility] [address] [id number] [place] [address]- 0127 Jul, [facility] [place] [facility] [address] [id number] [place] [address]- 9967 14 Jul, 2014 [facility] [place] [facility] [address] [id number] [place] [address]- 8034 15 Jun, 2014 [facility] [place] [facility] [address] [id number] [place] [address]- 7326 15 Jun, 2014 [facility] [place] [facility] [address] [id number] [place] [address]- 5513 May, [facility] [place] [facility] [address] [id number] [place] 9175 May, [facility] [place] [facility] [address] [id number] [place] [address]- 4487 Apr, [facility] [place] [facility] [address] [id number] [place] [address]- 1920 16 Apr, 2014 [facility] [place] [facility] [address] [id number] [place] [address]- 7009 Mar, [facility] [place] [facility] [address] [id number] [place] [address]- 1163 Mar, [facility] [place] [facility] [address] [id number] [place] [address]- 9415 February, [facility] [place] [facility] [address] [id number] [place] [address]- 9136 February, [facility] [place] [facility] [address] [id number] [place] [address]- 5968 Jan, [facility] [place] [facility] [address] [id number] [place] [address]- 8487 Jan, [facility] [place] [facility] [address] [id number] [place] [address]- 1848 Jan, [facility] [place] [facility] [address] [id number] [place] [address]- 6291 Jan, [facility] [place] [facility] [address] [id number] [place] [address]- 9172 Jan, [facility] [place] [facility] [address] [id number] [place] [address]- 0171 Jan, [facility] [place] [facility] [address] [id number] [place] [address]- 3333 Dec, [facility] [place] [facility] [address] [id number] [place] [address]- 4208 Dec, [facility] [place] [facility] [address] [id number] [place] [address]- 0723 Nov, [facility] [place] [facility] [address] [id number] [place] [address]- 8426 Nov, [facility] [place] [facility] [address] [id number] [place] [address]- 9424 Nov, [facility] [place] [facility] [address] [id number] [place] [address]- 4621 11 Nov, 2013 [facility] [place] [facility] [address] [id number] [place] [address]- 0108 Oct, [facility] [place] [facility] [address] [id number] [place] [address]- 6962 Oct, [facility] [place] [facility] [address] [id number] [place] [address]- 4706 Oct, [facility] [place] [facility] [address] [id number] [place] [address]- 9069 Oct, [facility] [place] [facility] [address] [id number] [place] [address]- 5143 16 Sep, 2013 [facility] [place] [facility] [address] [id number] [place] [address]- 5892 16 Sep, 2013 [facility] [place] [facility] [address] [id number] [place] [address]- 7202 Sep, [facility] [place] [facility] [address] [id number] [place] [address]- 9112 Sep, [facility] [place] [facility] [address] [id number] [place] [address]- 9593 18 Aug, 2013 [facility] [place] [facility] [address] [id number] [address]- 3636 18 Aug, 2013 [facility] [place] [facility] [address] [id number], [place] [address]- 8672 13 Aug, 2013 [facility] [place] [facility] [address] [id number] [place] [address]- 8408 Aug, [facility] [place] [facility] [address] [id number], [place] [address]- 6730 08 Aug, 2013 [facility] [place] [facility] [address] [id number] [place] [address]- 1911 08 Aug, 2013 [facility] [place] [facility] [address] [id number] [place] [address]- 0616 18 Jul, 2013 [facility] [place] [facility] [address] [id number] [place] [address]- 6165 18 Jul, 2013 [facility] [place] [facility] [address] [id number] [place] [address]- 8759 14 Jul, 2013 [facility] [place] [facility] [address] [id number] [place] [address]- 6665 14 Jul, 2013 [facility] [place] [facility] [address] [id number] [place] [address]- 2529 20 Jun, 2013 [facility] [place] [facility] [address] [id number] [place] [address]- 0439 Jun, [facility] [place] [facility] [address] [id number] [place] [address]- 1464 May, [facility] [place] [facility] [address] [id number] [place] [address]- 2437 16 May, 2013 [facility] [place] [facility] [address] [id number] [place] [address]- 6881 May, [facility] [place] [facility] [address] [id number] [place] [address]- 1639 May, [facility] [place] [facility] [address] [id number] [place] [address]- 5983 May, [facility] [place] [facility] [address] [id number] [place] [address]- 9209 Apr, [facility] [place] [facility] [address] [id number] [place] [address]- 2924 Apr, [facility] [place] [facility] [address] [id number] [place] [address]- 1291 Apr, [facility] [place] [facility] [address] [id number] [place] [address]- 5862 Mar, [facility] [place] [facility] [address] [id number] [place] 0390 Mar, [facility] [place] [facility] [address] [id number] [place] [address]- 1079 February, [facility] [address] [id number] [place] [address]- 4647 February, [facility] [address] [id number] [place] 2875 Jan, [facility] [address] [id number] [place] [address]- 5782 Jan, [facility] [address] [id number] [place] [address]- 0072 Jan, [facility] [address] [id number] [place] [address] Jan, [facility] [address] [id number] [place] [address] Dec, [facility] [address] [id number] [place] [address] Dec, [facility] [address] [id number] [place] [address] Dec, [facility] [address] [id number] [place] [address] Nov, [facility] [address] [id number] [place] [address] Nov, [facility] [address] [id number] [place] [address] Oct, [facility] [address] [id number] [place] [address] Oct, [facility] [address] [id number] [place] [address] Sep, [facility] [address] [id number] [place] [address] Sep, [facility] [address] [id number] [place] [address] Sep, [facility] [place] [facility] [address] [id number] [place] [address] Sep, [facility] [place] [facility] [address] [id number] [place] [address] Sep, [facility] [place] [facility] [address] [id number] [place] [address] Sep, [facility] [place] [facility] [address] [id number] [place] [address] Sep, [facility] [place] [facility] [address] [id number] [place] [address] Aug, [facility] [place] [facility] [address] [id number] [place] [address] Aug, [facility] [place] [facility] [address] [id number] [place] [address] Jun, [facility] [place] [facility] [address] [id number] [place] [address] May, [facility] [place] [facility] [address] [id number] [place] [address] May, [facility] [place] [facility] [address] [id number] [place] [address] Apr, [facility] [place] [facility] [address] [id number] [place] [address] Apr, [facility] [place] [facility] [address] [id number] [place] [address] February, [facility] [place] [facility] [address] [id number] [place] [address] Jan, [facility] [place] [facility] [address] [id number] [place] [address] Jan, [facility] [place] [facility] [address] [id number] [place] [address] Dec, [facility] [place] [facility] [address] [id number] [place] [id number] [address] Oct, [facility] [address] [id number] [address] Oct, [facility] [address] [id number] [address] Sep, [facility] [address] [facility] [id number] [address] Sep, [facility] [address] [id number] [address] Sep, [facility] [address] [facility] [id number] [address] Sep, IMMUNIZATIONS No Known Immunizations SOCIAL HISTORY Never Assessed REASON FOR VISIT Requests return call PLAN OF CARE VITAL SIGNS MEDICATIONS No Known Medications RESULTS No Results PROCEDURES No Known [...]
--- OUTSIDE RECORDS SUMMARY | 2018-07-04 08:26 | XMS REPORT ---
Author Author BRENDA WETZEL Organization [facility] Address [address] [place] [address] Care Team Providers Care Collar Pointer Name Role Phone BRENDA WETZEL Unavailable PROBLEMS Type Condition ICD9-CM Code ZRV05-KX Code Onset Dates Condition Status SNOMED Code Problem Abdominal aneurysm I71.4 Active 834350286 Problem Anxiety F41.9 Active 23397542 Problem Essential hypertension I10 Active 12675110 Problem Abdominal aortic aneurysm (AAA) without rupture I71.4 Active 58301260 Problem Hypertension, benign I10 Active 11580657 Problem Hyperlipidemia, mixed E78.2 Active 587117766 Problem Primary insomnia F51.01 Active [id number] ALLERGIES No Information ENCOUNTERS Encounter Location Date Diagnosis [place] [id number] [place] [address] 53546- 0756 February, [facility] [id number] [place] [address] 35971- 0066 February, [place] [id number] [place] [address] 56578- 4793 Jan, [place] [id number] [place] [address] 64164- 2938 Dec, [place] [id number] [place] [address] 48388- 9589 Nov, Hypertension, benign I10 and Essential hypertension I10 [place] [address] 68951- 1625 Nov, [place] [address] 94312- 0790 09 Nov, 2017 Scalp lesion L98.9 ; Anxiety F41.9 ; Trigger finger, right middle finger M65.331 and Encounter for drug screening Z02.83 [place] [address], [place] [address] Nov, [facility] [id number] [place] [address] 88416- 1208 Oct, Essential hypertension I10 [facility] [address], [place] [address] 0452 Oct, [facility] [id number] [place] [address] 93360- 8853 Oct, [facility] [id number] [place] [address] 05649- 5612 Sep, [facility] [id number] [place] [address] 65787 -7173 Aug, Cough R05 and Pneumonia of left lower lobe due to infectious organism J18.1 [facility] [id number] [place] [address] 82703- 7998 16 Aug, 2017 [facility] [id number] [place] [address] 67792- 5051 Aug, [facility] [id number] [place] [address] 48435- 2075 Aug, [facility] [id number] [place] [address] 77739- 7976 Aug, [facility] [id number] [place] [address] 57527- 5136 Aug, [facility] [id number] [place] [address] 87004- 3669 Aug, Lung mass R91.8 [facility] [id number] [place] [address] 86411- 5571 Aug, [facility] [address], [place] [address]- 8858 Aug, Mass of lung parenchyma R91.8 [facility] [id number] [place] [address] 52430- 9543 Jul, [facility] [address], [place] [address]- 6155 Jun, Hypertension, benign I10 ; Hyperlipidemia, mixed E78.2 and Primary insomnia F51.01 [facility] [address], [place] [address]- 9395 Jun, [facility] [id number] [place] [address] 22368- 7817 Jun, Essential hypertension I10 [facility] [id number] [place] [address] 95609- 3938 May, [facility] [id number] [place] [address] 63010- 9036 Apr, [facility] [id number] [place] [address] 64183- 5707 Mar, [facility] [id number] [place] [address] 07698- 1914 Mar, [facility] [id number] [place] [address] 97659- 3233 February, [facility] [id number] [place] [address] 40814- 7818 February, [facility] [address], [place] [address]- 3792 Jan, [facility] [address], [place] [address]- 5152 Dec, [facility] [address], [place] [address]- 6525 Dec, Hypertension, benign I10 and Abdominal aortic aneurysm (AAA ) without rupture I71.4 [facility] [address], [place] [address]- 7356 Dec, [facility] [id number] [address]- 0693 Nov, Medicare annual wellness visit, initial Z00.00 [facility] [address] [facility] [id number] [place] [address]- 3074 Nov, [facility] [address] [facility] [id number] [place] [address]- 8304 Nov, [facility] [address] [place] [address]- 9235 Oct, [facility] [address] [place] [address]- 2528 Oct, [facility] [address], [place] [address]- 9525 Oct, [facility] [address], [place] [address]- 5040 Oct, [facility] [address], [place] [address]- 5196 Sep, Medicare welcome exam Z00.00 ; Medicare annual wellness visit, initial Z00.00 and Medicare annual wellness visit, subsequent Z00.00 [facility] [address], [place] [address]- 7683 Sep, [facility] [address], [place] [address]- 2526 Sep, [facility] [address], [place] [address]- 9515 Aug, Trigger middle finger of right hand M65.331 [facility] [id number] [address]- 2024 Aug, Hypertension, benign I10 [facility] [address] [place] [address]- 6659 Aug, [facility] [address], [place] [address]- 0486 Aug, [facility] [id number], [place] [address]- 2820 28 Jul, 2016 [facility] [id number] [place] [address] 70736- 8051 Jul, [facility] [id number] [place] [address] 26463- 6693 Jul, Hypertension, essential I10 and Bradycardia R00.1 [facility] [address] 59120- 6415 Jul, [facility] [id number] [place] [address] 94478- 6511 Jul, [facility] [address] 49907- 8794 30 Jun, 2016 Essential hypertension I10 [facility] [id number] [place] [address] 06883- 2252 20 Jun, 2016 [facility] [id number] [place] [address] 65628- 8672 14 Jun, 2016 [facility] [id number] [place] [address] 88319- 4135 12 Jun, 2016 [facility] [id number] [place] [address] 19752- 5506 Jun, Abdominal aneurysm I71.4 ; Essential hypertension I10 ; Trigger middle finger of right hand M65.331 and Gastroesophageal reflux disease with esophagitis K21.0 [facility] [id number] [place] [address] 40553- 6962 May, [facility] [id number] [place] [address] 32151- 3075 May, [facility] [id number] [place] [address] 36730- 1694 Apr, [facility] [id number] [place] [address] 33705- 8340 Apr, [facility] [id number] [place] [address] 98766- 0791 Apr, [facility] [id number] [place] [address] 27623- 9385 Mar, [facility] [id number] [place] [address] 76070- 0432 Mar, [facility] [id number] [place] [address] 31238- 7435 February, [facility] [address] 47272- 0673 February, [facility] [id number] [place] [address] 06368- 1597 February, Primary insomnia F51.01 [facility] [id number] [place] [address] 05051- 0822 February, Insomnia G47.00 [facility] [address] 31183- 2996 Jan, Insomnia G47.00 [facility] [id number] [place] [address] 00329- 1175 Jan, Insomnia G47.00 [facility] [id number] [place] [address] 79104- 3554 Jan, Insomnia G47.00 [facility] [address] [id number] Dec, Dental examination Z01.20 and Caries K02.9 [facility] [id number] [place] [address] 41938- 1527 Dec, Insomnia G47.00 and Bronchitis J40 [facility] [id number] [place] [address] 13251- 5706 Nov, [facility] [id number] [place] [address] 58181- 6964 Oct, [facility] [id number] [place] [address] 23385- 2760 Sep, [facility] [address] [facility] [id number] [address]- 7635 Aug, [facility] [address] [facility] [id number], [place] [address]- 8373 Jul, [facility] [address] [facility] [id number], [place] [address]- 5214 Jul, [facility] [id number] [place] [address] 77602- 9865 Jun, [facility] [address] [facility] [id number] 1815 Jun, [facility] [id number] [place] [address] 98009- 8476 Jun, [facility] [address]- 3370 May, [facility] [id number] [place] [address] 04053- 5154 Apr, [facility] [address] 9634 Apr, Cerumen impaction 380.4 [facility] [address] 6257 Apr, Cerumen impaction 380.4 [facility] [address], [place] [address]- 8903 Mar, [facility] [id number], [place] [address]- 2076 February, [facility] [id number] [address]- 3687 February, Abdominal aortic aneurysm greater than 39 mm in diameter 441.4 [facility] [address], [place] [address]- 5718 February, [facility] [address], [place] [address]- 4049 Jan, [facility] [place] [facility] [address] [id number] [place] [address]- 5183 14 Jan, 2015 [facility] [place] [facility] [address] [id number] [place] [address]- 9007 Jan, [facility] [place] [facility] [address] [id number] [place] [address]- 1323 Dec, [facility] [place] [facility] [address] [id number] [place] [address]- 2940 Dec, [facility] [place] [facility] [address] [id number] [place] [address]- 4778 Dec, [facility] [place] [facility] [address] [id number] [place] [address]- 4703 Dec, [facility] [place] [facility] [address] [facility] [id number] [place] [address]- 9841 Nov, [facility] [place] [facility] [address] [id number] [place] [address]- 9978 Nov, [facility] [place] [facility] [address] [id number] [place] [address]- 2092 Oct, [facility] [place] [facility] [address] [id number] [place] [address]- 3676 Oct, [facility] [place] [facility] [address] [id number] [place] [address]- 5104 Sep, [facility] [place] [facility] [address] [id number] [place] [address]- 7036 Sep, [facility] [place] [facility] [address] [id number] [place] [address]- 8190 Sep, [facility] [place] [facility] [address] [facility] [id number] [place] [address]- 3746 Sep, [facility] [place] [facility] [address] [facility] [id number] [place] [address]- 1731 Sep, [facility] [place] [facility] [address] [id number] [place] [address]- 7927 02 Sep, 2014 [facility] [place] [facility] [address] [id number] [place] [address]- 9468 Aug, [facility] [place] [facility] [address] [id number] [place] [address]- 9716 Aug, [facility] [place] [facility] [address] [id number] [place] [address]- 4017 Jul, [facility] [place] [facility] [address] [id number] [place] [address]- 9887 17 Jul, 2014 [facility] [place] [facility] [address] [id number] [place] [address]- 4024 Jul, [facility] [place] [facility] [address] [id number] [place] [address]- 5885 Jul, [facility] [place] [facility] [address] [id number] [place] [address]- 1297 15 Jun, 2014 [facility] [place] [facility] [address] [id number] [place] [address]- 0928 15 Jun, 2014 [facility] [place] [facility] [address] [id number] [place] [address]- 9133 May, [facility] [place] [facility] [address] [id number] [place] [address]- 9397 May, [facility] [place] [facility] [address] [id number] [place] [address]- 2398 Apr, [facility] [place] [facility] [address] [id number] [place] [address]- 2543 Apr, [facility] [place] [facility] [address] [id number] [place] [address]- 4256 Mar, [facility] [place] [facility] [address] [id number] [place] [address]- 2546 Mar, [facility] [place] [facility] [address] [id number] [place] [address]- 9951 February, [facility] [place] [facility] [address] [id number] [place] [address]- 0005 February, [facility] [place] [facility] [address] [id number] [place] [address]- 6169 Jan, [facility] [place] [facility] [address] [id number] [place] [address]- 3662 Jan, [facility] [place] [facility] [address] [id number] [place] [address]- 4961 Jan, [facility] [place] [facility] [address] [id number] [place] [address]- 4065 Jan, [facility] [place] [facility] [address] [id number] [place] [address]- 3417 Jan, [facility] [place] [facility] [address] [id number] [place] [address]- 9330 Jan, [facility] [place] [facility] [address] [id number] [place] [address]- 0543 Dec, [facility] [place] [facility] [address] [id number] [place] [address]- 1409 Dec, [facility] [place] [facility] [address] [id number] [place] [address]- 7083 Nov, [facility] [place] [facility] [address] [id number] [place] [address]- 5266 Nov, [facility] [place] [facility] [address] [id number] [place] [address]- 7399 Nov, [facility] [place] [facility] [address] [id number] [place] [address]- 5141 Nov, [facility] [place] [facility] [address] [id number] [place] [address]- 8109 Oct, [facility] [place] [facility] [address] [id number] [place] [address]- 8617 Oct, [facility] [place] [facility] [address] [id number] [place] [address]- 6002 07 Oct, 2013 [facility] [address] [id number] [place] [address]- 5504 07 Oct, 2013 [facility] [place] [facility] [address] [id number] [place] [address]- 3779 16 Sep, 2013 [facility] [place] [facility] [address] [id number] [place] [address]- 3229 16 Sep, 2013 [facility] [place] [facility] [address] [id number] [place] [address]- 8704 10 Sep, 2013 [facility] [place] [facility] [address] [id number] [place] [address]- 9334 10 Sep, 2013 [facility] [place] [facility] [address] [id number] [place] [address]- 7271 18 Aug, 2013 [facility] [place] [facility] [address] [id number] [place] [address]- 1163 18 Aug, 2013 [facility] [place] [facility] [address] [id number] [place] [address]- 4275 13 Aug, 2013 [facility] [place] [facility] [address] [id number] [place] [address]- 6398 13 Aug, 2013 [facility] [place] [facility] [address] [facility] [id number] [place] [address]- 8651 08 Aug, 2013 [facility] [place] [facility] [address] [id number] [place] [address]- 0166 08 Aug, 2013 [facility] [place] [facility] [address] [id number], [place] [address]- 8391 18 Jul, 2013 [facility] [place] [facility] [address] [id number] [place] [address]- 8163 18 Jul, 2013 [facility] [place] [facility] [address] [id number] [place] [address]- 5532 14 Jul, 2013 [facility] [place] [facility] [address] [id number], [place] [address]- 8476 14 Jul, 2013 [facility] [place] [facility] [address] [id number] [place] [address]- 1067 Jun, [facility] [place] [facility] [address] [id number] [place] [address]- 9836 Jun, [facility] [place] [facility] [address] [id number] [place] [address]- 4971 May, [facility] [place] [facility] [address] [id number] [place] [address]- 6167 May, [facility] [address] [id number] [place] [address]- 1409 May, [facility] [place] [facility] [address] [id number] [place] [address]- 8400 May, [facility] [address] [id number] [place] [address]- 4666 May, [facility] [place] [facility] [address] [id number] [place] [address]- 1602 Apr, [facility] [place] [facility] [address] [id number] [place] [address]- 0190 Apr, [facility] [place] [facility] [address] [id number] [place] [address]- 7274 Apr, [facility] [place] [facility] [address] [id number] [place] [address]- 2619 Mar, [facility] [place] [facility] [address] [id number] [place] [address]- 8620 Mar, [facility] [place] [facility] [address] [id number] [place] [address]- 1662 February, [facility] [place] [facility] [address] [id number] [place] [address]- 9778 February, [facility] [place] [facility] [address] [id number] [place] [address]- 7654 Jan, [facility] [place] [facility] [address] [id number] [place] [address]- 3668 Jan, [facility] [address] [id number] [place] [address]- 5559 Jan, [facility] [place] [facility] [address] [id number] [place] [address]- 9676 Jan, [facility] [address] [id number] [place] [address]- 4607 Dec, [facility] [place] [facility] [address] [id number] [place] [address]- 1732 Dec, [facility] [address] [id number] [place] [address]- 4345 Dec, [facility] [address] [id number] [place] 9290 Nov, [facility] [address] [id number] [place] [address]- 7639 Nov, [facility] [address] [id number] [place] [address]- 2300 Oct, [facility] [address] [id number] [place] [address]- 6487 Oct, [facility] [address] [id number] [place] [address] Sep, [facility] [address] [id number] [place] [address] Sep, [facility] [place] [facility] [address] [id number] [place] [address] Sep, [facility] [place] [facility] [address] [id number] [place] [address] Sep, [facility] [place] [facility] [address] [id number] [id number] [address] Sep, [facility] [place] [facility] [address] [id number] [place] [address] Sep, [facility] [place] [facility] [address] [id number] [place] [address] Sep, [facility] [address] [id number] [place] [address] Aug, [facility] [place] [facility] [address] [id number] [place] [address] Aug, [facility] [address] [id number] [place] [address] Jun, [facility] [address] [id number] [place] [address] May, [facility] [address] [id number] [place] [address] May, [facility] [address] [id number] [place] [address] Apr, [facility] [address] [id number] [place] [address] Apr, [facility] [address] [id number] [place] [address] February, [facility] [address] [id number] [place] [address] Jan, [facility] [address] [id number] [place] [address] Jan, [facility] [address] [id number] [place] [address] Dec, [facility] [address] [id number] [place] [address] Oct, [facility] [place] [facility] [address] [id number] [place] [address] Oct, [facility] [address] [id number] [place] [address] Sep, [facility] [address] [id number] [place] [address] Sep, [facility] [address] [facility] [id number] [place] [address] Sep, [facility] [address] [facility] [id number] [place] [address] Sep, IMMUNIZATIONS No Known Immunizations SOCIAL HISTORY Never Assessed REASON FOR VISIT Resend scripts PLAN OF CARE VITAL SIGNS MEDICATIONS Medication Instructions Dosage Frequency Start Date End Date Duration Status [place] 7.5-325 MG Orally every 6 hrs 1 tablet as needed 6h Oct, 28 days Active Ativan 1 MG Orally [...]
--- OUTSIDE RECORDS SUMMARY | 2018-07-04 08:27 | XMS REPORT ---
Author Author SCHUYLER DENT Organization [facility] Address [address] [place] [address] Care Team Providers Care Domestic Travel Consultant Name Role Phone SCHUYLER DENT Unavailable PROBLEMS Type Condition ICD9-CM Code GCF53-QK Code Onset Dates Condition Status SNOMED Code Problem Abdominal aneurysm I71.4 Active 785407480 Problem Anxiety F41.9 Active 71800018 Problem Essential hypertension I10 Active 68643056 Problem Abdominal aortic aneurysm (AAA) without rupture I71.4 Active 23151779 Problem Hypertension, benign I10 Active 33736172 Problem Hyperlipidemia, mixed E78.2 Active 388234576 Problem Primary insomnia F51.01 Active 2808237 ALLERGIES No Information ENCOUNTERS Encounter Location Date Diagnosis [place] [id number] [place] [address] 83326- 5881 February, [facility] [address] [address]- 4070 Jan, [facility] [address] [address]70- 1043 Dec, [facility] [address] 28038- 5157 Nov, Hypertension, benign I10 and Essential hypertension I10 [facility] [id number] [place] [address] 40449- 9820 Nov, [facility] [address] 38398- 8242 Nov, Scalp lesion L98.9 ; Anxiety F41.9 ; Trigger finger, right middle finger M65.331 and Encounter for drug screening Z02.83 [place] [address] 91195- 8317 Nov, [facility] [address] [address] 5073 Oct, Essential hypertension I10 [facility] [id number] [place] [address], [place] [address]- 7416 Oct, [facility] [id number] [address]- 3894 Oct, [facility] [id number] [place] [address] 62320- 6306 Sep, [facility] [id number] [place] [address] 36299 -7192 Aug, Cough R05 and Pneumonia of left lower lobe due to infectious organism J18.1 [facility] [id number] [place] [address] 60925- 1123 Aug, [facility] [id number] [place] [address] 22234- 9112 Aug, [facility] [id number] [place] [address] 32327- 7664 Aug, [facility] [id number] [place] [address], [place] [address]- 7861 Aug, [facility] [id number] [place] [address] 81116- 2258 Aug, [facility] [id number] [place] [address] 74009- 8088 Aug, Lung mass R91.8 [facility] [address], [place] [address]- 6844 Aug, [facility] [id number] [place] [address] 88213- 0794 Aug, Mass of lung parenchyma R91.8 [facility] [address] [address]- 9417 Jul, [facility] [id number] [address]- 8328 22 Jun, 2017 Hypertension, benign I10 ; Hyperlipidemia, mixed E78.2 and Primary insomnia F51.01 [facility] [id number] [address]- 9688 Jun, [facility] [id number] [place] [address], [place] [address]- 2511 Jun, Essential hypertension I10 [facility] [id number] [place] [address] 41809- 5843 May, [facility] [id number] [place] [address], [place] [address]- 2740 Apr, [facility] [id number] [place] [address] 63201- 9298 Mar, [facility] [id number] [place] [address] 46999- 9072 Mar, [facility] [id number] [place] [address] 38509- 2707 February, [facility] [id number] [place] [address], [place] [address]- 4776 February, [facility] [id number] [address]- 3070 Jan, [facility] [address] [address]- 4220 Dec, [facility] [id number] [place] [address] 19099- 9802 Dec, Hypertension, benign I10 and Abdominal aortic aneurysm (AAA ) without rupture I71.4 [facility] [id number] [place] [address], [place] [address]- 7572 Dec, [facility] [address], [place] [address]- 8198 28 Nov, 2016 Medicare annual wellness visit, initial Z00.00 [facility] [id number] [address]- 7007 Nov, [facility] [id number] [address]- 6299 Nov, [facility] [address] [facility] [id number] [place] [address]- 2082 Oct, [facility] [address] [address]- 6095 Oct, [facility] [address] [address]- 0156 Oct, [facility] [address] [address]- 2915 Oct, [facility] [address] [address]- 2503 Sep, Medicare welcome exam Z00.00 ; Medicare annual wellness visit, initial Z00.00 and Medicare annual wellness visit, subsequent Z00.00 [facility] [id number] [address]- 7041 Sep, [facility] [address] [address]- 3099 Sep, [facility] [id number] [address]- 3959 Aug, Trigger middle finger of right hand M65.331 [facility] [id number] [address]- 4812 Aug, Hypertension, benign I10 [facility] [id number] [address]- 8636 Aug, [facility] [id number] [address]- 2026 Aug, [facility] [id number] [address]- 8345 Jul, [facility] [id number] [address]- 0603 Jul, [facility] [id number] [place] [address] 65122- 3771 Jul, Hypertension, essential I10 and Bradycardia R00.1 [facility] [id number] [place] [address] 88047- 7106 Jul, [facility] [id number] [place] [address] 74507- 3451 Jul, [facility] [id number] [place] [address] 93368- 9335 30 Jun, 2016 Essential hypertension I10 [facility] [id number] [place] [address] 79458- 0417 20 Jun, 2016 [facility] [id number] [place] [address] 43401- 6789 14 Jun, 2016 [facility] [id number] [place] [address] 61274- 1756 12 Jun, 2016 [facility] [id number] [place] [address] 78562- 4149 Jun, Abdominal aneurysm I71.4 ; Essential hypertension I10 ; Trigger middle finger of right hand M65.331 and Gastroesophageal reflux disease with esophagitis K21.0 [facility] [id number] [place] [address] 82862- 0998 May, [facility] [id number] [place] [address] 53224- 9457 May, [facility] [id number] [place] [address] 79659- 1014 Apr, [facility] [id number] [place] [address] 01067- 0485 Apr, [facility] [id number] [place] [address] 75350- 5857 Apr, [facility] [id number] [place] [address] 55334- 1606 Mar, [facility] [id number] [place] [address] 55611- 0629 Mar, [facility] [address] 47766- 4173 February, [facility] [id number] [place] [address] 59664- 1196 February, [facility] [address] 30206- 1382 February, Primary insomnia F51.01 [facility] [address] 36751- 6502 February, Insomnia G47.00 [facility] [id number] [place] [address] 11500- 9089 Jan, Insomnia G47.00 [facility] [address] 95556- 6782 Jan, Insomnia G47.00 [facility] [id number] [place] [address] 12340- 3033 Jan, Insomnia G47.00 [facility] [id number] [place] [address] [id number] Dec, Dental examination Z01.20 and Caries K02.9 [facility] [id number] [place] [address] 38181- 0831 Dec, Insomnia G47.00 and Bronchitis J40 [facility] [id number] [place] [address] 51620- 1840 Nov, [facility] [address] 49569- 0067 Oct, [facility] [id number] [place] [address] 81446- 8809 Sep, [facility] [id number] [place] [address] 66490- 3195 Aug, [facility] [address] [facility] [id number] [address]- 5518 Jul, [facility] [address] 5375 Jul, [facility] [address] 6704 Jun, [facility] [address] [facility] [id number] [place] [address] 76431- 0654 Jun, [facility] [id number] [place] [address] 127706- 4456 Jun, [facility] [id number] [place] [address] 31099- 1234 May, [facility] [id number] [place] [address] 20573- 0261 Apr, [facility] [id number] [place] [address] 74245- 9278 Apr, Cerumen impaction 380.4 [facility] [id number] [place] [address] 57706- 9721 Apr, Cerumen impaction 380.4 [facility] [address], [place] [address]- 4566 Mar, [facility] [address]- 8894 February, [facility] [address], [place] [address]- 1418 February, Abdominal aortic aneurysm greater than 39 mm in diameter 441.4 [facility] [address]- 8348 February, [facility] [address] 8311 Jan, [facility] [id number] [place] [address] 28639- 7637 14 Jan, 2015 [facility] [place] [facility] [address] [id number] [place] [address]- 3319 Jan, [facility] [place] [facility] [address] [id number] [place] [address]- 8844 Dec, [facility] [place] [facility] [address] [id number] [place] [address]- 4543 Dec, [facility] [place] [facility] [address] [id number] [place] [address]- 1626 Dec, [facility] [place] [facility] [address] [id number] [place] [address]- 8835 Dec, [facility] [place] [facility] [address] [id number] [place] [address]- 7827 Nov, [facility] [place] [facility] [address] [id number] [place] [address]- 7577 Nov, [facility] [place] [facility] [address] [id number] [place] [address]- 9308 Oct, [facility] [place] [facility] [address] [id number] [place] [address]- 8125 Oct, [facility] [place] [facility] [address] [facility] [id number] [place] [address]- 2377 Sep, [facility] [place] [facility] [address] [id number] [place] [address]- 4850 Sep, [facility] [place] [facility] [address] [id number] [place] [address]- 1962 Sep, [facility] [place] [facility] [address] [id number] [place] [address]- 4059 Sep, [facility] [place] [facility] [address] [id number] [place] [address]- 8088 Sep, [facility] [place] [facility] [address] [id number] [place] [address]- 5792 Sep, [facility] [place] [facility] [address] [id number] [place] [address]- 2660 07 Aug, 2014 [facility] [place] [facility] [address] [id number] [place] [address]- 1701 Aug, [facility] [place] [facility] [address] [id number] [place] [address]- 6416 17 Jul, 2014 [facility] [place] [facility] [address] [id number] [place] [address]- 8118 17 Jul, 2014 [facility] [place] [facility] [address] [id number] [place] [address]- 1103 Jul, [facility] [place] [facility] [address] [id number] [place] [address]- 2032 14 Jul, 2014 [facility] [place] [facility] [address] [id number] [place] [address]- 8664 15 Jun, 2014 [facility] [place] [facility] [address] [id number] [place] [address]- 7733 Jun, [facility] [place] [facility] [address] [id number] [place] [address]- 3364 May, [facility] [place] [facility] [address] [id number] [place] [address]- 5978 May, [facility] [place] [facility] [address] [id number] [place] [address]- 8825 Apr, [facility] [place] [facility] [address] [id number] [place] [address]- 6778 Apr, [facility] [place] [facility] [address] [id number] [place] [address]- 7412 Mar, [facility] [place] [facility] [address] [id number] [place] [address]- 3491 Mar, [facility] [place] [facility] [address] [id number] [place] [address]- 2286 February, [facility] [place] [facility] [address] [id number] [place] 2711 February, [facility] [place] [facility] [address] [id number] [place] [address]- 4811 Jan, [facility] [place] [facility] [address] [id number] [place] [address]- 9775 Jan, [facility] [place] [facility] [address] [id number] [place] [address]- 8106 Jan, [facility] [place] [facility] [address] [id number] [place] [address]- 3878 Jan, [facility] [place] [facility] [address] [id number] [place] [address]- 2481 Jan, [facility] [place] [facility] [address] [id number] [place] [address]- 6250 Jan, [facility] [place] [facility] [address] [id number] [place] [address]- 7286 Dec, [facility] [place] [facility] [address] [id number] [place] [address]- 1808 Dec, [facility] [place] [facility] [address] [id number] [place] [address]- 8476 Nov, [facility] [place] [facility] [address] [id number] [place] [address]- 0136 Nov, [facility] [place] [facility] [address] [id number] [place] [address]- 4698 Nov, [facility] [place] [facility] [address] [id number] [place] [address]- 2318 Nov, [facility] [place] [facility] [address] [id number] [place] [address]- 1491 Oct, [facility] [place] [facility] [address] [id number] [place] [address]- 8982 Oct, [facility] [place] [facility] [address] [id number] [place] [address]- 9423 Oct, [facility] [place] [facility] [address] [id number] [place] [address]- 3891 07 Oct, 2013 [facility] [address] [id number] [place] [address]- 5496 16 Sep, 2013 [facility] [address] [id number] [place] [address]- 3201 16 Sep, 2013 [facility] [address] [id number] [place] [address]- 6703 10 Sep, 2013 [facility] [address] [id number] [place] [address]- 9885 10 Sep, 2013 [facility] [address] [id number] [place] [address]- 9621 18 Aug, 2013 [facility] [address] [id number] [place] [address]- 7881 18 Aug, 2013 [facility] [address] [id number] [place] [address]- 5772 13 Aug, 2013 [facility] [address] [id number] [place] [address]- 8071 13 Aug, 2013 [facility] [address] [id number] [place] [address]- 3446 08 Aug, 2013 [facility] [address] [facility] [id number] [place] [address]- 1395 08 Aug, 2013 [facility] [address] [id number] [place] [address]- 9007 18 Jul, 2013 [facility] [address] [id number] [place] [address]- 7030 18 Jul, 2013 [facility] [place] [facility] [address] [id number] [place] [address]- 2332 14 Jul, 2013 [facility] [place] [facility] [address] [id number] [place] [address]- 2696 14 Jul, 2013 [facility] [place] [facility] [address] [id number] [place] [address]- 1835 Jun, [facility] [place] [facility] [address] [id number] [place] [address]- 9289 Jun, [facility] [place] [facility] [address] [id number] [place] [address]- 6743 May, [facility] [place] [facility] [address] [id number] [place] [address]- 0371 May, [facility] [place] [facility] [address] [id number] [place] [address]- 4022 May, [facility] [address] [id number] [place] [address]- 2576 May, [facility] [place] [facility] [address] [id number] [place] [address]- 8108 May, [facility] [address] [id number] [place] [address]- 9751 Apr, [facility] [place] [facility] [address] [id number] [place] [address]- 9844 Apr, [facility] [place] [facility] [address] [id number] [place] [address]- 0763 Apr, [facility] [place] [facility] [address] [id number] [place] [address]- 2221 Mar, [facility] [place] [facility] [address] [id number] [place] [address]- 2465 Mar, [facility] [place] [facility] [address] [id number] [place] [address]- 6322 February, [facility] [place] [facility] [address] [id number] [place] [address]- 7341 February, [facility] [place] [facility] [address] [id number] [place] [address]- 1135 24 Jan, 2013 [facility] [place] [facility] [address] [id number] [place] [address]- 7664 Jan, [facility] [place] [facility] [address] [id number] [address]- 2166 Jan, [facility] [address] [id number] [place] [address]- 3218 Jan, [facility] [address] [id number] [place] [address]- 2706 Dec, [facility] [address] [facility] [id number] [place] [address]- 9656 Dec, [facility] [address] [id number] [place] [address]- 4414 Dec, [facility] [address] [id number] [place] [address]- 6974 Nov, [facility] [address] [facility] [id number] [place] [address]- 7015 Nov, [facility] [address] [facility] [id number] [place] [address]- 5446 Oct, [facility] [address] [facility] [id number] [place] [address] Oct, [facility] [address] [facility] [id number] [place] [address] Sep, [facility] [address] [facility] [id number] [place] [address] Sep, [facility] [address] [facility] [id number] [place] [address] Sep, [facility] [place] [facility] [address] [id number] [address] Sep, [facility] [place] [facility] [address] [id number] [place] [address] Sep, [facility] [place] [facility] [address] [facility] [id number] [place] Sep, [facility] [address] [facility] [id number] [place] [address] Sep, [facility] [place] [facility] [address] [id number] [place] [address] Aug, [facility] [place] [facility] [address] [id number] [place] [address] Aug, [facility] [place] [facility] [address] [id number] [place] [address] Jun, [facility] [place] [facility] [address] [id number] [place] [address] May, [facility] [place] [facility] [address] [id number] [place] [address] May, [facility] [place] [facility] [address] [id number] [place] [address] Apr, [facility] [place] [facility] [address] [id number] [place] [address] Apr, [facility] [place] [facility] [address] [id number] [place] [address] February, [facility] [place] [facility] [address] [id number] [place] [address] Jan, [facility] [place] [facility] [address] [id number] [place] [address] Jan, [facility] [place] [facility] [address] [id number] [place] [address] Dec, [facility] [place] [facility] [address] [id number] [place] [address] Oct, [facility] [place] [facility] [address] [id number] [place] [address] Oct, [facility] [place] [facility] [address] [id number] [place] [address] Sep, [facility] [place] [facility] [address] [id number] [place] [address] Sep, [facility] [place] [facility] [address] [id number] [place] [address] Sep, [facility] [address] [facility] [id number] [place] [address] Sep, IMMUNIZATIONS No Known Immunizations SOCIAL HISTORY Never Assessed REASON FOR VISIT Pet Scan Order PLAN OF CARE VITAL SIGNS MEDICATIONS Unknown Medications RESULTS Name Result Date Reference Range PET Scan, Full Body 2017-08-23 PROCEDURES No Known procedures INSTRUCTIONS MEDICATIONS ADMINISTERED [...]
--- OUTSIDE RECORDS SUMMARY | 2018-07-04 08:27 | XMS REPORT ---
Author Author BRENDA WETZEL Organization [facility] Address [address] [place] [address] Care Team Providers Care Line Out Worker Name Role Phone BRENDA WETZEL Unavailable PROBLEMS Type Condition ICD9-CM Code [id number] Code Onset Dates Condition Status SNOMED Code Problem Abdominal aneurysm I71.4 Active 809867217 Problem Anxiety F41.9 Active 61609154 Problem Essential hypertension I10 Active 82900891 Problem Abdominal aortic aneurysm (AAA) without rupture I71.4 Active 17709109 Problem Hypertension, benign I10 Active 83917007 Problem Hyperlipidemia, mixed E78.2 Active 319133848 Problem Primary insomnia F51.01 Active 9710787 ALLERGIES No Information ENCOUNTERS Encounter Location Date Diagnosis [place] [id number] [place] [address] 66700- 6772 February, [facility] [id number] [place] [address] 96208- 0878 February, [place] [id number] [place] [address] 93528- 0731 Jan, [place] [id number] [place] [address] 11991- 8330 Dec, [place] [id number] [place] [address] 59621- 7456 Nov, Hypertension, benign I10 and Essential hypertension I10 [place] [address] 35579- 5893 Nov, [place] [address] 45248- 2800 09 Nov, 2017 Scalp lesion L98.9 ; Anxiety F41.9 ; Trigger finger, right middle finger M65.331 and Encounter for drug screening Z02.83 [place] [address] [address]88 Nov, [facility] [id number] [place] [address] 03029- 2605 Oct, Essential hypertension I10 [facility] [address], [place] [address]- 6704 Oct, [facility] [id number] [place] [address] 76508- 2381 Oct, [facility] [id number] [place] [address] 50083- 8850 Sep, [facility] [id number] [place] [address] 39847 -5604 Aug, Cough R05 and Pneumonia of left lower lobe due to infectious organism J18.1 [facility] [id number] [place] [address] 15922- 3093 16 Aug, 2017 [facility] [id number] [place] [address] 11236- 5651 Aug, [facility] [id number] [place] [address] 11943- 3333 Aug, [facility] [id number] [place] [address] 03719- 2126 Aug, [facility] [id number] [place] [address] 11206- 7617 Aug, [facility] [id number] [place] [address] 94817- 6468 Aug, Lung mass R91.8 [facility] [id number] [place] [address] 88610- 7283 Aug, [facility] [address] [address]- 6668 Aug, Mass of lung parenchyma R91.8 [facility] [id number] [place] [address] 78664- 1559 Jul, [facility] [address], [place] [address]- 3226 Jun, Hypertension, benign I10 ; Hyperlipidemia, mixed E78.2 and Primary insomnia F51.01 [facility] [address], [place] [address]- 0633 Jun, [facility] [id number] [place] [address] 55370- 5195 Jun, Essential hypertension I10 [facility] [id number] [place] [address] 17142- 8303 May, [facility] [id number] [place] [address] 15197- 9854 Apr, [facility] [id number] [place] [address] 33198- 5194 Mar, [facility] [id number] [place] [address] 78564- 3821 Mar, [facility] [id number] [place] [address] 26113- 1055 February, [facility] [id number] [place] [address] 58306- 8518 February, [facility] [address], [place] [address]- 9081 Jan, [facility] [address], [place] [address]- 7848 Dec, [facility] [address], [place] [address]- 3689 Dec, Hypertension, benign I10 and Abdominal aortic aneurysm (AAA ) without rupture I71.4 [facility] [address], [place] [address]- 6436 Dec, [facility] [id number], [place] [address]- 0092 Nov, Medicare annual wellness visit, initial Z00.00 [facility] [address] [facility] [id number] [place] [address]- 6614 Nov, [facility] [address] [facility] [id number] [place] [address]- 1902 Nov, [facility] [address] [place] [address]- 3375 Oct, [facility] [address] [place] [address]- 6997 Oct, [facility] [address], [place] [address]- 3311 Oct, [facility] [address], [place] [address]- 4904 Oct, [facility] [address], [place] [address]- 5358 Sep, Medicare welcome exam Z00.00 ; Medicare annual wellness visit, initial Z00.00 and Medicare annual wellness visit, subsequent Z00.00 [facility] [address], [place] [address]- 9245 Sep, [facility] [address], [place] [address]- 8283 Sep, [facility] [address], [place] [address]- 6631 Aug, Trigger middle finger of right hand M65.331 [facility] [id number] [address]- 7170 Aug, Hypertension, benign I10 [facility] [address] [place] [address]- 3390 Aug, [facility] [address], [place] [address]- 5349 Aug, [facility] [id number], [place] [address]- 8310 28 Jul, 2016 [facility] [id number] [place] [address] 52270- 1538 Jul, [facility] [id number] [place] [address] 62244- 7413 Jul, Hypertension, essential I10 and Bradycardia R00.1 [facility] [address] 34796- 6631 Jul, [facility] [id number] [place] [address] 65281- 6950 Jul, [facility] [address] 25460- 7589 30 Jun, 2016 Essential hypertension I10 [facility] [id number] [place] [address] 44155- 2669 20 Jun, 2016 [facility] [id number] [place] [address] 45771- 1411 14 Jun, 2016 [facility] [id number] [place] [address] 88724- 4659 12 Jun, 2016 [facility] [id number] [place] [address] 00822- 1131 Jun, Abdominal aneurysm I71.4 ; Essential hypertension I10 ; Trigger middle finger of right hand M65.331 and Gastroesophageal reflux disease with esophagitis K21.0 [facility] [id number] [place] [address] 33082- 2275 May, [facility] [id number] [place] [address] 32160- 3554 May, [facility] [id number] [place] [address] 11635- 6548 Apr, [facility] [id number] [place] [address] 26086- 9184 Apr, [facility] [id number] [place] [address] 53288- 6791 Apr, [facility] [id number] [place] [address] 60709- 6013 Mar, [facility] [id number] [place] [address] 95049- 1159 Mar, [facility] [id number] [place] [address] 24841- 4321 February, [facility] [address] 46030- 8692 February, [facility] [id number] [place] [address] 43435- 2998 February, Primary insomnia F51.01 [facility] [id number] [place] [address] 73004- 3513 February, Insomnia G47.00 [facility] [address] 34837- 1799 Jan, Insomnia G47.00 [facility] [id number] [place] [address] 81390- 2208 Jan, Insomnia G47.00 [facility] [id number] [place] [address] 36948- 8669 Jan, Insomnia G47.00 [facility] [address] [id number] Dec, Dental examination Z01.20 and Caries K02.9 [facility] [id number] [place] [address] 94149- 8262 Dec, Insomnia G47.00 and Bronchitis J40 [facility] [id number] [place] [address] 48782- 5067 Nov, [facility] [id number] [place] [address] 01539- 9679 Oct, [facility] [id number] [place] [address] 58793- 6449 Sep, [facility] [address] [facility] [id number] [address]- 2214 Aug, [facility] [address] [facility] [id number] [address]- 6592 Jul, [facility] [address] [facility] [id number], [place] [address]- 2456 Jul, [facility] [id number] [place] [address] 62765- 9387 Jun, [facility] [address] [facility] [id number] 3620 Jun, [facility] [id number] [place] [address] 52122- 8709 Jun, [facility] [address] 4722 May, [facility] [id number] [place] [address] 95852- 9848 Apr, [facility] [address] 7907 Apr, Cerumen impaction 380.4 [facility] [address] 4098 Apr, Cerumen impaction 380.4 [facility] [address], [place] [address]- 0437 Mar, [facility] [id number], [place] [address]- 5933 February, [facility] [id number], [place] [address]- 9806 February, Abdominal aortic aneurysm greater than 39 mm in diameter 441.4 [facility] [address], [place] [address]- 1937 February, [facility] [address], [place] [address]- 7045 Jan, [facility] [place] [facility] [address] [id number] [place] [address]- 4811 14 Jan, 2015 [facility] [place] [facility] [address] [id number] [place] [address]- 4934 Jan, [facility] [place] [facility] [address] [id number] [place] [address]- 1771 Dec, [facility] [place] [facility] [address] [id number] [place] [address]- 6854 Dec, [facility] [place] [facility] [address] [id number] [place] [address]- 7771 Dec, [facility] [place] [facility] [address] [id number] [place] [address]- 4728 Dec, [facility] [place] [facility] [address] [facility] [id number] [place] [address]- 5573 Nov, [facility] [place] [facility] [address] [id number] [place] [address]- 5786 Nov, [facility] [place] [facility] [address] [id number] [place] [address]- 4919 Oct, [facility] [place] [facility] [address] [id number] [place] [address]- 6686 Oct, [facility] [place] [facility] [address] [id number] [place] [address]- 0941 Sep, [facility] [place] [facility] [address] [id number] [place] [address]- 0867 Sep, [facility] [place] [facility] [address] [id number] [place] [address]- 8342 Sep, [facility] [place] [facility] [address] [facility] [id number] [place] [address]- 9548 Sep, [facility] [place] [facility] [address] [facility] [id number] [place] [address]- 6369 Sep, [facility] [place] [facility] [address] [id number] [place] [address]- 9600 02 Sep, 2014 [facility] [place] [facility] [address] [id number] [place] [address]- 9750 Aug, [facility] [place] [facility] [address] [id number] [place] [address]- 7686 Aug, [facility] [place] [facility] [address] [id number] [place] [address]- 8254 Jul, [facility] [place] [facility] [address] [id number] [place] [address]- 2083 17 Jul, 2014 [facility] [place] [facility] [address] [id number] [place] [address]- 9895 Jul, [facility] [place] [facility] [address] [id number] [place] [address]- 7843 Jul, [facility] [place] [facility] [address] [id number] [place] [address]- 1946 15 Jun, 2014 [facility] [place] [facility] [address] [id number] [place] [address]- 4864 15 Jun, 2014 [facility] [place] [facility] [address] [id number] [place] [address]- 1562 May, [facility] [place] [facility] [address] [id number] [place] [address]- 5008 May, [facility] [place] [facility] [address] [id number] [place] [address]- 3149 Apr, [facility] [place] [facility] [address] [id number] [place] [address]- 2544 Apr, [facility] [place] [facility] [address] [id number] [place] [address]- 6881 Mar, [facility] [place] [facility] [address] [id number] [place] [address]- 2546 Mar, [facility] [place] [facility] [address] [id number] [place] [address]- 2948 February, [facility] [place] [facility] [address] [id number] [place] [address]- 4859 February, [facility] [place] [facility] [address] [id number] [place] [address]- 5755 Jan, [facility] [place] [facility] [address] [id number] [place] [address]- 5446 Jan, [facility] [place] [facility] [address] [id number] [place] [address]- 7847 Jan, [facility] [place] [facility] [address] [id number] [place] [address]- 9073 Jan, [facility] [place] [facility] [address] [id number] [place] [address]- 4935 Jan, [facility] [place] [facility] [address] [id number] [place] [address]- 2334 Jan, [facility] [place] [facility] [address] [id number] [place] [address]- 9151 Dec, [facility] [place] [facility] [address] [id number] [place] [address]- 2436 Dec, [facility] [place] [facility] [address] [id number] [place] [address]- 3219 Nov, [facility] [place] [facility] [address] [id number] [place] [address]- 5658 Nov, [facility] [place] [facility] [address] [id number] [place] [address]- 1531 Nov, [facility] [place] [facility] [address] [id number] [place] [address]- 3836 Nov, [facility] [place] [facility] [address] [id number] [place] [address]- 2145 Oct, [facility] [place] [facility] [address] [id number] [place] [address]- 7418 Oct, [facility] [place] [facility] [address] [id number] [place] [address]- 7526 07 Oct, 2013 [facility] [address] [id number] [place] [address]- 4152 07 Oct, 2013 [facility] [place] [facility] [address] [id number] [place] [address]- 9235 16 Sep, 2013 [facility] [place] [facility] [address] [id number] [place] [address]- 2651 16 Sep, 2013 [facility] [place] [facility] [address] [id number] [place] [address]- 2873 10 Sep, 2013 [facility] [place] [facility] [address] [id number] [place] [address]- 8528 10 Sep, 2013 [facility] [place] [facility] [address] [id number] [place] [address]- 7298 18 Aug, 2013 [facility] [place] [facility] [address] [id number] [place] [address]- 0920 18 Aug, 2013 [facility] [place] [facility] [address] [id number] [place] [address]- 1086 13 Aug, 2013 [facility] [place] [facility] [address] [id number] [place] [address]- 2563 13 Aug, 2013 [facility] [place] [facility] [address] [facility] [id number] [place] [address]- 8058 08 Aug, 2013 [facility] [place] [facility] [address] [id number] [place] [address]- 0765 08 Aug, 2013 [facility] [place] [facility] [address] [id number], [place] [address]- 8842 18 Jul, 2013 [facility] [place] [facility] [address] [id number] [place] [address]- 3472 18 Jul, 2013 [facility] [place] [facility] [address] [id number] [place] [address]- 5196 14 Jul, 2013 [facility] [place] [facility] [address] [id number], [place] [address]- 7782 14 Jul, 2013 [facility] [place] [facility] [address] [id number] [place] [address]- 7127 Jun, [facility] [place] [facility] [address] [id number] [place] [address]- 5226 Jun, [facility] [place] [facility] [address] [id number] [place] [address]- 2354 May, [facility] [place] [facility] [address] [id number] [place] [address]- 4049 May, [facility] [address] [id number] [place] [address]- 5063 May, [facility] [place] [facility] [address] [id number] [place] [address]- 7796 May, [facility] [address] [id number] [place] [address]- 4919 May, [facility] [place] [facility] [address] [id number] [place] [address]- 2329 Apr, [facility] [place] [facility] [address] [id number] [place] [address]- 5327 Apr, [facility] [place] [facility] [address] [id number] [place] [address]- 7703 Apr, [facility] [place] [facility] [address] [id number] [place] [address]- 4816 Mar, [facility] [place] [facility] [address] [id number] [place] [address]- 6396 Mar, [facility] [place] [facility] [address] [id number] [place] [address]- 9886 February, [facility] [place] [facility] [address] [id number] [place] [address]- 8250 February, [facility] [place] [facility] [address] [id number] [place] [address]- 3488 Jan, [facility] [place] [facility] [address] [id number] [place] [address]- 0573 Jan, [facility] [address] [id number] [place] [address]- 8015 Jan, [facility] [place] [facility] [address] [id number] [place] [address]- 5302 Jan, [facility] [address] [id number] [place] [address]- 3956 Dec, [facility] [place] [facility] [address] [id number] [place] [address]- 0141 Dec, [facility] [address] [id number] [place] [address]- 9530 Dec, [facility] [address] [id number] [place] 5759 Nov, [facility] [address] [id number] [place] [address]- 8282 Nov, [facility] [address] [id number] [place] [address] Oct, [facility] [address] [id number] [place] [address] Oct, [facility] [address] [id number] [place] [address] Sep, [facility] [address] [id number] [place] [address] Sep, [facility] [place] [facility] [address] [id number] [place] [address] Sep, [facility] [place] [facility] [address] [id number] [place] [address] Sep, [facility] [place] [facility] [address] [id number] [place] [address] Sep, [facility] [place] [facility] [address] [id number] [place] [address] Sep, [facility] [place] [facility] [address] [id number] [place] [address] Sep, [facility] [address] [id number] [place] [address] Aug, [facility] [place] [facility] [address] [id number] [place] [address] Aug, [facility] [address] [id number] [place] [address] Jun, [facility] [address] [id number] [place] [address] May, [facility] [address] [id number] [place] [address] May, [facility] [address] [id number] [place] [address] Apr, [facility] [address] [id number] [place] [address] Apr, [facility] [address] [id number] [place] [address] February, [facility] [address] [id number] [place] [address] Jan, [facility] [address] [id number] [place] [address] Jan, [facility] [address] [id number] [place] [address] Dec, [facility] [address] [id number] [place] [address] Oct, [facility] [place] [facility] [address] [id number] [place] [address] Oct, [facility] [address] [id number] [place] [address] Sep, [facility] [address] [id number] [place] [address] Sep, [facility] [address] [facility] [id number] [place] [address] Sep, [facility] [address] [facility] [id number] [place] [address] Sep, IMMUNIZATIONS No Known Immunizations SOCIAL HISTORY Never Assessed REASON FOR VISIT Controlled Med Refill 10/18 PLAN OF CARE VITAL SIGNS MEDICATIONS Medication Instructions Dosage Frequency Start Date End Date Duration Status Ativan 1 MG Orally twice a day 1 tablet as needed 12h Jan, 28 days Active Hemet 7.5-325 MG Orally every 6 hrs 1 tablet as needed 6h Oct, 28 days Active RESULTS No Results PROCEDURES [...]
--- OUTSIDE RECORDS SUMMARY | 2018-07-04 08:28 | XMS REPORT ---
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 Name Role Phone BRENDA WETZEL Unavailable PROBLEMS Type Condition ICD9-CM Code [id number] Code Onset Dates Condition Status SNOMED Code Problem Abdominal aneurysm I71.4 Active 922486588 Problem Anxiety F41.9 Active 40324160 Problem Essential hypertension I10 Active 01737351 Problem Abdominal aortic aneurysm (AAA) without rupture I71.4 Active 05727841 Problem Hypertension, benign I10 Active 57085711 Problem Hyperlipidemia, mixed E78.2 Active 846404754 Problem Primary insomnia F51.01 Active 0994012 ALLERGIES No Information ENCOUNTERS Encounter Location Date Diagnosis [facility] [id number] [place] [address] 15845- 7059 Mar, Chronic congestive heart failure, unspecified heart failure type I50.9 [facility] [address] 97493- 7906 Mar, [facility] [id number] [place] [address] 44949 -4421 Mar, Localized edema R60.0 [facility] [id number] [place] [address] 05961- 5947 February, [facility] [id number] [place] [address] 26210- 8419 February, [facility] [address] 97063- 8438 Jan, [facility] [id number] [place] [address] 22467- 0377 Dec, [facility] [address] 56468- 1571 Nov, Hypertension, benign I10 and Essential hypertension I10 [facility] [id number] [place] [address] 37876- 4344 Nov, [facility] [id number] [place] [address] 00477- 2200 09 Nov, 2017 Scalp lesion L98.9 ; Anxiety F41.9 ; Trigger finger, right middle finger M65.331 and Encounter for drug screening Z02.83 [facility] [id number] [place] [address] 99016- 2045 Nov, [facility] [id number] [place] [address] 91278- 9179 Oct, Essential hypertension I10 [facility] [id number] [place] [address] 25064- 8832 Oct, [facility] [id number] [place] [address] 59235- 4287 Oct, [facility] [id number] [place] [address] 54309- 6512 Sep, [facility] [id number] [place] [address] 12435 -5842 Aug, Cough R05 and Pneumonia of left lower lobe due to infectious organism J18.1 [facility] [address], [place] [address]- 2997 Aug, [facility] [id number] [place] [address] 03730- 0661 Aug, [facility] [id number] [place] [address] 75478- 9460 Aug, [facility] [id number] [place] [address] 11836- 6631 Aug, [facility] [address], [place] [address]- 6973 Aug, [facility] [address] [id number] [address]- 6205 Aug, Lung mass R91.8 [facility] [id number] [place] [address], [place] [address]- 2779 Aug, [facility] [address], [place] [address]- 5671 Aug, Mass of lung parenchyma R91.8 [facility] [id number] [place] [address] 56803- 8615 Jul, [facility] [id number] [place] [address] 24689- 8628 Jun, Hypertension, benign I10 ; Hyperlipidemia, mixed E78.2 and Primary insomnia F51.01 [facility] [address], [place] [address]- 2928 Jun, [facility] [id number] [place] [address] 57040- 0411 Jun, Essential hypertension I10 [facility] [id number] [place] [address] 04532- 3224 May, [facility] [id number] [place] [address] 16342- 3228 Apr, [facility] [address], [place] [address]- 4173 Mar, [facility] [address], [place] [address]- 2585 Mar, [facility] [address], [place] [address]- 3258 February, [facility] [id number] [place] [address] 983215- 5055 February, [facility] [address], [place] [address]- 7912 Jan, [facility] [id number] [place] [address] 01048- 7996 Dec, [facility] [address] [facility] [id number] [place] [address]- 8277 Dec, Hypertension, benign I10 and Abdominal aortic aneurysm (AAA ) without rupture I71.4 [facility] [address] [facility] [id number] [place] [address]- 3976 Dec, [facility] [address] [place] [address]- 1486 Nov, Medicare annual wellness visit, initial Z00.00 [facility] [address] [facility] [id number] [place] [address]- 3046 Nov, [facility] [address] [facility] [id number] [place] 4076 Nov, [facility] [id number] [place] [address]- 7732 Oct, [facility] [address], [place] [address]- 7462 Oct, [facility] [address] [id number] [place] [address]- 6582 Oct, [facility] [address] [id number] [place] [address]- 1863 Oct, [facility] [id number], [place] [address]- 7190 Sep, Medicare welcome exam Z00.00 ; Medicare annual wellness visit, initial Z00.00 and Medicare annual wellness visit, subsequent Z00.00 [facility] [address] [facility] [id number] [place] [address]- 1246 Sep, [facility] [address] [facility] [id number] [place] [address] 2546 Sep, [facility] [address] [id number] 2226 Aug, Trigger middle finger of right hand M65.331 [facility] [id number] [place] [address] 19602- 4212 14 Aug, 2016 Hypertension, benign I10 [facility] [address] 12753- 2837 14 Aug, 2016 [facility] [id number] [place] [address] 34582- 2279 11 Aug, 2016 [facility] [address] 57335- 1877 28 Jul, 2016 [facility] [address] 22215- 3097 17 Jul, 2016 [facility] [address] 53226- 0569 Jul, Hypertension, essential I10 and Bradycardia R00.1 [facility] [id number] [place] [address] 99118- 9001 Jul, [facility] [id number] [place] [address] 69853- 4025 Jul, [facility] [id number] [place] [address] 06591- 9013 30 Jun, 2016 Essential hypertension I10 [facility] [id number] [place] [address] 32410- 8029 20 Jun, 2016 [facility] [id number] [place] [address] 88740- 8938 14 Jun, 2016 [facility] [id number] [place] [address] 91753- 1108 12 Jun, 2016 [facility] [id number] [place] [address] 05539- 7692 Jun, Abdominal aneurysm I71.4 ; Essential hypertension I10 ; Trigger middle finger of right hand M65.331 and Gastroesophageal reflux disease with esophagitis K21.0 [facility] [id number] [place] [address] 65921- 1405 May, [facility] [address], [place] [address]- 5158 May, [facility] [id number] [place] [address] 91966- 8742 Apr, [facility] [address], [place] [address]- 9371 Apr, [facility] [id number] [place] [address] 34996- 9340 Apr, [facility] [id number] [place] [address] 47986- 7605 Mar, [facility] [id number] [place] [address] 09198- 1783 Mar, [facility] [id number] [place] [address] 66789- 8655 February, [facility] [id number] [place] [address] 53613- 3520 February, [facility] [id number] [place] [address] 87674- 4545 February, Primary insomnia F51.01 [facility] [id number] [place] [address] 42468- 4750 February, Insomnia G47.00 [facility] [id number] [place] [address] 61470- 7586 Jan, Insomnia G47.00 [facility] [id number] [place] [address] 39705- 5284 Jan, Insomnia G47.00 [facility] [id number] [place] [address] 96876- 3052 Jan, Insomnia G47.00 [facility] [id number] [place] [address] [id number] Dec, Dental examination Z01.20 and Caries K02.9 [facility] [id number] [place] [address] 45144- 0779 Dec, Insomnia G47.00 and Bronchitis J40 [facility] [address] [facility] [id number] [place] [address] 29171- 0522 Nov, [facility] [place] [id number] [place] [address] 416714- 0575 Oct, [facility] [id number] [place] [address] 93863- 3130 Sep, [facility] [address] [facility] [id number] [place] [address] 83846- 1298 Aug, [facility] [id number] [place] [address] 22582- 8699 Jul, [facility] [id number] [place] [address] 00183- 2871 Jul, [facility] [id number] [place] [address] 33069- 0757 Jun, [facility] [id number] [place] [address] 72833- 7290 Jun, [facility] [id number] [place] [address] 72405- 2994 Jun, [facility] [address], [place] [address]- 5314 May, [facility] [id number] [place] [address] 29626- 6505 Apr, [facility] [address] [facility] [id number], [place] [address]- 5055 Apr, Cerumen impaction 380.4 [facility] [id number] [place] [address] 36807- 7817 Apr, Cerumen impaction 380.4 [facility] [address], [place] [address]- 4314 Mar, [facility] [id number] [place] [address], [place] [address]- 2793 February, [facility] [address] [facility] [id number] 2943 February, Abdominal aortic aneurysm greater than 39 mm in diameter 441.4 [facility] [place] [facility] [address] [facility] [id number] [place] [address]- 5583 February, [facility] [place] [facility] [address] [facility] [id number] [place] [address], [place] [address]- 7799 Jan, [facility] [place] [facility] [address] [facility] [id number] [place] [address]- 6664 Jan, [facility] [place] [facility] [id number] [place] [address], [place] [address]- 2509 Jan, [facility] [address] [id number] [place] [address]- 9698 Dec, [facility] [id number] [place] [address], [place] [address]- 4569 Dec, [facility] [place] [facility] [address] [place] [address]- 4404 Dec, [facility] [place] [facility] [address], [place] [address]- 6086 Dec, [facility] [place] [facility] [address], [place] [address]- 9372 Nov, [facility] [place] [facility] [address], [place] [address]- 9426 Nov, [facility] [place] [facility] [address] [facility] [id number] [place] 7007 Oct, [facility] [place] [facility] [address] [facility] [id number] 2880 Oct, [facility] [place] [facility] [id number]- 9905 Sep, [facility] [place] [facility] [address], [place] [address]- 4763 Sep, [facility] [place] [facility] [address] [id number] [place] 3449 Sep, [facility] [place] [facility] [address] [id number] [place] [address]- 4613 Sep, [facility] [place] [facility] [address] [id number] [place] [address]- 9619 Sep, [facility] [place] [facility] [address] [id number] [place] [address]- 6789 Sep, [facility] [place] [facility] [address] [id number] [place] [address]- 1003 Aug, [facility] [place] [facility] [address] [id number] [place] [address]- 9347 Aug, [facility] [place] [facility] [address] [id number] [place] 4469 Jul, [facility] [place] [facility] [address] [id number] [place] [address]- 4158 Jul, [facility] [place] [facility] [address] [id number] [place] [address]- 1549 Jul, [facility] [place] [facility] [address] [id number] [place] [address]- 1422 14 Jul, 2014 [facility] [place] [facility] [address] [id number] [place] [address]- 8592 15 Jun, 2014 [facility] [place] [facility] [address] [id number] [place] [address]- 7730 15 Jun, 2014 [facility] [place] [facility] [address] [id number] [place] [address]- 1928 May, [facility] [place] [facility] [address] [id number] [place] 3905 May, [facility] [place] [facility] [address] [id number] [place] [address]- 5864 Apr, [facility] [place] [facility] [address] [id number] [place] [address]- 2632 16 Apr, 2014 [facility] [place] [facility] [address] [id number] [place] [address]- 0576 Mar, [facility] [place] [facility] [address] [id number] [place] [address]- 0120 Mar, [facility] [place] [facility] [address] [id number] [place] [address]- 1577 February, [facility] [place] [facility] [address] [id number] [place] [address]- 2305 February, [facility] [place] [facility] [address] [id number] [place] [address]- 3807 Jan, [facility] [place] [facility] [address] [id number] [place] [address]- 0307 Jan, [facility] [place] [facility] [address] [id number] [place] [address]- 0073 Jan, [facility] [place] [facility] [address] [id number] [place] [address]- 8758 Jan, [facility] [place] [facility] [address] [id number] [place] [address]- 6869 Jan, [facility] [place] [facility] [address] [id number] [place] [address]- 1420 Jan, [facility] [place] [facility] [address] [id number] [place] [address]- 4065 Dec, [facility] [place] [facility] [address] [id number] [place] [address]- 1561 Dec, [facility] [place] [facility] [address] [id number] [place] [address]- 3769 Nov, [facility] [place] [facility] [address] [id number] [place] [address]- 9726 Nov, [facility] [place] [facility] [address] [id number] [place] [address]- 6171 Nov, [facility] [place] [facility] [address] [id number] [place] [address]- 7429 11 Nov, 2013 [facility] [place] [facility] [address] [id number] [place] [address]- 0771 Oct, [facility] [place] [facility] [address] [id number] [place] [address]- 3417 Oct, [facility] [place] [facility] [address] [id number] [place] [address]- 7614 Oct, [facility] [place] [facility] [address] [id number] [place] [address]- 5279 Oct, [facility] [place] [facility] [address] [id number] [place] [address]- 5915 16 Sep, 2013 [facility] [place] [facility] [address] [id number] [place] [address]- 8209 16 Sep, 2013 [facility] [place] [facility] [address] [id number] [place] [address]- 4748 Sep, [facility] [place] [facility] [address] [id number] [place] [address]- 8379 Sep, [facility] [place] [facility] [address] [id number] [place] [address]- 6677 18 Aug, 2013 [facility] [place] [facility] [address] [id number], [place] [address]- 6972 18 Aug, 2013 [facility] [place] [facility] [address] [id number], [place] [address]- 9347 13 Aug, 2013 [facility] [place] [facility] [address] [id number] [place] [address]- 4701 Aug, [facility] [place] [facility] [address] [id number], [place] [address]- 9731 08 Aug, 2013 [facility] [place] [facility] [address] [id number] [place] [address]- 7471 08 Aug, 2013 [facility] [place] [facility] [address] [id number] [place] [address]- 6555 18 Jul, 2013 [facility] [place] [facility] [address] [id number] [place] [address]- 8916 18 Jul, 2013 [facility] [place] [facility] [address] [id number] [place] [address]- 8911 14 Jul, 2013 [facility] [place] [facility] [address] [id number] [place] [address]- 6795 14 Jul, 2013 [facility] [place] [facility] [address] [id number] [place] [address]- 7829 20 Jun, 2013 [facility] [place] [facility] [address] [id number] [place] [address]- 9932 Jun, [facility] [place] [facility] [address] [id number] [place] [address]- 2381 May, [facility] [place] [facility] [address] [id number] [place] [address]- 9181 16 May, 2013 [facility] [place] [facility] [address] [id number] [place] [address]- 4884 May, [facility] [place] [facility] [address] [id number] [place] [address]- 4460 May, [facility] [place] [facility] [address] [id number] [place] [address]- 6345 May, [facility] [place] [facility] [address] [id number] [place] [address]- 1316 Apr, [facility] [place] [facility] [address] [id number] [place] [address]- 2755 Apr, [facility] [place] [facility] [address] [id number] [place] [address]- 3284 Apr, [facility] [place] [facility] [address] [id number] [place] [address]- 4527 Mar, [facility] [place] [facility] [address] [id number] [place] 9555 Mar, [facility] [place] [facility] [address] [id number] [place] [address]- 7165 February, [facility] [address] [id number] [place] [address]- 2161 February, [facility] [address] [id number] [place] 2831 Jan, [facility] [address] [id number] [place] [address]- 0976 Jan, [facility] [address] [id number] [place] [address]- 4196 Jan, [facility] [address] [id number] [place] [address]- 7049 Jan, [facility] [address] [id number] [place] [address]- 4976 Dec, [facility] [address] [id number] [place] [address]- 1758 Dec, [facility] [address] [id number] [place] [address]- 6728 Dec, [facility] [address] [id number] [place] [address]- 9963 Nov, [facility] [address] [id number] [place] [address]- [address] Nov, [facility] [address] [id number] [place] [address] Oct, [facility] [address] [id number] [place] [address] Oct, [facility] [address] [id number] [place] [address] Sep, [facility] [address] [id number] [place] [address] Sep, [facility] [address] [id number] [place] [address] Sep, [facility] [place] [facility] [address] [id number] [place] [address] Sep, [facility] [place] [facility] [address] [id number] [place] [address] Sep, [facility] [place] [facility] [address] [id number] [place] [address] Sep, [facility] [place] [facility] [address] [id number] [place] [address] Sep, [facility] [place] [facility] [address] [id number] [place] [address] Aug, [facility] [place] [facility] [address] [id number] [place] [address] Aug, [facility] [place] [facility] [address] [id number] [place] [address] Jun, [facility] [place] [facility] [address] [id number] [place] [address] May, [facility] [place] [facility] [address] [id number] [place] [address] May, [facility] [place] [facility] [address] [id number] [place] [address] Apr, [facility] [place] [facility] [address] [id number] [place] [address] Apr, [facility] [place] [facility] [address] [id number] [place] [address] February, [facility] [place] [facility] [address] [id number] [place] [address] Jan, [facility] [place] [facility] [address] [id number] [place] [address] Jan, [facility] [place] [facility] [address] [id number] [place] [address] Dec, [facility] [place] [facility] [address] [id number] [place] [address] Oct, [facility] [address] [facility] [id number], [place] [address] Oct, [facility] [address] [facility] [id number], [place] [address] Sep, [facility] [address] [facility] [id number], [place] [address] Sep, [facility] [address] [facility] [id number], [place] [address] Sep, [facility] [address] [facility] [id number], [place] [address] Sep, IMMUNIZATIONS No Known Immunizations SOCIAL HISTORY Never Assessed REASON FOR VISIT Med refills PLAN OF CARE VITAL SIGNS MEDICATIONS Medication Instructions Dosage Frequency Start Date End Date Duration Status Amlodipine Besylate 10 mg Orally Once a day 1 tablet 24h 90 days Active Atorvastatin Calcium 20 mg Orally Once a day 1 tablet 24h Jun, 90 days Active Cozaar 100 mg Orally Once a day 1 tablet 24h Jun, 90 days Active RESULTS No Results PROCEDURES No [...]
--- OUTSIDE RECORDS SUMMARY | 2018-07-04 08:29 | XMS REPORT ---
Author Author SCHUYLER DENT Organization [facility] Address [address] [place] [address] Care Team Providers Care Combat Engineer Name Role Phone SCHUYLER DENT Unavailable PROBLEMS Type Condition ICD9-CM Code WNW22-IU Code Onset Dates Condition Status SNOMED Code Problem Abdominal aneurysm I71.4 Active 461638343 Problem Anxiety F41.9 Active 87279279 Problem Essential hypertension I10 Active 94012698 Problem Abdominal aortic aneurysm (AAA) without rupture I71.4 Active 04213414 Problem Hypertension, benign I10 Active 24611584 Problem Hyperlipidemia, mixed E78.2 Active 086552489 Problem Primary insomnia F51.01 Active 8412604 ALLERGIES No Information ENCOUNTERS Encounter Location Date Diagnosis [place] [id number] [place] [address] 69260- 9846 February, [facility] [address] [address]- [address] Jan, [facility] [address] 54296- 6389 Dec, [facility] [address] 91352- 3576 Nov, Hypertension, benign I10 and Essential hypertension I10 [facility] [id number] [place] [address] 58515- 4479 Nov, [facility] [address] 81973- 4320 Nov, Scalp lesion L98.9 ; Anxiety F41.9 ; Trigger finger, right middle finger M65.331 and Encounter for drug screening Z02.83 [place] [address] 04661- 7741 Nov, [facility] [address] [address] 5451 Oct, Essential hypertension I10 [facility] [id number] [place] [address], [place] [address]- 0744 Oct, [facility] [id number] [address]- 9849 Oct, [facility] [id number] [place] [address] 21589- 1182 Sep, [facility] [id number] [place] [address] 53768 -7375 Aug, Cough R05 and Pneumonia of left lower lobe due to infectious organism J18.1 [facility] [id number] [place] [address] 61415- 5160 Aug, [facility] [id number] [place] [address] 67689- 4064 Aug, [facility] [id number] [place] [address] 63847- 9046 Aug, [facility] [id number] [place] [address], [place] [address]- 1813 Aug, [facility] [id number] [place] [address] 41911- 4636 Aug, [facility] [id number] [place] [address] 90230- 5850 Aug, Lung mass R91.8 [facility] [address] [address]- 5105 Aug, [facility] [id number] [place] [address] 51884- 2720 Aug, Mass of lung parenchyma R91.8 [facility] [address] [place] [address]- 6775 Jul, [facility] [id number] [address]- 9929 22 Jun, 2017 Hypertension, benign I10 ; Hyperlipidemia, mixed E78.2 and Primary insomnia F51.01 [facility] [id number] [place] [address]- 3765 Jun, [facility] [id number] [place] [address], [place] [address]- 1997 Jun, Essential hypertension I10 [facility] [id number] [place] [address] 67976- 5133 May, [facility] [id number] [place] [address], [place] [address]- 9450 Apr, [facility] [id number] [place] [address] 44149- 1784 Mar, [facility] [id number] [place] [address] 05209- 0566 Mar, [facility] [id number] [place] [address] 07198- 1957 February, [facility] [id number] [place] [address], [place] [address]- 8966 February, [facility] [id number] [address]- 6146 Jan, [facility] [address], [place] [address]- 8125 Dec, [facility] [id number] [place] [address] 30201- 7407 Dec, Hypertension, benign I10 and Abdominal aortic aneurysm (AAA ) without rupture I71.4 [facility] [id number] [place] [address], [place] [address]- 9008 Dec, [facility] [address], [place] [address]- 0795 28 Nov, 2016 Medicare annual wellness visit, initial Z00.00 [facility] [id number] [place] [address]- 3446 Nov, [facility] [id number] [place] [address]- 3482 Nov, [facility] [address] [facility] [id number] [place] [address]- 3791 Oct, [facility] [address] [place] [address]- 3543 Oct, [facility] [id number] [place] [address]- 0246 Oct, [facility] [id number] [place] [address]- 0732 Oct, [facility] [address] [place] [address]- 7813 Sep, Medicare welcome exam Z00.00 ; Medicare annual wellness visit, initial Z00.00 and Medicare annual wellness visit, subsequent Z00.00 [facility] [id number] [place] [address]- 1628 Sep, [facility] [address] [place] [address]- 1684 Sep, [facility] [id number] [place] [address]- 6328 Aug, Trigger middle finger of right hand M65.331 [facility] [id number] [place] [address]- 5025 Aug, Hypertension, benign I10 [facility] [id number] [place] [address]- 8751 Aug, [facility] [id number] [place] [address]- 3157 Aug, [facility] [id number] [place] [address]- 5012 Jul, [facility] [id number] [address]- 6199 Jul, [facility] [id number] [place] [address] 20280- 9021 Jul, Hypertension, essential I10 and Bradycardia R00.1 [facility] [id number] [place] [address] 68407- 5666 Jul, [facility] [id number] [place] [address] 85666- 0385 Jul, [facility] [id number] [place] [address] 24947- 9415 30 Jun, 2016 Essential hypertension I10 [facility] [id number] [place] [address] 74730- 2003 20 Jun, 2016 [facility] [id number] [place] [address] 50482- 7260 14 Jun, 2016 [facility] [id number] [place] [address] 47115- 7075 12 Jun, 2016 [facility] [id number] [place] [address] 29507- 7533 Jun, Abdominal aneurysm I71.4 ; Essential hypertension I10 ; Trigger middle finger of right hand M65.331 and Gastroesophageal reflux disease with esophagitis K21.0 [facility] [id number] [place] [address] 03728- 5699 May, [facility] [id number] [place] [address] 92183- 9340 May, [facility] [id number] [place] [address] 91937- 3005 Apr, [facility] [id number] [place] [address] 97614- 1123 Apr, [facility] [id number] [place] [address] 93526- 1100 Apr, [facility] [id number] [place] [address] 96551- 9723 Mar, [facility] [id number] [place] [address] 18772- 8597 Mar, [facility] [address] 60465- 8971 February, [facility] [id number] [place] [address] 84618- 4427 February, [facility] [address] 69795- 2462 February, Primary insomnia F51.01 [facility] [address] 44170- 7074 February, Insomnia G47.00 [facility] [id number] [place] [address] 66282- 5416 Jan, Insomnia G47.00 [facility] [address] 74686- 4620 Jan, Insomnia G47.00 [facility] [id number] [place] [address] 30292- 0946 Jan, Insomnia G47.00 [facility] [place] [facility] [id number] [place] [address] [id number] Dec, Dental examination Z01.20 and Caries K02.9 [facility] [id number] [place] [address] 18954- 5709 Dec, Insomnia G47.00 and Bronchitis J40 [facility] [id number] [place] [address] 83200- 5654 Nov, [facility] [address] 00723- 4125 Oct, [facility] [id number] [place] [address] 87809- 7216 Sep, [facility] [id number] [place] [address] 08789- 3536 Aug, [facility] [address] [facility] [id number] [address]- 6824 Jul, [facility] [address] 4818 Jul, [facility] [address] 0348 Jun, [facility] [address] [facility] [id number] [place] [address] 09277- 6848 Jun, [facility] [id number] [place] [address] 584518- 0272 Jun, [facility] [id number] [place] [address] 56645- 1876 May, [facility] [id number] [place] [address] 80383- 1666 Apr, [facility] [id number] [place] [address] 17387- 4373 Apr, Cerumen impaction 380.4 [facility] [id number] [place] [address] 53836- 9582 Apr, Cerumen impaction 380.4 [facility] [address] [address]- 3222 Mar, [facility] [address] 0121 February, [facility] [address], [place] [address]- 1933 February, Abdominal aortic aneurysm greater than 39 mm in diameter 441.4 [facility] [address]- 2528 February, [facility] [address]- 3980 Jan, [facility] [address] [place] [address] 99974- 6812 14 Jan, 2015 [facility] [place] [facility] [address] [id number] [place] [address]- 2204 Jan, [facility] [place] [facility] [address] [id number] [place] [address]- 9358 Dec, [facility] [place] [facility] [address] [id number] [place] [address]- 6688 Dec, [facility] [place] [facility] [address] [id number] [place] [address]- 0675 Dec, [facility] [place] [facility] [address] [id number] [place] [address]- 2564 Dec, [facility] [place] [facility] [address] [id number] [place] [address]- 9379 Nov, [facility] [place] [facility] [address] [id number] [place] [address]- 1882 Nov, [facility] [place] [facility] [address] [id number] [place] [address]- 6249 Oct, [facility] [place] [facility] [address] [id number] [place] [address]- 7928 Oct, [facility] [place] [facility] [address] [facility] [id number] [place] [address]- 5209 Sep, [facility] [place] [facility] [address] [id number] [place] [address]- 0598 Sep, [facility] [place] [facility] [address] [id number] [place] [address]- 4137 Sep, [facility] [place] [facility] [address] [id number] [place] [address]- 7160 Sep, [facility] [place] [facility] [address] [id number] [place] [address]- 0279 Sep, [facility] [place] [facility] [address] [id number] [place] [address]- 6693 Sep, [facility] [place] [facility] [address] [id number] [place] [address]- 8912 07 Aug, 2014 [facility] [place] [facility] [address] [id number] [place] [address]- 2249 Aug, [facility] [place] [facility] [address] [id number] [place] [address]- 3866 17 Jul, 2014 [facility] [place] [facility] [address] [id number] [place] [address]- 7939 17 Jul, 2014 [facility] [place] [facility] [address] [id number] [place] [address]- 2570 Jul, [facility] [place] [facility] [address] [id number] [place] [address]- 3431 14 Jul, 2014 [facility] [place] [facility] [address] [id number] [place] [address]- 5463 15 Jun, 2014 [facility] [place] [facility] [address] [id number] [place] [address]- 0443 Jun, [facility] [place] [facility] [address] [id number] [place] [address]- 4613 May, [facility] [place] [facility] [address] [id number] [place] [address]- 5946 May, [facility] [place] [facility] [address] [id number] [place] [address]- 0275 Apr, [facility] [place] [facility] [address] [id number] [place] [address]- 3564 Apr, [facility] [place] [facility] [address] [id number] [place] [address]- 1343 Mar, [facility] [place] [facility] [address] [id number] [place] [address]- 4904 Mar, [facility] [place] [facility] [address] [id number] [place] [address]- 8836 February, [facility] [place] [facility] [address] [id number] [place] 8117 February, [facility] [place] [facility] [address] [id number] [place] [address]- 5667 Jan, [facility] [place] [facility] [address] [id number] [place] [address]- 1944 Jan, [facility] [place] [facility] [address] [id number] [place] [address]- 4560 Jan, [facility] [place] [facility] [address] [id number] [place] [address]- 3078 Jan, [facility] [place] [facility] [address] [id number] [place] [address]- 6581 Jan, [facility] [place] [facility] [address] [id number] [place] [address]- 8092 Jan, [facility] [place] [facility] [address] [id number] [place] [address]- 1326 Dec, [facility] [place] [facility] [address] [id number] [place] [address]- 5434 Dec, [facility] [place] [facility] [address] [id number] [place] [address]- 5257 Nov, [facility] [place] [facility] [address] [id number] [place] [address]- 3245 Nov, [facility] [place] [facility] [address] [id number] [place] [address]- 4976 Nov, [facility] [place] [facility] [address] [id number] [place] [address]- 8191 Nov, [facility] [place] [facility] [address] [id number] [place] [address]- 9967 Oct, [facility] [place] [facility] [address] [id number] [place] [address]- 8454 Oct, [facility] [place] [facility] [address] [id number] [place] [address]- 7192 Oct, [facility] [place] [facility] [address] [id number] [place] [address]- 5763 07 Oct, 2013 [facility] [address] [id number] [place] [address]- 8040 16 Sep, 2013 [facility] [address] [id number] [place] [address]- 9627 16 Sep, 2013 [facility] [address] [id number] [place] [address]- 3277 10 Sep, 2013 [facility] [address] [id number] [place] [address]- 3721 10 Sep, 2013 [facility] [address] [id number] [place] [address]- 2122 18 Aug, 2013 [facility] [address] [id number] [place] [address]- 4257 18 Aug, 2013 [facility] [address] [id number] [place] [address]- 7984 13 Aug, 2013 [facility] [address] [id number] [place] [address]- 7789 13 Aug, 2013 [facility] [address] [id number] [place] [address]- 0190 08 Aug, 2013 [facility] [address] [facility] [id number] [place] [address]- 7500 08 Aug, 2013 [facility] [address] [id number] [place] [address]- 8106 18 Jul, 2013 [facility] [address] [id number] [place] [address]- 8908 18 Jul, 2013 [facility] [place] [facility] [address] [id number] [place] [address]- 0321 14 Jul, 2013 [facility] [place] [facility] [address] [id number] [place] [address]- 0838 14 Jul, 2013 [facility] [place] [facility] [address] [id number] [place] [address]- 8125 Jun, [facility] [place] [facility] [address] [id number] [place] [address]- 2196 Jun, [facility] [place] [facility] [address] [id number] [place] [address]- 6816 May, [facility] [place] [facility] [address] [id number] [place] [address]- 6631 May, [facility] [place] [facility] [address] [id number] [place] [address]- 2489 May, [facility] [address] [id number] [place] [address]- 5817 May, [facility] [place] [facility] [address] [id number] [place] [address]- 8934 May, [facility] [address] [id number] [place] [address]- 7558 Apr, [facility] [place] [facility] [address] [id number] [place] [address]- 4802 Apr, [facility] [place] [facility] [address] [id number] [place] [address]- 3160 Apr, [facility] [place] [facility] [address] [id number] [place] [address]- 6580 Mar, [facility] [place] [facility] [address] [id number] [place] [address]- 1990 Mar, [facility] [place] [facility] [address] [id number] [place] [address]- 0560 February, [facility] [place] [facility] [address] [id number] [place] [address]- 0538 February, [facility] [place] [facility] [address] [id number] [place] [address]- 6365 24 Jan, 2013 [facility] [place] [facility] [address] [id number] [place] [address]- 0191 Jan, [facility] [place] [facility] [address] [id number] [address]- 8010 Jan, [facility] [address] [id number] [place] [address]- 2144 Jan, [facility] [address] [id number] [place] [address]- 1836 Dec, [facility] [address] [facility] [id number] [place] [address]- 7626 Dec, [facility] [address] [id number] [place] [address]- 0581 Dec, [facility] [address] [id number] [place] [address]- 8748 Nov, [facility] [address] [facility] [id number] [place] [address]- 0485 Nov, [facility] [address] [facility] [id number] [place] [address]- 7698 Oct, [facility] [address] [facility] [id number] [place] [address]- 5016 Oct, [facility] [address] [facility] [id number] [place] [address]- 9474 Sep, [facility] [address] [facility] [id number] [place] [address]- 2725 Sep, [facility] [address] [facility] [id number] [place] [address]- 6996 Sep, [facility] [place] [facility] [address] [id number], [place] [address]- 8556 Sep, [facility] [place] [facility] [address] [id number] [place] [address]- 9971 Sep, [facility] [place] [facility] [address] [facility] [id number] [place] 8817 Sep, [facility] [address] [facility] [id number] [place] [address]- 9643 Sep, [facility] [place] [facility] [address] [id number] [place] [address] Aug, [facility] [place] [facility] [address] [id number] [place] [address] Aug, [facility] [place] [facility] [address] [id number] [place] [address] Jun, [facility] [place] [facility] [address] [id number] [place] [address] May, [facility] [place] [facility] [address] [id number] [place] [address] May, [facility] [place] [facility] [address] [id number] [place] [address] Apr, [facility] [place] [facility] [address] [id number] [place] [address] Apr, [facility] [place] [facility] [address] [id number] [place] [address] February, [facility] [place] [facility] [address] [id number] [place] [address] Jan, [facility] [place] [facility] [address] [id number] [place] [address] Jan, [facility] [place] [facility] [address] [id number] [place] [address] Dec, [facility] [place] [facility] [address] [id number] [place] [address] Oct, [facility] [place] [facility] [address] [id number] [place] [address] Oct, [facility] [place] [facility] [address] [id number] [place] [address] Sep, [facility] [place] [facility] [address] [id number] [place] [address] Sep, [facility] [place] [facility] [address] [id number] [place] [id number] Sep, [facility] [address] [facility] [id number] [place] [address] Sep, IMMUNIZATIONS No Known Immunizations SOCIAL HISTORY Never Assessed REASON FOR VISIT Requests return call PLAN OF CARE VITAL SIGNS MEDICATIONS Unknown [...]
--- OUTSIDE RECORDS SUMMARY | 2018-07-04 08:30 | XMS REPORT ---
Author Author BRENDA WETZEL Organization [facility] Address [address] [place] [address] Care Team Providers Care Manager Core Name Role Phone BRENDA WETZEL Unavailable PROBLEMS Type Condition ICD9-CM Code PFI17-MN Code Onset Dates Condition Status SNOMED Code Problem Abdominal aneurysm I71.4 Active 920702553 Problem Anxiety F41.9 Active 62615860 Problem Essential hypertension I10 Active 34679061 Problem Abdominal aortic aneurysm (AAA) without rupture I71.4 Active 67877730 Problem Hypertension, benign I10 Active 96653826 Problem Hyperlipidemia, mixed E78.2 Active 572123999 Problem Primary insomnia F51.01 Active [id number] ALLERGIES No Information ENCOUNTERS Encounter Location Date Diagnosis [place] [address] [address] Jan, [place] [address] [address]- [address] Dec, [place] [address] [address]- [address] Nov, Hypertension, benign I10 and Essential hypertension I10 [place] [address] [place] [id number] [place] [address] 03196- 8108 Nov, [place] [address] [address]- 6[address] Nov, Scalp lesion L98.9 ; Anxiety F41.9 ; Trigger finger, right middle finger M65.331 and Encounter for drug screening Z02.83 [place] [address] [place] [id number] [place] [address] 92510- 3252 03 Nov, 2017 [place] [address] [place] [id number] [place] [address] 62819- 5042 Oct, Essential hypertension I10 [facility] [address] [address] 70[address] Oct, [facility] [address] [place] [id number] [place] [address] 12107- 7486 Oct, [facility] [id number] [place] [address] 54957- 8092 Sep, [facility] [address] [place] [id number] [place] [address] 30697 -0196 Aug, Cough R05 and Pneumonia of left lower lobe due to infectious organism J18.1 [facility] [address] [place] [id number] [place] [address] 31416- 2405 Aug, [facility] [address] [place] [id number] [place] [address] 31110- 8456 Aug, [facility] [address] [place] [id number] [place] [address] 37702- 3798 Aug, [facility] [address] [place] [id number] [place] [address] 69069- 7776 Aug, [facility] [address] [place] [id number] [place] [address] 78887- 1704 Aug, [facility] [id number] [place] [address] 46235- 7891 Aug, Lung mass R91.8 [facility] [address] [place] [id number] [place] [address] 39961- 3676 Aug, [facility] [id number] [place] [address] 32067- 8071 Aug, Mass of lung parenchyma R91.8 [facility] [address] [place] [id number] [place] [address] 11082- 2240 Jul, [facility] [id number] [place] [address] 08543- 1873 Jun, Hypertension, benign I10 ; Hyperlipidemia, mixed E78.2 and Primary insomnia F51.01 [facility] [address] [place] [id number] [place] [address]- 5468 Jun, [facility] [address] [place] [id number] [place] [address]- 3850 Jun, Essential hypertension I10 [facility] [address] [place] [address]- 5740 May, [facility] [address] [place] [id number] [place] [address] 42793- 6339 Apr, [facility] [id number] [place] [address], [place] [address]- 0920 Mar, [facility] [address] [place] [id number] [place] [address] 16268- 9159 Mar, [facility] [address] [place] [id number] [place] [address], [place] [address]- 2137 February, [facility] [address] [place] [id number] [place] [address] 45924- 9902 February, [facility] [address] [address]- 8771 Jan, [facility] [address] [address]- 2253 Dec, [facility] [address] [address]- 8950 Dec, Hypertension, benign I10 and Abdominal aortic aneurysm (AAA ) without rupture I71.4 [facility] [address] [address]- 1525 Dec, [facility] [address] [place] [id number] [place] [address] 31730- 3084 Nov, Medicare annual wellness visit, initial Z00.00 [facility] [address] [address]- 4144 Nov, [facility] [address] [place] [id number] [address]- 8594 Nov, [facility] [address] [place] [address]- 0140 Oct, [facility] [address] [address]- 3464 Oct, [facility] [address] [address]- 4628 Oct, [facility] [address] [place] [id number] [address]- 2322 Oct, [facility] [id number] [place] [address] 84118- 8349 Sep, Medicare welcome exam Z00.00 ; Medicare annual wellness visit, initial Z00.00 and Medicare annual wellness visit, subsequent Z00.00 [facility] [address] [address]- 4136 Sep, [facility] [address] [address]- 4977 Sep, [facility] [address] [place] [id number] [place] [address] 45584- 4425 Aug, Trigger middle finger of right hand M65.331 [facility] [address] [address]- 9398 Aug, Hypertension, benign I10 [facility] [address] [address]- 9061 Aug, [facility] [address] [address]- 4517 Aug, [facility] [address] [place] [address]- 8590 Jul, [facility] [address] [address]- 1471 Jul, [facility] [address] [address]- 7795 Jul, Hypertension, essential I10 and Bradycardia R00.1 [facility] [address] [place] [id number] [place] [address] 20719- 2367 Jul, [facility] [address] [place] [id number] [place] [address] 18814- 2546 Jul, [facility] [address] [place] [id number] [place] [address] 08134- 7992 30 Jun, 2016 Essential hypertension I10 [facility] [address] [place] [id number] [place] [address] 85603- 6792 20 Jun, 2016 [facility] [address] [place] [id number] [place] [address] 52104- 7734 14 Jun, 2016 [facility] [address] [place] [id number] [place] [address] 82546- 7672 12 Jun, 2016 [facility] [address] [place] [id number] [place] [address] 78065- 6192 Jun, Abdominal aneurysm I71.4 ; Essential hypertension I10 ; Trigger middle finger of right hand M65.331 and Gastroesophageal reflux disease with esophagitis K21.0 [facility] [address] [place] [id number] [place] [address] 67237- 1614 May, [facility] [address] [place] [id number] [place] [address] 73386- 1976 May, [facility] [address] [place] [id number] [place] [address] 00077- 4231 Apr, [facility] [address] [place] [id number] [place] [address] 54122- 0397 Apr, [facility] [address] [place] [id number] [place] [address] 46188- 4481 Apr, [facility] [address] [place] [id number] [place] [address] 52218- 5666 Mar, [facility] [address] [place] [id number] [place] [address] 50233- 0612 Mar, [facility] [address] [place] [id number] [place] [address] 06942- 5152 February, [facility] [address] [place] [id number] [place] [address] 58326- 7609 February, [facility] [address] [place] [id number] [place] [address] 63661- 0688 February, Primary insomnia F51.01 [facility] [address] [place] [id number] [place] [address] 64220- 6807 February, Insomnia G47.00 [facility] [address] 69704- 5700 Jan, Insomnia G47.00 [facility] [address] [place] [id number] [place] [address] 68606- 1945 Jan, Insomnia G47.00 [facility] [address] [place] [id number] [place] [address] 35661- 5861 Jan, [address]47.[address] [facility] [address] [place] [id number] [place] [address] [id number] Dec, Dental examination Z01.20 and Caries K02.9 [facility] [address] [place] [id number] [place] [address] 13576- 9604 Dec, Insomnia G47.00 and Bronchitis J40 [facility] [address] [place] [id number] [place] [address] 57260- 9087 Nov, [facility] [address] [place] [id number] [place] [address] 35244- 0546 Oct, [facility] [address] 81545- 3350 Sep, [facility] [address] [place] [id number] [place] [address] 75765- 3442 Aug, [facility] [address] [place] [id number] [place] [address] 42276- 3018 Jul, [facility] [address] [facility] [id number] [address]- 5231 Jul, [facility] [address] [address]- [address] Jun, [facility] [address] [facility] [id number] [place] [address]- 1722 Jun, [facility] [address] [place] [id number] [place] [address] 22762- 3371 Jun, [facility] [id number] [place] [address] 472809- 2720 May, [facility] [id number] [place] [address] 77265- 7246 Apr, [facility] [id number] [place] [address] 006052- 4794 Apr, Cerumen impaction 380.4 [facility] [address] [address]- 7445 Apr, Cerumen impaction 380.4 [facility] [address] 6161 Mar, [facility] [address] 9078 February, [facility] [address] 8722 February, Abdominal aortic aneurysm greater than 39 mm in diameter 441.4 [facility] [address] [address]- 8294 February, [facility] [address] [address]- 3089 28 Jan, 2015 [facility] [address] [address]- 2112 14 Jan, 2015 [facility] [id number] [place] [address] 16673- 3363 Jan, [facility] [place] [facility] [address] [id number] [place] [address]- 1977 Dec, [facility] [place] [facility] [address] [id number] [place] [address]- 7996 Dec, [facility] [place] [facility] [address] [facility] [id number] [place] [address]- 9284 Dec, [facility] [place] [facility] [address] [id number] [place] [address]- 1292 Dec, [facility] [place] [facility] [address] [id number] [place] [address]- 3245 Nov, [facility] [place] [facility] [address] [facility] [id number] [place] [address]- 2698 Nov, [facility] [place] [facility] [address] [facility] [id number] [place] [address]- 1833 Oct, [facility] [place] [facility] [address] [id number] [place] [address]- 4910 Oct, [facility] [place] [facility] [address] [id number] [place] [address]- 1513 Sep, [facility] [place] [facility] [address] [id number] [place] [address]- 6694 Sep, [facility] [place] [facility] [address] [facility] [id number] [place] [address]- 0195 Sep, [facility] [place] [facility] [address] [id number] [place] [address]- 6154 Sep, [facility] [place] [facility] [address] [id number] [place] [address]- 9886 Sep, [facility] [place] [facility] [address] [facility] [id number] [place] [address]- 0751 Sep, [facility] [place] [facility] [address] [facility] [id number] [place] [address]- 8181 Aug, [facility] [place] [facility] [address] [id number] [place] [address]- 8612 Aug, [facility] [place] [facility] [address] [id number] [place] [address]- 5393 17 Jul, 2014 [facility] [place] [facility] [address] [id number] [place] [address]- 5086 17 Jul, 2014 [facility] [place] [facility] [address] [id number] [place] [address]- 1598 14 Jul, 2014 [facility] [place] [facility] [address] [id number] [place] [address]- 4249 14 Jul, 2014 [facility] [place] [facility] [address] [id number] [place] [address]- 2797 15 Jun, 2014 [facility] [place] [facility] [address] [id number] [place] [address]- 2833 Jun, [facility] [place] [facility] [address] [id number] [place] [address]- 0384 May, [facility] [place] [facility] [address] [id number] [place] [address]- 5304 May, [facility] [place] [facility] [address] [id number] [place] [address]- 8535 Apr, [facility] [place] [facility] [address] [id number] [place] [address]- 4759 Apr, [facility] [place] [facility] [address] [id number] [place] [address]- 8887 Mar, [facility] [place] [facility] [address] [id number] [place] [address]- 4652 Mar, [facility] [place] [facility] [address] [id number] [place] [address]- 4182 February, [facility] [place] [facility] [address] [id number] [place] [address]- 9826 February, [facility] [place] [facility] [address] [id number] [place] [address]- 2424 Jan, [facility] [place] [facility] [address] [id number] [place] [address]- 5230 15 Jan, 2014 [facility] [place] [facility] [address] [id number] [place] [address]- 9288 08 Jan, 2014 [facility] [place] [facility] [address] [id number] [place] [address]- 2859 08 Jan, 2014 [facility] [place] [facility] [address] [id number] [place] [address]- 9299 Jan, [facility] [place] [facility] [address] [id number] [place] [address]- 6849 Jan, [facility] [place] [facility] [address] [id number] [place] [address]- 6055 Dec, [facility] [place] [facility] [address] [id number] [place] [address]- 9037 Dec, [facility] [place] [facility] [address] [id number] [place] [address]- 0456 14 Nov, 2013 [facility] [place] [facility] [address] [id number] [place] [address]- 3584 14 Nov, 2013 [facility] [place] [facility] [address] [id number] [place] [address]- 5797 Nov, [facility] [place] [facility] [address] [id number] [place] [address]- 7220 Nov, [facility] [place] [facility] [address] [id number] [place] [address]- 4497 Oct, [facility] [place] [facility] [address] [id number] [place] [address]- 1794 Oct, [facility] [place] [facility] [address] [id number] [place] [address]- 4711 Oct, [facility] [place] [facility] [address] [id number] [place] [address]- 4305 Oct, [facility] [place] [facility] [address] [id number] [place] [address]- 1098 16 Sep, 2013 [facility] [address] [id number] [place] [address]- 3944 16 Sep, 2013 [facility] [place] [facility] [address] [id number] [place] [address]- 7833 10 Sep, 2013 [facility] [place] [facility] [address] [id number] [place] [address]- 5503 10 Sep, 2013 [facility] [place] [facility] [address] [id number] [place] [address]- 2185 18 Aug, 2013 [facility] [place] [facility] [address] [id number] [place] [address]- 3030 18 Aug, 2013 [facility] [place] [facility] [address] [id number] [place] [address]- 7549 13 Aug, 2013 [facility] [place] [facility] [address] [id number] [place] [address]- 4325 13 Aug, 2013 [facility] [place] [facility] [address] [id number] [place] [address]- 6031 08 Aug, 2013 [facility] [place] [facility] [address] [id number] [place] [address]- 3777 08 Aug, 2013 [facility] [place] [facility] [address] [facility] [id number] [place] [address]- 6698 18 Jul, 2013 [facility] [place] [facility] [address] [id number] [place] [address]- 9978 18 Jul, 2013 [facility] [place] [facility] [address] [id number] [address]- 0978 14 Jul, 2013 [facility] [place] [facility] [address] [id number] [place] [address]- 5459 14 Jul, 2013 [facility] [place] [facility] [address] [id number] [place] [address]- 0288 20 Jun, 2013 [facility] [place] [facility] [address] [id number] [address]- 4515 13 Jun, 2013 [facility] [place] [facility] [address] [id number] [place] [address]- 6814 May, [facility] [address] [id number] [place] [address]- 7128 May, [facility] [place] [facility] [address] [id number] [place] [address]- 8382 May, [facility] [address] [id number] [place] [address]- 1889 May, [facility] [address] [id number] [place] [address]- 3128 May, [facility] [place] [facility] [address] [id number] [place] [address]- 6962 Apr, [facility] [address] [id number] [place] [address]- 8016 Apr, [facility] [address] [id number] [place] [address]- 1986 Apr, [facility] [address] [id number] [place] [address]- 0284 Mar, [facility] [place] [facility] [address] [id number] [place] [address]- 9804 Mar, [facility] [place] [facility] [address] [id number] [place] [address]- 5723 February, [facility] [place] [facility] [address] [id number] [place] [address]- 3074 February, [facility] [place] [facility] [address] [id number] [place] [address]- 4480 24 Jan, 2013 [facility] [place] [facility] [address] [id number] [place] [address]- 6200 Jan, [facility] [place] [facility] [address] [id number] [place] [address]- 0010 Jan, [facility] [place] [facility] [address] [id number] [place] [address]- 3276 Jan, [facility] [address] [id number] [place] [address]- 4400 Dec, [facility] [place] [facility] [address] [id number] [place] [address]- 9496 Dec, [facility] [address] [id number] [place] [address]- 1646 Dec, [facility] [place] [facility] [address] [id number] [place] [address]- 6919 Nov, [facility] [address] [id number] [place] [address]- 5957 Nov, [facility] [address] [id number] [place] [address]- 7094 Oct, [facility] [address] [id number] [place] [address]- 2440 Oct, [facility] [address] [id number] [place] [address]- 7481 Sep, [facility] [address] [id number] [place] [address]- 9977 Sep, [facility] [place] [facility] [address] [id number] [place] [address]- 4597 Sep, [facility] [address] [id number] [place] [address] Sep, [facility] [place] [facility] [address] [id number] [place] [address] Sep, [facility] [place] [facility] [address] [id number] [place] [address] Sep, [facility] [place] [facility] [address] [id number] [place] [address] Sep, [facility] [place] [facility] [address] [id number] [place] [address] Aug, [facility] [place] [facility] [address] [id number] [place] [address] Aug, [facility] [address] [id number] [place] [address] Jun, [facility] [address] [id number] [place] [address] May, [facility] [address] [id number] [place] [address] May, [facility] [address] [id number] [place] [address] Apr, [facility] [address] [id number] [place] [address] Apr, [facility] [address] [id number] [place] [address] February, [facility] [address] [id number] [place] [address] Jan, [facility] [address] [id number] [place] [address] Jan, [facility] [address] [id number] [place] [address] Dec, [facility] [address] [id number] [place] [address] Oct, [facility] [address] [id number] [place] [address] Oct, [facility] [address] [id number] [place] [address] Sep, [facility] [address] [id number] [place] [address] Sep, [facility] [address] [id number] [place] [address] Sep, [facility] [address] [id number] [place] [address] Sep, IMMUNIZATIONS No Known Immunizations SOCIAL HISTORY Never Assessed REASON FOR VISIT med refill PLAN OF CARE VITAL SIGNS MEDICATIONS Medication Instructions Dosage Frequency Start Date End Date Duration Status Amlodipine Besylate 10 MG Orally Once a day 1 tablet 24h 30 Active RESULTS No Results PROCEDURES No Known [...]
--- OUTSIDE RECORDS SUMMARY | 2018-07-04 08:30 | XMS REPORT ---
Author Author BRENDA WETZEL Organization [facility] Address [address] [place] [address] Care Team Providers Care Hand Stitcher Name Role Phone BRENDA WETZEL Unavailable PROBLEMS Type Condition ICD9-CM Code JEL26-KA Code Onset Dates Condition Status SNOMED Code Problem Abdominal aneurysm I71.4 Active 180377473 Problem Anxiety F41.9 Active 56124758 Problem Essential hypertension I10 Active 47879290 Problem Abdominal aortic aneurysm (AAA) without rupture I71.4 Active 61810968 Problem Hypertension, benign I10 Active 99349154 Problem Hyperlipidemia, mixed E78.2 Active 578146917 Problem Primary insomnia F51.01 Active 0916022 ALLERGIES No Information ENCOUNTERS Encounter Location Date Diagnosis [place] [address] [address] Dec, [place] [address] 39135- 0474 Nov, Hypertension, benign I10 and Essential hypertension I10 [place] [address] [address]- 5131 Nov, [place] [address] 6[address]- 4666 Nov, Scalp lesion L98.9 ; Anxiety F41.9 ; Trigger finger, right middle finger M65.331 and Encounter for drug screening Z02.83 [place] [address] [address]- 5349 Nov, [place] [address] [address]- 7914 Oct, Essential hypertension I10 [place] [address] 37374- 9294 Oct, [facility] [address], [place] [address] Oct, [facility] [address] [place] [id number] [place] [address] 09572- 2045 Sep, [facility] [address], [place] [address] Aug, Cough R05 and Pneumonia of left lower lobe due to infectious organism J18.1 [facility] [id number] [place] [address] 42773- 9139 Aug, [facility] [id number] [place] [address] 19036- 4206 Aug, [facility] [id number] [place] [address] 58794- 0626 Aug, [facility] [address] [id number] [place] [address] 29813- 0530 Aug, [facility] [id number] [place] [address] 67333- 5820 Aug, [facility] [address] [address] [id number] [place] [address] 71392- 6041 Aug, Lung mass R91.8 [facility] [address] [place] [address] [id number] [place] [address] 24656- 2385 Aug, [facility] [address] [id number] [place] [address] 28750- 1526 Aug, Mass of lung parenchyma R91.8 [facility] [id number] [place] [address] 09561- 8180 Jul, [facility] [address] [id number] [place] [address] 72342- 4485 Jun, Hypertension, benign I10 ; Hyperlipidemia, mixed E78.2 and Primary insomnia F51.01 [facility] [id number] [place] [address] 42020- 6750 Jun, [facility] [address], [place] [address]- 9539 Jun, Essential hypertension I10 [facility] [address] [place] [address]- 8695 May, [facility] [address] [place] [address]- 3940 Apr, [facility] [address] [place] [address] [id number] [place] [address] 19263- 9706 Mar, [facility] [address] [place] [address] [id number] [place] [address], [place] [address]- 2607 Mar, [facility] [address] [address] [id number] [place] [address] 34898- 2159 February, [facility] [address] [place] [id number] [place] [address], [place] [address]- 5278 February, [facility] [address], [place] [address]- 7230 Jan, [facility] [address], [place] [address]- 8960 Dec, [facility] [address], [place] [address]- 1289 Dec, Hypertension, benign I10 and Abdominal aortic aneurysm (AAA ) without rupture I71.4 [facility] [address], [place] [address]- 5440 Dec, [facility] [address], [place] [address]- 59[address] Nov, Medicare annual wellness visit, initial Z00.00 [facility] [address], [place] [address]- 3699 Nov, [facility] [address], [place] [address]- 9632 Nov, [facility] [address] [place] [id number], [place] [address]- 6458 Oct, [facility] [address], [place] [address]- 5092 Oct, [facility] [address], [place] [address]- 1291 Oct, [facility] [address], [place] [address]- 6798 Oct, [facility] [address], [place] [address]- 3660 Sep, Medicare welcome exam Z00.00 ; Medicare annual wellness visit, initial Z00.00 and Medicare annual wellness visit, subsequent Z00.00 [facility] [address], [place] [address]- 3112 Sep, [facility] [address] [place] [id number] [place] [address] 13817- 1828 Sep, [facility] [address], [place] [address]- 0862 Aug, Trigger middle finger of right hand M65.331 [facility] [address] [place] [id number] [address]- 8197 Aug, Hypertension, benign I10 [facility] [address], [place] [address]- 6455 Aug, [facility] [address], [place] [address]- 5831 Aug, [facility] [address], [place] [address]- 3597 Jul, [facility] [address] [place] [id number] [place] [address] 78402- 0545 Jul, [facility] [address], [place] [address]- 5396 13 Jul, 2016 Hypertension, essential I10 and Bradycardia R00.1 [facility] [address] [place] [id number] [place] [address] 2546 Jul, [facility] [address] [place] [address] 2546 Jul, [facility] [address] [place] [address] 2546 30 Jun, 2016 Essential hypertension I10 [facility] [address] [place] [id number] [place] [address], [place] [address] 2546 20 Jun, 2016 [facility] [address] [place] [address] 2546 14 Jun, 2016 [facility] [address] [place] [id number] [place] [address], [place] [address]- 4236 12 Jun, 2016 [facility] [id number] [place] [address], [place] [address] 2542 Jun, Abdominal aneurysm I71.4 ; Essential hypertension I10 ; Trigger middle finger of right hand M65.331 and Gastroesophageal reflux disease with esophagitis K21.0 [facility] [address] [place] [address]- 7506 May, [facility] [address] [place] [address]- 4067 May, [facility] [address], [place] [address]- 7151 Apr, [facility] [address], [place] [address]- 4450 Apr, [facility] [address], [place] [address] 2541 Apr, [facility] [id number] [place] [address], [place] [address] 2546 Mar, [facility] [address], [place] [address]- 2546 Mar, [facility] [id number] [place] [address] 24579- 3341 February, [facility] [address] [place] [id number] [place] [address] 70457- 4405 February, [facility] [address] 29546- 5804 February, Primary insomnia F51.01 [facility] [address] [place] [id number] [place] [address] 55106- 8833 February, Insomnia G47.00 [facility] [address] 27842- 6702 Jan, Insomnia G47.00 [facility] [address] 40643- 6955 Jan, Insomnia G47.00 [facility] [address] [place] [id number] [place] [address] 81290- 7504 Jan, Insomnia G47.00 [facility] [address] [place] [id number] [place] [address] [id number] Dec, Dental examination Z01.20 and Caries K02.9 [facility] [address] [place] [id number] [place] [address] 50006- 7597 Dec, Insomnia G47.00 and Bronchitis J40 [facility] [address] [place] [id number] [place] [address] 32074- 2431 Nov, [facility] [address] [place] [id number] [place] [address] 56842- 2864 Oct, [facility] [address] [place] [id number] [place] [address] 60175- 5316 Sep, [facility] [address] 21784- 0497 Aug, [facility] [address] [place] [id number] [place] [address] 24796- 7106 Jul, [facility] [address] [place] [id number] [place] [address] 72935- 4060 Jul, [facility] [address] [facility] [id number], [place] [address]- 9896 Jun, [facility] [address] [facility] [id number], [place] [address]- 2664 Jun, [facility] [address] [facility] [id number], [place] [address]- 2647 Jun, [facility] [address] [facility] [id number] [place] [address] 16636- 7304 May, [facility] [address] [facility] [id number], [place] [address]- 2591 Apr, [facility] [address], [place] [address]- 6308 Apr, Cerumen impaction 380.4 [facility] [id number] [place] [address] 30013- 1956 Apr, Cerumen impaction 380.4 [facility] [address], [place] [address]- 2522 Mar, [facility] [address], [place] [address]- 2614 February, [facility] [address] 4856 February, Abdominal aortic aneurysm greater than 39 mm in diameter 441.4 [facility] [address], [place] [address]- 1832 February, [facility] [address], [place] [address]- 0011 Jan, [facility] [address], [place] [address]- 4643 14 Jan, 2015 [facility] [address], [place] [address]- 6571 Jan, [facility] [address], [place] [address]- 4908 Dec, 2014 [facility] [place] [facility] [address] [id number] [place] [address]- 2086 Dec, [facility] [place] [facility] [address] [id number] [place] [address]- 2725 Dec, [facility] [place] [facility] [address] [facility] [id number] [place] [address]- 7594 Dec, [facility] [place] [facility] [address] [id number] [place] [address]- 4515 Nov, [facility] [place] [facility] [address] [id number] [place] [address]- 1810 Nov, [facility] [place] [facility] [address] [facility] [id number] [place] [address]- 1133 Oct, [facility] [place] [facility] [address] [facility] [id number] [place] [address]- 1505 Oct, [facility] [place] [facility] [address] [id number] [place] [address]- 7620 Sep, [facility] [place] [facility] [address] [id number] [place] 9625 Sep, [facility] [place] [facility] [address] [id number] [place] [address]- 1786 Sep, [facility] [place] [facility] [address] [id number] [place] [address]- 9968 Sep, [facility] [place] [facility] [address] [id number], [place] [address]- 7190 Sep, [facility] [place] [facility] [address] [id number] [place] [address]- 6271 Sep, [facility] [place] [facility] [address] [facility] [id number] [place] [address]- 8102 Aug, [facility] [place] [facility] [address] [facility] [id number] [place] [address]- 8215 Aug, [facility] [place] [facility] [address] [id number] [place] [address]- 1431 17 Jul, 2014 [facility] [place] [facility] [address] [id number] [place] [address]- 5681 17 Jul, 2014 [facility] [place] [facility] [address] [id number] [place] [address]- 1595 14 Jul, 2014 [facility] [place] [facility] [address] [id number] [place] [address]- 8676 14 Jul, 2014 [facility] [place] [facility] [address] [id number] [place] [address]- 6630 15 Jun, 2014 [facility] [place] [facility] [address] [id number] [place] [address]- 4879 15 Jun, 2014 [facility] [place] [facility] [address] [id number] [place] [address]- 0547 18 May, 2014 [facility] [place] [facility] [address] [id number] [place] [address]- 9324 May, [facility] [place] [facility] [address] [id number] [place] [address]- 5996 Apr, [facility] [place] [facility] [address] [id number] [place] [address]- 9739 Apr, [facility] [place] [facility] [address] [id number] [place] [address]- 1688 Mar, [facility] [place] [facility] [address] [id number] [place] [address]- 8100 Mar, [facility] [place] [facility] [address] [id number] [place] [address]- 6253 February, [facility] [place] [facility] [address] [id number] [place] [address]- 3298 February, [facility] [place] [facility] [address] [id number] [place] [address]- 2049 Jan, [facility] [place] [facility] [address] [id number] [place] [address]- 5717 Jan, [facility] [place] [facility] [address] [id number] [place] [address]- 2469 08 Jan, 2014 [facility] [place] [facility] [address] [id number] [place] [address]- 0724 08 Jan, 2014 [facility] [place] [facility] [address] [id number] [place] [address]- 0961 Jan, [facility] [place] [facility] [address] [id number] [place] [address]- 2298 Jan, [facility] [place] [facility] [address] [id number] [place] [address]- 1135 Dec, [facility] [place] [facility] [address] [id number] [place] [address]- 7945 Dec, [facility] [place] [facility] [address] [id number] [place] [address]- 8445 14 Nov, 2013 [facility] [place] [facility] [address] [id number] [place] [address]- 8294 Nov, [facility] [place] [facility] [address] [id number] [place] [address]- 7939 Nov, [facility] [place] [facility] [address] [id number] [place] [address]- 2558 Nov, [facility] [place] [facility] [address] [id number] [place] [address]- 6086 Oct, [facility] [place] [facility] [address] [id number], [place] [address]- 9150 Oct, [facility] [place] [facility] [address] [id number] [place] [address]- 9609 Oct, [facility] [place] [facility] [address] [id number] [place] [address]- 9352 Oct, [facility] [place] [facility] [address] [id number] [place] [address]- 2840 16 Sep, 2013 [facility] [place] [facility] [address] [id number] [place] [address]- 7435 16 Sep, 2013 [facility] [address] [id number] [place] [address]- 4294 10 Sep, 2013 [facility] [place] [facility] [address] [id number] [place] [address]- 7230 10 Sep, 2013 [facility] [place] [facility] [address] [id number] [place] [address]- 0298 18 Aug, 2013 [facility] [place] [facility] [address] [id number] [place] [address]- 7158 18 Aug, 2013 [facility] [place] [facility] [address] [id number] [place] [address]- 1854 13 Aug, 2013 [facility] [place] [facility] [address] [id number] [place] [address]- 4097 13 Aug, 2013 [facility] [place] [facility] [address] [id number] [place] [address]- 7921 08 Aug, 2013 [facility] [place] [facility] [address] [id number] [place] [address]- 1299 08 Aug, 2013 [facility] [place] [facility] [address] [id number] [place] [address]- 9805 18 Jul, 2013 [facility] [place] [facility] [address] [id number] [place] [address]- 0422 18 Jul, 2013 [facility] [place] [facility] [address] [id number] [place] [address]- 8109 14 Jul, 2013 [facility] [place] [facility] [address] [id number] [place] [address]- 4142 14 Jul, 2013 [facility] [place] [facility] [address] [id number] [place] [address]- 7292 20 Jun, 2013 [facility] [place] [facility] [address] [id number] [place] [address]- 2828 13 Jun, 2013 [facility] [place] [facility] [address] [id number], [place] [address]- 4932 May, [facility] [place] [facility] [address] [id number] [place] [address]- 8679 May, [facility] [address] [id number] [place] [address]- 1150 May, [facility] [place] [facility] [address] [id number] [place] [address]- 7605 May, [facility] [place] [facility] [address] [id number] [place] [address]- 8815 May, [facility] [address] [id number] [place] [address]- 7322 Apr, [facility] [place] [facility] [address] [id number] [place] [address]- 1900 Apr, [facility] [address] [id number] [place] [address]- 5122 Apr, [facility] [address] [id number] [place] [address]- 6536 Mar, [facility] [place] [facility] [address] [id number] [place] [address]- 0062 Mar, [facility] [place] [facility] [address] [id number] [place] [address]- 3048 February, [facility] [place] [facility] [address] [id number] [place] [address]- 1613 February, [facility] [place] [facility] [address] [id number] [place] [address]- 7487 24 Jan, 2013 [facility] [place] [facility] [address] [id number] [place] [address]- 8175 Jan, [facility] [place] [facility] [address] [id number] [place] [address]- 7289 Jan, [facility] [place] [facility] [address] [id number] [place] [address]- 6882 Jan, [facility] [place] [facility] [address] [id number] [place] [address]- 0886 Dec, [facility] [address] [id number] [place] [address]- 3938 Dec, [facility] [place] [facility] [address] [id number] [place] [address]- 2836 Dec, [facility] [place] [facility] [address] [id number] [place] [address]- 5466 Nov, [facility] [place] [facility] [address] [id number] [place] [address]- 1457 Nov, [facility] [address] [id number] [place] [address]- 6110 Oct, [facility] [place] [facility] [address] [id number] [place] [address]- 2965 Oct, [facility] [address] [id number] [place] [address]- 2899 Sep, [facility] [place] [facility] [address] [id number] [place] [address]- 1264 Sep, [facility] [address] [id number] [place] [address]- 6599 Sep, [facility] [place] [facility] [address] [id number] [place] [address]- 8492 Sep, [facility] [place] [facility] [address] [id number] [place] [address]- 0778 Sep, [facility] [place] [facility] [address] [id number] [place] [address]- 0985 Sep, [facility] [place] [facility] [address] [id number] [place] 6918 Sep, [facility] [place] [facility] [address] [id number] [place]004 Aug, [facility] [place] [facility] [address] [id number] [place] [address]40 Aug, [facility] [place] [facility] [address] [facility] [id number], [place] [address]- 2546 Jun, [facility] [address] [facility] [id number], [place] [address]- 6846 May, [facility] [address] [facility] [id number], [place] [address] May, [facility] [address] [facility] [id number], [place] [address] Apr, [facility] [address] [facility] [id number], [place] [address] Apr, [facility] [id number] [address] February, [facility] [address] [facility] [id number], [place] [address] Jan, [facility] [id number], [place] [address] Jan, [facility] [address] [id number], [place] [address] Dec, [facility] [id number], [place] [address] Oct, [facility] [id number], [place] [address] Oct, [facility] [id number], [place] [address] Sep, [facility] [address] [facility] [id number], [place] [address] Sep, [facility] [id number], [place] [address] Sep, [facility] [address] [id number], [place] [address] Sep, IMMUNIZATIONS No Known Immunizations SOCIAL HISTORY Never Assessed REASON FOR VISIT Controlled Med Refill 05/03/17 PLAN OF CARE VITAL SIGNS MEDICATIONS Medication Instructions Dosage Frequency Start Date End Date Duration Status Ativan 1 MG Orally twice a day 1 tablet as needed 12h Jan, 28 days Active [place] 7.5-325 MG Orally every 6 hrs 1 tablet as needed 6h Apr, 28 days Active RESULTS No Results PROCEDURES [...]
--- OUTSIDE RECORDS SUMMARY | 2018-07-04 08:31 | XMS REPORT ---
Author Author BRENDA WETZEL Organization [facility] Address [address] [place] [address] Care Team Providers Care [facility] Social Worker Name Role Phone BRENDA WETZEL Unavailable PROBLEMS Type Condition ICD9-CM Code JVQ87-EM Code Onset Dates Condition Status SNOMED Code Problem Abdominal aneurysm I71.4 Active 230223192 Problem Anxiety F41.9 Active 79280865 Problem Essential hypertension I10 Active 47004270 Problem Abdominal aortic aneurysm (AAA) without rupture I71.4 Active 88717142 Problem Hypertension, benign I10 Active 16465099 Problem Hyperlipidemia, mixed E78.2 Active 679954057 Problem Primary insomnia F51.01 Active 7808564 ALLERGIES No Information ENCOUNTERS Encounter Location Date Diagnosis [place] [address] [address] Dec, [place] [address] [address]- 4214 Nov, Hypertension, benign I10 and Essential hypertension I10 [place] [address] [address]- 0572 Nov, [place] [address] 34353- 2299 Nov, Scalp lesion L98.9 ; Anxiety F41.9 ; Trigger finger, right middle finger M65.331 and Encounter for drug screening Z02.83 [place] [address] [address]80- 2271 Nov, [place] [address] [address]48- 1028 Oct, Essential hypertension I10 [place] [address] 36643- 8391 Oct, [facility] [address], [place] [address] 3251 Oct, [facility] [address] [place] [id number] [place] [address]23- 8728 Sep, [facility] [address], [place] [address] Aug, Cough R05 and Pneumonia of left lower lobe due to infectious organism J18.1 [facility] [id number] [place] [address] 93494- 2601 Aug, [facility] [address] [place] [id number] [place] [address] 42252- 1744 Aug, [facility] [address] [place] [id number] [place] [address] 93325- 4550 Aug, [facility] [address] [place] [id number] [place] [address] 92212- 5791 Aug, [facility] [id number] [place] [address] 79849- 7592 Aug, [facility] [address] [place] [id number] [place] [address] 29966- 5180 Aug, Lung mass R91.8 [facility] [address] [place] [id number] [place] [address] 09778- 3709 Aug, [facility] [address] [place] [id number] [place] [address] 76227- 9899 Aug, Mass of lung parenchyma R91.8 [facility] [id number] [place] [address] 01747- 8165 Jul, [facility] [address] [place] [id number] [place] [address] 66439- 3108 Jun, Hypertension, benign I10 ; Hyperlipidemia, mixed E78.2 and Primary insomnia F51.01 [facility] [id number] [place] [address] 19733- 6830 Jun, [facility] [address], [place] [address]- 9745 Jun, Essential hypertension I10 [facility] [id number] [place] [address]- 9935 May, [facility] [id number] [place] [address]- 8374 Apr, [facility] [address] [place] [id number] [place] [address] 09475- 8055 Mar, [facility] [address] [place] [id number] [place] [address], [place] [address]- 3410 Mar, [facility] [address] [place] [id number] [place] [address] 80109- 7354 February, [facility] [address] [place] [id number] [place] [address], [place] [address]- 9087 February, [facility] [address], [place] [address]- 6613 Jan, [facility] [address], [place] [address]- 1459 Dec, [facility] [address], [place] [address]- 4685 Dec, Hypertension, benign I10 and Abdominal aortic aneurysm (AAA ) without rupture I71.4 [facility] [address], [place] [address]- 9943 Dec, [facility] [address], [place] [address]- 8025 Nov, Medicare annual wellness visit, initial Z00.00 [facility] [address], [place] [address]- 0651 Nov, [facility] [address], [place] [address]- 2813 Nov, [facility] [address] [place] [id number], [place] [address]- 5829 Oct, [facility] [address], [place] [address]- 1192 Oct, [facility] [address], [place] [address]- 8921 Oct, [facility] [address], [place] [address]- 5180 Oct, [facility] [address], [place] [address]- 7624 Sep, Medicare welcome exam Z00.00 ; Medicare annual wellness visit, initial Z00.00 and Medicare annual wellness visit, subsequent Z00.00 [facility] [address], [place] [address]- 4850 Sep, [facility] [address] [place] [id number] [place] [address] 80260- 0424 Sep, [facility] [address], [place] [address]- 3622 Aug, Trigger middle finger of right hand M65.331 [facility] [address] [place] [id number], [place] [address]- 6339 Aug, Hypertension, benign I10 [facility] [address], [place] [address]- 7483 Aug, [facility] [address], [place] [address]- 2117 Aug, [facility] [address], [place] [address]- 0882 Jul, [facility] [address] [place] [id number] [place] [address] 17413- 6535 Jul, [facility] [address], [place] [address]- 3257 13 Jul, 2016 Hypertension, essential I10 and Bradycardia R00.1 [facility] [address] [place] [id number] [place] [address] 2546 Jul, [facility] [id number] [place] [address] 2546 Jul, [facility] [id number] [place] [address] 2546 30 Jun, 2016 Essential hypertension I10 [facility] [address] [place] [id number] [place] [address], [place] [address] 2546 20 Jun, 2016 [facility] [id number] [address] 2546 14 Jun, 2016 [facility] [address] [place] [id number] [place] [address], [place] [address]- 9126 12 Jun, 2016 [facility] [id number] [place] [address], [place] [address] 2549 Jun, Abdominal aneurysm I71.4 ; Essential hypertension I10 ; Trigger middle finger of right hand M65.331 and Gastroesophageal reflux disease with esophagitis K21.0 [facility] [id number] [place] [address]- 7224 May, [facility] [id number] [place] [address]- 3831 May, [facility] [address], [place] [address]- 3400 Apr, [facility] [address], [place] [address]- 4138 Apr, [facility] [address], [place] [address] 2541 Apr, [facility] [id number] [place] [address], [place] [address] 2546 Mar, [facility] [address], [place] [address]- 2546 Mar, [facility] [id number] [place] [address] 23860- 4178 February, [facility] [address] [place] [id number] [place] [address] 09896- 7441 February, [facility] [address] 74039- 6589 February, Primary insomnia F51.01 [facility] [address] [place] [id number] [place] [address] 78259- 3810 February, Insomnia G47.00 [facility] [address] 96384- 1565 Jan, Insomnia G47.00 [facility] [address] 04008- 1574 Jan, Insomnia G47.00 [facility] [address] [place] [id number] [place] [address] 41745- 2290 Jan, Insomnia G47.00 [facility] [address] [place] [id number] [place] [address] [id number] Dec, Dental examination Z01.20 and Caries K02.9 [facility] [address] [place] [id number] [place] [address] 27853- 4961 Dec, Insomnia G47.00 and Bronchitis J40 [facility] [address] [place] [id number] [place] [address] 76668- 1131 Nov, [facility] [address] [place] [id number] [place] [address] 85129- 4395 Oct, [facility] [address] [place] [id number] [place] [address] 46329- 2617 Sep, [facility] [address] 84894- 3682 Aug, [facility] [address] [place] [id number] [place] [address] 21142- 4950 Jul, [facility] [address] [place] [id number] [place] [address] 21707- 8801 Jul, [facility] [address] [facility] [id number], [place] [address]- 5830 Jun, [facility] [address] [facility] [id number], [place] [address]- 8559 Jun, [facility] [address] [facility] [id number], [place] [address]- 8477 Jun, [facility] [address] [facility] [id number] [place] [address] 20635- 1190 May, [facility] [address] [facility] [id number], [place] [address]- 1416 Apr, [facility] [address], [place] [address]- 4042 Apr, Cerumen impaction 380.4 [facility] [id number] [place] [address] 22732- 5723 Apr, Cerumen impaction 380.4 [facility] [address], [place] [address]- 6900 Mar, [facility] [address], [place] [address]- 1109 February, [facility] [address]- 1268 February, Abdominal aortic aneurysm greater than 39 mm in diameter 441.4 [facility] [address], [place] [address]- 9790 February, [facility] [address], [place] [address]- 7650 Jan, [facility] [address], [place] [address]- 5914 14 Jan, 2015 [facility] [address], [place] [address]- 5626 Jan, [facility] [address], [place] [address]- 4501 Dec, 2014 [facility] [place] [facility] [address] [id number] [place] [address]- 2200 Dec, [facility] [place] [facility] [address] [id number] [place] [address]- 2677 Dec, [facility] [place] [facility] [address] [facility] [id number] [place] [address]- 7197 Dec, [facility] [place] [facility] [address] [id number] [place] [address]- 5314 Nov, [facility] [place] [facility] [address] [id number] [place] [address]- 0559 Nov, [facility] [place] [facility] [address] [facility] [id number] [place] [address]- 7771 Oct, [facility] [place] [facility] [address] [facility] [id number] [place] [address]- 8646 Oct, [facility] [place] [facility] [address] [id number] [place] [address]- 4063 Sep, [facility] [place] [facility] [address] [id number] [place] 8539 Sep, [facility] [place] [facility] [address] [id number] [place] [address]- 1337 Sep, [facility] [place] [facility] [address] [id number] [place] [address]- 7796 Sep, [facility] [place] [facility] [address] [id number], [place] [address]- 7012 Sep, [facility] [place] [facility] [address] [id number] [place] [address]- 1394 Sep, [facility] [place] [facility] [address] [facility] [id number] [place] [address]- 1856 Aug, [facility] [place] [facility] [address] [facility] [id number] [place] [address]- 2014 Aug, [facility] [place] [facility] [address] [id number] [place] [address]- 6865 17 Jul, 2014 [facility] [place] [facility] [address] [id number] [place] [address]- 8192 17 Jul, 2014 [facility] [place] [facility] [address] [id number] [place] [address]- 5119 14 Jul, 2014 [facility] [place] [facility] [address] [id number] [place] [address]- 7876 14 Jul, 2014 [facility] [place] [facility] [address] [id number] [place] [address]- 6400 15 Jun, 2014 [facility] [place] [facility] [address] [id number] [place] [address]- 9032 15 Jun, 2014 [facility] [place] [facility] [address] [id number] [place] [address]- 3710 18 May, 2014 [facility] [place] [facility] [address] [id number] [place] [address]- 8631 May, [facility] [place] [facility] [address] [id number] [place] [address]- 1749 Apr, [facility] [place] [facility] [address] [id number] [place] [address]- 3674 Apr, [facility] [place] [facility] [address] [id number] [place] [address]- 5503 Mar, [facility] [place] [facility] [address] [id number] [place] [address]- 9288 Mar, [facility] [place] [facility] [address] [id number] [place] [address]- 0974 February, [facility] [place] [facility] [address] [id number] [place] [address]- 7434 February, [facility] [place] [facility] [address] [id number] [place] [address]- 1607 Jan, [facility] [place] [facility] [address] [id number] [place] [address]- 0539 Jan, [facility] [place] [facility] [address] [id number] [place] [address]- 6812 08 Jan, 2014 [facility] [place] [facility] [address] [id number] [place] [address]- 2976 08 Jan, 2014 [facility] [place] [facility] [address] [id number] [place] [address]- 1284 Jan, [facility] [place] [facility] [address] [id number] [place] [address]- 7468 Jan, [facility] [place] [facility] [address] [id number] [place] [address]- 4513 Dec, [facility] [place] [facility] [address] [id number] [place] [address]- 2051 Dec, [facility] [place] [facility] [address] [id number] [place] [address]- 1603 14 Nov, 2013 [facility] [place] [facility] [address] [id number] [place] [address]- 2393 Nov, [facility] [place] [facility] [address] [id number] [place] [address]- 1287 Nov, [facility] [place] [facility] [address] [id number] [place] [address]- 0640 Nov, [facility] [place] [facility] [address] [id number] [place] [address]- 6410 Oct, [facility] [place] [facility] [address] [id number], [place] [address]- 0100 Oct, [facility] [place] [facility] [address] [id number] [place] [address]- 5830 Oct, [facility] [place] [facility] [address] [id number] [place] [address]- 3438 Oct, [facility] [place] [facility] [address] [id number] [place] [address]- 4175 16 Sep, 2013 [facility] [place] [facility] [address] [id number] [place] [address]- 2288 16 Sep, 2013 [facility] [address] [id number] [place] [address]- 9829 10 Sep, 2013 [facility] [place] [facility] [address] [id number] [place] [address]- 9280 10 Sep, 2013 [facility] [place] [facility] [address] [id number] [place] [address]- 1557 18 Aug, 2013 [facility] [place] [facility] [address] [id number] [place] [address]- 6567 18 Aug, 2013 [facility] [place] [facility] [address] [id number] [place] [address]- 2314 13 Aug, 2013 [facility] [place] [facility] [address] [id number] [place] [address]- 1221 13 Aug, 2013 [facility] [place] [facility] [address] [id number] [place] [address]- 8365 08 Aug, 2013 [facility] [place] [facility] [address] [id number] [place] [address]- 8762 08 Aug, 2013 [facility] [place] [facility] [address] [id number] [place] [address]- 0955 18 Jul, 2013 [facility] [place] [facility] [address] [id number] [place] [address]- 0294 18 Jul, 2013 [facility] [place] [facility] [address] [id number] [place] [address]- 5351 14 Jul, 2013 [facility] [place] [facility] [address] [id number] [place] [address]- 2384 14 Jul, 2013 [facility] [place] [facility] [address] [id number] [place] [address]- 9626 20 Jun, 2013 [facility] [place] [facility] [address] [id number] [place] [address]- 0184 13 Jun, 2013 [facility] [place] [facility] [address] [id number], [place] [address]- 2417 May, [facility] [place] [facility] [address] [id number] [place] [address]- 8242 May, [facility] [address] [id number] [place] [address]- 8275 May, [facility] [place] [facility] [address] [id number] [place] [address]- 1001 May, [facility] [place] [facility] [address] [id number] [place] [address]- 8713 May, [facility] [address] [id number] [place] [address]- 2529 Apr, [facility] [place] [facility] [address] [id number] [place] [address]- 5012 Apr, [facility] [address] [id number] [place] [address]- 9827 Apr, [facility] [address] [id number] [place] [address]- 6791 Mar, [facility] [place] [facility] [address] [id number] [place] [address]- 2181 Mar, [facility] [place] [facility] [address] [id number] [place] [address]- 4845 February, [facility] [place] [facility] [address] [id number] [place] [address]- 4040 February, [facility] [place] [facility] [address] [id number] [place] [address]- 3889 24 Jan, 2013 [facility] [place] [facility] [address] [id number] [place] [address]- 9005 Jan, [facility] [place] [facility] [address] [id number] [place] [address]- 5165 Jan, [facility] [place] [facility] [address] [id number] [place] [address]- 1501 Jan, [facility] [place] [facility] [address] [id number] [place] [address]- 3666 Dec, [facility] [address] [id number] [place] [address]- 5884 Dec, [facility] [place] [facility] [address] [id number] [place] [address]- 5026 Dec, [facility] [place] [facility] [address] [id number] [place] [address]- 5716 Nov, [facility] [place] [facility] [address] [id number] [place] [address]- 7822 Nov, [facility] [address] [id number] [place] [address]- 7991 Oct, [facility] [place] [facility] [address] [id number] [place] [address]- 3110 Oct, [facility] [address] [id number] [place] [address]- 8973 Sep, [facility] [place] [facility] [address] [id number] [place] [address]- 7288 Sep, [facility] [address] [id number] [place] [address]- 2396 Sep, [facility] [place] [facility] [address] [id number] [place] [address]- 4432 Sep, [facility] [place] [facility] [address] [id number] [place] [address]- 8155 Sep, [facility] [place] [facility] [address] [id number] [place] [address]- 1091 Sep, [facility] [place] [facility] [address] [id number] [place] 7016 Sep, [facility] [place] [facility] [address] [id number] [place] 2885 Aug, [facility] [place] [facility] [address] [id number] [place] 5431 Aug, [facility] [place] [facility] [address] [facility] [id number], [place] [address]- 2546 Jun, [facility] [address] [facility] [id number], [place] [address]- 6576 May, [facility] [address] [facility] [id number], [place] [address] May, [facility] [address] [facility] [id number], [place] [address] Apr, [facility] [address] [facility] [id number], [place] [address] Apr, [facility] [id number], [place] [address] February, [facility] [address] [facility] [id number], [place] [address] Jan, [facility] [id number], [place] [address] Jan, [facility] [id number], [place] [address] Dec, [facility] [id number], [place] [address] Oct, [facility] [id number], [place] [address] Oct, [facility] [id number], [place] [address] Sep, [facility] [address] [facility] [id number], [place] [address] Sep, [facility] [id number], [place] [address] Sep, [facility] [id number], [place] [address] Sep, IMMUNIZATIONS No Known Immunizations SOCIAL HISTORY Never Assessed REASON FOR VISIT Controlled Med Refill 04/05/17 PLAN OF CARE VITAL SIGNS MEDICATIONS Medication Instructions Dosage Frequency Start Date End Date Duration Status Ativan 1 MG Orally twice a day 1 tablet as needed 12h 04 Jan, 2016 28 days Active RESULTS No Results PROCEDURES [...]
--- OUTSIDE RECORDS SUMMARY | 2018-07-04 08:32 | XMS REPORT ---
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 Name Role Phone BRENDA WETZEL Unavailable PROBLEMS Type Condition ICD9-CM Code CZH00-ZK Code Onset Dates Condition Status SNOMED Code Problem Abdominal aneurysm I71.4 Active 089630388 Problem Anxiety F41.9 Active 23891523 Problem Essential hypertension I10 Active 13272226 Problem Abdominal aortic aneurysm (AAA) without rupture I71.4 Active 61448130 Problem Hypertension, benign I10 Active 75186080 Problem Hyperlipidemia, mixed E78.2 Active 281636021 Problem Primary insomnia F51.01 Active 5135828 ALLERGIES No Information ENCOUNTERS Encounter Location Date Diagnosis [place] [address] [address] Dec, [place] [address] [address] Nov, Hypertension, benign I10 and Essential hypertension I10 [place] [address] [address]- [address] Nov, [place] [address] [address]- 3534 Nov, Scalp lesion L98.9 ; Anxiety F41.9 ; Trigger finger, right middle finger M65.331 and Encounter for drug screening Z02.83 [place] [address] [address]- [address]646 Nov, [place] [address] [address]- 8385 Oct, Essential hypertension I10 [place] [address] [address]- [address] Oct, [facility] [address] [address] Oct, [facility] [address] [place] [id number] [place] [address] 07936- 9205 Sep, [facility] [address] [address] Aug, Cough R05 and Pneumonia of left lower lobe due to infectious organism J18.1 [facility] [id number] [place] [address] 59300- 5094 Aug, [facility] [address] [place] [id number] [place] [address] 87294- 6619 Aug, [facility] [address] [place] [id number] [place] [address] 98180- 8078 Aug, [facility] [address] [place] [id number] [place] [address] 10575- 3289 Aug, [facility] [id number] [place] [address] 93538- 3212 Aug, [facility] [address] [place] [id number] [place] [address] 84467- 0591 Aug, Lung mass R91.8 [facility] [address] [place] [id number] [place] [address] 38852- 4147 Aug, [facility] [address] [place] [id number] [place] [address] 94721- 4541 Aug, Mass of lung parenchyma R91.8 [facility] [id number] [place] [address] 67993- 7232 Jul, [facility] [address] [place] [id number] [place] [address] 81517- 6250 Jun, Hypertension, benign I10 ; Hyperlipidemia, mixed E78.2 and Primary insomnia F51.01 [facility] [id number] [place] [address] 17041- 0799 Jun, [facility] [address] [address]- 1349 Jun, Essential hypertension I10 [facility] [address] [place] [address] May, [facility] [address] [place] [address]- 1444 Apr, [facility] [address] [place] [id number] [place] [address] 08112- 3156 Mar, [facility] [address] [place] [id number] [place] [address], [place] [address]- 8563 Mar, [facility] [address] [place] [id number] [place] [address] 16945- 3841 February, [facility] [address] [place] [id number] [place] [address], [place] [address]- 6890 February, [facility] [address] [address]- 4602 Jan, [facility] [address] [address]- 0454 Dec, [facility] [address] [address]- 9550 Dec, Hypertension, benign I10 and Abdominal aortic aneurysm (AAA ) without rupture I71.4 [facility] [address] [address]- 8456 Dec, [facility] [address] [address]- 3107 Nov, Medicare annual wellness visit, initial Z00.00 [facility] [address], [place] [address]- 6811 Nov, [facility] [address] [address]- 2008 Nov, [facility] [address] [id number] [address]- 9317 Oct, [facility] [address] [address]- 0982 Oct, [facility] [address] [address]- 9599 Oct, [facility] [address] [address]- 2988 Oct, [facility] [address] [address]- 1643 Sep, Medicare welcome exam Z00.00 ; Medicare annual wellness visit, initial Z00.00 and Medicare annual wellness visit, subsequent Z00.00 [facility] [address] [address]- 4883 Sep, [facility] [address] [place] [id number] [place] [address] 85867- 4531 Sep, [facility] [address] [address]- 9021 Aug, Trigger middle finger of right hand M65.331 [facility] [address] [place] [id number] [address]- 0725 Aug, Hypertension, benign I10 [facility] [address] [address]- 0962 Aug, [facility] [address] [address]- 1883 Aug, [facility] [address] [address]- 5157 Jul, [facility] [address] [place] [id number] [place] [address] 89694- 1552 Jul, [facility] [address] [address]- 1252 13 Jul, 2016 Hypertension, essential I10 and Bradycardia R00.1 [facility] [address] [place] [id number] [place] [address] 2546 Jul, [facility] [address] [place] [address] 2546 Jul, [facility] [address] [place] [address] 2546 30 Jun, 2016 Essential hypertension I10 [facility] [address] [place] [id number] [place] [address], [place] [address] 2546 20 Jun, 2016 [facility] [address] [place] [address] 2546 14 Jun, 2016 [facility] [address] [place] [id number] [place] [address], [place] [address]- 1736 12 Jun, 2016 [facility] [id number] [place] [address], [place] [address] 2543 Jun, Abdominal aneurysm I71.4 ; Essential hypertension I10 ; Trigger middle finger of right hand M65.331 and Gastroesophageal reflux disease with esophagitis K21.0 [facility] [address] [place] [address]- 0799 May, [facility] [address] [place] [address]- 3038 May, [facility] [address] [address]- 5861 Apr, [facility] [address] [address]- 9695 Apr, [facility] [address] [address] 2547 Apr, [facility] [id number] [place] [address], [place] [address] 2546 Mar, [facility] [address] [address]- 2546 Mar, [facility] [id number] [place] [address] 37618- 5028 February, [facility] [address] [place] [id number] [place] [address] 36211- 2772 February, [facility] [address] 98886- 4920 February, Primary insomnia F51.01 [facility] [address] [place] [id number] [place] [address] 70553- 0792 February, Insomnia G47.00 [facility] [address] 94853- 2272 Jan, Insomnia G47.00 [facility] [address] 39471- 2204 Jan, Insomnia G47.00 [facility] [address] [place] [id number] [place] [address] 29789- 2629 Jan, Insomnia G47.00 [facility] [address] [place] [id number] [place] [address] [id number] Dec, Dental examination Z01.20 and Caries K02.9 [facility] [address] [place] [id number] [place] [address] 74382- 7101 Dec, Insomnia G47.00 and Bronchitis J40 [facility] [address] [place] [id number] [place] [address] 45669- 3597 Nov, [facility] [address] [place] [id number] [place] [address] 16576- 9091 Oct, [facility] [address] [place] [id number] [place] [address] 99396- 5004 Sep, [facility] [address] 65965- 9414 Aug, [facility] [address] [place] [id number] [place] [address] 74996- 4422 Jul, [facility] [address] [place] [id number] [place] [address] 79959- 5352 Jul, [facility] [address] [facility] [id number] [address]- 4838 Jun, [facility] [address] [facility] [id number] [address]- 2712 Jun, [facility] [address] [facility] [id number] [address]- 7064 Jun, [facility] [address] [facility] [id number] [place] [address] 46074- 6161 May, [facility] [address] [facility] [id number] [address]- 0300 Apr, [facility] [address] [address]- 2970 Apr, Cerumen impaction 380.4 [facility] [id number] [place] [address] 54277- 1193 Apr, Cerumen impaction 380.4 [facility] [address] [address]- 0590 Mar, [facility] [address] [address]- 5884 February, [facility] [address] 7041 February, Abdominal aortic aneurysm greater than 39 mm in diameter 441.4 [facility] [address], [place] [address]- 5680 February, [facility] [address] [address]- 3164 Jan, [facility] [address] [address]- 9549 14 Jan, 2015 [facility] [address] [address]- 0561 Jan, [facility] [address] [address]- 5954 Dec, 2014 [facility] [place] [facility] [address] [id number] [place] [address]- 9881 Dec, [facility] [place] [facility] [address] [id number] [place] [address]- 3761 Dec, [facility] [place] [facility] [address] [facility] [place] [id number] [place] [address]- 6212 Dec, [facility] [place] [facility] [address] [id number] [place] [address]- 4030 Nov, [facility] [place] [facility] [address] [id number] [place] [address]- 7329 Nov, [facility] [place] [facility] [address] [facility] [id number] [place] [address]- 1338 Oct, [facility] [place] [facility] [address] [facility] [place] [id number] [place] [address]- 3497 Oct, [facility] [place] [facility] [address] [id number] [place] [address]- 2288 Sep, [facility] [place] [facility] [address] [id number] [place] 2713 Sep, [facility] [place] [facility] [address] [id number] [place] [address]- 9731 Sep, [facility] [place] [facility] [address] [id number] [place] [address]- 7433 Sep, [facility] [place] [facility] [address] [id number] [address]- 0145 Sep, [facility] [place] [facility] [address] [id number] [place] [address]- 0819 Sep, [facility] [place] [facility] [address] [facility] [id number] [place] [address]- 7645 Aug, [facility] [place] [facility] [address] [facility] [id number] [place] [address]- 6982 Aug, [facility] [place] [facility] [address] [id number] [place] [address]- 4518 17 Jul, 2014 [facility] [place] [facility] [address] [id number] [place] [address]- 8082 17 Jul, 2014 [facility] [place] [facility] [address] [id number] [place] [address]- 5232 14 Jul, 2014 [facility] [place] [facility] [address] [id number] [place] [address]- 0917 14 Jul, 2014 [facility] [place] [facility] [address] [id number] [place] [address]- 9557 15 Jun, 2014 [facility] [place] [facility] [address] [id number] [place] [address]- 7007 15 Jun, 2014 [facility] [place] [facility] [address] [id number] [place] [address]- 9848 18 May, 2014 [facility] [place] [facility] [address] [id number] [place] [address]- 2898 May, [facility] [place] [facility] [address] [id number] [place] [address]- 5608 Apr, [facility] [place] [facility] [address] [id number] [place] [address]- 4177 Apr, [facility] [place] [facility] [address] [id number] [place] [address]- 0155 Mar, [facility] [place] [facility] [address] [id number] [place] [address]- 8269 Mar, [facility] [place] [facility] [address] [id number] [place] [address]- 5159 February, [facility] [place] [facility] [address] [id number] [place] [address]- 4592 February, [facility] [place] [facility] [address] [id number] [place] [address]- 5092 Jan, [facility] [place] [facility] [address] [id number] [place] [address]- 5692 Jan, [facility] [place] [facility] [address] [id number] [place] [address]- 8906 08 Jan, 2014 [facility] [place] [facility] [address] [id number] [place] [address]- 5551 08 Jan, 2014 [facility] [place] [facility] [address] [id number] [place] [address]- 8841 Jan, [facility] [place] [facility] [address] [id number] [place] [address]- 4676 Jan, [facility] [place] [facility] [address] [id number] [place] [address]- 0619 Dec, [facility] [place] [facility] [address] [id number] [place] [address]- 7711 Dec, [facility] [place] [facility] [address] [id number] [place] [address]- 1594 14 Nov, 2013 [facility] [place] [facility] [address] [id number] [place] [address]- 2517 Nov, [facility] [place] [facility] [address] [id number] [place] [address]- 0382 Nov, [facility] [place] [facility] [address] [id number] [place] [address]- 5662 Nov, [facility] [place] [facility] [address] [id number] [place] [address]- 5726 Oct, [facility] [place] [facility] [address] [id number] [address]- 5331 Oct, [facility] [place] [facility] [address] [id number] [place] [address]- 0579 Oct, [facility] [place] [facility] [address] [id number] [place] [address]- 2248 Oct, [facility] [place] [facility] [address] [id number] [place] [address]- 2306 16 Sep, 2013 [facility] [place] [facility] [address] [id number] [place] [address]- 1069 16 Sep, 2013 [facility] [address] [id number] [place] [address]- 8027 10 Sep, 2013 [facility] [place] [facility] [address] [id number] [place] [address]- 2305 10 Sep, 2013 [facility] [place] [facility] [address] [id number] [place] [address]- 6049 18 Aug, 2013 [facility] [place] [facility] [address] [id number] [place] [address]- 4802 18 Aug, 2013 [facility] [place] [facility] [address] [id number] [place] [address]- 8566 13 Aug, 2013 [facility] [place] [facility] [address] [id number] [place] [address]- 9791 13 Aug, 2013 [facility] [place] [facility] [address] [id number] [place] [address]- 4582 08 Aug, 2013 [facility] [place] [facility] [address] [id number] [place] [address]- 9687 08 Aug, 2013 [facility] [place] [facility] [address] [id number] [place] [address]- 6600 18 Jul, 2013 [facility] [place] [facility] [address] [id number] [place] [address]- 0636 18 Jul, 2013 [facility] [place] [facility] [address] [id number] [place] [address]- 7523 14 Jul, 2013 [facility] [place] [facility] [address] [id number] [place] [address]- 2367 14 Jul, 2013 [facility] [place] [facility] [address] [id number] [place] [address]- 4867 20 Jun, 2013 [facility] [place] [facility] [address] [id number] [place] [address]- 0825 13 Jun, 2013 [facility] [place] [facility] [address] [id number] [address]- 1068 May, [facility] [place] [facility] [address] [id number] [place] [address]- 4698 May, [facility] [address] [id number] [place] [address]- 9745 May, [facility] [place] [facility] [address] [id number] [place] [address]- 6639 May, [facility] [place] [facility] [address] [id number] [place] [address]- 5450 May, [facility] [address] [id number] [place] [address]- 1470 Apr, [facility] [place] [facility] [address] [id number] [place] [address]- 1645 Apr, [facility] [address] [id number] [place] [address]- 2899 Apr, [facility] [address] [id number] [place] [address]- 7230 Mar, [facility] [place] [facility] [address] [id number] [place] [address]- 7527 Mar, [facility] [place] [facility] [address] [id number] [place] [address]- 5719 February, [facility] [place] [facility] [address] [id number] [place] [address]- 5007 February, [facility] [place] [facility] [address] [id number] [place] [address]- 0855 24 Jan, 2013 [facility] [place] [facility] [address] [id number] [place] [address]- 6738 Jan, [facility] [place] [facility] [address] [id number] [place] [address]- 1749 Jan, [facility] [place] [facility] [address] [id number] [place] [address]- 2331 Jan, [facility] [place] [facility] [address] [id number] [place] [address]- 7256 Dec, [facility] [address] [id number] [place] [address]- 7624 Dec, [facility] [place] [facility] [address] [id number] [place] [address]- 2656 Dec, [facility] [place] [facility] [address] [id number] [place] [address]- 3516 Nov, [facility] [place] [facility] [address] [id number] [place] [address]- 4001 Nov, [facility] [address] [id number] [place] [address]- 4758 Oct, [facility] [place] [facility] [address] [id number] [place] [address]- 5061 Oct, [facility] [address] [id number] [place] [address] Sep, [facility] [place] [facility] [address] [id number] [place] [address] Sep, [facility] [address] [id number] [place] [address] Sep, [facility] [place] [facility] [address] [id number] [place] [address] Sep, [facility] [place] [facility] [address] [id number] [place] [address] Sep, [facility] [place] [facility] [address] [id number] [place] [address] Sep, [facility] [place] [facility] [address] [id number] [place] Sep, [facility] [place] [facility] [address] [id number] [place] [address] Aug, [facility] [place] [facility] [address] [id number] [place] [address] Aug, [facility] [place] [facility] [address] [facility] [place] [id number] [address] Jun, [facility] [address] [facility] [place] [id number] [address] May, [facility] [address] [facility] [place] [id number] [place] [address] May, [facility] [address] [facility] [place] [id number], [place] [address] Apr, [facility] [address] [facility] [place] [id number] [place] [address] Apr, [facility] [address] [facility] [place] [id number] [place] [address] February, [facility] [address] [facility] [place] [id number] [address] Jan, [facility] [address] [id number], [place] [address] Jan, [facility] [address] [facility] [place] [id number], [place] [address] Dec, [facility] [id number], [place] [address] Oct, [facility] [address] [id number], [place] [address] Oct, [facility] [address] [id number], [place] [address] Sep, [facility] [address] [facility] [place] [id number], [place] [address] Sep, [facility] [address] [id number], [place] [address] Sep, [facility] [address] [facility] [place] [id number], [place] [address] Sep, IMMUNIZATIONS No Known Immunizations SOCIAL HISTORY Never Assessed REASON FOR VISIT Controlled Refill Request PLAN OF CARE VITAL SIGNS MEDICATIONS Medication Instructions Dosage Frequency Start Date End Date Duration Status [place] 7.5-325 MG Orally every 6 hrs 1 [...]
--- OUTSIDE RECORDS SUMMARY | 2018-07-04 08:32 | XMS REPORT ---
Author Author BRENDA WETZEL Organization [facility] Address [address] [place] [address] Care Team Providers Care Origination Specialist Name Role Phone BRENDA WETZEL Unavailable PROBLEMS Type Condition ICD9-CM Code ZRV31-JV Code Onset Dates Condition Status SNOMED Code Problem Abdominal aneurysm I71.4 Active 377160722 Problem Anxiety F41.9 Active 49564198 Problem Essential hypertension I10 Active 75053371 Problem Abdominal aortic aneurysm (AAA) without rupture I71.4 Active 27088149 Problem Hypertension, benign I10 Active 14254388 Problem Hyperlipidemia, mixed E78.2 Active 301489309 Problem Primary insomnia F51.01 Active 8713446 ALLERGIES No Information ENCOUNTERS Encounter Location Date Diagnosis [place] [address] [address] Jan, [place] [address] 6[address]38- 8836 Dec, [place] [address] 87327- 4511 Nov, Hypertension, benign I10 and Essential hypertension I10 [place] [address] [place] [id number] [place] [address] 76172- 9441 Nov, [place] [address] 60491- 1514 Nov, Scalp lesion L98.9 ; Anxiety F41.9 ; Trigger finger, right middle finger M65.331 and Encounter for drug screening Z02.83 [place] [address] [place] [id number] [place] [address] 61864- 9101 03 Nov, 2017 [place] [address] [place] [id number] [place] [address] 51780- 3556 Oct, Essential hypertension I10 [facility] [address] [address] 0448 Oct, [facility] [address] [id number] [place] [address] 96115- 3940 Oct, [facility] [id number] [place] [address] 91919- 1398 Sep, [facility] [id number] [place] [address] 02816 -5766 Aug, Cough R05 and Pneumonia of left lower lobe due to infectious organism J18.1 [facility] [id number] [place] [address] 63854- 8454 Aug, [facility] [address] [id number] [place] [address] 06942- 2674 Aug, [facility] [address] [id number] [place] [address] 17585- 5694 Aug, [facility] [id number] [place] [address] 45172- 0161 Aug, [facility] [address] [id number] [place] [address] 31425- 8285 Aug, [facility] [id number] [place] [address] 57142- 3164 Aug, Lung mass R91.8 [facility] [address] [place] [id number] [place] [address] 74796- 1186 Aug, [facility] [id number] [place] [address] 21767- 2271 Aug, Mass of lung parenchyma R91.8 [facility] [address] [id number] [place] [address] 89012- 6107 Jul, [facility] [id number] [place] [address] 92860- 9849 Jun, Hypertension, benign I10 ; Hyperlipidemia, mixed E78.2 and Primary insomnia F51.01 [facility] [address] [place] [id number] [address]- 2261 Jun, [facility] [id number] [address]- 2666 Jun, Essential hypertension I10 [facility] [id number] [address]- 8734 May, [facility] [address] [id number] [place] [address] 89409- 0693 Apr, [facility] [id number] [place] [address], [place] [address]- 6526 Mar, [facility] [address] [place] [id number] [place] [address] 59233- 4266 Mar, [facility] [address] [place] [address] [id number] [place] [address], [place] [address]- 8109 February, [facility] [address] [place] [address] [id number] [place] [address] 84009- 6248 February, [facility] [address] [address]- 7374 Jan, [facility] [address] [address]- 8407 Dec, [facility] [address] [address]- 5110 Dec, Hypertension, benign I10 and Abdominal aortic aneurysm (AAA ) without rupture I71.4 [facility] [address] [address]- 1396 Dec, [facility] [address] [place] [id number] [place] [address] 11124- 0556 Nov, Medicare annual wellness visit, initial Z00.00 [facility] [address] [address]- 0953 Nov, [facility] [id number] [address]- 3285 Nov, [facility] [id number] [address]- 0456 Oct, [facility] [address] [address]- 0650 Oct, [facility] [address] [address]- 7830 Oct, [facility] [address] [place] [id number] [address]- 6996 Oct, [facility] [id number] [place] [address] 02836- 6086 Sep, Medicare welcome exam Z00.00 ; Medicare annual wellness visit, initial Z00.00 and Medicare annual wellness visit, subsequent Z00.00 [facility] [address] [address]- 6847 Sep, [facility] [address] [address]- 8135 Sep, [facility] [address] [place] [id number] [place] [address] 67419- 2810 Aug, Trigger middle finger of right hand M65.331 [facility] [address] [address]- 7572 Aug, Hypertension, benign I10 [facility] [address] [address]- 8703 Aug, [facility] [address] [address]- 6298 Aug, [facility] [id number] [address]- 0869 Jul, [facility] [address] [address]- 5161 Jul, [facility] [address] [address]- 4085 Jul, Hypertension, essential I10 and Bradycardia R00.1 [facility] [address] [place] [id number] [place] [address] 05115- 8768 Jul, [facility] [address] [place] [id number] [place] [address] 38507- 2546 Jul, [facility] [address] [place] [id number] [place] [address] 14223- 5849 30 Jun, 2016 Essential hypertension I10 [facility] [address] [place] [id number] [place] [address] 37423- 1416 20 Jun, 2016 [facility] [address] [place] [address] [id number] [place] [address] 53397- 1979 14 Jun, 2016 [facility] [id number] [place] [address] 93409- 3784 12 Jun, 2016 [facility] [address] [place] [id number] [place] [address] 22889- 1362 Jun, Abdominal aneurysm I71.4 ; Essential hypertension I10 ; Trigger middle finger of right hand M65.331 and Gastroesophageal reflux disease with esophagitis K21.0 [facility] [address] [place] [id number] [place] [address] 32291- 5662 May, [facility] [address] [place] [id number] [place] [address] 74188- 5070 May, [facility] [address] [place] [id number] [place] [address] 03923- 1846 Apr, [facility] [address] [place] [id number] [place] [address] 63770- 7558 Apr, [facility] [address] [place] [id number] [place] [address] 32185- 5706 Apr, [facility] [address] [place] [id number] [place] [address] 58468- 4071 Mar, [facility] [address] [place] [id number] [place] [address] 19772- 0176 Mar, [facility] [address] [place] [id number] [place] [address] 61668- 3859 February, [facility] [address] [id number] [place] [address] 45725- 4692 February, [facility] [address] [id number] [place] [address] 33338- 2646 February, Primary insomnia F51.01 [facility] [address] [place] [id number] [place] [address] 17596- 6334 February, Insomnia G47.00 [facility] [address] 06803- 7555 Jan, Insomnia G47.00 [facility] [address] [id number] [place] [address] 77908- 8717 Jan, Insomnia G47.00 [facility] [id number] [place] [address] 06093- 0661 Jan, Insomnia G47.00 [facility] [id number] [place] [address] [id number] Dec, Dental examination Z01.20 and Caries K02.9 [facility] [address] [place] [id number] [place] [address] 63650- 7733 Dec, Insomnia G47.00 and Bronchitis J40 [facility] [address] [place] [id number] [place] [address] 20887- 2028 Nov, [facility] [address] [place] [id number] [place] [address] 14235- 9690 Oct, [facility] [address] 65077- 8948 Sep, [facility] [address] [place] [id number] [place] [address] 41657- 3126 Aug, [facility] [address] [id number] [place] [address] 48189- 6504 Jul, [facility] [address] [facility] [id number] [address]- 5095 Jul, [facility] [address] [address]- 4268 Jun, [facility] [address] [facility] [id number] [address]- 7498 Jun, [facility] [address] [id number] [place] [address] 42393- 1408 Jun, [facility] [id number] [place] [address] 379064- 6513 May, [facility] [id number] [place] [address] 45926- 2449 Apr, [facility] [id number] [place] [address] 004770- 9953 Apr, Cerumen impaction 380.4 [facility] [address] [address]- 9451 Apr, Cerumen impaction 380.4 [facility] [address] 9246 Mar, [facility] [address] 7685 February, [facility] [address] 7372 February, Abdominal aortic aneurysm greater than 39 mm in diameter 441.4 [facility] [address] [address]- 6879 February, [facility] [address] [address]- 2253 28 Jan, 2015 [facility] [address] [address]- 0185 14 Jan, 2015 [facility] [id number] [place] [address] 90156- 2544 Jan, [facility] [place] [facility] [address] [id number] [place] [address]- 2820 Dec, [facility] [place] [facility] [address] [id number] [place] [address]- 9256 Dec, [facility] [place] [facility] [address] [facility] [id number] [place] [address]- 5456 Dec, [facility] [place] [facility] [address] [id number] [place] [address]- 9719 Dec, [facility] [place] [facility] [address] [id number] [place] [address]- 0199 Nov, [facility] [place] [facility] [address] [facility] [id number] [place] [address]- 8641 Nov, [facility] [place] [facility] [address] [facility] [id number] [place] [address]- 8509 Oct, [facility] [place] [facility] [address] [id number] [address]- 8232 Oct, [facility] [place] [facility] [address] [id number] [place] [address]- 9052 Sep, [facility] [place] [facility] [address] [id number] [place] [address]- 9752 Sep, [facility] [place] [facility] [address] [facility] [id number] [place] [address]- 7847 Sep, [facility] [place] [facility] [address] [id number] [place] [address]- 4830 Sep, [facility] [place] [facility] [address] [id number] [place] [address]- 8698 Sep, [facility] [place] [facility] [address] [facility] [id number] [place] [address]- 7543 Sep, [facility] [place] [facility] [address] [facility] [id number] [place] [address]- 3136 Aug, [facility] [place] [facility] [address] [id number] [place] [address]- 8431 Aug, [facility] [place] [facility] [address] [id number] [place] [address]- 3166 17 Jul, 2014 [facility] [place] [facility] [address] [id number] [place] [address]- 7336 17 Jul, 2014 [facility] [place] [facility] [address] [id number] [place] [address]- 6426 14 Jul, 2014 [facility] [place] [facility] [address] [id number] [place] [address]- 9740 14 Jul, 2014 [facility] [place] [facility] [address] [id number] [place] [address]- 7867 15 Jun, 2014 [facility] [place] [facility] [address] [id number] [place] [address]- 9625 Jun, [facility] [place] [facility] [address] [id number] [place] [address]- 8532 May, [facility] [place] [facility] [address] [id number] [place] [address]- 2485 May, [facility] [place] [facility] [address] [id number] [place] [address]- 3716 Apr, [facility] [place] [facility] [address] [id number] [place] [address]- 5771 Apr, [facility] [place] [facility] [address] [id number] [place] [address]- 2451 Mar, [facility] [place] [facility] [address] [id number] [place] [address]- 4849 Mar, [facility] [place] [facility] [address] [id number] [place] [address]- 4783 February, [facility] [place] [facility] [address] [id number] [place] [address]- 4596 February, [facility] [place] [facility] [address] [id number] [place] [address]- 7375 Jan, [facility] [place] [facility] [address] [id number] [place] [address]- 8329 15 Jan, 2014 [facility] [place] [facility] [address] [id number] [place] [address]- 1210 08 Jan, 2014 [facility] [place] [facility] [address] [id number] [place] [address]- 0241 08 Jan, 2014 [facility] [place] [facility] [address] [id number] [place] [address]- 6575 Jan, [facility] [place] [facility] [address] [id number] [place] [address]- 2623 Jan, [facility] [place] [facility] [address] [id number] [place] [address]- 3144 Dec, [facility] [place] [facility] [address] [id number] [place] [address]- 4770 Dec, [facility] [place] [facility] [address] [id number] [place] [address]- 9790 14 Nov, 2013 [facility] [place] [facility] [address] [id number] [place] [address]- 7638 14 Nov, 2013 [facility] [place] [facility] [address] [id number] [place] [address]- 2775 Nov, [facility] [place] [facility] [address] [id number] [place] [address]- 7002 Nov, [facility] [place] [facility] [address] [id number] [address]- 6895 Oct, [facility] [place] [facility] [address] [id number] [place] [address]- 4606 Oct, [facility] [place] [facility] [address] [id number] [place] [address]- 0101 Oct, [facility] [place] [facility] [address] [id number] [place] [address]- 7216 Oct, [facility] [place] [facility] [address] [id number] [place] [address]- 2436 16 Sep, 2013 [facility] [address] [id number] [place] [address]- 9862 16 Sep, 2013 [facility] [place] [facility] [address] [id number] [place] [address]- 8519 10 Sep, 2013 [facility] [place] [facility] [address] [id number] [place] [address]- 9579 10 Sep, 2013 [facility] [place] [facility] [address] [id number] [place] [address]- 8231 18 Aug, 2013 [facility] [place] [facility] [address] [id number] [place] [address]- 0991 18 Aug, 2013 [facility] [place] [facility] [address] [id number] [place] [address]- 0304 13 Aug, 2013 [facility] [place] [facility] [address] [id number] [place] [address]- 7169 13 Aug, 2013 [facility] [place] [facility] [address] [id number] [place] [address]- 7562 08 Aug, 2013 [facility] [place] [facility] [address] [id number] [place] [address]- 9280 08 Aug, 2013 [facility] [place] [facility] [address] [facility] [id number] [place] [address]- 7891 18 Jul, 2013 [facility] [place] [facility] [address] [id number] [place] [address]- 1588 18 Jul, 2013 [facility] [place] [facility] [address] [id number] [place] [address]- 5746 14 Jul, 2013 [facility] [place] [facility] [address] [id number] [place] [address]- 1256 14 Jul, 2013 [facility] [place] [facility] [address] [id number] [place] [address]- 2223 20 Jun, 2013 [facility] [place] [facility] [address] [id number] [place] [address]- 1156 13 Jun, 2013 [facility] [place] [facility] [address] [id number] [place] [address]- 9995 May, [facility] [address] [id number] [place] [address]- 5341 May, [facility] [place] [facility] [address] [id number] [place] [address]- 9909 May, [facility] [address] [id number] [place] [address]- 8930 May, [facility] [address] [id number] [place] [address]- 7110 May, [facility] [place] [facility] [address] [id number] [place] [address]- 2074 Apr, [facility] [address] [id number] [place] [address]- 7117 Apr, [facility] [address] [id number] [place] [address]- 5283 Apr, [facility] [address] [id number] [place] [address]- 1269 Mar, [facility] [place] [facility] [address] [id number] [place] [address]- 8524 Mar, [facility] [place] [facility] [address] [id number] [place] [address]- 3806 February, [facility] [place] [facility] [address] [id number] [place] [address]- 6331 February, [facility] [place] [facility] [address] [id number] [place] [address]- 6436 24 Jan, 2013 [facility] [place] [facility] [address] [id number] [place] [address]- 0666 Jan, [facility] [place] [facility] [address] [id number] [place] [address]- 5313 Jan, [facility] [place] [facility] [address] [id number] [place] [address] Jan, [facility] [address] [id number] [place] [address] Dec, [facility] [place] [facility] [address] [id number] [place] [address] Dec, [facility] [address] [id number] [place] [address] Dec, [facility] [place] [facility] [address] [id number] [place] [address] Nov, [facility] [address] [id number] [place] [address] Nov, [facility] [address] [id number] [place] [address] Oct, [facility] [address] [id number] [place] [address] Oct, [facility] [address] [id number] [place] [address] Sep, [facility] [address] [id number] [place] [address] Sep, [facility] [place] [facility] [address] [id number] [place] [address] Sep, [facility] [address] [id number] [place] [address] Sep, [facility] [place] [facility] [address] [id number] [place] [address] Sep, [facility] [place] [facility] [address] [id number] [place] [address] Sep, [facility] [place] [facility] [address] [id number] [place] [address] Sep, [facility] [place] [facility] [address] [id number] [place] [address] Aug, [facility] [place] [facility] [address] [id number] [place] [address] Aug, [facility] [address] [id number] [place] [address] [address] Jun, [facility] [address] [id number] [place] [address] [address] May, [facility] [address] [id number] [place] [address] May, [facility] [address] [id number] [place] [address] [address], [facility] [address] [id number] [place] [address] [address] Apr, [facility] [address] [id number] [place] [address]- [address] February, [facility] [address] [id number] [place] [address] [address] Jan, [facility] [address] [id number] [place] [address] Jan, [facility] [address] [id number] [place] [address] [address] Dec, [facility] [address] [id number] [place] [address] [address] Oct, [facility] [address] [id number] [place] [address] [address] Oct, [facility] [address] [id number] [place] [address] [address] Sep, [facility] [address] [id number] [place] [address] [address] Sep, [facility] [address] [id number] [place] [address] Sep, [facility] [address] [id number] [place] [address] Sep, IMMUNIZATIONS No Known Immunizations SOCIAL HISTORY Never Assessed REASON FOR VISIT Controlled Med Refill 06/28/17 PLAN OF CARE VITAL SIGNS MEDICATIONS Medication Instructions Dosage Frequency Start Date End Date Duration Status Ativan 1 MG Orally twice a day 1 tablet as needed 12h 04 Jan, 2016 28 days Active [place] 7.5-325 MG Orally every 6 hrs 1 tablet as needed 6h 19 Jun, 2017 28 days Active RESULTS No Results PROCEDURES [...]
--- OUTSIDE RECORDS SUMMARY | 2018-07-04 08:34 | XMS REPORT ---
Author Author DAMARI BRENDA Organization [facility] Address [address] [place] [address] Care Team Providers Care Grinder Needle Tip Name Role Phone BRENDA WETZEL Unavailable PROBLEMS Type Condition ICD9-CM Code BXM38-GK Code Onset Dates Condition Status SNOMED Code Problem Abdominal aneurysm I71.4 Active 741054242 Problem Anxiety F41.9 Active 70365153 Problem Essential hypertension I10 Active 43548630 Problem Abdominal aortic aneurysm (AAA) without rupture I71.4 Active 69728892 Problem Hypertension, benign I10 Active 31425065 Problem Hyperlipidemia, mixed E78.2 Active 069243271 Problem Primary insomnia F51.01 Active 3377121 ALLERGIES No Information ENCOUNTERS Encounter Location Date Diagnosis [place] [id number] [place] [address] 96720- 7392 February, [facility] [id number] [place] [address] 54412- 9287 February, [place] [id number] [place] [address] 40460- 3743 Jan, [place] [id number] [place] [address] 90836- 1140 Dec, [place] [id number] [place] [address] 45507- 8663 Nov, Hypertension, benign I10 and Essential hypertension I10 [place] [address] 49526- 2358 Nov, [place] [address] 75008- 0915 09 Nov, 2017 Scalp lesion L98.9 ; Anxiety F41.9 ; Trigger finger, right middle finger M65.331 and Encounter for drug screening Z02.83 [place] [address] [address] Nov, [facility] [id number] [place] [address] 41996- 5335 Oct, Essential hypertension I10 [facility] [address] [address] 1236 Oct, [facility] [id number] [place] [address] 78579- 8265 Oct, [facility] [id number] [place] [address] 29018- 9937 Sep, [facility] [id number] [place] [address] 34865 -5155 Aug, Cough R05 and Pneumonia of left lower lobe due to infectious organism J18.1 [facility] [id number] [place] [address] 68929- 9337 16 Aug, 2017 [facility] [id number] [place] [address] 96106- 3063 Aug, [facility] [id number] [place] [address] 85156- 7238 Aug, [facility] [id number] [place] [address] 46171- 5015 Aug, [facility] [id number] [place] [address] 24308- 2258 Aug, [facility] [id number] [place] [address] 22786- 5508 Aug, Lung mass R91.8 [facility] [id number] [place] [address] 04466- 9072 Aug, [facility] [id number] [address]- 4067 Aug, Mass of lung parenchyma R91.8 [facility] [id number] [place] [address] 08036- 4879 Jul, [facility] [address] [address]- 5275 Jun, Hypertension, benign I10 ; Hyperlipidemia, mixed E78.2 and Primary insomnia F51.01 [facility] [address] [address]- 9415 Jun, [facility] [id number] [place] [address] 79277- 2944 Jun, Essential hypertension I10 [facility] [id number] [place] [address] 03933- 5917 May, [facility] [id number] [place] [address] 82879- 1695 Apr, [facility] [id number] [place] [address] 76740- 0124 Mar, [facility] [id number] [place] [address] 97844- 0433 Mar, [facility] [id number] [place] [address] 38996- 6859 February, [facility] [id number] [place] [address] 83514- 5278 February, [facility] [address] [address]- 3787 Jan, [facility] [address] [address]- 9021 Dec, [facility] [address] [address]- 9765 Dec, Hypertension, benign I10 and Abdominal aortic aneurysm (AAA ) without rupture I71.4 [facility] [address] [address]- 5236 Dec, [facility] [id number] [address]- 7254 Nov, Medicare annual wellness visit, initial Z00.00 [facility] [address] [facility] [id number] [place] [address]- 0456 Nov, [facility] [address] [facility] [id number] [place] [address]- 3785 Nov, [facility] [address] [place] [address]- 1135 Oct, [facility] [address] [place] [address]- 2880 Oct, [facility] [address] [address]- 7947 Oct, [facility] [address] [address]- 7157 Oct, [facility] [address] [address]- 6393 Sep, Medicare welcome exam Z00.00 ; Medicare annual wellness visit, initial Z00.00 and Medicare annual wellness visit, subsequent Z00.00 [facility] [address] [address]- 6784 Sep, [facility] [address] [address]- 9438 Sep, [facility] [address] [address]- 8308 Aug, Trigger middle finger of right hand M65.331 [facility] [id number] [address]- 0751 Aug, Hypertension, benign I10 [facility] [address] [place] [address]- 0089 Aug, [facility] [address] [address]- 9335 Aug, [facility] [id number] [address]- 9762 28 Jul, 2016 [facility] [id number] [place] [address] 72845- 6992 Jul, [facility] [id number] [place] [address] 61762- 1531 Jul, Hypertension, essential I10 and Bradycardia R00.1 [facility] [address] 60593- 4760 Jul, [facility] [id number] [place] [address] 21381- 0146 Jul, [facility] [address] 86367- 0409 30 Jun, 2016 Essential hypertension I10 [facility] [id number] [place] [address] 02680- 4543 20 Jun, 2016 [facility] [id number] [place] [address] 08429- 5875 14 Jun, 2016 [facility] [id number] [place] [address] 31648- 8943 12 Jun, 2016 [facility] [id number] [place] [address] 75616- 4580 Jun, Abdominal aneurysm I71.4 ; Essential hypertension I10 ; Trigger middle finger of right hand M65.331 and Gastroesophageal reflux disease with esophagitis K21.0 [facility] [id number] [place] [address] 08320- 3121 May, [facility] [id number] [place] [address] 90894- 7710 May, [facility] [id number] [place] [address] 05585- 7294 Apr, [facility] [id number] [place] [address] 68064- 0222 Apr, [facility] [id number] [place] [address] 07913- 5417 Apr, [facility] [id number] [place] [address] 06252- 1621 Mar, [facility] [id number] [place] [address] 98836- 8123 Mar, [facility] [id number] [place] [address] 28245- 3572 February, [facility] [address] 48960- 8189 February, [facility] [id number] [place] [address] 81753- 9002 February, Primary insomnia F51.01 [facility] [id number] [place] [address] 62154- 3140 February, Insomnia G47.00 [facility] [address] 81830- 1931 Jan, Insomnia G47.00 [facility] [id number] [place] [address] 37155- 0247 Jan, Insomnia G47.00 [facility] [id number] [place] [address] 67538- 2986 Jan, Insomnia G47.00 [facility] [address] [id number] Dec, Dental examination Z01.20 and Caries K02.9 [facility] [id number] [place] [address] 83777- 1624 Dec, Insomnia G47.00 and Bronchitis J40 [facility] [id number] [place] [address] 75839- 8890 Nov, [facility] [id number] [place] [address] 86321- 8751 Oct, [facility] [id number] [place] [address] 94309- 8427 Sep, [facility] [address] [facility] [id number] [address]- 5255 Aug, [facility] [address] [facility] [id number] [place] [address]- 0994 Jul, [facility] [address] [facility] [id number] [place] [address]- 2336 Jul, [facility] [id number] [place] [address] 78283- 8624 Jun, [facility] [address] [facility] [id number] 2744 Jun, [facility] [id number] [place] [address] 67402- 7913 Jun, [facility] [address] 6674 May, [facility] [id number] [place] [address] 09130- 6305 Apr, [facility] [address] 7700 Apr, Cerumen impaction 380.4 [facility] [address] 7932 Apr, Cerumen impaction 380.4 [facility] [address] [address]- 8592 Mar, [facility] [id number] [address]- 0845 February, [facility] [id number] [address]- 5480 February, Abdominal aortic aneurysm greater than 39 mm in diameter 441.4 [facility] [address] [address]- 9058 February, [facility] [address] [address]- 4620 Jan, [facility] [place] [facility] [address] [id number] [place] [address]- 0580 14 Jan, 2015 [facility] [place] [facility] [address] [id number] [place] [address]- 7301 Jan, [facility] [place] [facility] [address] [id number] [place] [address]- 2938 Dec, [facility] [place] [facility] [address] [id number] [place] [address]- 5898 Dec, [facility] [place] [facility] [address] [id number] [place] [address]- 5332 Dec, [facility] [place] [facility] [address] [id number] [place] [address]- 4318 Dec, [facility] [place] [facility] [address] [facility] [id number] [place] [address]- 8215 Nov, [facility] [place] [facility] [address] [id number] [place] [address]- 0881 Nov, [facility] [place] [facility] [address] [id number] [place] [address]- 6679 Oct, [facility] [place] [facility] [address] [id number] [place] [address]- 6457 Oct, [facility] [place] [facility] [address] [id number] [place] [address]- 9577 Sep, [facility] [place] [facility] [address] [id number] [place] [address]- 6267 Sep, [facility] [place] [facility] [address] [id number] [place] [address]- 5048 Sep, [facility] [place] [facility] [address] [facility] [id number] [place] [address]- 4945 Sep, [facility] [place] [facility] [address] [facility] [id number] [place] [address]- 8882 Sep, [facility] [place] [facility] [address] [id number] [place] [address]- 4647 02 Sep, 2014 [facility] [place] [facility] [address] [id number] [place] [address]- 3585 Aug, [facility] [place] [facility] [address] [id number] [place] [address]- 6996 Aug, [facility] [place] [facility] [address] [id number] [place] [address]- 0571 Jul, [facility] [place] [facility] [address] [id number] [place] [address]- 3562 17 Jul, 2014 [facility] [place] [facility] [address] [id number] [place] [address]- 6253 Jul, [facility] [place] [facility] [address] [id number] [place] [address]- 8848 Jul, [facility] [place] [facility] [address] [id number] [place] [address]- 7005 15 Jun, 2014 [facility] [place] [facility] [address] [id number] [place] [address]- 3103 15 Jun, 2014 [facility] [place] [facility] [address] [id number] [place] [address]- 5226 May, [facility] [place] [facility] [address] [id number] [place] [address]- 5686 May, [facility] [place] [facility] [address] [id number] [place] [address]- 2643 Apr, [facility] [place] [facility] [address] [id number] [place] [address]- 2543 Apr, [facility] [place] [facility] [address] [id number] [place] [address]- 0263 Mar, [facility] [place] [facility] [address] [id number] [place] [address]- 2546 Mar, [facility] [place] [facility] [address] [id number] [place] [address]- 4081 February, [facility] [place] [facility] [address] [id number] [place] [address]- 6644 February, [facility] [place] [facility] [address] [id number] [place] [address]- 9429 Jan, [facility] [place] [facility] [address] [id number] [place] [address]- 0968 Jan, [facility] [place] [facility] [address] [id number] [place] [address]- 1775 Jan, [facility] [place] [facility] [address] [id number] [place] [address]- 4431 Jan, [facility] [place] [facility] [address] [id number] [place] [address]- 9292 Jan, [facility] [place] [facility] [address] [id number] [place] [address]- 9889 Jan, [facility] [place] [facility] [address] [id number] [place] [address]- 5968 Dec, [facility] [place] [facility] [address] [id number] [place] [address]- 8502 Dec, [facility] [place] [facility] [address] [id number] [place] [address]- 0245 Nov, [facility] [place] [facility] [address] [id number] [place] [address]- 7763 Nov, [facility] [place] [facility] [address] [id number] [place] [address]- 0983 Nov, [facility] [place] [facility] [address] [id number] [place] [address]- 4330 Nov, [facility] [place] [facility] [address] [id number] [place] [address]- 6263 Oct, [facility] [place] [facility] [address] [id number] [place] [address]- 8667 Oct, [facility] [place] [facility] [address] [id number] [place] [address]- 5600 07 Oct, 2013 [facility] [address] [id number] [place] [address]- 4596 07 Oct, 2013 [facility] [place] [facility] [address] [id number] [place] [address]- 7477 16 Sep, 2013 [facility] [place] [facility] [address] [id number] [place] [address]- 6373 16 Sep, 2013 [facility] [place] [facility] [address] [id number] [place] [address]- 7460 10 Sep, 2013 [facility] [place] [facility] [address] [id number] [place] [address]- 9911 10 Sep, 2013 [facility] [place] [facility] [address] [id number] [place] [address]- 5942 18 Aug, 2013 [facility] [place] [facility] [address] [id number] [place] [address]- 3889 18 Aug, 2013 [facility] [place] [facility] [address] [id number] [place] [address]- 9384 13 Aug, 2013 [facility] [place] [facility] [address] [id number] [place] [address]- 8236 13 Aug, 2013 [facility] [place] [facility] [address] [facility] [id number] [place] [address]- 6570 08 Aug, 2013 [facility] [place] [facility] [address] [id number] [place] [address]- 5160 08 Aug, 2013 [facility] [place] [facility] [address] [id number] [place] [address]- 4857 18 Jul, 2013 [facility] [place] [facility] [address] [id number] [place] [address]- 4831 18 Jul, 2013 [facility] [place] [facility] [address] [id number] [place] [address]- 9277 14 Jul, 2013 [facility] [place] [facility] [address] [id number] [place] [address]- 7989 14 Jul, 2013 [facility] [place] [facility] [address] [id number] [place] [address]- 9454 Jun, [facility] [place] [facility] [address] [id number] [place] [address]- 2305 Jun, [facility] [place] [facility] [address] [id number] [place] [address]- 4424 May, [facility] [place] [facility] [address] [id number] [place] [address]- 6169 May, [facility] [address] [id number] [place] [address]- 2204 May, [facility] [place] [facility] [address] [id number] [place] [address]- 0739 May, [facility] [address] [id number] [place] [address]- 1967 May, [facility] [place] [facility] [address] [id number] [place] [address]- 3878 Apr, [facility] [place] [facility] [address] [id number] [place] [address]- 1046 Apr, [facility] [place] [facility] [address] [id number] [place] [address]- 5949 Apr, [facility] [place] [facility] [address] [id number] [place] [address]- 8771 Mar, [facility] [place] [facility] [address] [id number] [place] [address]- 0221 Mar, [facility] [place] [facility] [address] [id number] [place] [address]- 1026 February, [facility] [place] [facility] [address] [id number] [place] [address]- 9179 February, [facility] [place] [facility] [address] [id number] [place] [address]- 0255 Jan, [facility] [place] [facility] [address] [id number] [place] [address]- 6950 Jan, [facility] [address] [id number] [place] [address] Jan, [facility] [place] [facility] [address] [id number] [place] [address] Jan, [facility] [address] [id number] [place] [address] Dec, [facility] [place] [facility] [address] [id number] [place] [address] Dec, [facility] [address] [id number] [place] [address] Dec, [facility] [address] [id number] [place] Nov, [facility] [address] [id number] [place] [address] Nov, [facility] [address] [id number] [place] [address] Oct, [facility] [address] [id number] [place] [address] Oct, [facility] [address] [id number] [place] [address] Sep, [facility] [address] [id number] [place] [address] Sep, [facility] [place] [facility] [address] [id number] [place] [address] Sep, [facility] [place] [facility] [address] [id number] [place] [address] Sep, [facility] [place] [facility] [address] [id number] [place] [address] Sep, [facility] [place] [facility] [address] [id number] [place] [address] Sep, [facility] [place] [facility] [address] [id number] [place] [address] Sep, [facility] [address] [id number] [place] [address] Aug, [facility] [place] [facility] [address] [id number] [place] [address] Aug, [facility] [address] [id number] [place] [address] Jun, [facility] [address] [id number] [place] [address] May, [facility] [address] [id number] [place] [address] May, [facility] [address] [id number] [place] [address] Apr, [facility] [address] [id number] [place] [address] Apr, [facility] [address] [id number] [place] [address] February, [facility] [address] [id number] [place] [address] Jan, [facility] [address] [id number] [place] [address] Jan, [facility] [address] [id number] [place] [address] Dec, [facility] [address] [id number] [place] [address] Oct, [facility] [place] [facility] [address] [id number] [place] [address] Oct, [facility] [address] [id number] [place] [address] Sep, [facility] [address] [id number] [place] [address] Sep, [facility] [address] [facility] [id number] [place] [address] Sep, [facility] [address] [facility] [id number] [place] [address] Sep, IMMUNIZATIONS No Known Immunizations SOCIAL HISTORY Never Assessed REASON FOR VISIT Controlled Med Refill 09/20/17 PLAN OF CARE VITAL SIGNS MEDICATIONS Medication Instructions Dosage Frequency Start Date End Date Duration Status [place] 7.5-325 MG Orally every 6 hrs 1 tablet as needed 6h 12 Sep, 2017 28 days Active Ativan 1 MG [...]
--- OUTSIDE RECORDS SUMMARY | 2018-07-04 08:35 | XMS REPORT | Continuity of Care Document ---
Author Author [facility] Address Unknown Phone Unavailable Allergies Active Description Code Type Severity Reaction Onset Reported/Identified Relationship to Patient Clinical Status Yes naproxen Drug Allergy N/A N/A 09/11/2011 Yes naproxen Drug Allergy 09/11/2011 Yes naproxen [id number] Drug Allergy Moderate CAUSED KIDNEY D 03/02/2012 [...] T 401.1 HYPERTENSION, BENIGN ESSENTIAL 09/11/2011 DAMARI TRAINING DEVELOPERBRENDA T 782.1 RASH 09/11/2011 BRENDA WETZEL APRN [...] WETZEL APRN 300.00 ANXIETY UNSPEC 08/16/2014 BRENDA WEZTEL APRN 300.00 ANXIETY UNSPEC 01/29/2015 BRENDA FERNANDES DO Ot 441.4 ABDOM AORTIC ANEURYSM 01/29/2015 BRENDA FERNANDES DO Ot 724.2 LUMBAGO 03/10/2015 BRENDA WETZEL STRETCHER LEVELER OPERATOR Ot 441.4 03/10/2015 BRENDA WETZEL STRETCHER LEVELER OPERATOR Ot 786.50 04/03/2015 BRENDA WETZEL STRETCHER LEVELER OPERATOR Ot 441.4 04/03/2015 BRENDA WETZEL STRETCHER LEVELER OPERATOR Ot 786.50 05/30/2015 BRENDA WETZELP Ot 441.4 05/30/2015 BRENDA WETZEL STRETCHER LEVELER OPERATOR Ot 786.50 06/05/2015 BRENDA WETZEL STRETCHER LEVELER OPERATOR Ot 441.4 06/05/2015 BRENDA WETZEL STRETCHER LEVELER OPERATOR Ot 786.50 07/21/2016 BRENDA WETZEL STRETCHER LEVELER OPERATOR Ot 441.4 ABDOM AORTIC ANEURYSM 07/21/2016 BRENDA WETZEL STRETCHER LEVELER OPERATOR Ot 786.50 CHEST PAIN NOS 07/22/2016 BRENDA WETZEL STRETCHER LEVELER OPERATOR Ot I71.4 ABDOMINAL AORTIC ANEURYSM, WITHOUT RUPTU 07/23/2016 BRENDA WETZEL STRETCHER LEVELER OPERATOR Ot I71.4 ABDOMINAL AORTIC ANEURYSM, WITHOUT RUPTU 08/03/2016 BRENDA WETZEL STRETCHER LEVELER OPERATOR Ot I71.4 ABDOMINAL AORTIC ANEURYSM, WITHOUT RUPTU 09/29/2016 BRENDA WETZEL STRETCHER LEVELER OPERATOR Ot 441.4 ABDOM AORTIC ANEURYSM 09/29/2016 BRENDA WETZEL STRETCHER LEVELER OPERATOR Ot 786.50 CHEST PAIN NOS 09/29/2016 BRENDA WETZEL STRETCHER LEVELER OPERATOR Ot I71.4 ABDOMINAL AORTIC ANEURYSM, WITHOUT RUPTU 10/14/2016 BRENDA WETZEL STRETCHER LEVELER OPERATOR Ot I71.4 ABDOMINAL AORTIC ANEURYSM, WITHOUT RUPTU 02/10/2017 JOE JOSE STRETCHER LEVELER OPERATOR Ot I10 ESSENTIAL (PRIMARY) HYPERTENSION 02/10/2017 JOE JOSE STRETCHER LEVELER OPERATOR Ot I71.4 ABDOMINAL AORTIC ANEURYSM, WITHOUT RUPTU 02/21/2017 JOE JOSE STRETCHER LEVELER OPERATOR Ot I10 ESSENTIAL (PRIMARY) HYPERTENSION 02/21/2017 JOE JOSE STRETCHER LEVELER OPERATOR Ot I71.4 ABDOMINAL AORTIC ANEURYSM, WITHOUT RUPTU 08/04/2017 DAMARIBRENDA STRETCHER LEVELER OPERATOR Ot 441.4 ABDOM AORTIC ANEURYSM 08/04/2017 DAMARIBRENDA STRETCHER LEVELER OPERATOR Ot 786.50 CHEST PAIN NOS 08/04/2017 BRENDA WETZEL STRETCHER LEVELER OPERATOR Ot I71.4 ABDOMINAL AORTIC ANEURYSM, WITHOUT RUPTU 08/04/2017 JOE JOSE STRETCHER LEVELER OPERATOR Ot I10 ESSENTIAL (PRIMARY) HYPERTENSION 08/04/2017 JOE JOSE STRETCHER LEVELER OPERATOR Ot I71.4 ABDOMINAL AORTIC ANEURYSM, WITHOUT RUPTU 08/08/2017 BARSANAZ SCOTT DO Ot A41.9 SEPSIS, UNSPECIFIED ORGANISM 08/08/2017 BARSANAZ SCOTT DO Ot E78.00 PURE HYPERCHOLESTEROLEMIA, UNSPECIFIED 08/08/2017 BARNISANAZ CARRILLO DO Ot F41.9 ANXIETY DISORDER, UNSPECIFIED 08/08/2017 BARSANAZ SCOTT DO Ot G47.00 INSOMNIA, UNSPECIFIED 08/08/2017 BARNIDGE DO, SANAZ E Ot I10 ESSENTIAL (PRIMARY) HYPERTENSION 08/08/2017 [facility] Ot I71.4 ABDOMINAL AORTIC ANEURYSM, WITHOUT RUPTU 08/08/2017 [facility] SANAZ GIVENS Ot J18.9 PNEUMONIA, UNSPECIFIED ORGANISM 08/08/2017 [facility] Ot K59.00 CONSTIPATION, UNSPECIFIED 08/08/2017 [facility] DOSANAZ Ot M19.91 PRIMARY OSTEOARTHRITIS, UNSPECIFIED SITE 08/08/2017 [facility] DOSANAZ Ot M54.9 DORSALGIA, UNSPECIFIED 08/08/2017 [facility] Ot N04.9 NEPHROTIC SYNDROME WITH UNSPECIFIED MORP 08/08/2017 [facility] Ot N40.0 BENIGN PROSTATIC HYPERPLASIA WITHOUT LOW 08/08/2017 [facility] Ot 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, UNSPECIFIED 08/08/2017 [facility] Ot R91.8 OTHER NONSPECIFIC ABNORMAL FINDING OF CHING 08/08/2017 [facility] Ot Z87.891 PERSONAL HISTORY OF NICOTINE DEPENDENCE 08/08/2017 [facility] Ot A41.9 SEPSIS, UNSPECIFIED ORGANISM 08/08/2017 [facility] Ot E78.00 PURE HYPERCHOLESTEROLEMIA, UNSPECIFIED 08/08/2017 [facility] Ot F41.9 ANXIETY DISORDER, UNSPECIFIED 08/08/2017 [facility] Ot G47.00 INSOMNIA, UNSPECIFIED 08/08/2017 [facility] Ot I10 ESSENTIAL (PRIMARY) HYPERTENSION 08/08/2017 [facility] Ot I71.4 ABDOMINAL AORTIC ANEURYSM, WITHOUT RUPTU 08/08/2017 [facility] SANAZ GIVENS Ot J18.9 PNEUMONIA, UNSPECIFIED ORGANISM 08/08/2017 [facility] Ot K59.00 CONSTIPATION, UNSPECIFIED 08/08/2017 [facility] Ot M19.91 PRIMARY OSTEOARTHRITIS, UNSPECIFIED SITE 08/08/2017 BARNIDGSANAZ Jiang DO Ot M54.9 DORSALGIA, UNSPECIFIED 08/08/2017 [facility] Ot N04.9 NEPHROTIC SYNDROME WITH UNSPECIFIED MORP 08/08/2017 [facility] Ot N40.0 BENIGN PROSTATIC HYPERPLASIA WITHOUT LOW 08/08/2017 [facility] Ot N52.9 MALE ERECTILE [...] DO Ot F41.9 ANXIETY DISORDER, UNSPECIFIED 08/08/2017 [facility] DO Ot G47.00 INSOMNIA, UNSPECIFIED 08/08/2017 SANAZ LEVY DO Ot I10 ESSENTIAL (PRIMARY) HYPERTENSION 08/08/2017 [facility] Ot I71.4 ABDOMINAL AORTIC ANEURYSM, WITHOUT RUPTU 08/08/2017 [facility] DO Ot J18.9 PNEUMONIA, UNSPECIFIED ORGANISM 08/08/2017 SANAZ LEVY DO Ot K59.00 CONSTIPATION, UNSPECIFIED 08/08/2017 [facility] Ot M19.91 PRIMARY OSTEOARTHRITIS, UNSPECIFIED SITE 08/08/2017 SANAZ LEVY DO Ot M54.9 DORSALGIA, UNSPECIFIED 08/08/2017 JOESANAZ Jiang DO Ot N04.9 NEPHROTIC SYNDROME WITH UNSPECIFIED MORP 08/08/2017 JOESANAZ Jiang DO Ot N40.0 BENIGN PROSTATIC HYPERPLASIA WITHOUT LOW 08/08/2017 [facility] DO Ot 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, UNSPECIFIED 08/08/2017 SANAZ LEVY DO Ot R91.8 OTHER NONSPECIFIC ABNORMAL FINDING OF CHING 08/08/2017 [facility] CARRILLO DO Ot Z87.891 PERSONAL HISTORY OF NICOTINE DEPENDENCE 08/23/2017 BRENDA WETZELP Ot 441.4 ABDOM AORTIC ANEURYSM 08/23/2017 BRENDA WETZELP Ot 786.50 CHEST PAIN NOS 08/23/2017 BRENDA WETZEL STRETCHER LEVELER OPERATOR Ot I71.4 ABDOMINAL AORTIC ANEURYSM, WITHOUT RUPTU 08/23/2017 JOSEJOE EUBANKS STRETCHER LEVELER OPERATOR Ot I10 ESSENTIAL (PRIMARY) HYPERTENSION 08/23/2017 JOSEJOE [...] Ot G47.50 PARASOMNIA, UNSPECIFIED 11/28/2017 BRENDA WETZEL STRETCHER LEVELER OPERATOR Ot 441.4 ABDOM AORTIC ANEURYSM 11/28/2017 BRENDA WETZEL STRETCHER LEVELER OPERATOR Ot 786.50 CHEST PAIN NOS 11/28/2017 BRENDA WETZEL STRETCHER LEVELER OPERATOR Ot I71.4 ABDOMINAL AORTIC ANEURYSM, WITHOUT RUPTU 11/28/2017 JOSEJOE EUBANKS STRETCHER LEVELER OPERATOR Ot I10 ESSENTIAL (PRIMARY) HYPERTENSION 11/28/2017 JOE JOSE Albin STRETCHER LEVELER OPERATOR Ot I71.4 ABDOMINAL AORTIC ANEURYSM, WITHOUT RUPTU [...] WITHOUT RUPTU 12/01/2017 EUGENE MORALES DO Ot L82.1 OTHER SEBORRHEIC KERATOSIS 12/01/2017 EUGENE MORALES DO Ot L98.9 DISORDER OF THE SKIN AND SUBCUTANEOUS TI 12/01/2017 EUGENE MORALES DO Ot M19.91 PRIMARY OSTEOARTHRITIS, UNSPECIFIED SITE 12/01/2017 RONALD MORALES DOTT D Ot Z79.899 OTHER EVENT SPECIALIST FOOD DEMONSTRATOR (CURRENT) DRUG THERAPY 12/01/2017 RONALD MORALES DOTT D Ot Z87.891 PERSONAL HISTORY OF NICOTINE DEPENDENCE 12/12/2017 ELVA BILLINGSLEY APRN Ot J47.9 BRONCHIECTASIS, UNCOMPLICATED 12/12/2017 ELVA BILLINGSLEY APRN Ot R91.8 OTHER NONSPECIFIC ABNORMAL FINDING OF CHING 12/21/2017 EUGENE MORALES DO D Ot K21.9 GASTRO-ESOPHAGEAL REFLUX DISEASE WITHOUT 12/21/2017 ANDREW GIVENS EUGENE D Ot R13.10 DYSPHAGIA, UNSPECIFIED 12/21/2017 EUGENE MORALES DO D Ot Z01.818 ENCOUNTER FOR OTHER PREPROCEDURAL EXAMIN 12/23/2017 RONALD MORALES DOTT D Ot K21.9 GASTRO-ESOPHAGEAL REFLUX DISEASE WITHOUT 12/23/2017 RONALD MORALES DOTT D Ot R13.10 DYSPHAGIA, UNSPECIFIED 12/23/2017 EUGENE MORALES DO D Ot Z01.818 ENCOUNTER FOR OTHER PREPROCEDURAL EXAMIN 12/27/2017 RONALD MORALES DOTT D Ot E78.5 HYPERLIPIDEMIA, UNSPECIFIED 12/27/2017 ANDREW GIVENS EUGENE D Ot F17.210 NICOTINE DEPENDENCE, CIGARETTES, UNCOMPL 12/27/2017 RONALD MORALES DOTT D Ot F41.9 ANXIETY DISORDER, UNSPECIFIED 12/27/2017 ANDREW GIVENS EUGENE D Ot I10 ESSENTIAL (PRIMARY) HYPERTENSION 12/27/2017 EUGENE MORALES DO D Ot I71.4 ABDOMINAL AORTIC ANEURYSM, WITHOUT RUPTU 12/27/2017 RONALD MORALES DOTT D Ot K21.9 GASTRO-ESOPHAGEAL REFLUX DISEASE WITHOUT 12/27/2017 ANDREW GIVENS EUGENE D Ot K29.70 GASTRITIS, UNSPECIFIED, WITHOUT BLEEDING 12/27/2017 RONALD MORALES DOTT D Ot R13.10 DYSPHAGIA, UNSPECIFIED 12/27/2017 ANDREW GIVENS EUGENE D Ot Z79.899 OTHER EVENT SPECIALIST FOOD DEMONSTRATOR (CURRENT) DRUG THERAPY 12/28/2017 RONALD MORALES DOTT D Ot E78.5 HYPERLIPIDEMIA, UNSPECIFIED 12/28/2017 ANDREW GIVENS EUGENE D Ot F17.210 NICOTINE DEPENDENCE, CIGARETTES, UNCOMPL 12/28/2017 MORALES DO, EUGENE D Ot F41.9 ANXIETY DISORDER, UNSPECIFIED 12/28/2017 MORALES DO, EUGENE D Ot I10 ESSENTIAL (PRIMARY) HYPERTENSION 12/28/2017 MORALES DO, EUGENE D Ot I71.4 ABDOMINAL AORTIC ANEURYSM, WITHOUT RUPTU 12/28/2017 MORALES DO, EUGENE D Ot K21.9 GASTRO-ESOPHAGEAL REFLUX DISEASE WITHOUT 12/28/2017 MORALES DO, EUGENE D Ot K29.70 GASTRITIS, UNSPECIFIED, WITHOUT BLEEDING 12/28/2017 MORALES DO, EUGENE D Ot R13.10 DYSPHAGIA, UNSPECIFIED 12/28/2017 MORALES DO, EUGENE D Ot Z79.899 OTHER EVENT SPECIALIST FOOD DEMONSTRATOR (CURRENT) DRUG THERAPY 12/28/2017 MORALES DO, EUGENE D Ot E78.5 HYPERLIPIDEMIA, UNSPECIFIED 12/28/2017 MORALES DO, EUGENE D Ot F17.210 NICOTINE DEPENDENCE, CIGARETTES, UNCOMPL 12/28/2017 MORALES DO, EUGENE D Ot F41.9 ANXIETY DISORDER, UNSPECIFIED 12/28/2017 MORALES DO, EUGENE D Ot I10 ESSENTIAL (PRIMARY) HYPERTENSION 12/28/2017 MORALES DO, EUGENE D Ot I71.4 ABDOMINAL AORTIC ANEURYSM, WITHOUT RUPTU 12/28/2017 MORALES DO, EUGENE D Ot K21.9 GASTRO-ESOPHAGEAL REFLUX DISEASE WITHOUT 12/28/2017 MORALES DO, EUGENE D Ot K29.70 GASTRITIS, UNSPECIFIED, WITHOUT BLEEDING 12/28/2017 MORALES DO, EUGENE D Ot R13.10 DYSPHAGIA, UNSPECIFIED 12/28/2017 MORALES DO, EUGENE D Ot Z79.899 OTHER INTERMEDIATE (CURRENT) DRUG THERAPY 01/19/2018 ELVA BILLINGSLEY TRAINING DEVELOPER Ot J47.9 BRONCHIECTASIS, UNCOMPLICATED 01/19/2018 ELVA BILLINGSLEY TRAINING DEVELOPER Ot R91.8 OTHER NONSPECIFIC ABNORMAL FINDING OF CHING 02/09/2018 ELVA BILLINGSLEY TRAINING DEVELOPER Ot J18.9 PNEUMONIA, UNSPECIFIED ORGANISM 02/09/2018 ELVA BILLINGSLEY TRAINING DEVELOPER Ot R13.10 DYSPHAGIA, UNSPECIFIED 02/09/2018 ELVA BILLINGSLEY TRAINING DEVELOPER Ot T17.908A UNSP FB IN RESP TRACT, PART UNSP CAUSING 02/14/2018 JOE JOSE STRETCHER LEVELER OPERATOR Ot I71.4 ABDOMINAL AORTIC ANEURYSM, WITHOUT RUPTU 02/14/2018 ELVA BILLINGSLEY TRAINING DEVELOPER Ot J18.9 PNEUMONIA, UNSPECIFIED ORGANISM 02/14/2018 ELVA BILLINGSLEY TRAINING DEVELOPER Ot R13.10 DYSPHAGIA, UNSPECIFIED 02/14/2018 ELVA BILLINGSLEY TRAINING DEVELOPER Ot T17.908A UNSP FB IN RESP TRACT, PART UNSP CAUSING 02/16/2018 BRENDA WETZEL STRETCHER LEVELER OPERATOR Ot 441.4 ABDOM AORTIC ANEURYSM 02/16/2018 BRENDA WETZEL STRETCHER LEVELER OPERATOR Ot 786.50 CHEST PAIN NOS 02/16/2018 DAMARI BRENDA Cherry STRETCHER LEVELER OPERATOR Ot I71.4 ABDOMINAL AORTIC ANEURYSM, WITHOUT RUPTU 02/16/2018 JOE JOSE Albin STRETCHER LEVELER OPERATOR Ot I10 ESSENTIAL (PRIMARY) HYPERTENSION 02/16/2018 JOE JOSE Albin STRETCHER LEVELER OPERATOR Ot I71.4 ABDOMINAL AORTIC ANEURYSM, WITHOUT RUPTU 02/16/2018 ELVA BILLINGSLEY TRAINING DEVELOPER Ot J18.9 PNEUMONIA, UNSPECIFIED ORGANISM 02/16/2018 ELVA BILLINGSLEY TRAINING DEVELOPER Ot R13.10 DYSPHAGIA, UNSPECIFIED 02/16/2018 ELVA BILLINGSLEY TRAINING DEVELOPER Ot T17.908A UNSP FB IN RESP TRACT, PART UNSP CAUSING 02/16/2018 JOE JSOE Albin STRETCHER LEVELER OPERATOR Ot I71.4 ABDOMINAL AORTIC ANEURYSM, WITHOUT RUPTU 02/17/2018 ELVA BILLINGSLEY TRAINING DEVELOPER Ot J18.9 PNEUMONIA, UNSPECIFIED ORGANISM 02/17/2018 ELVA BILLINGSLEY TRAINING DEVELOPER Ot R13.10 DYSPHAGIA, UNSPECIFIED 02/17/2018 ELVA BILLINGSLEY TRAINING DEVELOPER Ot T17.908A UNSP FB IN RESP TRACT, PART UNSP CAUSING 03/02/2018 JOE JOSE Albin STRETCHER LEVELER OPERATOR Ot I71.4 ABDOMINAL AORTIC ANEURYSM, WITHOUT RUPTU 03/09/2018 ELVA BILLINGSLEY TRAINING DEVELOPER Ot J18.9 PNEUMONIA, UNSPECIFIED ORGANISM 03/09/2018 ELVA BILLIGNSLEY TRAINING DEVELOPER Ot R13.10 DYSPHAGIA, UNSPECIFIED 03/09/2018 ELVA BILLINGSLEY TRAINING DEVELOPER Ot T17.908A UNSP FB IN RESP TRACT, PART UNSP CAUSING 03/09/2018 JOSEJOE EUBANKS Albin STRETCHER LEVELER OPERATOR Ot I71.4 ABDOMINAL AORTIC ANEURYSM, WITHOUT RUPTU 06/06/2018 Ot E78.5 HYPERLIPIDEMIA, UNSPECIFIED 06/06/2018 Ot I10 ESSENTIAL ( PRIMARY) HYPERTENSION 06/06/2018 Ot N04.9 NEPHROTIC SYNDROME WITH UNSPECIFIED MORP 06/06/2018 Ot R06.02 SHORTNESS OF BREATH 06/06/2018 Ot R60.0 LOCALIZED EDEMA 06/19/2018 Albin WALLER MD Ot E78.5 HYPERLIPIDEMIA, UNSPECIFIED 06/19/2018 CHRISTIN JAFFE, Albin DICKENS Ot I10 ESSENTIAL (PRIMARY) HYPERTENSION 06/19/2018 CHRISTIN JAFFE, Albin DICKENS Ot N04.9 NEPHROTIC SYNDROME WITH UNSPECIFIED MORP 06/19/2018 Albin WALLER MD Ot R06.02 SHORTNESS OF BREATH 06/19/2018 CHRISTIN JAFFE, Albin DICKENS Ot R60.0 LOCALIZED EDEMA 06/25/2018 Albin WALLER MD Ot I71.4 ABDOMINAL AORTIC ANEURYSM, WITHOUT RUPTU 06/26/2018 Albin WALLER MD Ot E78.5 HYPERLIPIDEMIA, UNSPECIFIED 06/26/2018 CHRISTIN JAFFE, Albin DICKENS Ot I10 ESSENTIAL (PRIMARY) HYPERTENSION 06/26/2018 CHRISTIN JAFFE, Albin DICKENS Ot N04.9 NEPHROTIC SYNDROME WITH UNSPECIFIED MORP 06/26/2018 Albin WALLER MD Ot R06.02 SHORTNESS OF BREATH 06/26/2018 Albin WALLER MD Ot R60.0 LOCALIZED EDEMA 06/28/2018 EUGENE MORALES DO Ot Z01.818 ENCOUNTER FOR OTHER PREPROCEDURAL EXAMIN 06/28/2018 Albin WALLER MD Ot N04.9 NEPHROTIC SYNDROME WITH UNSPECIFIED MORP 06/30/2018 BRENDA WETZEL Ot 441.4 ABDOM AORTIC ANEURYSM 06/30/2018 BRENDA WETZEL Ot 786.50 CHEST PAIN NOS 06/30/2018 BRENDA WETZEL Ot I71.4 ABDOMINAL AORTIC ANEURYSM, WITHOUT RUPTU 06/30/2018 JOE JOSE Ot I10 ESSENTIAL (PRIMARY) HYPERTENSION 06/30/2018 JOE JOSE Ot I71.4 ABDOMINAL AORTIC ANEURYSM, WITHOUT RUPTU 06/30/2018 DAMARI, BRENDA T STRETCHER LEVELER OPERATOR Ot 441.4 ABDOM AORTIC ANEURYSM 06/30/2018 BRENDA WETZEL STRETCHER LEVELER OPERATOR Ot 786.50 CHEST PAIN NOS 06/30/2018 BRENDA WETZEL STRETCHER LEVELER OPERATOR Ot I71.4 ABDOMINAL AORTIC ANEURYSM, WITHOUT RUPTU 06/30/2018 JOE JOSE MARNI Ot I10 ESSENTIAL (PRIMARY) HYPERTENSION 06/30/2018 JOE JOSE Albin GRIDER Ot I71.4 ABDOMINAL AORTIC ANEURYSM, WITHOUT RUPTU 06/30/2018 Albin WALLER MD Ot N04.9 NEPHROTIC SYNDROME WITH UNSPECIFIED MORP 07/03/2018 Albin WALLER MD, Ot I71.4 ABDOMINAL AORTIC ANEURYSM, WITHOUT RUPTU 07/03/2018 Albin WALLER MD, Ot N05.9 UNSP NEPHRITIC SYNDROME WITH UNSPECIFIED 07/03/2018 Albin WALLER MD, Ot I71.4 ABDOMINAL AORTIC ANEURYSM, WITHOUT RUPTU Procedures Code Description [place] [address] ROUTINE VENIPUNCTURE 11/10/2012 08241 TSH 11/10/2012 00213 CBC 11/10/2012 25390 LIPID PANEL 11/10/2012 25396 CMP 11/10/2012 [id number] GFR CALC (RESULT ONLY) 11/10/2012 Results Test [...] Staphylococcus aureus (MRSA) screening culture NEG NRG Serum or plasma creatinine measurement with calculation of estimated glomerular filtration rate - 02/08/18 14:47 Serum or plasma creatinine measurement (mass/volume) 0.93 mg/dL 0.60-1.30 Serum or plasma creatinine measurement with calculation of estimated glomerular filtration rate > NRG CMP - 04/04/18 13:39 GLUCOSE 104 mg/dL 65-99 UREA NITROGEN (BUN) 10 mg/dL 7-25 CREATININE 1.13 mg/dL 0.70-1.25 eGFR NON-AFR. MACANESE 66 mL/min/1.73m2 > OR=60 eGFR 77 mL/min/1.73m2 > OR=60 BUN/CREATININE RATIO NOT APPLICABLE (calc) 6-22 SODIUM 138 mmol/L 135-146 POTASSIUM 4.1 mmol/L 3.5-5.3 CHLORIDE 101 mmol/L 98-110 CARBON DIOXIDE 31 mmol/L 20-31 CALCIUM 8.7 mg/dL 8.6-10.3 PROTEIN, TOTAL 7.0 g/dL 6.1-8.1 ALBUMIN 4.1 g/dL 3.6-5.1 GLOBULIN 2.9 g/dL (calc) 1.9-3.7 ALBUMIN/GLOBULIN RATIO 1.4 (calc) 1.0-2.5 BILIRUBIN, TOTAL 0.4 mg/dL 0.2-1.2 ALKALINE PHOSPHATASE 72 U/L 40-115 AST 16 U/L 10-35 ALT 20 U/L 9-46 CBC - 04/04/18 13:39 WHITE BLOOD CELL COUNT 7.2 Thousand/uL 3.8-10.8 RED BLOOD CELL COUNT 3.86 Million/uL 4.20-5.80 HEMOGLOBIN 12.3 g/dL 13.2-17.1 HEMATOCRIT 35.4 % 38.5-50.0 MCV 91.7 fL 80.0-100.0 MCH 31.9 pg 27.0-33.0 MCHC 34.7 g/dL 32.0-36.0 RDW 13.3 % 11.0-15.0 PLATELET COUNT 310 Thousand/uL 140-400 MPV 10.4 fL 7.5-12.5 ABSOLUTE NEUTROPHILS 5206 cells/uL 3756-5270 ABSOLUTE LYMPHOCYTES 1145 cells/uL 850-3900 ABSOLUTE MONOCYTES 799 cells/uL 200-950 ABSOLUTE EOSINOPHILS 22 cells/uL 15-500 ABSOLUTE BASOPHILS 29 cells/uL 0-200 NEUTROPHILS 72.3 % NRG LYMPHOCYTES 15.9 % NRG MONOCYTES 11.1 % NRG EOSINOPHILS 0.3 % NRG BASOPHILS 0.4 % NRG BNP - 04/04/18 13:39 B TYPE NATRIURETIC PEPTIDE (BNP) 149 pg/mL <100 Encounters ACCT No. Visit Date/Time Discharge Status Pt. Type Provider Facility Loc./Unit Complaint [id number] 11/13/2014 15:56:00 11/13/2014 23:59:59 CLS Outpatient BRENDA WETZEL APRN [id number] 08/16/2014 11:35:00 08/16/2014 23:59:59 CLS Outpatient BRENDA WETZEL APRN [id number] 02/15/2014 11:59:00 02/15/2014 23:59:59 CLS Outpatient BRENDA WETZEL APRN [id number] 08/17/2013 13:49:00 08/17/2013 23:59:59 CLS Outpatient DAR TALLEY DO [id number] 05/23/2013 17:00:00 05/23/2013 23:59:59 CLS Outpatient BRENDA WETZEL APRN [id number] 12/08/2012 15:20:00 12/08/2012 23:59:59 CLS Outpatient BRENDA WETZEL APRN [id number] 11/10/2012 12:22:00 11/10/2012 23:59:59 CLS Outpatient BRENDA WETZEL APRN [id number] 10/27/2012 00:00:00 10/27/2012 23:59:59 CLS Outpatient [id number] 10/11/2012 14:41:00 10/11/2012 23:59:59 CLS Outpatient [id number] 05/10/2012 16:57:00 05/10/2012 23:59:59 CLS Outpatient BRENDA WETZEL APRN [id number] 05/10/2012 16:57:00 05/10/2012 23:59:59 CLS Outpatient BRENDA WETZEL APRN [id number] 06/30/2018 11:07:00 06/30/2018 23:59:59 CLS Outpatient Albin WALLER MD [facility] RAD AAA-ABDOMINAL AORTIC ANEURYSM [id number] 06/27/2018 12:53:00 06/27/2018 23:59:59 CLS Outpatient Albin WALLER MD [facility] LAB N04.9 NEPHROTIC SYNDROME [id number] 06/27/2018 05:42:00 06/27/2018 14:47:00 DIS Outpatient EUGENE MORALES DO [facility] PREOP COLONOSCOPY [id number] 06/15/2018 08:02:00 06/15/2018 23:59:59 CLS Outpatient Albin WALLER MD [facility] CARD EDEMA EXTREMITIES, HYPERLIPIDAEMIA, HTN,SOB [id number] 05/09/2018 14:16:00 05/09/2018 23:59:59 CLS Preadmit JOE JOSE [facility] RAD AAA [id number] 02/08/2018 14:31:00 02/08/2018 23:59:59 CLS Outpatient JOE JOSE STRETCHER LEVELER OPERATOR [facility] RAD AAA I71.4 [id number] 02/08/2018 14:30:00 02/08/2018 23:59:59 CLS Outpatient ELVA BILLINGSLEY TRAINING DEVELOPER [facility] RAD DYSPHAGIA [id number] 12/27/2017 09:29:00 12/27/2017 12:15:00 DIS Outpatient EUGENE MORALES DO [facility] ENDO DYSPHAGIA/GERD [id number] 12/23/2016 14:00:00 12/23/2017 15:30:00 DIS Outpatient EUGENE MORALES DO [facility] PREOP EGD [id number] 12/01/2017 09:18:00 12/01/2017 16:30:00 DIS Outpatient EUGENE MORALES DO [facility] SDC SKIN LESIONS [id number] 11/30/2017 14:08:00 11/30/2017 23:59:59 CLS Outpatient ELVA BILLINGSLEY APRN [facility] RAD J18.9 [id number] 11/29/2017 15:00:00 11/29/2017 15:30:00 DIS Outpatient EUGENE MORALES DO [facility] PREOP SKIN LESIONS [id number] 09/13/2017 14:50:00 09/13/2017 15:00:00 DIS Outpatient HUSSEIN VERGARA DO [facility] SLEEP G47.10 HYPERSOMNIA [id number] 09/06/2017 14:48:00 09/06/2017 23:59:59 CLS Preadmit ELVA BILLINGSLEY TRAINING DEVELOPER [facility] RAD J18.9 PNEUMONIA [id number] 08/26/2017 15:20:00 08/28/2017 11:40:00 DIS Inpatient SHIV MATHIAS MD [facility] 4TH PNEUMONIA, RULE OUT SEPSIS [id number] 08/23/2017 11:01:00 08/23/2017 23:59:59 CLS Outpatient SCHUYLER CASTILLO MD [facility] RAD LUNG MASS [id number] 08/04/2017 15:50:00 08/08/2017 13:25:00 DIS Inpatient SANAZ LEVY DO [facility] 4TH SEPSIS,FEVER, COMMUNITY AQUIRED PNEUMONIA [id number] 02/09/2017 09:40:00 02/09/2017 23:59:59 CLS Outpatient JOE JOSE Albin GRIDER [facility] RAD I71.4,I10 [id number] 07/21/2016 08:19:00 07/21/2016 23:59:59 CLS Outpatient BRENDA WETZEL [facility] RAD ABDOMINAL ANEURYSM [id number] 03/04/2015 07:48:00 03/04/2015 23:59:59 CLS Outpatient BRENDA WETZEL [facility] RAD CP [id number] 01/29/2015 18:37:00 01/29/2015 21:48:00 DIS Emergency BRENDA FERNANDES DO [facility] ER L SIDE BACK PAIN [id number] 07/04/2018 11:15:00 PEN Preadmit EUGENE MORALES DO [facility] ENDO SCREENING [id number] 07/03/2018 07:53:00 ACT Outpatient Albin WALLER MD [facility] RAD ABDOMINAL AORTIC ANEURYSM [id number] 05/23/2018 11:41:00 Document Registration [id number] 01/29/2015 18:38:00 Document Registration [id number] 04/06/2018 09:00:00 04/06/2018 23:59:59 CLS Outpatient BRENDA WETZEL APRN [facility] F[facility] [id number] 04/04/2018 12:40:00 Document Registration [id number] 03/05/2015 04:19:08 ACT Document Registration
[2018-07-04] MEDS ORDERED: LACTATED RINGERS 1,000 ML IV PRN (08:45)
[2018-07-04] MEDS ORDERED: PROPOFOL INJECTION 50 ML IV ONE (09:01)
--- NOTE | 2018-07-04 10:16 | Progress Note-Post Operative ---
Post-Operative Progess Note Surgeon (s)/Hotel Room Attendant (s) Surgeon EUGENE MORALES DO Hotel Room Attendant: na Pre-Operative Diagnosis screening colonoscopy Post-Operative Diagnosis colon polyps Procedure & Operative Findings Date of Procedure 07/04/18 Procedure Performed/Findings colonoscopy c snare polypectomy x 3 Anesthesia Type per corporate ethics officer Estimated Blood Loss Estimated blood loss (mL): none Specimens/Packing Specimens Removed sigmoid x 1 and rectum x 2 polyps EUGENE MORALES DO Jul 04, 2018 10:16
--- NOTE | 2018-07-04 10:17 | Discharge Inst-Simple/Standard ---
Discharge Inst-Standard Patient Instructions/Follow Up Plan of Care/Instructions/FU: 2 weeks Michelle Activity as Tolerated: Yes Discharge Diet: Regular Diet (high fiber) EUGENE MORALES DO Jul 04, 2018 10:17
[2018-07-04 10:25] VITALS: BP 171/89
--- NOTE | 2018-07-04 10:47 | Anesthesia-General Post-Op ---
MAC Patient Condition Mental Status/LOC: Same as Preop Cardiovascular: Satisfactory Nausea/Vomiting: Absent Respiratory: Satisfactory Pain: Controlled Complications: Absent Post Op Complications Complications None Follow Up Care/Instructions Patient Instructions None needed. Anesthesiology Discharge Order Discharge Order Patient is doing well, no complaints, stable vital signs, no apparent adverse anesthesia problems. No complications reported per nursing. CARLY DANIEL CRNA Jul 04, 2018 10:47
[2018-07-04 10:55] VITALS: BP 187/112
[2018-07-04 11:00] VITALS: BP 187/112
--- NOTE | 2018-07-04 14:15 | OPERATIVE REPORT ---
DATE OF SERVICE: 07/04/2018 PREOPERATIVE DIAGNOSIS: Screening colonoscopy. POSTOPERATIVE DIAGNOSES: Colon polyps x 3 and diverticulosis. PROCEDURES: Colonoscopy with snare polypectomy x 3. SURGEON: Eugene Martinez DO. ANESTHESIA: Per PARAFFINER. ESTIMATED BLOOD LOSS: None. COMPLICATIONS: None. INDICATIONS: The patient is a 67-year-old male due for screening colonoscopy. He understands risks and benefits of the procedure and wished to proceed with procedure. Consent was signed on the chart. DESCRIPTION OF PROCEDURE: The patient was taken to the endoscopy suite, placed in left lateral recumbent position. Timeout was performed. Digital rectal exam was performed. There were no palpable polyps, masses or ulcerations. The scope was inserted in the rectum and advanced all the way to the cecum with minimal difficulty. Prep was adequate. The scope was then slowly retracted back. There were no polyps, masses or ulcerations within the cecum, ascending, transverse and descending colon. In the sigmoid colon, a lot of diverticulosis began to be encountered. There was also a small polyp, which snare polypectomy was performed and obtained for specimen. Scope was continuously retracted back into the rectum where two small polyps were present as well, which snare polypectomies were performed. These were obtained for specimen as well. Scope was also retroflexed noting no other pathology. Scope was returned to its normal position, slowly withdrawn until completely removed. The patient tolerated the procedure well without any complications. He will follow up in the office in 2 weeks to discuss pathology results and see how he is doing. I also recommended a high-fiber diet. The patient will need a repeat colonoscopy in 5 years. If he has any problems prior to that, he should be seen at that time. Job ID: [id number] DocumentID: [id number] Dictated Date: 07/04/2018 10:19:31 Butt Sawyer Date: 07/04/2018 14:14:37 Dictated By: EUGENE MARTINEZ DO
== END 2018-07-04 11:00 | disposition home or self-care (01) ==
LOC: ENDO 08:11
PROVIDERS: ATTEND Surgery
DX: Z12.11 Encounter for screening for malignant neoplasm of colon (principal); D12.5 Benign neoplasm of sigmoid colon; D12.8 Benign neoplasm of rectum; K62.1 Rectal polyp; K57.30 Diverticulosis of large intestine without perforation or abscess without bleeding; I10 Essential (primary) hypertension; K21.9 Gastro-esophageal reflux disease without esophagitis; Z87.891 Personal history of nicotine dependence; Z79.899 Other long term (current) drug therapy

== ENCOUNTER 2022-08-30 10:44 | Inpatient (IN) | payer MEDICARE, OTHER ==
[~2022-08-30] VITALS: Ht 182.8 cm; Wt 105.8 kg
[2022-08-30] VITALS (8 sets, daily range): BP systolic 117–138; BP diastolic 70–99
[~2022-08-30 10:44] MED LIST changes: +AMLO-250 PO; +AMLO-251 PO; -AMLO10TA6 PO; -AMLO5TAB7 PO; +LOSA100T57 PO; -LOSA100T8 PO; +OMEP20TA56 PO; -OMEP20TA7 PO; -QUET400T12 PO; +QUET400T13 PO; -TERA5CAP3 PO
[2022-08-30 11:10] LABS: BASOPHILS % (AUTO) 0 % (0-10); EOSINOPHILS % (AUTO) 0 % (0-10); HEMATOCRIT 41 % (40-54); HEMOGLOBIN 13.7 g/dL (13.3-17.7); LYMPHOCYTES % (AUTO) 8 % (12-44); MEAN CORPUSCULAR HEMOGLOBIN 32 pg (25-34); MEAN CORPUSCULAR HGB CONC 33 g/dL (32-36); MEAN CORPUSCULAR VOLUME 95 fL (80-99); MEAN PLATELET VOLUME 11.2 fL (9.0-12.2); MONOCYTES # (AUTO) 1.4 10^3/uL (0.0-1.0); MONOCYTES % (AUTO) 12 % (0-12); NEUTROPHILS # (AUTO) 9.8 10^3/uL (1.8-7.8); NEUTROPHILS % (AUTO) 80 % (42-75); PLATELET COUNT 251 10^3/uL (130-400); WHITE BLOOD COUNT 12.3 10^3/uL (4.3-11.0)
[2022-08-30 11:13] LABS: ALBUMIN 3.7 GM/DL (3.2-4.5); CHLORIDE 102 MMOL/L (98-107); POTASSIUM 4.3 MMOL/L (3.6-5.0); SODIUM 138 MMOL/L (135-145)
[2022-08-30 11:15] LABS: CALCIUM 9.7 MG/DL (8.5-10.1)
[2022-08-30] MEDS ORDERED: NS IV 1000 ML 1,000 ML IV SCH (11:15)
[2022-08-30 11:16] LABS: GLUCOSE 122 MG/DL (70-105); TOTAL PROTEIN 7.4 GM/DL (6.4-8.2)
[2022-08-30 11:17] LABS: BILIRUBIN,TOTAL 1.1 MG/DL (0.1-1.0); CARBON DIOXIDE 26 MMOL/L (21-32)
[2022-08-30 11:19] LABS: ALKALINE PHOSPHATASE 93 U/L (40-136); CREATININE SERUM 2.04 MG/DL (0.60-1.30); FIBRIN DEGRADATION PRODUCTS 0.68 UG/ML (0.00-0.49); GFR ESTIMATED 34; INR 1.1 (0.8-1.4); PROTHROMBIN TIME PATIENT 14.6 SEC (12.2-14.7)
[2022-08-30 11:20] LABS: BUN/CREATININE RATIO 9
[2022-08-30 11:22] LABS: ALANINE AMINOTRANSFERASE 28 U/L (0-55)
--- NOTE | 2022-08-30 11:34 | ED Neurological Problem ---
General Chief Complaint: Neurological Problems Stated Complaint: STROKE Nursing Triage Note: PT TO [facility] [address] [facility] FROM DR HARDWICK OFFICE WITH C/O STROKE LIKE SYMPTOMS STARTING THIS MORNING. THIS MORNING PT HAD TROUBLE WALKING, L SIDE FACIAL DROOP AND SOME SPEECH DIFFICULTIES. PT ALSO STATES HE HAS BACK AND ABD PAIN Source: patient Exam Limitations: no limitations History of Present Illness Date Seen by Provider: Aug 30, 2022 Time Seen by Provider: 10:50 Initial Comments Patient is a 71-year-old male presents to the emergency department today with a chief complaint of facial droop, dysarthria. Patient allegedly was not "feeling well" last evening when he went to bed. He woke up at around 830 and states that he had some balance issues going to the bathroom. He had a scheduled doctor's appointment today with his primary care and his took him, when they got to the doctor's office she noted some right facial drooping. This was at approximately 940 this morning. He was subsequently brought from the office by ambulance. Patient denies any headache or vision changes. No swallowing difficulties. No chest pain or shortness of breath. He has known abdominal aortic aneurysm that has been surveyed yearly. Last time was a year ago and reports that it was 4.7 cm. He has had a little back pain and left flank pain over the last couple of days. No traumas or falls reported. He denies weakness or loss of sensation in any of his extremities. No bowel or bladder complaints. He is not currently nauseous. No recent febrile illnesses. Timing/Duration: 1-3 hours Associated Symptoms: other (Back pain left flank pain) Allergies and Home Medications Allergies Coded Allergies: naproxen (Verified Allergy, Intermediate, CAUSED KIDNEY DISEASE, 03/02/12) Patient Home Medication List Home Medication List Reviewed: Yes Atorvastatin Calcium (Atorvastatin Calcium) 20 Mg Tablet, 20 MG PO HS, (Reported) Entered as Reported by: WENDY BROWN on 08/05/17834 Hydrocodone Bit/Acetaminophen (Lortab 7.5 Mg Tablet) 1 Each Tablet, 1 TAB PO Q6H PRN for PAIN-MODERATE, (Reported) Entered as Reported by: WENDY BROWN on 08/05/17834 Lorazepam (Lorazepam) 1 Mg Tablet, 2 MG PO HS, (Reported) Entered as Reported by: WENDY BROWN on 08/05/17834 Losartan Potassium (Losartan Potassium) 100 Mg Tablet, 100 MG PO DAILY, (Repor chris) Entered as Reported by: WENDY BROWN on 08/05/17834 Metoprolol Tartrate (Metoprolol Tartrate) 50 Mg Tablet, 50 MG PO BID, (Reported) Entered as Reported by: WENDY BROWN on 08/05/17834 Quetiapine Fumarate (Quetiapine Fumarate) 400 Mg Tablet, 800 MG PO HS, (Reported) Entered as Reported by: WENDY BROWN on 08/05/17834 Terazosin HCl (Terazosin HCl) 5 Mg Capsule, 5 MG PO HS, (Reported) Entered as Reported by: WENDY BROWN on 08/05/17834 Review of Systems Review of Systems Constitutional: see HPI Eyes: No Symptoms Reported Ears, Nose, Mouth, Throat: no symptoms reported Respiratory: no symptoms reported Cardiovascular: no symptoms reported Gastrointestinal: other (Mild left flank pain) Genitourinary: no symptoms reported Musculoskeletal: back pain Skin: no symptoms reported Psychiatric/Neurological: Other (Speech difficulties, facial droop appears to be on the right) All Other Systems Reviewed Negative Unless Noted: Yes Past Yksvpjz-Wdmenl-Gdiyio Hx Patient Social History Tobacco Use?: No Use of E-Cig and/or Vaping dev: No Substance use?: No Alcohol Use?: No Pt feels they are or have been: No Immunizations Up To Date Tetanus Booster (TDap): Unknown Influenza Vaccine Up-to-Date: No; Not Current First/Initial COVID19 Vaccinat: 2020 Second COVID19 Vaccination Mike: 2020 COVID19 Vaccine Ore Washer: DC Seasonal Allergies Seasonal Allergies: No Past Medical History Surgery/Hospitalization HX: HTN Surgeries: Yes Tonsillectomy Respiratory: No Currently Using CPAP: No Currently Using BIPAP: No Cardiac: Yes Aneurysm, High Cholesterol, Hypertension Neurological: No Reproductive Disorders: No Sexually Transmitted Disease: No HIV/AIDS: No Genitourinary: Yes Prostate Problems Gastrointestinal: No Musculoskeletal: Yes Degenerate Disk Disease, Chronic Back Pain Endocrine: No HEENT: No Cancer: No Skin Psychosocial: No Integumentary: No Blood Disorders: No Adverse Reaction/Blood Tranf: No Family Medical History No Pertinent Family Hx Physical Exam Vital Signs Vital Signs - First Documented 08/30/22 11:22 Temp 36.4 Pulse 49 Resp 16 B/P (MAP) 132/85 (101) Capillary Refill : Height, Weight, BMI Height: 5'11.00" Weight: 225lbs. 0.0oz. 102.250194an; 30.00 BMI Method:Stated General Appearance: WD/WN, no apparent distress HEENT: PERRL/EOMI, normal ENT inspection Neck: full range of motion, normal inspection Respiratory: lungs clear, normal breath sounds, no respiratory distress, no accessory muscle use Cardiovascular: bradycardia, irregularly irregular Gastrointestinal: soft, tenderness (mild left LQ abdominal tendernedd) Extremities: normal range of motion, normal inspection Neurologic/Psychiatric: no motor/sensory deficits, alert, normal mood/affect, oriented x 3 Crainal Nerves: No abnormal pupil position Progress/Results/Core Measures Results/Orders Lab Results Laboratory Tests Test 08/30/22 10:50 Range/Units White Blood Count 12.3 H 4.3-11.0 10^3/uL Red Blood Count 4.33 4.30-5.52 10^6/uL Hemoglobin 13.7 13.3-17.7 g/dL Hematocrit 41 40-54 % Mean Corpuscular Volume 95 80-99 fL Mean Corpuscular Hemoglobin 32 25-34 pg Mean Corpuscular Hemoglobin Concent 33 32-36 g/dL Red Cell Distribution Width 13.9 10.0-14.5 % Platelet Count 251 130-400 10^3/uL Mean Platelet Volume 11.2 9.0-12.2 fL Immature Granulocyte % (Auto) 0 % Neutrophils (%) (Auto) 80 H 42-75 % Lymphocytes (%) (Auto) 8 L 12-44 % Monocytes (%) (Auto) 12 0-12 % Eosinophils (%) (Auto) 0 0-10 % Basophils (%) (Auto) 0 0-10 % Neutrophils # (Auto) 9.8 H 1.8-7.8 10^3/uL Lymphocytes # (Auto) 1.0 1.0-4.0 10^3/uL Monocytes # (Auto) 1.4 H 0.0-1.0 10^3/uL Eosinophils # (Auto) 0.0 0.0-0.3 10^3/uL Basophils # (Auto) 0.0 0.0-0.1 10^3/uL Immature Granulocyte # (Auto) 0.1 0.0-0.1 10^3/uL Prothrombin Time 14.6 12.2-14.7 SEC INR Comment 1.1 0.8-1.4 Activated Partial Thromboplast Time 32 24-35 SEC D-Dimer 0.68 H 0.00-0.49 UG/ML Sodium Level 138 135-145 MMOL/L Potassium Level 4.3 3.6-5.0 MMOL/L Chloride Level 102 98-107 MMOL/L Carbon Dioxide Level 26 21-32 MMOL/L Anion Gap 10 5-14 MMOL/L Blood Urea Nitrogen 19 H 7-18 MG/DL Creatinine 2.04 H 0.60-1.30 MG/DL Estimat Glomerular Filtration Rate 34 BUN/Creatinine Ratio 9 Glucose Level 122 H 70-105 MG/DL Calcium Level 9.7 8.5-10.1 MG/DL Corrected Calcium 9.9 8.5-10.1 MG/DL Total Bilirubin 1.1 H 0.1-1.0 MG/DL Aspartate Amino Transf (AST/SGOT) 30 5-34 U/L Alanine Aminotransferase (ALT/SGPT) 28 0-55 U/L Alkaline Phosphatase 93 40-136 U/L Troponin I < 0.028 <0.028 NG/ML Total Protein 7.4 6.4-8.2 GM/DL Albumin 3.7 3.2-4.5 GM/DL My Orders Orders - GUILLERMO SHIPLEY MD Cbc With Automated Diff (08/30/22 11:02) Protime With Inr (08/30/22 11:02) Partial Thromboplastin Time (08/30/22 11:02) Comprehensive Metabolic Panel (08/30/22 11:02) Fibrin Degradation Products (08/30/22 11:02) Troponin I [place] (08/30/22 11:02) Ua Culture If Indicated (08/30/22 11:02) Chest 1 View, Ap/Pa Only (08/30/22 11:02) Ekg Tracing (08/30/22 11:02) Nothing By Mouth (08/30/22 Lunch) Accucheck Stat ONCE (08/30/22 11:02) Ed Iv/Invasive Line Start (08/30/22 11:02) Ed Iv/Invasive Line Start (08/30/22 11:02) Vital Signs Stroke Patient Q15M (08/30/22 11:02) Ct Head Wo-R/O Stroke (08/30/22 11:02) O2 (08/30/22 11:02) Intake & Output 06,14, (08/30/22 11:02) Monitor-Rhythm Ecg Trace Only (08/30/22 11:02) Dysphagia Screening Tool Q10MX1 (08/30/22 11:02) Post Thrombolytic Adminstratio (08/30/22 11:02) Lipid Panel (08/31/22 06:00) Ns Iv 1000 Ml (Sodium Chloride 0.9%) (08/30/22 11:15) Ct Abdomen/Pelvis Wo (08/30/22 11:17) Ondansetron Injection (Zofran Injectio (08/30/22 13:00) Hydrocodone/Apap 5/325 Tablet (Lortab 5 (08/30/22 13:00) Ed Admission (Communication) (08/30/22 13:08) Medications Given in ED Current Medications Medications Dose Ordered Sig/Jordi Route Start Time Stop Time Status Last Admin Dose Admin Acetaminophen/ Hydrocodone Bitart 1 ea ONCE ONCE PO 08/30/22 13:00 08/30/22 13:01 DC 08/30/22 13:01 1 EA Ondansetron HCl 4 mg ONCE ONCE IVP 08/30/22 13:00 08/30/22 13:01 DC 08/30/22 13:01 4 MG Vital Signs/I&O 08/30/22 11:22 Temp 36.4 Pulse 49 Resp 16 B/P (MAP) 132/85 (101) Blood Pressure Mean: 101 FSBG Bedside Testing Finger Stick Blood Glucose: 129 Blood Glucose Action Taken: PER EMS. TERE NOTIFIED Progress Progress Note #1: Time: 11:35 Progress Note Discussed with Dr. Vila, stroke neurology recommends a noncontrast head CT for evaluation, Doppler carotid arteries or MRA without. Due to low NIH stroke scale at 2, low clinical suspicion for acute reasons for intervention. CTA head and neck as well as CTA abdomen were considered regarding potential time of onset around 830 this morning. However he did go to bed not feeling "well". Low clinical suspicion for leaking AAA however we do need to know the measurements. Patient's EKG shows either a slow bradycardic sinus versus bradycardic A. fib. Rate 41 on his current EKG. Otherwise vital signs are stable. He is asymptomatic of nausea, chest pain. Anticipate admission to [facility] for further evaluation management Progress Note #2: Time: 13:20 Progress Note Case discussed with Dr. Hardin. Will admit to the hospital inpatient to the cardiac stepdown floor. Also discussed with Dr. Henry at 1317. I advised him of ischemic strokelike symptoms, "outside the window" for tPA and renal disease, creatinine of 2.01. Initial ECG Impression Date: Aug 30, 2022 Initial ECG Impression Time: 11:20 Initial ECG Rate: 41 Initial ECG Rhythm: A Fib/Flutter Comment Junctional rhythm versus slow A. fib versus very bradycardic sinus. Artifact at the baseline prohibiting really evaluation of P waves. Diagnostic Imaging Diagonstic Imaging: CT Comments [facility], [place] NAME: HANY CARMONA [facility] REC#: [id number] PT STATUS: REG ER : 1950 PHYSICIAN: GUILLERMO SHIPLEY MD ADMIT DATE: 08/30/22/ER Draft Date of Exam:08/30/22 CT ABDOMEN/PELVIS WO PROCEDURE: CT abdomen and pelvis without contrast. TECHNIQUE: Multiple contiguous axial images were obtained through the abdomen and pelvis without the use of intravenous contrast. Auto Exposure Controls were utilized during the CT exam to meet ALARA standards for radiation dose reduction. INDICATION: Abdominal pain. COMPARISON: 06/30/2018. FINDINGS: The included portions of the lung bases are clear. Note is made of prominent cardiomegaly. CT ABDOMEN: A large amount of air and stool is noted within the ascending and transverse colon. There is colonic diverticulosis but no CT evidence of acute diverticulitis. Cecal bascule is noted. A normal appendix cannot be adequately identified but there is no pericecal inflammation. Small bowel loops are nondistended. A hypodense left renal cyst is noted; otherwise, the kidneys, adrenal glands, spleen, pancreas, and liver have an unremarkable noncontrast CT appearance. There is no loculated fluid collection, free fluid, or free air within the abdomen. No abnormal mesenteric or retroperitoneal adenopathy is seen. Osseous structures show no acute abnormalities. Note is made of moderate diffuse calcified aortic and arterial atherosclerosis. Infrarenal abdominal aortic aneurysm measures 4 x 4.3 cm in maximal axial dimension. CT PELVIS: The urinary bladder is unopacified. No calculi are seen within the urinary bladder. There is no loculated fluid collection, free fluid, or free air within the pelvis. No abnormal adenopathy is seen. Osseous structures show no acute abnormalities. IMPRESSION: 1. Large amount of air and stool within the ascending and transverse colon. Please correlate for constipation. 2. Otherwise, no acute abnormality is seen within the abdomen or pelvis. 3. Redemonstration of abdominal aortic aneurysm as described above. 4. Colonic diverticulosis but no CT evidence of acute diverticulitis. Dictated on workstation # [id number] Dict: 08/30/22 1218 Trans: 08/30/22 1227 [id number] Interpreted by: MARCELA LAUREANO MD Electronically signed by: Diagonstic Imaging: CT Comments [facility], [place] NAME: MATHEWHANY [facility] REC#: [id number] PT STATUS: REG ER : 1950 PHYSICIAN: GUILLERMO SHIPLEY MD ADMIT DATE: 08/30/22/ER Draft Date of Exam:08/30/22 CT HEAD WO-R/O STROKE INDICATION: Neurologic deficit, left-sided facial droop, and speech difficulty. TECHNIQUE: Multiple contiguous axial images were obtained through the brain without the use of intravenous contrast. Auto Exposure Controls were utilized during the CT exam to meet ALARA standards for radiation dose reduction. COMPARISON: There is no previous CT head for comparison. FINDINGS: There are diffuse atrophic changes. There are no extra-axial fluid collections. No intracranial hemorrhage. There are mild low-density changes in the deep white matter, compatible with chronic ischemic change. There is no acute hemorrhage. There is a questionable hyperdense right MCA sign, recommend CTA for further evaluation. Calvarial windows appear normal. IMPRESSION: Atrophic changes with chronic ischemic changes in the deep white matter. No acute intracranial hemorrhage. There is question of a hyperdense MCA sign on the right side, recommend CTA for further evaluation. Dictated on workstation # [id number] Dict: 08/30/22 1212 Trans: 08/30/22 1216 [id number] Interpreted by: AWA AGUSTIN MD Electronically signed by: Departure Communication (Admissions) Time/Spoke to Admitting Phy: 12:[address] Hardin - will do que'd orders; IP step down Time/Spoke to Consulting Phy: 13:[address] Henry; eliquyovany 5mg Impression Primary Impression: CVA (cerebral vascular accident) Qualified Codes: I63.9 - Cerebral infarction, unspecified Additional Impressions: New onset a-fib Bradycardia Disposition: ADMITTED INPATIENT Condition: Stable Admissions Decision to Admit Reason: Admit from ER (General) Decision to Admit/Date: Aug 30, 2022 Time/Decision to Admit Time: 13:19 Departure-Patient Inst. Referrals: BABAK PHILLIPS MD (PCP) Primary Care Physician GUILLERMO SHIPLEY MD Aug 30, 2022 11:34
--- NOTE | 2022-08-30 11:43 | Diagnostic Imaging Report ---
EXAMINATION: Chest 1 view HISTORY: stroke like symptoms; right facial droop, dysarthria COMPARISON: None available. FINDINGS: Heart size and pulmonary vasculature are normal. No consolidation, pleural effusion, or pneumothorax. The osseous structures are intact. IMPRESSION: 1. No acute abnormality in the chest. Dictated by: Dictated on workstation # [id number]
--- NOTE | 2022-08-30 12:16 | Diagnostic Imaging Report ---
INDICATION: Neurologic deficit, left-sided facial droop, and speech difficulty. TECHNIQUE: Multiple contiguous axial images were obtained through the brain without the use of intravenous contrast. Auto Exposure Controls were utilized during the CT exam to meet ALARA standards for radiation dose reduction. COMPARISON: There is no previous CT head for comparison. FINDINGS: There are diffuse atrophic changes. There are no extra-axial fluid collections. No intracranial hemorrhage. There are mild low-density changes in the deep white matter, compatible with chronic ischemic change. There is no acute hemorrhage. There is a questionable hyperdense right MCA sign, recommend CTA for further evaluation. Calvarial windows appear normal. IMPRESSION: Atrophic changes with chronic ischemic changes in the deep white matter. No acute intracranial hemorrhage. There is question of a hyperdense MCA sign on the right side, recommend CTA for further evaluation. Dictated by: Dictated on workstation # [id number]
--- NOTE | 2022-08-30 12:28 | Diagnostic Imaging Report ---
PROCEDURE: CT abdomen and pelvis without contrast. TECHNIQUE: Multiple contiguous axial images were obtained through the abdomen and pelvis without the use of intravenous contrast. Auto Exposure Controls were utilized during the CT exam to meet ALARA standards for radiation dose reduction. INDICATION: Abdominal pain. COMPARISON: 06/30/2018. FINDINGS: The included portions of the lung bases are clear. Note is made of prominent cardiomegaly. CT ABDOMEN: A large amount of air and stool is noted within the ascending and transverse colon. There is colonic diverticulosis but no CT evidence of acute diverticulitis. Cecal bascule is noted. A normal appendix cannot be adequately identified but there is no pericecal inflammation. Small bowel loops are nondistended. A hypodense left renal cyst is noted; otherwise, the kidneys, adrenal glands, spleen, pancreas, and liver have an unremarkable noncontrast CT appearance. There is no loculated fluid collection, free fluid, or free air within the abdomen. No abnormal mesenteric or retroperitoneal adenopathy is seen. Osseous structures show no acute abnormalities. Note is made of moderate diffuse calcified aortic and arterial atherosclerosis. Infrarenal abdominal aortic aneurysm measures 4 x 4.3 cm in maximal axial dimension. CT PELVIS: The urinary bladder is unopacified. No calculi are seen within the urinary bladder. There is no loculated fluid collection, free fluid, or free air within the pelvis. No abnormal adenopathy is seen. Osseous structures show no acute abnormalities. IMPRESSION: 1. Large amount of air and stool within the ascending and transverse colon. Please correlate for constipation. 2. Otherwise, no acute abnormality is seen within the abdomen or pelvis. 3. Redemonstration of abdominal aortic aneurysm as described above. 4. Colonic diverticulosis but no CT evidence of acute diverticulitis. Dictated by: Dictated on workstation # [id number]
[2022-08-30] MEDS ORDERED: ONDANSETRON 4 MG/2 ML (SDV) Z0FRAN IVP ONE (13:00)
[2022-08-30] MEDS ORDERED: HYDROcodone/APAP 5 MG/325 MG (LORTAB) TAB PO ONE (13:00)
[2022-08-30] MEDS ORDERED: APIXABAN 5 MG (ELIQUIS) TABLET PO ONE (13:30)
[2022-08-30] MEDS ORDERED: ALPRAZolam 1 MG (XANAX) TAB PO PRN (14:00)
[2022-08-30] MEDS ORDERED: BISACODYL 10 MG SUPP (DULCOLAX) PR PRN (14:00)
[2022-08-30] MEDS ORDERED: MILK OF MAGNESIA 400 MG/5 ML 30 ML UDC PO PRN (14:00)
[2022-08-30] MEDS ORDERED: hydrALAZINE (APESOLINE) 20 MG/ML VIAL IV PRN (14:00)
[2022-08-30] MEDS ORDERED: diphenhydrAMINE 50 MG/ML INJ (BENADRYL) IVP PRN (14:00)
[2022-08-30] MEDS ORDERED: polyethylene glycoL POWDER 17 GM (MIRALAX) PACK PO PRN (14:00)
[2022-08-30] MEDS ORDERED: ACETAMINOPHEN 325 MG TABLET PO PRN (14:00)
[2022-08-30] MEDS ORDERED: diphenhydrAMINE 25 MG TAB (BENADRYL) PO PRN (14:00)
[2022-08-30] MEDS ORDERED: ONDANSETRON 4 MG/2 ML (SDV) Z0FRAN IV PRN (14:00)
[2022-08-30] MEDS ORDERED: ANTACID SUSP 30 ML UDC (MYLANTA) PO PRN (14:00)
[2022-08-30] MEDS ORDERED: LACTULOSE SYRUP 10GM/15ML (ENULOSE) 30ML UDC PO PRN (14:00)
[2022-08-30] MEDS ORDERED: ONDANSETRON 4 MG (ZOFRAN) ORAL DISSOLVE TAB PO PRN (14:00)
[2022-08-30] MEDS ORDERED: CALCIUM CARBONATE 500 MG (TUMS) TAB.CHEW PO PRN (14:00)
[2022-08-30] MEDS ORDERED: MELATONIN 3 MG TABLET PO PRN (14:00)
[2022-08-30] MEDS ORDERED: traZODone 50 MG (DESYREL) TAB PO PRN (14:00)
[2022-08-30] MEDS ORDERED: FLU QUAD HIGH DOSE 240 MCG/0.7 ML 2022-23 (FLUZONE) IM ONE (14:15)
--- NOTE | 2022-08-30 14:36 | Physical Therapy Progress Note ---
Therapy Progress Note Patient on Hold per RN due to current medical status. PT will monitor patient status and initiate evaluation when patient is medically stable. RACHEL BRYANT PT Aug 30, 2022 14:36
--- NOTE | 2022-08-30 15:22 | Consultation-Cardiology ---
HPI-Cardiology Cardiology Consultation Date of Consultation 08/30/22 Date of Admission Time Seen by Provider: 14:05 Indication: Acute CVA HPI 71 year old male with history of HTN, Hyperlipidemia, Afib, abdominal aneurysm, Nephrotic Syndrome, BPH, Anxiety, and Insomnia. He awoke this morning with right sided facial droop, dysarthria, balance disturbances, and fatigue which failed to improve prior to being transported to the ED via ambulance. Chest X ray in ER was unremarkable for acute cardiopulmonary issues. CT showed a stable abdominal aneurysm measuring 4 x 4.3cm. Head CTA showed questionable right MCA sign w/ recommendation for further imaging with CTA and carotid ultrasound. While in the ED he was found to be in atrial fibrilation with bradychardia and admitted to the floor for further work-up. Pt. reports being diagnosed with afib 8 months ago by his PCP and has seen specialists in [place] and [place]. He is uncertain of what facilities he went to at either or who he saw. His nephrotic syndrome is secondary to service in [place]. 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 Since initial presentation his facial droop and dysarthria have almost entirely resolved. He is still fatigued at this time. Denies chest pain or palpitatons. Home Medications & Allergies Allergies: Coded Allergies: naproxen (Verified Allergy, Intermediate, CAUSED KIDNEY DISEASE, 03/02/12) Home Medication List Reviewed: Yes [id number]-[id number]-Ldrolw Hx Patient Social History Marital Status: Employed/Student: retired Recreational Drug Use: No Smoking Status: Former Smoker Former smoker/When Quit: Jul 10, 1980 Recent Hopitalizations: No Have you traveled recently?: No Alcohol Use?: No Immunizations Up To Date Tetanus Booster (TDap): Unknown Date of Pneumonia Vaccine: Aug 26, 2016 Date of Influenza Vaccine: Aug 08, 2017 Past Medical History Discussed below Family Medical History Significant Family History: Heart Disease (father), CVA (sister) Review of Systems-General Review of Systems Constitutional: see HPI; No dizziness, No weakness EENTM: see HPI; No hearing loss, No blurred vision Respiratory: see HPI; No cough, No dyspnea on exertion, No hemoptysis, No orthopnea, No phlegm, No short of breath, No stridor, No wheezing, No other Cardiovascular: see HPI; No chest pain, No edema, No Hx of Intervention, No palpitations, No syncope, No vascular heart diseas, No other Gastrointestinal: abdominal pain (LLQ); No constipation, No nausea Genitourinary: No dysuria, No hematuria Musculoskeletal: back pain; No muscle weakness Skin: No change in color, No rash Psychiatric/Neurological: Denies Headache, Denies Numbness; Weakness All Other Systems Reviewed Negative Unless Noted: Yes Reviewed Test Results Reviewed Test Results Lab Laboratory Tests Test 08/30/22 10:50 Range/Units White Blood Count 12.3 H 4.3-11.0 10^3/uL Red Blood Count 4.33 4.30-5.52 10^6/uL Hemoglobin 13.7 13.3-17.7 g/dL Hematocrit 41 40-54 % Mean Corpuscular Volume 95 80-99 fL Mean Corpuscular Hemoglobin 32 25-34 pg Mean Corpuscular Hemoglobin Concent 33 32-36 g/dL Red Cell Distribution Width 13.9 10.0-14.5 % Platelet Count 251 130-400 10^3/uL Mean Platelet Volume 11.2 9.0-12.2 fL Immature Granulocyte % (Auto) 0 % Neutrophils (%) (Auto) 80 H 42-75 % Lymphocytes (%) (Auto) 8 L 12-44 % Monocytes (%) (Auto) 12 0-12 % Eosinophils (%) (Auto) 0 0-10 % Basophils (%) (Auto) 0 0-10 % Neutrophils # (Auto) 9.8 H 1.8-7.8 10^3/uL Lymphocytes # (Auto) 1.0 1.0-4.0 10^3/uL Monocytes # (Auto) 1.4 H 0.0-1.0 10^3/uL Eosinophils # (Auto) 0.0 0.0-0.3 10^3/uL Basophils # (Auto) 0.0 0.0-0.1 10^3/uL Immature Granulocyte # (Auto) 0.1 0.0-0.1 10^3/uL Prothrombin Time 14.6 12.2-14.7 SEC INR Comment 1.1 0.8-1.4 Activated Partial Thromboplast Time 32 24-35 SEC D-Dimer 0.68 H 0.00-0.49 UG/ML Sodium Level 138 135-145 MMOL/L Potassium Level 4.3 3.6-5.0 MMOL/L Chloride Level 102 98-107 MMOL/L Carbon Dioxide Level 26 21-32 MMOL/L Anion Gap 10 5-14 MMOL/L Blood Urea Nitrogen 19 H 7-18 MG/DL Creatinine 2.04 H 0.60-1.30 MG/DL Estimat Glomerular Filtration Rate 34 BUN/Creatinine Ratio 9 Glucose Level 122 H 70-105 MG/DL Calcium Level 9.7 8.5-10.1 MG/DL Corrected Calcium 9.9 8.5-10.1 MG/DL Total Bilirubin 1.1 H 0.1-1.0 MG/DL Aspartate Amino Transf (AST/SGOT) 30 5-34 U/L Alanine Aminotransferase (ALT/SGPT) 28 0-55 U/L Alkaline Phosphatase 93 40-136 U/L Troponin I < 0.028 <0.028 NG/ML Total Protein 7.4 6.4-8.2 GM/DL Albumin 3.7 3.2-4.5 GM/DL Physical Exam Physical Exam Vital Signs Vital Signs - First Documented 08/30/22 08/30/22 11:22 14:00 Temp 36.4 Pulse 49 Resp 16 B/P (MAP) 132/85 (101) Pulse Ox 93 O2 Delivery Room Air Capillary Refill : Height, Weight, BMI Height: 5'11.00" Weight: 225lbs. 0.0oz. 102.552618ig; 30.82 BMI Method:Stated General Appearance: No Apparent Distress, WD/WN Eyes: Bilateral Eye Normal Inspection, Bilateral Eye PERRL, Bilateral Eye EOMI HEENT: PERRL/EOMI, Pharynx Normal Neck: Non Tender, Supple; No Lymphadenopathy (L), No Thyromegaly Respiratory: Chest Non Tender, Lungs Clear, Normal Breath Sounds, No Accessory Muscle Use, No Respiratory Distress Cardiovascular: No Edema, Normal Peripheral Pulses, Bradycardia, Irregularly Irregular, Other (split S2) Gastrointestinal: Normal Bowel Sounds, Distended (mild); No Rebound; Tenderness (LLQ) Extremity: Normal Capillary Refill, Non Tender, No Calf Tenderness, No Pedal Edema Neurologic/Psychiatric: Alert, Oriented x3, No Motor/Sensory Deficits, Normal 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 NANO 7.) leukocytosis Assessment/Plan CVA/TIA Patient had right side facial droop with poor balance and dysarthria. Fully recovered at this time, back to baseline. Underlying etiology is unknown but most probably secondary to atrial fibrillation Will evaluate carotid ultrasound Starting oral anticoagulation Atrial Fibrillation with bradycardia -Secondary to beta oralia vs. AV node dysfunction -Hold Beta oralia at this time -Continue telemetry and will order Echo to assess EF and valvular function. [id number] score 5, yearly risk of stroke without oral anticoagulation is 6.8%. We will start Eliquis 5 mg twice daily and monitor. Hypertension, permissible Hypertension Hold beta-blockers for now. Planning to restart losartan, I will maintain his systolic blood pressure around 150 initially for better perfusion. Our target blood pressure on discharge is around 120 systolic. 4.) Hyperlipidemia -High dose statin therapy with Lipitor 80mg QD. Evaluate lipid profile 5.) Abdominal Aneurysm, reporting that he has abdominal aortic aneurysm measuring 4.8. Followed by primary care physician -No signs of rupture and not large enough to need surgical intervention at this time. 6.) CKD Stage 3b vs NANO -Patient reports history of nephrotic kidney disease, but doesn't follow with a cashier checker and doesn't know his baseline lab values. Cr today of 2.04 and GFR of 34. Unclear if this is NANO vs. CKD stage 3b. Electrolytes are w/in normal luke its at this time. -Will rehydrate with fluids and recheck with CMP in the morning. 7.) Leukocytosis -WBC today of 12.3. May be physiologic response to CVA and a fib. No clear signs of infectious causes at this time. Will monitor for now. Supervisory-Addendum Brief Verification & Attestation Participated in pt care: history, MDM, physical Personally performed: exam, history, MDM, supervision of care Care discussed with: Medical Student Procedures: n/a Results interpretation: Verified all documentation Verification and Attestation of Medical Student E/M Service A medical student performed and documented this service in my presence. I reviewed and verified all information documented by the medical student and made modifications to such information, when appropriate. I personally performed the physical exam and medical decision making. Patient was seen and evaluated, I examined and interviewed the patient, made few modification to the note using Italic font Alvina Henry, Aug 30, 2022,16:49 TOMY QUICK Aug 30, 2022 15:22 ALVINA HENRY MD Aug 30, 2022 16:49
--- NOTE | 2022-08-30 15:53 | Diagnostic Imaging Report ---
PROCEDURE: US carotid duplex, bilateral. INDICATION: 71-year-old male, stroke. History tobacco use, diabetes and hypertension. Dizziness. Blurred vision. TECHNIQUE: Multiple real-time grayscale images were obtained over the carotid arteries in various projections bilaterally. Additional spectral analysis and color Doppler and Duplex images were also obtained. CORRELATION: None FINDINGS: Color images demonstrate mild scattered atherosclerotic plaque to be present. Right carotid circulation: The right common carotid artery is normal in course and caliber. The right internal carotid artery is patent. No hemodynamically significant stenosis is present at this time. Right external carotid artery is patent. Left carotid circulation: The left common carotid artery is normal in course and caliber. The left internal carotid artery is patent. No hemodynamically significant stenosis is present at this time. Left external carotid artery is patent. Antegrade flow in the bilateral vertebral arteries. DOPPLER (peak systolic velocity M/S Right Left CCA .71 .87 ICA Proximal .56 .60 ICA Mid .39 .66 ICA Distal .48 .57 RATIO .78 .76 ECA 1.04 .57 VERT .42 .42 IMPRESSION: 1. Mild atherosclerosis involving bilateral carotid arteries. 2. No sonographic evidence to suggest a hemodynamically significant stenosis of the internal carotid arteries at this time. Parameters based on the consensus panel Fajardo-Scale and Doppler ultrasound criteria published August 2003, Radiology, Volume 229. Dictated by: Dictated on workstation # [id number]
--- NOTE | 2022-08-30 15:55 | Occ Therapy Progress Note ---
Therapy Progress Note OT orders received. Pt on hold per RN due to current medical status. OT will continue to monitor pt and initiate evaluation when pt is more medically stable and able to actively participate in skilled therapy. ZACH CAMPOVERDE OT Aug 30, 2022 15:54
[2022-08-30] MEDS ORDERED: LOSA100T57 PO (16:02)
[2022-08-30] MEDS ORDERED: ATOR80TA76 PO (16:02)
[2022-08-30] MEDS ORDERED: EMPA25TA PO (16:02)
[2022-08-30] MEDS ORDERED: TRAZ-227 PO (16:02)
[2022-08-30] MEDS ORDERED: VERA120T74 PO (16:02)
[2022-08-30] MEDS ORDERED: TERA5CAP10 PO (16:02)
[2022-08-30] MEDS ORDERED: METO200T48 PO (16:02)
[2022-08-30] MEDS ORDERED: ALPR1TAB7 PO (16:02)
[2022-08-30] MEDS ORDERED: BUSP10TA95 PO (16:02)
[2022-08-30] MEDS ORDERED: ASPI-1238 PO (16:02)
[2022-08-30] MEDS ORDERED: QUET200T29 PO (16:02)
[2022-08-30] MEDS ORDERED: LACTATED RINGERS 250 ML IV SCH (17:45)
[2022-08-30] MEDS: LACTATED RINGERS 1,000 ML IV SCH (18:30)
--- NOTE | 2022-08-30 19:39 | Diagnostic Imaging Report ---
PROCEDURE: MR imaging of the brain without contrast. TECHNIQUE: Multiplanar, multisequence MR imaging of the brain was performed without contrast. INDICATION: 71-year-old male with altered mental status with left-sided facial droop and possible CVA. COMPARISONS: CT head 08/30/2022. FINDINGS: Midline structures are not displaced. There are senescent changes in the brain with involutional changes and generalized atrophy. There is associated volume loss giving slight prominence of the extra-axial CSF spaces. No areas of diffusion restriction or diffusion signal abnormalities are seen to suggest acute or subacute ischemic injury. Background chronic areas of microvascular ischemic change seen. Fajardo-white differentiation is maintained. There is no sulcal effacement. There are no abnormal extra-axial fluid collections or hemorrhage. Petrous apices as well as the seventh and eighth nerve complexes are normal. The semicircular canals and cochlea show normal signal. Visualized vascular flow voids are unremarkable. Craniovertebral junction is normal. Sellar and suprasellar regions are unremarkable. Sinuses show slight fluid signal in the left maxillary sinus. There is also slight fluid signal in the mastoid air cells. Orbits are grossly unremarkable. IMPRESSION: 1. Senescent brain with involutional changes and generalized atrophy with volume loss and slight prominence of the extra-axial CSF spaces. 2. There are no areas of diffusion restriction or diffusion signal abnormalities to suggest acute or subacute ischemic injury. Dictated by: Dictated on workstation # [id number]
[2022-08-30] MEDS: busPIRone 10 MG (BUSPAR) TAB PO SCH (20:48)
[2022-08-30] MEDS: DOCUSATE SODIUM 100 MG (COLACE) CAP PO SCH (20:48)
[2022-08-30] MEDS: APIXABAN 5 MG (ELIQUIS) TABLET PO SCH (20:49)
[2022-08-30] MEDS: SENNOSIDES 8.6 MG (SENOKOT) TAB PO SCH (20:49)
[2022-08-30] MEDS ORDERED: QUEtiapine 200 MG (SEROquel) TAB IMMEDIATE RELEASE PO SCH (21:00)
[2022-08-31] VITALS: BP 140/103
[2022-08-31] MEDS: LACTATED RINGERS 1,000 ML IV SCH (03:44)
[2022-08-31 04:00] VITALS: BP 158/89
[2022-08-31 05:28] LABS: TRIGLYCERIDES 117 MG/DL (<150); VLDL CHOLESTEROL 23 MG/DL (5-40)
[2022-08-31 05:33] LABS: CHOLESTEROL 142 MG/DL (< 200)
[2022-08-31 05:34] LABS: HDL CHOLESTEROL 34 MG/DL (40-60)
[2022-08-31 07:46] LABS: BASOPHILS % (AUTO) 0 % (0-10); EOSINOPHILS % (AUTO) 0 % (0-10); HEMATOCRIT 39 % (40-54); LYMPHOCYTES # (AUTO) 1.1 10^3/uL (1.0-4.0); LYMPHOCYTES % (AUTO) 8 % (12-44); MEAN CORPUSCULAR HEMOGLOBIN 32 pg (25-34); MEAN CORPUSCULAR HGB CONC 33 g/dL (32-36); MEAN CORPUSCULAR VOLUME 95 fL (80-99); MEAN PLATELET VOLUME 12.5 fL (9.0-12.2); MONOCYTES # (AUTO) 1.7 10^3/uL (0.0-1.0); MONOCYTES % (AUTO) 11 % (0-12); NEUTROPHILS % (AUTO) 81 % (42-75); PLATELET COUNT 214 10^3/uL (130-400); WHITE BLOOD COUNT 14.8 10^3/uL (4.3-11.0)
--- NOTE | 2022-08-31 07:49 | Cardiology Progress Note ---
Subjective Date Seen by Provider: Aug 31, 2022 Time Seen by Provider: 07:45 Subjective/Events-last exam Patient was seen at bedside, feeling better, had few episodes of bradycardia at night probably due to sleep apnea. Review of Systems General: No Chills, No Night Sweats, No Fatigue, No Malaise, No Appetite, No Other HEENT: No Head Aches, No Visual Changes, No Eye Pain, No Ear Pain, No Dysphasia, No Sinus Congestion, No Post Nasal Drip, No Sore Throat, No Other Pulmonary: No Dyspnea, No Cough, No Pleuritic Chest Pain, No Other Cardiovascular: No: Chest Pain, Palpitations, Orthopnea, Paroxysmal Noc. Dyspnea, Edema, Lt Headedness, Other Objective-Cardiology Exam Last Set of Vital Signs Vital Signs 08/31/22 08/31/22 04:00 05:45 Temp 37.5 Pulse 64 Resp 17 B/P (MAP) 158/89 (112) Pulse Ox 97 O2 Delivery Nasal Cannula O2 Flow Rate 2.00 I&O Intake and Output 08/31/22 00:00 Intake Total 1000 ml Output Total 200 ml Balance 800 ml IV Total 1000 ml Output Urine Total 200 ml Daily Weight Change No General: Alert, Oriented X3, Cooperative HEENT: Atraumatic, PERRLA Neck: Supple, No JVD, No Thyromegaly Lungs: Clear to Auscultation, Normal Air Movement Heart: Normal S1, Normal S2, Other (Atrial fibrillation, systolic murmur) Abdomen: Normal Bowel Sounds, Soft, No Tenderness, No Hepatosplenomegaly, No Masses Extremities: No Clubbing, No Cyanosis, No Edema, Normal Pulses, No Tenderness/Swelling Skin: No Rashes, No Breakdown, No Significant Lesion Neuro: Normal Gait, Normal Speech, Strength at 5/5 X4 Ext, Normal Tone, Sensation Intact Psych/Mental Status: Mental Status NL, Mood NL Results Lab Laboratory Tests 08/30/22 10:50 A/P-Cardiology Admission Diagnosis TIA Persistent atrial fibrillation Hypertension Hyperlipidemia Abdominal aortic aneurysm Assessment/Plan Status post TIA Patient had right side facial droop with poor balance and dysarthria. Fully recovered at this time, back to baseline. Underlying etiology is unknown but most probably secondary to atrial fibrillation Will evaluate carotid ultrasound Starting oral anticoagulation Atrial Fibrillation with bradycardia -Secondary to beta oralia vs. AV node dysfunction in addition to sleep apnea Heart rate is better after discontinuation of beta-blockers. Continue to monitor. [id number] score 5, yearly risk of stroke without oral anticoagulation is 6.8%. Started on Eliquis 5 mg twice daily Hypertension, stopping metoprolol, continue losartan and monitor blood pressure Follow-up as an outpatient Hyperlipidemia, started on Lipitor 80 mg daily. Abdominal Aneurysm, reporting that he has abdominal aortic aneurysm measuring 4.8. Followed by primary care physician -No signs of rupture and not large enough to need surgical intervention at this time. CKD Stage 3b vs NANO Followed and managed by primary care physician Leukocytosis, followed and managed by primary care physician ZURI COLES MD Aug 31, 2022 07:49
[2022-08-31 07:52] LABS: POTASSIUM 4.2 MMOL/L (3.6-5.0)
[2022-08-31 07:54] LABS: CALCIUM 8.9 MG/DL (8.5-10.1)
[2022-08-31 07:58] LABS: CREATININE SERUM 1.76 MG/DL (0.60-1.30)
[2022-08-31 08:02] LABS: BAND NEUTROPHILS 0 %; BASOPHILS % (MANUAL) 0 %; EOSINOPHILS % (MANUAL) 0 %; LYMPHOCYTES % (MANUAL) 4 %; MONOCYTES % (MANUAL) 15 %; NEUTROPHILS % (MANUAL) 81 %; RBC MORPH NORMAL
[2022-08-31 08:35] VITALS: BP_SYST 154; BP_DIAS 11; BP_DIAS 111
[2022-08-31] MEDS: DOCUSATE SODIUM 100 MG (COLACE) CAP PO SCH (08:43)
[2022-08-31] MEDS: busPIRone 10 MG (BUSPAR) TAB PO SCH (08:43)
[2022-08-31] MEDS: SENNOSIDES 8.6 MG (SENOKOT) TAB PO SCH (08:44)
[2022-08-31] MEDS: APIXABAN 5 MG (ELIQUIS) TABLET PO SCH (08:44)
[2022-08-31 08:54] VITALS: BP 152/89
[2022-08-31] MEDS ORDERED: ASPIRIN 81 MG CHEW (CHILDREN'S ASA) PO SCH (09:00)
[2022-08-31 09:09] LABS: BILIRUBIN,URINE NEGATIVE (NEGATIVE); CLARITY,URINE CLEAR; COLOR,URINE YELLOW; GLUCOSE, URINE (UA) 3+ (NEGATIVE); KETONES,URINE NEGATIVE (NEGATIVE); LEUKOCYTE ESTERASE ,URINE NEGATIVE (NEGATIVE); NITRITE,URINE NEGATIVE (NEGATIVE); PROTEIN,URINE TRACE (NEGATIVE)
[2022-08-31 09:18] LABS: BACTERIA,URINE NEGATIVE /HPF; RBC,URINE 0-2 /HPF
--- NOTE | 2022-08-31 09:26 | Physical Therapy Evaluation ---
PT Evaluation-General Medical Diagnosis Admission Date Aug 30, 2022 at 13:09 Medical Diagnosis: A-fib/ischemic stroke Onset Date: Aug 30, 2022 Therapy Diagnosis Therapy Diagnosis: debility/weakness Height/Weight Height (Feet): 5 Height (Inches): 11.00 Weight (Pounds): 225 Weight (Ounces): 0.0 Precautions Precautions/Isolations: Fall Prevention, Standard Precautions Referral Physician: Wilfred Reason for Referral: Evaluation/Treatment Medical History Pertinent Medical History: HTN Current History EMS from physician's office due to stroke like symptoms (difficulty ambulating, left facial droop, dysarthria) Reviewed History: Yes Social History Home: Single Level Current Living Status: Spouse Entry Into Home: Stairs With Railing PT Steps Into Home: 4 Prior Prior Level of Function SCALE: Activities may be completed with or without assistive devices. 1-Tqlleiydac-jveecte completes the activity by him/herself with no assistance from a helper. 5-Set-up or Clean-up Assistance-helper sets up or cleans up; patient completes activity. West assists only prior to or following the activity. 4-Supervision or Touching Assistance-helper provides verbal cues and/or touching/steadying and/or contact guard assistance as patient completes activity. Assistance may be provided throughout the activity or intermittently. 3-Partial/Moderate Assistance-helper does LESS THAN HALF the effort. West lifts, holds or supports trunk or limbs, but provides less than half the effort. 2-Substantial/Maximal Assistance-helper does MORE THAN HALF the effort. West lifts or holds trunk or limbs and provides more than half the effort. 4-Tdcgkoysk-sgidbh does ALL the effort. Patient does none of the effort to complete the activity. Or, the assistance of 2 or more helpers is required for the patient to complete the activity. If activity was not attempted, code reason: 7-Patient Refused. 9-Not Applicable-not attempted and the patient did not perform the activity before the current illness, exacerbation or injury. 10-Not Attempted due to Environmental Limitations-(lack of equipment, weather restraints, etc.). 88-Not Attempted due to Medical Conditions or Safety Concerns. Bed Mobility: 6 Transfers (B,C,W/C): 6 Gait: 6 Stairs: 6 Indoor Mobility (Ambulation): Independent Stairs: Independent Prior Devices Use: None PT Evaluation-Current Subjective Patient agrees to PT. Objective Patient Orientation: Person, Time, Situation ROM/Strength ROM Lower Extremities bilateral LE WFL Strength Lower Extremities 4/5 grossly bilateral LE all planes Integumentary/Posture Bowel Incontinence: No Bladder Incontinence: No Posture WFL Neuromuscular (Tone, Coordination, Reflexes) grossly intact Sensory Vision: Functional Hearing: Impaired Transfers Sit to Lying (QC): 6 Lying to Sitting/Side of Bed(Q: 6 Sit to Stand (QC): 6 Chair/Rru-tx-Frnax Xfer(QC): 6 Gait Mode of Locomotion: Walk Anticipated Mode of Locomotion: Walk Walk 10 feet (QC): 6 Walk 50 ft with 2 Turns(QC): 6 Walk 150 ft (QC): 6 Distance: 300' Gait Assistive Device: FWW Comments/Gait Description safe and functional with no deviation Balance Sitting Static: Normal Sitting Dynamic: Normal Standing Static: Normal Standing Dynamic: Normal Assessment/Needs Patient is currently at independent PLOF with all gross motor skills safely and does not require skilled PT intervention. Rehab Potential: Fair PT Plan Treatment/Plan Treatment Plan: Discontinue PT, goals met Treatment Duration: Aug 31, 2022 Frequency: 1 time per week Estimated Hrs Per Day: .25 hour per day Patient and/or Family Agrees t: Yes Discharge Recommendations Therapy Discharge Recommendati: Home & Family Time Time In: 730 Time Out: 745 DATE: Aug 31, 2022 Total Billed Treatment Time: 15 Total Billed Treatment 1 visit EVMod 15 min RACHEL BRYANT PT Aug 31, 2022 09:26
--- NOTE | 2022-08-31 10:39 | Speech Therapy Progress Note ---
Therapy Progress Note Speech pathology received the consultation, reviewed the medical chart, and attempted the evaluation at 0810. At this time, the patient is undergoing an ECHO procedure. Per chart review, the patient reports his speech has returned to baseline. Additionally, the patient "passed" the RN bedside dysphagia screening. At this time, skilled speech pathology services are not warranted. If concerns arise, please re-consult speech pathology. Thank you. JENI ROSA Aug 31, 2022 10:39
[2022-08-31] MEDS ORDERED: APIX5TAB PO (11:15)
[2022-08-31 11:17] VITALS: BP 154/112
[2022-08-31] MEDS ORDERED: LOSA100T57 PO (11:19)
--- NOTE | 2022-08-31 11:29 | Occ Therapy Progress Note ---
Therapy Progress Note OT orders received and chart reviewed. Per patient and spouse, pt is back at baseline with self cares and declines any further OT services. He denies any visual/sensory deficits and is able to demonstrate full range and good strength and bilateral UE's. Per PT, pt independently ambulated ~300 feet this date. No further OT services warranted at this time. OT will discharge. 1 visit Lana Davis OT Aug 31, 2022 11:29
--- NOTE | 2022-08-31 11:42 | Short Stay Summary-Hospitalist ---
HODAN TATE A MED STUDENT 08/31/22 1142: History of Present Illness HPI/Chief Complaint Petros is a 71 yo male who presented to ED on 08/30 for right sided facial droop and dysarthria. Pt has hx of AAA, HTN, HLD, Chronic back pain and nephrotic syndrome. Pt reports he has extensive family hx of cardiovascular disease in father and siblings. He reports he developed right sided facial droop and dysarthria at 0830 on 08/30 and sought care in the ED. Upon further investigation he was found to be in Afib with bradycardia. Cardiology was consulted and beta oralia was stopped d/t bradycardia, pt was started on eliquis, statin and losartan. CT abd/pelvis showed stable AAA. CT head showed hyperdense MCA sign on the right with recommendation for CTA to follow. Pt had elevated BUN/Cr, so MRI was chosen over CTA. MRI showed generalized atrophy with no sign of ischemic injury. Carotid ultrasound showed mild atherosclerosis bilaterally. Pt's symptoms completely resolved and it was determined that this was d/t a TIA. Advised pt to f/u with Dr. Salas, PCP and Dr. Henry, media coordinator. Source: patient, family Date Seen 08/31/22 Time Seen by a Provider: 08:15 Attending Physician Joby Salas MD PCP Admitting Physician: Jessa Arzola MD Attending Physician: Jessa Arzola MD Referring Physician Date of Admission Aug 30, 2022 at 13:09 Home Medications & Allergies Home Medications Reviewed patient Home Medication Reconciliation performed by pharmacy medication reconciliations nanoscience technician and/or nursing. Patients Allergies have been reviewed. Allergies Allergies Coded Allergies naproxen (Verified Allergy, Intermediate, CAUSED KIDNEY DISEASE, 03/02/12) Past Medical/Social/Family Hx Patient Social History Marrital Status: Employed/Student: retired Tobacco Use?: No Smoking Status: Former Smoker Use of E-Cig and/or Vaping dev: No Substance use?: No Alcohol Use?: No Pt stated abuse/neglect: No Immunizations Up To Date Influenza Vaccine Up-to-Date: No; Not Current First/Initial COVID19 Vaccinat: 2020 Second COVID19 Vaccination Mike: 2020 Tetanus Booster (TDap): Unknown Date of Pneumonia Vaccine: Aug 26, 2016 Current Status Advance Directives: No Communicates: Verbally Primary Language: Djiboutian Preferred Spoken Language: [place]iboutian Is interpretation needed?: No Past Medical History 1. AAA - 4.0 cm as of December 2016, follows with [facility] in [place] 2. HTN 3. Hyperlipidemia 4. Insomnia 5. Arthritis 6. Erectile Dysfunction 7. BPH 8. Anxiety 9. Bulging Disks 10. Nephrotic Syndrome 11. Hx of Tobacco Abuse 12. Hx of renal biopsy Review of Systems Constitutional: No chills, No fever EENTM: No blurred vision, No double vision Respiratory: No cough, No short of breath Gastrointestinal: No dysphagia, No nausea, No vomiting Genitourinary: No decreased output, No dysuria, No frequency Musculoskeletal: No back pain, No gout, No joint swelling Skin: No change in color, No lesions, No lumps, No rash Psychiatric/Neurological: Denies Headache, Denies Numbness, Denies Weakness Physical Exam Physical Exam Vital Signs Vital Signs - First Documented 08/30/22 08/30/22 11: 14:00 Temp 36.4 Pulse 49 Resp 16 B/P (MAP) 132/85 (101) Pulse Ox 93 O2 Delivery Room Air Capillary Refill : Height, Weight, BMI Height: 5'11.00" Weight: 225lbs. 0.0oz. 102.267188bm; 30.82 BMI Method:Stated General Appearance: No Apparent Distress, WD/WN HEENT: PERRL/EOMI, Moist Mucous Membranes Neck: Full Range of Motion, Normal Inspection Respiratory: Chest Non Tender, Lungs Clear, Normal Breath Sounds, No Accessory Muscle Use, No Respiratory Distress Cardiovascular: No Edema, Normal Peripheral Pulses, Bradycardia, Irregularly Irregular, Other Gastrointestinal: Normal Bowel Sounds, Non Tender; No Rebound Extremity: Normal Capillary Refill, Non Tender, No Calf Tenderness, No Pedal Edema Neurologic/Psychiatric: Alert, Oriented x3, No Motor/Sensory Deficits, Normal Mood/Affect, rn internal medicine II-XII Norm as Tested; No Facial Droop, No Motor Weakness Skin: Normal Color, Warm/Dry Lymphatic: No Adenopathy Results Results/Procedures Labs Laboratory Tests 08/30/22 10:50 08/31/22 04:45 Patient resulted labs reviewed. Short Stay Diagnosis Discharge Diagnosis-Short Stay Admission Diagnosis Afib and ischemic stroke Final Discharge Diagnosis TIA and afib Conclusion Plan Afib with bradycardia -Started on eliquis -Stopped metoprolol d/t bradycardia TIA -CT head, CT pelvis/abd, MRI, carotid U/S were wnl ruling out stroke HTN -Started on losartan with systolic goal of <120 -No need to allow for permissive HTN since this was a TIA and not a stroke HLD -Started on statin Hx of nephrotic syndrome -Likely acute on chronic cause for elevated BUN and Cr -Discuss with Dr. Salas whether this needs to be followed up with neph rology F/u with Dr. Salas within 1 week. F/u with Dr. Henry Diagnosis/Problems Diagnosis/Problems (1) Transient ischemic attack (TIA) Onset Date: ~ 08/2022 Status: Acute Assessment & Plan: F/u with cardiology Take eliquis (2) AAA (abdominal aortic aneurysm) without rupture Status: Chronic Assessment & Plan: Continue to monitor, remained stable during hospitalization (3) Atrial fibrillation Status: Chronic Assessment & Plan: Started on eliquis to prevent risk for stroke, take this medication as prescribed Hold Metoprolol d/t bradycardia F/u with Dr. Henry (4) Bradycardia Status: Acute Assessment & Plan: Stop metoprolol JESSA ARZOLA MD 08/31/22 1618: History of Present Illness Source: patient, family Exam Limitations: no limitations Time Seen by a Provider: 10:00 Past Medical/Social/Family Hx Past Medical History HTN, HLD, CKD, AAA Family Medical History Family Hx: No pertinent history Results Results/Procedures Imaging: Reviewed Imaging Report Short Stay Diagnosis Conclusion Plan Presented with stroke like symptoms. Admitted with TIA. New onset atrial fibrillation with slow ventricular response. Stop Metoprolol due to bradycardia. Begin Eliquis for stroke prophylaxis. Follow up with Dr. Salas and Dr. Henry. Supervisory-Addendum Brief Verification & Attestation Participated in pt care: history, MDM, physical Personally performed: exam, history, MDM, supervision of care Care discussed with: Medical Student Procedures: n/a Results interpretation: Verified all documentation A medical student performed and documented this service in my presence. I reviewed and verified all information documented by the medical student and made modifications to such information, when appropriate. I personally performed the physical exam and medical decision making. HODAN TATE MED STUDENT Aug 31, 2022 11:42 JESSA ARZOLA MD Aug 31, 2022 16:18
[2022-08-31] MEDS ORDERED: LOSARTAN 100 MG (COZAAR) TABLET PO NR (12:00)
== END 2022-08-31 12:05 | disposition home or self-care (01) | DRG 69 ==
LOC: EDUNIT# 10:46 → ER 10:47 → CSD 13:09
PROVIDERS: ADMIT Internal Medicine; ATTEND Internal Medicine
DX: G45.9 Transient cerebral ischemic attack, unspecified (principal); I48.19 Other persistent atrial fibrillation; I48.92 Unspecified atrial flutter; R29.810 Facial weakness; R47.1 Dysarthria and anarthria; R26.9 Unspecified abnormalities of gait and mobility; I12.9 Hypertensive chronic kidney disease with stage 1 through stage 4 chronic kidney disease, or unspecified chronic kidney disease; N18.32 Chronic kidney disease, stage 3b; I71.40 Abdominal aortic aneurysm, without rupture, unspecified; E78.00 Pure hypercholesterolemia, unspecified; R00.1 Bradycardia, unspecified; G47.30 Sleep apnea, unspecified; Z82.49 Family history of ischemic heart disease and other diseases of the circulatory system; Z88.6 Allergy status to analgesic agent; Z23 Encounter for immunization
CPT/HCPCS: 36415; 70450; 70551; 71045; 74176; 80048; 80053; 80061; 81000; 84484; 85007; 85025; 85027; 85379; 85610; 85730; 90662; 93005; 93041; 93306; 93880; 94760

== ENCOUNTER → 2022-12-29 | Outpatient (CLI) | payer MEDICARE ==
[~2022-12-29] MED LIST changes: +ALPR1TAB7 PO; +APIX5TAB PO; +ASPI-1238 PO; +ATOR80TA76 PO; +BUSP10TA95 PO; +CATHETER FLUSH 10 ML SYR IVP PRN; +EMPA25TA PO; +METO200T48 PO; +QUET200T29 PO; +REGADENOSON 0.4 MG/5 ML SYR (LEXISCAN) IV ONE; +TRAZ-227 PO; +VERA120T74 PO
[2022-12-29 13:39] VITALS: BP 141/86
--- NOTE | 2022-12-29 15:42 | Cardiology Stress Test Report ---
Stress Test Report Date of Procedure/Referring: Date of Procedure: Dec 29, 2022 PCP Babak Phillips MD Admitting Physician Admitting Physician: Attending Physician: Jaida Jensen Indications: Atrial fibrillation Baseline Heart Rate: 55 Baseline Blood Pressure: Blood Pressure Systolic: 141 Blood Pressure Diastolic: 86 Baseline Vitals Vital Signs Date Time Temp Pulse Resp B/P (MAP) Pulse Ox O2 Delivery O2 Flow Rate FiO2 12/29/22 13:39 55 141/86 (104) 98 Baseline EKG: Baseline EKG: Atrial fibrillation Summary After explaining the procedure to the patient, he signed a consent and then brought to the stress nuclear laboratory. Patient received 0.4 mg Lexiscan for stress test, ECG, heart rate and blood pressure were monitored continuously. Resting and stress dose of radio tracer were injected, imaging was acquired and reviewed in short axis, horizontal long axis and vertical long axis views. TID: 1.04 SSS: 2 SDS: 2 EF: 56 Patient tolerated Lexiscan well Baseline atrial fibrillation persisted during test No significant ischemia or infarction noted on SPECT images Normal left ventricular size, ejection fraction 56%, gated images are unreliable due to underlying atrial fibrillation Copy Copies To 1: BABAK PHILLIPS MD, BASHAR J MD Dec 29, 2022 15:42
== END ==
LOC: CARD 11:22
PROVIDERS: ATTEND Physician Assistant
DX: I48.91 Unspecified atrial fibrillation (principal)
CPT/HCPCS: 78452; 93017; A9502

== ENCOUNTER → 2023-06-24 | Outpatient (CLI) | payer MEDICARE ==
[~2023-06-24] MED LIST changes: -CATHETER FLUSH 10 ML SYR IVP PRN; -LOSA100T57 PO; +LOSA100T58 PO; -REGADENOSON 0.4 MG/5 ML SYR (LEXISCAN) IV ONE
--- NOTE | 2023-06-24 15:28 | Diagnostic Imaging Report ---
INDICATION: Abdominal aortic aneurysm TECHNIQUE: Grayscale sonographic images of the abdominal aorta. CORRELATION STUDY: 07/03/2018 FINDINGS: Previous imaging with and infrarenal abdominal aortic aneurysm measuring up to 4.1 cm. Abdominal Aorta Proximal: 3.4 x 3.2 cm Mid: 3.0 x 4.1 cm Distal: 4.4 x 4.5 cm Common Iliac Arteries Right GONZALEZ: 1.6 x 1.4 cm Left GONZALEZ: 1.0 x 1.4 cm IMPRESSION: 1. Slight interval enlargement of a now 4.5 cm infrarenal abdominal aortic aneurysm. Dictated by: Dictated on workstation # [id number]
== END ==
LOC: RAD 08:36
PROVIDERS: ATTEND Physician Assistant
DX: I71.43 Infrarenal abdominal aortic aneurysm, without rupture (principal)
CPT/HCPCS: 76775